=== PATIENT | female | born 1945 | race Caucasian/White ===

== ENCOUNTER 2016-11-23 04:04 | Emergency (ER) | payer MEDICARE, OTHER ==
[~2016-11-23] VITALS: Ht 154.9 cm; Wt 68.0 kg
[~2016-11-23 04:04] MED LIST: AMLODIPINE BESYL5 MG PO; ANTIVERT25 MG PO; ASPIRIN EC325 MG PO; BUPROPION XL300 MG PO; CALTRATE 600 +1 EAC1 PO; CEPHALEXIN500 MG PO; CITALOPRAM HBR20 MG PO; DEXILANT60 MG PO; FLUOCINONIDE60 ML TP; GABAPENTIN100 MG PO; GABAPENTIN300 MG PO; HYDROCHLOROTHIA25 GM MC; HYDROCHLOROTHIA25 MG PO; KLOR-CON 1010 MEQ PO; LEVOTHYROXINE25 MCG PO; LIALDA1.2 GM PO; LISINOPRIL40 MG PO; LOPERAMIDE2 MG PO; LORTAB 5-500 T1 EACH PO; LOVENOX100 MG SUB-Q; MACROBID 100 M100 MG PO; METOPROLOL SUC100 MG PO; METOPROLOL TART25 MG PO; MOTRIN800 MG PO; MULTI-DAY VITA1 EACH PO; NICARDIPINE HCL30 MG PO; NITROGLYCERIN0.4 MG SL; NITROSTAT0.4 MG SL; NORCO 5-325 TA1 EACH PO; NORVASC10 MG PO; OMEPRAZOLE20 MG PO; OXYBUTYNIN CHLOR5 MG PO; PHENAZOPYRIDIN100 MG PO; PREDNISONE5 MG PO; PROAIR HFA8.5 GM IH; PROTONIX40 MG PO; SULFAZINE500 MG PO; TERBINAFINE HC250 MG PO; TORSEMIDE10 MG PO; VITAMIN D31000 UNIT PO; VITAMIN D35000 UNIT PO
[2016-11-23] MEDS ORDERED: LASIX40 MG PO (04:16)
== END 2016-11-23 04:30 | disposition home or self-care (01) ==
LOC: ED 04:04
DX: J06.9 Acute upper respiratory infection, unspecified (principal); E11.9 Type 2 diabetes mellitus without complications; I10 Essential (primary) hypertension; M35.3 Polymyalgia rheumatica; Z87.891 Personal history of nicotine dependence; Z90.49 Acquired absence of other specified parts of digestive tract; Z91.048 Other nonmedicinal substance allergy status; Z88.1 Allergy status to other antibiotic agents; Z88.5 Allergy status to narcotic agent; Z79.891 Long term (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 of opiate analgesic; Z79.52 Long term (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 of systemic steroids; Z79.899 Other long term (current) drug therapy; Z79.82 Long term (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 of aspirin
CPT/HCPCS: 99283

== ENCOUNTER 2017-07-05 20:16 | Emergency (ER) | payer MEDICARE, OTHER ==
[~2017-07-05] VITALS: Ht 154.9 cm; Wt 68.0 kg
--- OUTSIDE RECORDS SUMMARY | ~2017-07-05 | XMS | Encounter Summary ---
Demographics + + + | Address | [address] | | | [place] [address] | + + + | Home Phone | | + + + | Preferred Language | Unknown | + + + | Marital Status | Single | + + + | Anglican Affiliation | Unknown | + + + | Race | Unknown | + + + | Ethnic Group | Unknown | + + + Author + + + | Author | [facility] | | | and [place] | + + + | Organization | [facility] | | | and [place] | + + + | Address | Unknown | + + + | Phone | Unavailable | + + + Support + + + + + | Name | Relationship | Address | Phone | + + + + + | Kit Hyde | ECON | [address] | | | | | [place], | | | | | [place] [address] | | + + + + + | Crystal Hyde | ECON | Unknown | | + + + + + Care Team Providers + +------+ + | Care Systems Developer Name | Role | Phone | + +------+ + | Yoly Gamez | PCP | | + +------+ + Encounter Details +--------+ + + + + | Date | Type | Department | Care Team | Description | +--------+ + + + + | 05/18/ | Hospital | [facility] | Flaco Thorne MD | Dysphagia, | | 2018 | Encounter | [facility] | [address] | unspecified type | | | | [address] | [address] [place] | | | | | [place], [place] | [place] [address] | | | | | [address] | [phone] | | | | | [phone] | | | +--------+ + + + [...] + + + as of this encounter Last Filed Vital Signs + + + + | Vital Sign | Reading | Time Taken | + + + + | Blood Pressure | 149/75 | 05/18/2017 1345 PST | + + + + | Pulse | 58 | 05/18/2017 1400 PST | + + + + | Temperature | 36.3 C (97.3 F) | 05/18/2017 1330 PST | + + + + | Respiratory Rate | 14 | 05/18/2017 1330 PST | + + + + | Oxygen Saturation | 94% | 05/18/2017 1400 PST | + + + + | Inhaled Oxygen | - | - | | Concentration | | | + + + + | Weight | 71.7 kg (158 lb) | 05/18/2017 1253 PST | + + + + | Height | 160 cm (5' 3") | 05/18/2017 1253 PST | + + + + | Body Mass Index | 27.99 | 05/18/2017 1253 PST | + + + + in this encounter Discharge Instructions Erin Mesa RN - 05/18/2017Formatting of this note may be different from the carlos alberto ginal. Upper GI Endoscopy During endoscopy, a long, flexible tube is used to view the inside of your upper GI tract. Upper GI endoscopy allows your healthcare provider to look directly into the beginning of y our gastrointestinal (GI) tract. The esophagus, stomach, and duodenum (the first part of the small intestine) make up the upper GI tract. Before the exam Follow these and any other instructions you are given before your endoscopy. If you don t follow the healthcare provider s instructions carefully, the test may need to be canceled or done over: Don't eat or drink anything after midnight the night before your exam. If your exam is i n the afternoon, drink only clear liquids in the morning. Don't eat or drink anything for8 hours before the exam. In some cases, you may be able to take medicines with sips of water until 2 hours before the procedure. Speak with your healthcare provider about this. Bring your X-rays and any other test results you have. Because you will be sedated, arrange for an adult to drive you home after the exam. Tell your healthcare provider before the exam if you are taking any medicines or have an y medical problems. The procedure Here is what to expect: You will lie on the endoscopy table. Usually patients lie on the left side. You will be monitored and given oxygen. Your throat may be numbed with a spray or gargle. You are given medicine through an intr avenous (IV) line that will help you relax and remain comfortable. You may be awake or aslee p during the procedure. The healthcare provider will put the endoscope in your mouth and down your esophagus.I tis thinner than most pieces of food that you swallow. It will not affect your breathing. The medicine helps keep you from gagging. Air is put into your GI tract to expand it. It can make you burp. During the procedure, the healthcare provider can take biopsies (tissue samples), remove abnormalities, such as polyps, or treat abnormalities through a variety of devices placed t hrough the endoscope. You will not feel this. The endoscope carries images of your upper GI tract to a video screen. If you are awake, you may be able to look at the images. After the procedure is done, you will rest for a time. An adult must drive you home. When to call your healthcare provider Contact your healthcare provider if you have: Black or tarry stools, or blood in your stool Fever Pain in your belly that does not go away Nausea and vomiting, or vomiting blood Date Last Reviewed: 09/12/[id number] [employer]. [address] [place] [address], [place] [address]. All righ ts reserved. This information is not intended as a substitute for professional medical care. Always follow your healthcare professional's instructions. in this encounter Medications at Time of Discharge + + +---------+---------+ + + | Medication | Sig. | Disp. | Refills | Start | End Date | | | | | | Date | | + + +---------+---------+ + + | albuterol 2.5 mg/3 | Take 2.5 mg by | | 0 | 11/17/20 | | | mL nebulizer | nebulization every 4 | | | 17 | | | solution | hours as needed. | | | | | | | Uses as needed | | | | | + + +---------+---------+ + + | aspirin 325 mg EC | Take 325 mg by mouth | | | | | | tablet | Daily. 4 tablets | | | | | | | daily | | | | | + + +---------+---------+ + + | Blood Glucose | by Does not apply | | | | | | Monitoring Suppl | route. | | | | | | (ONE TOUCH ULTRA | | | | | | | MINI) w/Device KIT | | | | | | + + +---------+---------+ + + | buPROPion | Take 1 tablet by | 180 | 3 | 07/16/19 | | | (WELLBUTRIN SR) 200 | mouth 2 times daily. | tablet | | 17 | | | MG 12 hr tablet | | | | | | + + +---------+---------+ + + | calcium, as | Take 1,200 mg by | | | | | | carbonate, | mouth Daily. | | | | | | (CALTRATE) 600 mg | | | | | | | tablet | | | | | | + + +---------+---------+ + + | clobetasol | Apply topically as | | | 06/22/19 | | | (TEMOVATE) 0.05% | needed. | | | 15 | | | ointment | | | | | | + + +---------+---------+ + + | dexlansoprazole | Take 1 capsule by | 90 | 3 | 03/09/20 | | | (DEXILANT) [address] | mouth Daily. | capsule | | 17 | | | capsuleIndications: | | | | | | | Gastric reflux | | | | | | + + +---------+---------+ + + | FORTEO 600 | Inject under the | | | 07/01/19 | | | MCG/2.4ML injection | skin Daily. | | | 17 | | + + +---------+---------+ + + | furosemide (LASIX) | Take 1 tablet by | 90 | 3 | 03/01/20 | | | 40 mg tablet | mouth Daily. | tablet | | 17 | | + + +---------+---------+ + + | melatonin 3 mg | Take 3 mg by mouth | | | | | | TABS | Daily. | | | | | + + +---------+---------+ + + | metoprolol | TAKE 1 TABLET EVERY | 90 | 3 | 02/12/20 | | | succinate | DAY | tablet | | 17 | | | (TOPROL-XL) 100 mg | | | | | | | ER tablet | | | | | | + + +---------+---------+ + + | NIFEdipine | Take 60 mg by mouth | | | | | | (NIFEDICAL XL) 60 mg | Daily. As needed to | | | | | | ER tablet | relax esophagus | | | | | + + +---------+---------+ + + | ONE TOUCH ULTRA | Use to check blood | 100 | 11 | 03/09/20 | | | TEST | sugars daily. | each | | 17 | | | stripIndications: | | | | | | | Controlled type 2 | | | | | | | diabetes mellitus | | | | | | | without | | | | | | | complication, | | | | | | | without long-term | | | | | | | current use of | | | | | | | insulin (HCC) | | | | | | + + +---------+---------+ + + | ONE TOUCH | TEST once daily | 100 | 11 | 03/09/20 | | | ULTRASOFT LANCETS | | each | | 17 | | | MISCIndications: | | | | | | | Controlled type 2 | | | | | | | diabetes mellitus | | | | | | | without | | | | | | | complication, | | | | | | | without long-term | | | | | | | current use of | | | | | | | insulin (HCC) | | | | | | + + +---------+---------+ + + | oxygen | Inhale 2 L into the | | | | | | | lungs nightly. | | | | | + + +---------+---------+ + + | potassium chloride | TAKE 2 TABLETS EVERY | 180 | 3 | 01/19/20 | | | (KLOR-CON) 10 mEq | DAY | tablet | | 17 | | | CR tablet | | | | | | + + +---------+---------+ + + | predniSONE | Take 5 mg by mouth | | | 09/29/19 | | | (DELTASONE) 5 mg | Daily. | | | 15 | | | tablet | | | | | | + + +---------+---------+ + + | pregabalin | Take 1 capsule by | 90 | 2 | 01/13/20 | | | (LYRICA) 50 MG | mouth 3 times daily. | capsule | | 17 | 8 | | capsule | | | | | | + + +---------+---------+ + + | PROAIR HFA 108 (90 | Inhale 1 puff into | | | 08/09/19 | | | BASE) MCG/ACT | the lungs every 6 | | | 15 | | | inhaler | hours as needed. | | | | | + + +---------+---------+ + + | UNABLE TO FIND | Med Name: | | | | | | | Respironics | | | | | | | Dreamstation APAP | | | | | | | 5-15cm while | | | | | | | sleeping. | | | | | + + +---------+---------+ + + | nitrofurantoin | Take 1 capsule by | 10 | 0 | 05/17/19 | | | (MACROBID) 100 mg | mouth 2 times daily | capsule | | 18 | 8 | | capsuleIndications: | for 5 days. | | | | | | Uncomplicated | Indications: Simple | | | | | | Urinary Tract | Infection of the | | | | | | Infection | Urinary Tract | | | | | + + +---------+---------+ + + as of this encounter Plan of Treatment +--------+ + + + + | Date | Type | Specialty | Care Team | Description | +--------+ + + + + | 06/30/ | Procedure | Family Medicine | | | | 2018 | Pass | | | | +--------+ + + + + | 07/15/ | Appointment | Radiology | VeraYoly FNP | | | 2017 | | | [address] | | | | | | [place] | | | | | | [address] | | | | | | | | +--------+ + + + + | 07/15/ | Appointment | Radiology | VeraYoly FNP | | | 2017 | | | [address] | | | | | | [place] | | | | | | [address] | | | | | | | | | | | | Mechelle Lord, | | | | | | Technologist | | +--------+ + + + + | 07/15/ | Appointment | Radiology | VeraYoly FNP | | | 2017 | | | [address] | | | | | | [place] | | | | | | [address] | | | | | | | | | | | | Lorene Arthur, | | | | | | Senior Copywriter | | +--------+ + + + + | 08/01/ | Office | Family Medicine | Yoly Gamez FNP | | | 2017 | Visit | | [address] | | | | | | [place] | | | | | | [address] | | | | | | | | +--------+ + + + + | 08/02/ | Office | Sleep Medicine | Chu Davis PA | | | 2017 | Visit | | [address] | | | | | | [place] | | | | | | [address] | | | | | | | | +--------+ + + + + | 10/13/ | Office | Cardiology | Alpa Corcoran, | | | 2017 | Visit | | MD [address] | | | | | | [place], | | | | | | [place] [address] | | | | | | [phone] | | | | | | | | +--------+ + + + + as of this encounter Procedures + +--------+ + + + | Procedure Name | Priori | Date/Time | Associated Diagnosis | Comments | | | ty | | | | + +--------+ + + + | EGD | | 05/18/2017 | Dysphagia, | | | | | 1335 PST | unspecified type | | | | | | (R13.10), Advanced | | | | | | age (R54), History | | | | | | of stroke (Z86.73), | | | | | | On supplemental | | | | | | oxygen therapy | | | | | | (Z99.81) | | + +--------+ + + + +---+--------+ | | | | | Specia | | | l | | | Needs | | | Uses | | | cane | | | for | | | ambula | | | tion | +---+--------+ in this encounter Results EGD (05/18/2017 1309) + + + | Specimen | Performing Laboratory | + + + | | [facility] | + + + + + | Narrative | + + | Gastroenterology Patient Name: Giovana Perez Procedure Date: 05/18/2017 1:09 PM MRN: | | [id number] Date of : 1945 Admit Type: Ambulatory | | Age: 71 Room: [place] [address] Gender: Female Note Status: Finalized Attending MD: Flaco | | Deandre Thorne MD Procedure: Upper GI endoscopy Indications: | | Dysphagia Providers: Flaco Thorne MD, Lanie Colunga RN, | | Deann Patel RN, Hawk Pena CMA, Shay David | | MD Kofi (Anesthesia Staff) Referring | | MD: Yoly Gamez (Referring MD) Medicines: Monitored | | Anesthesia Care Complications: No immediate complications. Procedure: | | Pre-Anesthesia Assessment: - Prior to the procedure, a History and | | Physical was performed, and patient medications and allergies were reviewed. | | The patient is competent. The risks and benefits of the procedure and the | | sedation options and risks were discussed with the patient. All questions | | were answered and informed consent was obtained. Patient identification and | | proposed procedure were verified by the physician, the nurse, the | | anesthesiologist and the water supply technician in the pre-procedure area in the | | procedure room. Mental Status Examination: alert and oriented. Airway | | Examination: normal oropharyngeal airway and neck mobility. Respiratory | | Examination: clear to auscultation. CV Examination: normal. Prophylactic | | Antibiotics: The patient does not require prophylactic antibiotics. Prior | | Anticoagulants: The patient has taken no previous anticoagulant or | | antiplatelet agents. ASA Grade Assessment: III - A patient with severe | | systemic disease. After reviewing the risks and benefits, the patient was | | deemed in satisfactory condition to undergo the procedure. The anesthesia | | plan was to use monitored anesthesia care (MAC). Immediately prior to | | administration of medications, the patient was re-assessed for adequacy to | | receive sedatives. The heart rate, respiratory rate, oxygen saturations, | | blood pressure, adequacy of pulmonary ventilation, and response to care were | | monitored throughout the procedure. The physical status of the patient was | | re-assessed after the procedure. After obtaining informed consent, the | | endoscope was passed under direct vision. Throughout the procedure, the | | patient's blood pressure, pulse, and oxygen saturations were monitored | | continuously. The Endoscope was introduced through the mouth, and advanced to | | the third part of duodenum. The upper GI endoscopy was accomplished without | | difficulty. The patient tolerated the procedure well. Findings: | | The Z-line was irregular and was found 35 cm from the incisors. Biopsies were | | taken with a cold forceps for histology. Verification of patient | | identification for the specimen was done by the physician and nurse using the | | patient's name and date. Estimated blood loss was minimal. | | One benign-appearing, intrinsic stenosis was found. This stenosis was mildly | | severe and measured 1.4 cm (inner diameter) x less than one cm (in length). | | The stenosis was traversed. A guidewire was placed and the scope was | | withdrawn. Dilation was performed with a Savary dilator with no resistance at | | 48 Fr. The exam of the esophagus was otherwise normal. Diffuse | | mildly erythematous mucosa without bleeding was found in the entire examined | | stomach. Biopsies were taken with a cold forceps for histology. Verification | | of patient identification for the specimen was done by the physician and | | nurse using the patient's name and date. Estimated blood loss was | | minimal. Evidence of a Tara fundoplication was found in the gastric fundus. | | The wrap appeared tight. No other significant abnormalities were | | identified in a careful examination of the stomach. The examined | | duodenum was normal. Impression: - Z-line irregular, 35 cm from the incisors. | | Biopsied. - Benign-appearing esophageal stenosis. Dilated. - | | Erythematous mucosa in the stomach. Biopsied. - A Tara fundoplication was | | found. The wrap appears tight. - Normal examined duodenum. Recommendation: | | - Patient has a contact number available for emergencies. The signs and | | symptoms of potential delayed complications were discussed with the | | patient. Return to normal activities tomorrow. Written discharge instructions | | were provided to the patient. - Resume previous diet. - Continue | | present medications. - Await pathology results. - Repeat upper | | endoscopy for surveillance based on pathology results. - Return to GI clinic | | PRN. - The findings and recommendations were discussed with the patient. | | Flaco Thorne MD 05/18/2017 1:30:10 PM This report has been signed electronically. | | Number of Addenda: 0 Note Initiated On: 05/18/2017 1:09 PM Total Procedure Duration: 0 | | hours 9 minutes 25 seconds Scope In: 1:14:30 PM Scope Out: 1:23:55 PM | | [facility] [place] [address] | | [phone] | + + Surgical Pathology Exam (05/18/2017) + + + | Specimen | Performing Laboratory | + + + | | [facility] | + + + + + | Narrative | + + | SPECIMEN(S): A GASTRIC BIOPSY SPECIMEN(S): B GE JUNCTION SPECIMEN(S): C MID | | ESOPHAGEAL BIOPSY SPECIMEN SOURCE: A. GASTRIC BIOPSY B. GE JUNCTION C. MID | | ESOPHAGEAL BIOPSY CLINICAL HISTORY: R13.10 (dysphagia, unspecified), R54 | | (age-related physical debility , Z86.73 (Personal history of transient ischemic attack | | (TIA), and cerebral infarction without residual deficits), Z99.81 (Dependence on | | supplemental oxygen) MICROSCOPIC DESCRIPTION: Histologic sections of all submitted | | blocks are examined by light microscopy. These findings, together with the gross | | examination, support the pathologic diagnosis. FINAL PATHOLOGIC DIAGNOSIS: | | A. Gastric biopsy: - Gastric-type mucosa with focal slight chronic inflammation. | | - Reactive epithelial features. - Negative for definite dysplasia. | | - Negative for evidence of Helicobacter organisms on routine HE-stained sections. | | B. Gastroesophageal junction: - Gastroesophageal junction with focal specialized | | intestinal (goblet cell) metaplasia. - Focal mixed inflammation and reactive | | epithelial features. - Negative for definite dysplasia. C. Mid esophageal | | biopsy: - Benign esophageal mucosa, negative for increased epithelial eosinophils. | | JVR:caw:C2NR GROSS DESCRIPTION: Received in three parts. A. Received in | | formalin labeled "Giovana White" and "gastric bx" on the requisition are four pink-cai | | tissue fragments measuring from 0.15-0.3 cm, submitted, all in (A1). B. Received in | | formalin labeled "Giovana White" and "GE junction bx" on the requisition is a 0.5 x 0.3 x | | 0.2 cm villafana-pink and cai colored tissue fragments, submitted, all in (B1). C. | | Received in formalin labeled "Giovana White" and "mid esophageal bx" on the requisition | | are two villafana-cai tissue fragments measuring from 0.4-0.6 cm, submitted, all in (C1). | | ka:GABY:katerina PERFORMING LABORATORY: Tissue processing and slide preparation were | | performed by [facility], [address] [facility], [address], [place] [address] | | (Educational Resource Coordinator: Anirudh Roque M.D. CLIA#: [id number]). Professional interpretation | | was performed by [facility], [facility], [address] | | [facility], [place] [address] (Educational Resource Coordinator: Anirudh Roque M.D.; CLIA#: | | [id number]). Diagnostician: Anirudh Roque MD Pathologist Electronically | | Signed 05/20/2017 | + + in this encounter Visit Diagnoses + + | Diagnosis | + + | Dysphagia, unspecified type | + + Admitting Diagnoses + + | Diagnosis | + + | Dysphagia, unspecified type (R13.10), Advanced age (R54), History of stroke (Z86.73), On | | supplemental oxygen therapy (Z99.81) | + + Administered Medications + +--------+---------+------+------+------+ | Medication Order | MAR | Action | Dose | Rate | Site | | | Action | Date | | | | + +--------+---------+------+------+------+ + +---+ | albuterol 2.5 mg/3 mL nebulizer | | | solution 2.5 mg 2.5 mg, | | | Nebulization, ONCE PRN, Wheezing, | | | Starting 05/18/17 at 1239, For | | | 1 dose, RT will administer. | | + +---+ | | | + +---+ | albuterol 2.5 mg/3 mL nebulizer | | | solution 2.5 mg 2.5 mg, | | | Nebulization, ONCE PRN, Wheezing, | | | Starting 05/18/17 at 1330, For | | | 1 dose, Notify anesthesia if | | | patient is wheezing and does not | | | have a history of asthma or COPD | | | or current smoking. | | + +---+ | | | + +---+ | dextrose 50% injection 12.5-25 | | | g 12.5-25 g, Intravenous, EVERY | | | 15 MIN PRN, Low Blood Sugar, Give | | | 12.5g (25 mL) IV if blood | | | glucose 50-69 mg/dL. Give 25g | | | (50 mL) IV if blood glucose < 50, | | | Starting 05/18/17 at 1239, | | | Repeat in 15 min if blood glucose | | | remains < 70 mg/dL. Repeat | | | blood glucose in 30 min once | | | blood glucose > 70. | | + +---+ | | | + +---+ | dextrose 50% injection 12.5-25 | | | g 12.5-25 g, Intravenous, EVERY | | | 15 MIN PRN, Low Blood Sugar, For | | | hypoglycemia. Give 12.5g (25ml) | | | IV if blood glucose 50-69 | | | mg/dL. Give 25g (50ml) IV if | | | blood glucose < 50, Starting Wed | | | 05/18/17 at 1330, Give over 2 min. | | | Repeat in 15 min if blood | | | glucose remains < 70 mg/dL. | | | Repeat blood glucose in 30 min | | | once blood glucose > 70. | | + +---+ | | | + +---+ | fentaNYL (PF) injection 25-50 | | | mcg 25-50 mcg, Intravenous, | | | EVERY 5 MIN PRN, Pain, Starting | | | 05/18/17 at 1330, Maximum total | | | dose 250 mcg. PACU IV Narcotic | | | Priority: Only use fentanyl for | | | immediate post-op pain (one dose) | | | or breakthrough pain when any | | | other IV narcotics ordered have | | | been ineffective (if ordered). | | | If both morphine and | | | hydromorphone are ordered, use | | | morphine first, and use | | | hydromorphone if morphine | | | ineffective. | | + +---+ | | | + +---+ + +---------+ +---+---+---+ | lactated ringers (LR) infusion | New Bag | 05/18/2017 | | | | | at 10-100 mL/hr, Intravenous, | | 12:46 | | | | | CONTINUOUS, Starting 05/18/17 | | PST | | | | | at 1300, TKO. | | | | | | + +---------+ +---+---+---+ + +---+ | | | + +---+ | meperidine (DEMEROL) injection | | | 12.5-25 mg 12.5-25 mg, | | | Intravenous, PRN, Shivering, | | | Starting 05/18/17 at 1330, For | | | 2 doses, May Repeat once in 5 | | | min. | | + +---+ | | | + +---+ | ondansetron (ZOFRAN) injection | | | 4 mg 4 mg, Intravenous, ONCE | | | PRN, Nausea, Starting 05/18/17 | | | at 1239, For 1 dose, Pre-op | | + +---+ | | | + +---+ | ondansetron (ZOFRAN) injection | | | 4 mg 4 mg, Intravenous, ONCE | | | PRN, Nausea, Starting 05/18/17 | | | at 1330, For 1 dose, | | | Recovery/Phase I | | + +---+ | | | + +---+ in this encounter
--- OUTSIDE RECORDS SUMMARY | ~2017-07-05 | XMS | Encounter Summary ---
Demographics + + + | Address | [address] | | | [place] [address] | + + + | Home Phone | | + + + | Preferred Language | Unknown | + + + | Marital Status | Single | + + + | Jehovah'S Witness Affiliation | Unknown | + + + | Race | Unknown | + + + | Ethnic Group | Unknown | + + + Author + + + | Author | [facility] | | | and [place] | + + + | Organization | [facility] | | | and [place] | + + + | Address | Unknown | + + + | Phone | Unavailable | + + + Support + + + + + | Name | Relationship | Address | Phone | + + + + + | Kit Hyde | ECON | [address] | | | | | [place], | | | | | [place] [address] | | + + + + + | Crystal Hyde | ECON | Unknown | | + + + + + Care Team Providers + +------+ + | Care Intervention Analyst Name | Role | Phone | + +------+ + | Yoly Gamez | PCP | | + +------+ + Encounter Details +--------+ + + + + | Date | Type | Department | Care Team | Description | +--------+ + + + + | 06/10/ | Abstract | [facility] | Yoly Gamez FNP | | | 2017 | | MEDICINE [place] | [address] | | | | | [address] | [place] | | | | | [place] | [address] | | | | | [address] | | | | | | [phone] | | | +--------+ + + + [...] | Family Medicine | | | | 2017 | Pass | | | | +--------+ + + + + | 07/15/ | Appointment | Radiology | Yoly Gamez FNP | | | 2017 | | | [address] | | | | | | [place] | | | | | | [address] | | | | | | | | +--------+ + + + + | 07/15/ | Appointment | Radiology | Yoly Gamez FNP | | | 2017 | | | [address] | | | | | | [place] | | | | | | [address] | | | | | | | | | | | | Mechelle Lord, | | | | | | Technologist | | +--------+ + + + + | 07/15/ | Appointment | Radiology | Yoly Gamez FNP | | | 2017 | | | [address] | | | | | | [place] | | | | | | [address] | | | | | | | | | | | | Lorene Arthur, | | | | | | Learning And Development Intern | | +--------+ + + + + | 08/01/ | Office | Family Medicine | Yoly Gamez FNP | | | 2017 | Visit | | [address] | | | | | | [place] | | | | | | [address] | | | | | | | | +--------+ + + + + | 08/02/ | Office | Sleep Medicine | Chu Davis PA | | | 2017 | Visit | | [address] | | | | | | [place] | | | | | | [address] | | | | | | | | +--------+ + + + + | 10/13/ | Office | Cardiology | Alpa Corcoran, | | | 2017 | Visit | | [address] | | | | | | [place], | | | | | | [place] [address] | | | | | | [phone] | | | | | | | | +--------+ + + + + as of this encounter Results External Lab: Urinalysis (06/06/2017) + +-------+ + | Component | Value | Ref Range | + +-------+ + | UA Specific [place], | 1.020 | 1.005 - 1.03 | | External | | | + +-------+ + | UA Leukocyte | 500 | | | Esterase, External | | | + +-------+ + Urinalysis, Reflex Microscopic and/or Culture (06/06/2017) + + + + | Component | Value | Ref Range | + + + + | Color | brown | | + + + + | BILIRUBIN UA | 1 mg/dL (A) | Negative | + + + + | UROBILINOGEN UA | 1 mg/dL | < 0.2 mg/dL, 1.0 | | | | mg/dL, 4.0 mg/dL, | | | | Normal, 1.0 E.U./dL, | | | | 0.2 E.U./dL, 0.2 | | | | mg/dL, Negative, 1 | | | | mg/dL, <2.0 mg/dL | + + + + | NITRITE UA | Positive (A) | Negative | + + + + | BACTERIA UA | Negative | Negative /HPF | + + + + | MUCUS UA | | Negative /LPF | + + + + + + + | Specimen | Performing Laboratory | + + + | Urine | | + + + External Lab: Urinalysis (06/06/2017) + + + + | Component | Value | Ref Range | + + + + | UA Ketones, External | negative | | + + + + | UA Ph, External | 5 | 5 - 9 | + + + + External Lab: Urinalysis (06/06/2017) + +--------+ + | Component | Value | Ref Range | + +--------+ + | UA Glucose, External | normal | | + +--------+ + | UA Proteins, | 25 | | | External | | | + +--------+ + in this encounter Visit Diagnoses Not on filein this encounter"
--- OUTSIDE RECORDS SUMMARY | ~2017-07-05 | XMS | Encounter Summary ---
Demographics + + + | Address | [address] | | | [place] [address] | + + + | Home Phone | | + + + | Preferred Language | Unknown | + + + | Marital Status | Single | + + + | Mosque Affiliation | Unknown | + + + | Race | Unknown | + + + | Ethnic Group | Unknown | + + + Author + + + | Author | [facility] | | | and [place] | + + + | Organization | [facility] | | | and [place] | + + + | Address | Unknown | + + + | Phone | Unavailable | + + + Support + + + + + | Name | Relationship | Address | Phone | + + + + + | Kit Hyde | ECON | [address] | | | | | [place], | | | | | [place] [address] | | + + + + + | Crystal Hyde | ECON | Unknown | | + + + + + Care Team Providers + +------+ + | Care Blood Donor Unit Assistant Name | Role | Phone | + +------+ + | Yoly Gamez | PCP | | + +------+ + Encounter Details +--------+ + + + + | Date | Type | Department | Care Team | Description | +--------+ + + + + | 06/30/ | Procedure | [facility] [place] [facility] | | | | 2018 | Pass | MEDICINE [place] | | | | | | [address] | | | | | | [place] | | | | | | [address] | | | | | | [phone] | | | +--------+ + + + [...] [place] | | | | | | [address] | | | | | | | | +--------+ + + + + | 07/15/ | Appointment | Radiology | Yoly Gamez FNP | | | 2017 | | | [address] | | | | | | [place] | | | | | | [address] | | | | | | | | | | | | Mechelle Lord, | | | | | | Technologist | | +--------+ + + + + | 07/15/ | Appointment | Radiology | Yoly Gamez FNP | | | 2017 | | | [address] | | | | | | [place] | | | | | | [address] | | | | | | | | | | | | Lorene Arthur, | | | | | | Cab Station Attendant | | +--------+ + + + + | 08/01/ | Office | Family Medicine | Yoly Gamez FNP | | | 2017 | Visit | | [address] | | | | | | [place] | | | | | | [address] | | | | | | | | +--------+ + + + + | 08/02/ | Office | Sleep Medicine | Chu Davis PA | | | 2017 | Visit | | [address] | | | | | | [place] | | | | | | [address] | | | | | | | | +--------+ + + + + | 10/13/ | Office | Cardiology | Alpa Corcoran, | | | 2017 | Visit | | [place] [address] | | | | | | [place], | | | | | | [place] [address] | | | | | | [phone] | | | | | | | | +--------+ + + + + as of this encounter Visit Diagnoses Not on filein this encounter"
--- OUTSIDE RECORDS SUMMARY | ~2017-07-05 | XMS | Encounter Summary ---
Demographics + + + | Address | [address] | | | [place] [address] | + + + | Home Phone | | + + + | Preferred Language | Unknown | + + + | Marital Status | Single | + + + | Latter Day Affiliation | Unknown | + + + | Race | Unknown | + + + | Ethnic Group | Unknown | + + + Author + + + | Author | [facility] | | | and [place] | + + + | Organization | [facility] | | | and [place] | + + + | Address | Unknown | + + + | Phone | Unavailable | + + + Support + + + + + | Name | Relationship | Address | Phone | + + + + + | Kit Hyde | ECON | [address] | | | | | [place], | | | | | [place] [address] | | + + + + + | Crystal Hyde | ECON | Unknown | | + + + + + Care Team Providers + +------+ + | Care Hand Outside Cutter Name | Role | Phone | + +------+ + | Yoly Gamez | PCP | | + +------+ + Reason for Visit + + + | Reason | Comments | + + + | Urinary Tract | | | Infection | | + + + Encounter Details +--------+ + + + + | Date | Type | Department | Care Team | Description | +--------+ + + + + | 06/06/ | Telephone | [facility] | VeraYoly FNP | Urinary Tract | | 2018 | | [facility] [place] | [address] | Infection | | | | [address] | [place] | | | | | [place] | [address] | | | | | [address] | | | | | | [phone] | | | +--------+ + + + [...] [place] | | | | | | [id number] | | | | | | | | +--------+ + + + + | 07/15/ | Appointment | Radiology | Yoly Gamez FNP | | | 2017 | | | [address] | | | | | | [place] | | | | | | [address] | | | | | | | | | | | | Mechelle Lord, | | | | | | Technologist | | +--------+ + + + + | 07/15/ | Appointment | Radiology | Yoly Gamez FNP | | | 2017 | | | [address] | | | | | | [place] | | | | | | [address] | | | | | | | | | | | | Lorene Arthur, | | | | | | Deck Scaler | | +--------+ + + + + | 08/01/ | Office | Family Medicine | Yoly Gamez FNP | | | 2017 | Visit | | [address] | | | | | | [place] | | | | | | [address] | | | | | | | | +--------+ + + + + | 08/02/ | Office | Sleep Medicine | Chu Davis PA | | | 2017 | Visit | | [address] | | | | | | [place], [place] | | | | | | [address] | | | | | | | | +--------+ + + + + | 10/13/ | Office | Cardiology | Alpa Corcoran, | | | 2017 | Visit | | [place] [address] | | | | | | [place], | | | | | | [place] [address] | | | | | | [phone] | | | | | | | | +--------+ + + + + + +--------+ + + | Name | Priori | Associated Diagnoses | Order Schedule | | | ty | | | + +--------+ + + | Urinalysis with Microscopic with | Routin | Urgency of | Expected: | | Culture if Indicated | e | urination Pain | 06/06/2017, Expires: | | | | passing urine | 06/06/2018 | + +--------+ + + as of this encounter Visit Diagnoses + + | Diagnosis | + + | Urgency of urination - Primary | + + | Pain passing urine | + + | Dysuria | + +"
--- OUTSIDE RECORDS SUMMARY | ~2017-07-05 | XMS | Encounter Summary ---
Demographics + + + | Address | [address] | | | [place] [address] | + + + | Home Phone | | + + + | Preferred Language | Unknown | + + + | Marital Status | Single | + + + | Yarsani Affiliation | Unknown | + + + | Race | Unknown | + + + | Ethnic Group | Unknown | + + + Author + + + | Author | [facility] | | | and [place] | + + + | Organization | [facility] | | | and [place] | + + + | Address | Unknown | + + + | Phone | Unavailable | + + + Support + + + + + | Name | Relationship | Address | Phone | + + + + + | Kit Hyde | ECON | [address] | | | | | [place], | | | | | [place] [address] | | + + + + + | Crystal Hyde | ECON | Unknown | | + + + + + Care Team Providers + +------+ + | Care Bench Assembler Operator Name | Role | Phone | + +------+ + | Yoly Gamez | PCP | | + +------+ + Reason for Referral Diagnostic/Screening (Routine) + +--------+ + + + + | Status | Reason | Specialty | Diagnoses / | Referred By | Referred To | | | | | Procedures | Contact | Contact | + +--------+ + + + + | Authorized | | Radiology | Diagnoses | Buriani, | [facility] | | | | | Altered | Yoly, COMMUNITY HEALTH EDUCATOR | [address] | | | | | mental | [address] | [place], | | | | | status, | [address] [place] | [place] | | | | | unspecified | [place], [place] | [address] | | | | | altered | [address] | Phone: | | | | | mental | Phone: | [phone] | | | | | status type | [phone] | Fax: | | | | | History of | Fax: | [phone] | | | | | TIA | [phone] | | | | | | (transient | | | | | | | ischemic | | | | | | | attack) and | | | | | | | stroke | | | | | | | Procedures | | | | | | | ECHO | | | | | | | Complete | | | + +--------+ + + + + Diagnostic/Screening (Routine) + +--------+ + + + + | Status | Reason | Specialty | Diagnoses / | Referred By | Referred To | | | | | Procedures | Contact | Contact | + +--------+ + + + + | Authorized | | Radiology | Diagnoses | Buriani, | [facility] | | | | | Altered | Yoly, COMMUNITY HEALTH EDUCATOR | [address] | | | | | mental | [address] | [place], | | | | | status, | [address] [place] | [place] | | | | | unspecified | [place], [place] | [address] | | | | | altered | [address] | Phone: | | | | | mental | Phone: | [phone] | | | | | status type | [phone] | Fax: | | | | | History of | Fax: | [phone] | | | | | TIA | [phone] | | | | | | (transient | | | | | | | ischemic | | | | | | | attack) and | | | | | | | stroke | | | | | | | Procedures | | | | | | | MRI Brain w | | | | | | | wo Contrast | | | + +--------+ + + + + Evaluate & Treat (Routine) + + + + + + + | Status | Reason | Specialty | Diagnoses / | Referred By | Referred To | | | | | Procedures | Contact | Contact | + + + + + + + | Authorized | Specialty | Urology | Diagnoses | Buriani, | [facility] | | | Services | | Recurrent | Yoly, COMMUNITY HEALTH EDUCATOR | Urology [address] | | | Required | | UTI Renal | [address] | [address] | | | | | cyst, right | [address] [place] | [address] | | | | | | [place], [place] | [place], | | | | | | [address] | [place] [address] | | | | | | Phone: | Phone: | | | | | | [phone] | [phone] | | | | | | Fax: | Fax: | | | | | | [phone] | [phone] | + + + + + + + Reason for Visit + + + | Reason | Comments | + + + | Memory Or Cognitive | Tue she was nauseated and started having memory issues,she | | Changes | couldn't remember where she put things she was not able to do | | | anything like running the phone, tv remote lasting hr.She started | | | with a slight headache and head felt hot to touch,denies stroke | | | like symptoms.She started taking her Macrobid on 06/24.Family | | | member did a mini mental on her and the only problems she had was | | | with math and drawing the clock. | + + + Encounter Details +--------+---------+ + + + | Date | Type | Department | Care Team | Description | +--------+---------+ + + + | 06/30/ | Office | [facility] [place] [facility] | VeraYoly FNP | Altered mental | | 2018 | Visit | [facility] | [address] | status, unspecified | | | | [address] | [place] | altered mental | | | | [place] | [address] | status type (Primary | | | | [address] | | Dx); History of TIA | | | | [phone] | | (transient ischemic | | | | | | attack) and stroke; | | | | | | Recurrent UTI; Hx | | | | | | renal cyst, right - | | | | | | 06/2015; High | | | | | | cholesterol | +--------+---------+ + + + Social History + + [...] + + + | Blood Pressure | 172/82 | 06/30/2017940 PDT | + + + + | Pulse | 58 | 06/30/2017940 PDT | + + + + | Temperature | 37 C (98.6 F) | 06/30/2017940 PDT | + + + + | Respiratory Rate | 20 | 06/30/2017940 PDT | + + + + | Oxygen Saturation | 95% | 06/30/2017940 PDT | + + + + | Inhaled Oxygen | - | - | | Concentration | | | + + + + | Weight | 70 kg (154 lb 5.2 | 06/30/2017 0941 PDT | | | oz) | | + + + + | Height | 160 cm (5' 2.99") | 06/30/2017 0941 PDT | + + + + | Body Mass Index | 27.34 | 06/30/2017 0941 PDT | + + + + in this encounter Progress Notes Yoly Gamez, OSCAR - 06/30/2017 0930 PDTFormatting of this note may be different from the o bekainal. Subjective: Patient ID: Giovana Perez is a 71 y.o. female. HPI PMH: asthma, adrenal insufficiency, hypertension, hypothyroidism, peripheral nerve pain, os teoporosis, Crohn's disease, tubular adenoma colon, BETTY, diet controlled diabetes, depressio n, carotid stenosis right, esophageal reflux, esophageal dyskinesia, esophageal dysmotility (barium swallow 2013), diverticulosis, stroke, partial colectomy, savory dilation 02/28/14 Here today with caregiver, Sonali. Sonali has been her caregiver since 09/2016. She goes to [facility] [employer] [facility] x 3 hours each day, usually 11-2pm. Sonali would like to see if we can get Giovana qualified for additional hours. Currently Sonali is not supposed to drive her to appointment s but unfortunately patient has nobody else to take her and even if she were able to get tra nsportation she cannot go to the appointment alone due to memory difficulties with her histo ry. She currently is allowed 15 hours a week through [facility]. Message will be sent to [facility] to work on this. Altered mental status: Symptoms started 3 days ago. Noticed she was forgetting where she pu t things with mild headache which started 06/27/17 evening. She called and spoke with [facility] over the phone. The next day, more trouble, unable to use computer, phone, TV. No weaknes s. Caregiver was gone that day. Didn't last all day, symptoms only lasted about 1 hour. No s lurred speech. Son's mother in law is a nurse, she came over and ran her through tests for s troke, mini mental status exam, unable to draw clock correctly and unable to count backwards from 100 by 7, was able to answer all other questions appropriately. History of stroke appr oximately 20 years ago. Couple TIAs prior to stroke. Has carotid ultrasounds every 2 years, last was within the past year, at [facility]. Right carotid completely blocked. Dr Baez did surgery on left, approximately 20 years ago, after stroke. Last Brain MRI with stroke, 20 ye ars ago, [place]. Discuss options about getting a brain MRI, echo, ultrasound of the montaoñ tids now to workup for current possible TIA. We can hold off and see if symptoms occur and perform workup at that time. She would like to have a full workup run at this time, tests w ill be ordered. Recurrent UTIs: Currently being treated with Macrobid for UTI, started 06/24/17. All symptom s cleared after first Cipro prescription which was taken from 06/11-06/13. Symptoms returned ro ughly 06/21-06/22 and then recalled she was supposed to repeat urine and repeated it on the . Since started antibiotics symptoms improved but have not cleared, has enough to last thr ough Tuesday. Reviewed C&S, will change to doxycycline. She will repeat urinalysis 3-4 day s after completion of doxycycline. Several UTIs last year, but not back to back. Saw Dr Lizette garcía roughly 2-3 years ago, he found "something on right kidney", will obtain report. With tomas chan having 3 [id number] UTIs would like her to see urologist, she would like to see Gabriela Saucedo. Has diarrhea due to Crohn's, uses wet wipes after every diarrheal stool. This coul d be part of the difficulty with recurrent UTIs. She never had her lab work done, printed the lab order and she will get done in [place] w hen she goes into repeat the urinalysis. Uses her albuterol inhaler roughly 2 times a day, has never used a preventative inhaler, we likely need to discuss this and get her on a preventative inhaler. Unfortunately at this t katty we have run out of time to discuss anything further during this visit. She is coming ba ck in one month and we will discuss it at that time. Patient's medications, allergies, past medical, surgical, social and family histories were obtained and reviewed as appropriate. Current Outpatient Prescriptions: albuterol 2.5 mg/3 mL nebulizer solution, Take 2.5 mg by nebulization every 4 hours as needed. Uses as needed, Disp: , Rfl: 0 aspirin 325 mg EC tablet, Take 325 mg by mouth Daily. 4 tablets daily , Disp: , Rfl: Blood Glucose Monitoring Suppl (ONE TOUCH ULTRA MINI) w/Device KIT, by Does not apply route., Disp: , Rfl: buPROPion (WELLBUTRIN SR) 200 MG 12 hr tablet, Take 1 tablet by mouth 2 times daily., Disp: 180 tablet, Rfl: 3 calcium, as carbonate, (CALTRATE) 600 mg tablet, Take 1,200 mg by mouth Daily., Disp: , Rfl: ciprofloxacin (CIPRO) 250 mg tablet, Take 250 mg by mouth 2 times daily., Disp: , Rfl: clobetasol (TEMOVATE) 0.05% ointment, Apply topically as needed., Disp: , Rfl: dexlansoprazole (DEXILANT) [address] capsule, Take 1 capsule by mouth Daily., Disp: 90 capsule, Rfl: 3 doxycycline (VIBRAMYCIN) 100 mg capsule, Take 1 capsule by mouth 2 times daily for 10 days., Disp: 20 capsule, Rfl: 0 FORTEO 600 MCG/2.4ML injection, Inject under the skin Daily., Disp: , Rfl: furosemide (LASIX) 40 mg tablet, Take 1 tablet by mouth Daily. (Patient taking differe ntly: Take 20 mg by mouth Four times a week.), Disp: 90 tablet, Rfl: 3 melatonin 3 mg TABS, Take 3 mg by mouth Daily., Disp: , Rfl: metoprolol succinate (TOPROL-XL) 100 mg ER tablet, TAKE 1 TABLET EVERY DAY, Disp: 90 t ablet, Rfl: 3 NIFEdipine (NIFEDICAL XL) 60 mg ER tablet, Take 60 mg by mouth Daily. As needed to rel ax esophagus, Disp: , Rfl: nitrofurantoin (MACROBID) 100 mg capsule, Take 100 mg by mouth. Take twice daily x 10 days Indications: Simple Infection of the Urinary Tract, Disp: , Rfl: ONE TOUCH ULTRA TEST strip, Use to check blood sugars daily., Disp: 100 each, Rfl: 11 ONE TOUCH ULTRASOFT LANCETS MISC, TEST once daily, Disp: 100 each, Rfl: 11 oxygen, Inhale 2 L into the lungs nightly., Disp: , Rfl: potassium chloride (KLOR-CON) 10 mEq CR tablet, TAKE 2 TABLETS EVERY DAY, Disp: 180 ta blet, Rfl: 3 predniSONE (DELTASONE) 5 mg tablet, Take 5 mg by mouth Daily., Disp: , Rfl: pregabalin (LYRICA) 50 MG capsule, Take 1 capsule by mouth 3 times daily., Disp: 90 ca psule, Rfl: 2 PROAIR HFA 108 (90 BASE) MCG/ACT inhaler, Inhale 1 puff into the lungs every 6 hours a s needed., Disp: , Rfl: UNABLE TO FIND, Med Name: Respironics Dreamstation APAP 5-15cm while sleeping., Disp: , Rfl: Allergies Allergen Reactions Latex Rash Salmeron a hole in my skin. Paper or cloth tape is OK Metformin Rash Intolerance Allergen Reactions Codeine Patient's Preference "Brain freeze, I lose it" Adhesive & Tape Rash PAPER TAPE OKAY Atorvastatin Other (See Comments) Leg cramps Baclofen Other (See Comments) Hallucinations Methocarbamol Patient's Preference AKA "Robaxin" - Hallucinations Review of Systems Constitutional: Negative for chills, diaphoresis and fever. HENT: Negative for hearing loss and tinnitus. Eyes: Negative for blurred vision and double vision. Complaining of some visual changes, just not seen as well as she is to, due for eye ex am, get that scheduled soon. Respiratory: Positive for cough, shortness of breath and wheezing. Cardiovascular: Positive for leg swelling (Intermittently). Negative for chest pain and pal pitations. Gastrointestinal: Positive for diarrhea and nausea. Negative for abdominal pain, blood in s tool, constipation, melena and vomiting. Genitourinary: Positive for dysuria, frequency and urgency. Negative for flank pain and hem aturia. Skin: Positive for itching. Negative for rash. Neurological: Positive for dizziness and headaches. Negative for tingling and focal weaknes s. Chronic left-sided weakness from stroke over 20 years ago Psychiatric/Behavioral: Positive for depression. Negative for suicidal ideas. The patient i s nervous/anxious. Objective: BP 172/82 | Pulse 58 | Temp 37 C (98.6 F) (Temporal) | Resp 20 | Ht 1.6 m (5' 2.99" ) | Wt 70 kg (154 lb 5.2 oz) | SpO2 95% | BMI 27.34 kg/m Physical Exam Constitutional: She is well-developed, well-nourished, and in no distress. Vital signs are normal. HENT: Head: Normocephalic and atraumatic. Right Ear: Hearing normal. Left Ear: Hearing normal. Nose: Nose normal. Eyes: Pupils are equal, round, and reactive to light. Neck: Normal range of motion. Cardiovascular: Normal rate, regular rhythm, S1 normal, S2 normal and normal heart sounds. No murmur heard. Pulses: Posterior tibial pulses are 2+ on the right side, and 2+ on the left side. 1+ pitting edema bilaterally (she has not taken furosemide yet today). Pulmonary/Chest: Effort normal. No respiratory distress. She has no decreased breath sounds . She has no wheezes. She has no rhonchi. She has no rales. Abdominal: Soft. Bowel sounds are normal. There is no hepatosplenomegaly. There is no CVA t enderness. Musculoskeletal: Normal range of motion. Neurological: She is alert. She has normal motor skills. Gait normal. Skin: Skin is warm, dry and intact. Psychiatric: Mood and affect normal. Assessment/Plan: 1. Altered mental status, unspecified altered mental status type With history of stroke and prior TIAs, suspect possible TIA, patient would like full workup with brain MRI, carotid duplex, echocardiogram, all have been ordered and we'll get schedul ed. - MRI Brain w wo Contrast; Future - VAS Carotid Duplex Bilateral; Future - ECHO Complete; Future 2. History of TIA (transient ischemic attack) and stroke See #1 - MRI Brain w wo Contrast; Future - VAS Carotid Duplex Bilateral; Future - ECHO Complete; Future 3. Recurrent UTI Switch to doxycycline 100 mg twice a day for 10 days. Urinalysis 3-4 days after completion of antibiotics. Referral to urology for workup. Received previous note from Dr Cerda 06/13, he noted right renal cyst at that time. - doxycycline (VIBRAMYCIN) 100 mg capsule; Take 1 capsule by mouth 2 times daily for 10 day s. Dispense: 20 capsule; Refill: 0 - * [facility] Referral Get fasting labs in [place] when she goes into repeat urinalysis. Return in about 1 month (around 07/30/2017). Patient understands, accepts, and agrees with this plan. Portions of this report were trans cribed using [employer] voice recognition software. Although effort was made in c orrecting the errors; grammatical and sound alike errors may still be present. Greater than 40 minutes spent with patient regarding the above mentioned diagnoses in counseling and coor dination of care. in this encounter Plan of Treatment +--------+ + + + + | Date | Type | Specialty | Care Team | Description | +--------+ + + + + | 06/30/ | Procedure | Family Medicine | | | | 2017 | Pass | | | | +--------+ + + + + | 07/15/ | Appointment | Radiology | Yoly GamezOSCAR | | | 2017 | | | [address] | | | | | | [place] | | | | | | [address] | | | | | | | | +--------+ + + + + | 07/15/ | Appointment | Radiology | Yoly GamezOSCAR | | | 2017 | | | [address] | | | | | | [place] | | | | | | [address] | | | | | | | | | | | | Mechelle Lord, | | | | | | Technologist | | +--------+ + + + + | 07/15/ | Appointment | Radiology | Yoly GamezOSCAR | | | 2017 | | | [address] | | | | | | [place] | | | | | | [address] | | | | | | | | | | | | Lorene Arthur, | | | | | | Tank Car Reconditioner | | +--------+ + + + + | 08/01/ | Office | Family Medicine | Yoly Gamez FNP | | | 2017 | Visit | | [address] | | | | | | [place] | | | | | | [address] | | | | | | | | +--------+ + + + + | 08/02/ | Office | Sleep Medicine | Chu Davis PA | | | 2017 | Visit | | [address] | | | | | | [place] | | | | | | [address] | | | | | | | | +--------+ + + + + | 10/13/ | Office | Cardiology | Alpa Corcoran, | | | 2017 | Visit | | MD [address] | | | | | | [place] | | | | | | [place] [address] | | | | | | [phone] | | | | | | | | +--------+ + + + + + +--------+ + + | Name | Priori | Associated Diagnoses | Order Schedule | | | ty | | | + +--------+ + + | Lipid Panel | Routin | High cholesterol | Expected: | | | e | | 06/30/2017, Expires: | | | | | 06/30/2018 | + +--------+ + + | MRI Brain w wo Contrast | Routin | Altered mental | Expected: | | | e | status, unspecified | 06/30/2017, Expires: | | | | altered mental | 06/30/2018 | | | | status type History | | | | | of TIA (transient | | | | | ischemic attack) and | | | | | stroke | | + +--------+ + + | VAS Carotid Duplex Bilateral | Routin | Altered mental | Expected: | | | e | status, unspecified | 06/30/2017, Expires: | | | | altered mental | 06/30/2018 | | | | status type History | | | | | of TIA (transient | | | | | ischemic attack) and | | | | | stroke | | + +--------+ + + | ECHO Complete | Routin | Altered mental | Expected: | | | e | status, unspecified | 06/30/2017, Expires: | | | | altered mental | 06/30/2018 | | | | status type History | | | | | of TIA (transient | | | | | ischemic attack) and | | | | | stroke | | + +--------+ + + + +--------+ + + | Name | Priori | Associated Diagnoses | Order Schedule | | | ty | | | + +--------+ + + | * [facility] | Routin | Recurrent UTI Hx | Ordered: 06/30/2017 | | Referral | e | renal cyst, right - | | | | | 06/2015 | | + +--------+ + + as of this encounter Visit Diagnoses + + | Diagnosis | + + | Altered mental status, unspecified altered mental status type - Primary | + + | History of TIA (transient ischemic attack) and stroke | + + | Recurrent UTI | + + | Urinary tract infection, site not specified | + + | Hx renal cyst, right - 06/2015 | + + | Unspecified congenital cystic kidney disease | + + | High cholesterol | + + | Pure hypercholesterolemia | + +
--- OUTSIDE RECORDS SUMMARY | ~2017-07-05 | XMS | Encounter Summary ---
Demographics + + + | Address | [address] | | | [place] [address] | + + + | Home Phone | | + + + | Preferred Language | Unknown | + + + | Marital Status | Single | + + + | Adventism Affiliation | Unknown | + + + | Race | Unknown | + + + | Ethnic Group | Unknown | + + + Author + + + | Author | [facility] | | | and [place] | + + + | Organization | [facility] | | | and [place] | + + + | Address | Unknown | + + + | Phone | Unavailable | + + + Support + + + + + | Name | Relationship | Address | Phone | + + + + + | Kit Hyde | ECON | [address] | | | | | [place], | | | | | [place] [address] | | + + + + + | Crystal Hyde | ECON | Unknown | | + + + + + Care Team Providers + +------+ + | Care Levelman Name | Role | Phone | + +------+ + | Yoly Gamez | PCP | | + +------+ + Encounter Details +--------+ + + + + | Date | Type | Department | Care Team | Description | +--------+ + + + + | 05/18/ | Anesthesia | [facility] | Shay Kirby | | | 2018 | Event | [facility] | MD [place]ba [address] | | | | | [address] | [place], [place] | | | | | [place], [place] | [address] | | | | | [address] | | | | | | [phone] | | | +--------+ + + + + Anesthesia Record + + + + + | Procedure Name | Responsible | Anesthesia Start | Anesthesia Stop Time | | | Anesthesiologist | Time | | + + + + + | EGD (N/A Mouth) | Shay Kirby, | 05/18/17 1307 | 05/18/17 1330 | | | MD | | | + + + + + +----+---+ + + | Da | T | Event | Comment | | te | i | | | | | m | | | | | e | | | +----+---+ + + | 03 | 1 | An Checkout | Pre-use anesthesia machine/equipment checkout. | | /0 | 3 | | | | 7/ | 0 | | | | 20 | 4 | | | | 18 | | | | +----+---+ + + | | 1 | An Start | Reassessment prior to anesthesia induction/procedure. | | | 3 | | | | | 0 | | | | | 7 | | | +----+---+ + + | | 1 | AN | Per surgeon request | | | 3 | Antibiotic | | | | 0 | declined | | | | 8 | | | +----+---+ + + | | 1 | Pre-Procedu | | | | 3 | ral Timeout | | | | 0 | Completed | | | | 9 | | | +----+---+ + + | | 1 | An | | | | 3 | Induction | | | | 1 | | | | | 0 | | | +----+---+ + + | | 1 | Breathing | | | | 3 | Spontaneous | | | | 1 | ly | | | | 0 | | | +----+---+ + + | | 1 | First | | | | 3 | Inc/Proc St | | | | 1 | | | | | 3 | | | +----+---+ + + | | 1 | Breathing | | | | 3 | Spontaneous | | | | 2 | ly | | | | 8 | | | +----+---+ + + | | 1 | An Stop | Patient handed off to recovery nurse. | | | 3 | | | | | 0 | | | +----+---+ + + +------+ | Meds | +------+ + +--------+ | Name | Total | + +--------+ | lidocaine 2% | 60 mg | + +--------+ | propofol | 250 mg | + +--------+ | lactated ringers (LR) infusion | 250 mL | + +--------+ + + | Name | + + | O2 Flow Rate (L/Min) | + + + + | No blood administrations on file. | + + +--------+ + + + | Type | Details | Placement | Removal | +--------+ + + + | [READ | 05/07/14; 1119; Hematology, | 05/07/14 1119 by | 05/18/17 1330 by | | ONLY] | Chemistry, Coagulation ([place]); | Amaris Clark RN | Erin Veloz | | | 05/18/17; 1330 | | [facility] | | Periph | | | | | eral | | | | | IV - | | | | | Single | | | | | Lumen | | | | | | | | | +--------+ + + + | Periph | 05/18/17; 1258; Right; Hand; | 05/18/17 1258 by | 05/18/17 1407 by | | eral | hvmd-umc-iftyng catheter system; | Zoey Puente RN | Erin Veloz | | IV | 20 gauge; 0; topical anesthetic | | [facility] | | | spray applied; 05/18/17; 1407 | | | +--------+ + + + in this encounter Social History + + + +--------+ + [...] | 2017 | | | [address] | | | | | | [place] | | | | | | [address] | | | | | | | | +--------+ + + + + | 07/15/ | Appointment | Radiology | Yoly Gamez FNP | | | 2017 | | | [address] | | | | | | [place] | | | | | | [address] | | | | | | | | | | | | Mechelle Lord, | | | | | | Technologist | | +--------+ + + + + | 07/15/ | Appointment | Radiology | Yoly Gamez FNP | | | 2017 | | | [address] | | | | | | [place] | | | | | | [address] | | | | | | | | | | | | Lorene Arthur, | | | | | | Radiologist Physician | | +--------+ + + + + | 08/01/ | Office | Family Medicine | Yoly Gamez FNP | | | 2017 | Visit | | [address] | | | | | | [place] | | | | | | [address] | | | | | | | | +--------+ + + + + | 08/02/ | Office | Sleep Medicine | Chu Davis PA | | | 2017 | Visit | | [address] | | | | | | [place] | | | | | | [address] | | | | | | | | +--------+ + + + + | 10/13/ | Office | Cardiology | Alpa Corcoran, | | | 2017 | Visit | | MD [address] | | | | | | [place], | | | | | | [place] [address] | | | | | | [phone] | | | | | | | | +--------+ + + + + as of this encounter Visit Diagnoses Not on filein this encounter Administered Medications + +---------+ +------+------+------+ | Medication Order | MAR | Action | Dose | Rate | Site | | | Action | Date | | | | + +---------+ +------+------+------+ | lactated ringers (LR) infusion | New Bag | 05/18/2017 | | | | | at 10-100 mL/hr, Intravenous, | | 12:46 | | | | | CONTINUOUS, Starting 05/18/17 | | PST | | | | | at 1300, TKO. | | | | | | + +---------+ +------+------+------+ +---+---+ | | | +---+---+ + +-------+ +-------+---+---+ | lidocaine (PF) 2% injection | Given | 05/18/2017 | 60 mg | | | | Intravenous, PRN, Starting Wed | | 13:10 | | | | | 05/18/17 at 1310, Anesthesia | | PST | | | | | Intra-op | | | | | | + +-------+ +-------+---+---+ +---+---+ | | | +---+---+ + +-------+ +--------+---+---+ | propofol (DIPRIVAN) injection | Given | 05/18/2017 | 100 mg | | | | Intravenous, PRN, Starting Wed | | 13:12 | | | | | 05/18/17 at 1312, Anesthesia | | PST | | | | | Intra-op | | | | | | + +-------+ +--------+---+---+ +-------+ +--------+---+---+ | Given | 05/18/2017 | 100 mg | | | | | 13:15 | | | | | | PST | | | | +-------+ +--------+---+---+ | Given | 05/18/2017 | 50 mg | | | | | 13:20 | | | | | | PST | | | | +-------+ +--------+---+---+ +---+---+ | | | +---+---+ in this encounter"
--- OUTSIDE RECORDS SUMMARY | ~2017-07-05 | XMS | Encounter Summary ---
Demographics + + + | Address | [address] | | | [place] [address] | + + + | Home Phone | | + + + | Preferred Language | Unknown | + + + | Marital Status | Single | + + + | Gnosticist Affiliation | Unknown | + + + | Race | Unknown | + + + | Ethnic Group | Unknown | + + + Author + + + | Author | [facility] | | | and [place] | + + + | Organization | [facility] | | | and [place] | + + + | Address | Unknown | + + + | Phone | Unavailable | + + + Support + + + + + | Name | Relationship | Address | Phone | + + + + + | Kit Hyde | ECON | [address] | | | | | [place], | | | | | [place] [address] | | + + + + + | Crystal Hyde | ECON | Unknown | | + + + + + Care Team Providers + +------+ + | Care Radiology Ct Technologist Name | Role | Phone | + +------+ + | Yoly Gamez | PCP | | + +------+ + Reason for Visit + + + | Reason | Comments | + + + | Altered Mental | | | Status | | + + + Encounter Details +--------+ + + + + | Date | Type | Department | Care Team | Description | +--------+ + + + + | 06/28/ | Telephone | [facility] | Vera YolyOSCAR | Altered Mental | | 2018 | | [facility] [place] | [address] | Status | | | | [address] | [place] | | | | | [place] | [address] | | | | | [address] | | | | | | [phone] | | | +--------+ + + + [...] [place] | | | | | | [id number] | | | | | | | | +--------+ + + + + | 07/15/ | Appointment | Radiology | Yoly Gamez FNP | | | 2017 | | | [address] | | | | | | [place] | | | | | | [address] | | | | | | | | | | | | Mechelle Lord, | | | | | | Technologist | | +--------+ + + + + | 07/15/ | Appointment | Radiology | Yoly Gamez FNP | | | 2017 | | | [address] | | | | | | [place] | | | | | | [address] | | | | | | | | | | | | Lorene Arthur, | | | | | | Supervisor Blasting | | +--------+ + + + + | 08/01/ | Office | Family Medicine | Yoly Gamez FNP | | | 2017 | Visit | | [address] | | | | | | [place] | | | | | | [address] | | | | | | | | +--------+ + + + + | 08/02/ | Office | Sleep Medicine | Chu Davis PA | | | 2017 | Visit | | [address] | | | | | | [place] | | | | | | [id number] | | | | | | | | +--------+ + + + + | 10/13/ | Office | Cardiology | Alpa Corcoran, | | | 2017 | Visit | | MD [address] | | | | | | [place], | | | | | | [place] [address] | | | | | | [phone] | | | | | | | | +--------+ + + + + as of this encounter Visit Diagnoses Not on filein this encounter"
--- OUTSIDE RECORDS SUMMARY | ~2017-07-05 | XMS | Clinical Summary ---
Demographics + + + | Address | [address] | | | [place] [address] | + + + | Home Phone | | + + + | Preferred Language | Unknown | + + + | Marital Status | Single | + + + | Yazidism Affiliation | Unknown | + + + | Race | Unknown | + + + | Ethnic Group | Unknown | + + + Author + + + | Author | [facility] | | | and [place] | + + + | Organization | [facility] | | | and [place] | + + + | Address | Unknown | + + + | Phone | Unavailable | + + + Support + + + + + | Name | Relationship | Address | Phone | + + + + + | Kit Hyde | ECON | [address] | | | | | [place], | | | | | [place] [address] | | + + + + + | Crystal Hyde | ECON | Unknown | | + + + + + Care Team Providers + +------+ + | Care Technical Operations Specialist Name | Role | Phone | + +------+ + | Yoly Gamez | PP | | + +------+ + Allergies + + + + + + | Active Allergy | Reactions | Severity | Noted | Comments | | | | | Date | | + + + + + + | Adhesive & Tape | Rash | Low | 06/05/19 | PAPER TAPE OKAY | | | | | 14 | | + + + + + + | Atorvastatin | Other (See Comments) | Low | 07/08/19 | Leg cramps | | | | | 16 | | + + + + + + | Baclofen | Other (See Comments) | Low | 09/27/19 | Hallucinations | | | | | 15 | | + + + + + + | Codeine | Patient's Preference | Medium | 01/09/20 | "Brain freeze, I | | | | | 14 | lose it" | + + + + + + | Latex | Rash | Low | 06/05/19 | Salmeron a hole in my | | | | | 14 | skin. Paper or | | | | | | cloth tape is OK | + + + + + + | Metformin | Rash | Low | 11/02/19 | | | | | | 17 | | + + + + + + | Methocarbamol | Patient's Preference | Low | 08/11/19 | AKA "[email or web address]" - | | | | | 17 | Hallucinations | + + + + + + Current Medications + + +---------+---------+------+------+-------+ | Prescription | Sig. | Disp. | Refills | Star | End | Statu | | | | | | t | Date | s | | | | | | Date | | | + + +---------+---------+------+------+-------+ | PROAIR HFA 108 (90 | Inhale 1 puff into | | | 05/2 | | Activ | | BASE) MCG/ACT | the lungs every 6 | | | 8/20 | | e | | inhaler | hours as needed. | | | 15 | | | + + +---------+---------+------+------+-------+ | clobetasol | Apply topically as | | | 04/ | | Activ | | (TEMOVATE) 0.05% | needed. | | | 0/20 | | e | | ointment | | | | 15 | | | + + +---------+---------+------+------+-------+ | predniSONE | Take 5 mg by mouth | | | 07/ | | Activ | | (DELTASONE) 5 mg | Daily. | | | 820 | | e | | tablet | | | | 15 | | | + + +---------+---------+------+------+-------+ | UNABLE TO FIND | Med Name: | | | | | Activ | | | Respironics | | | | | e | | | Dreamstation APAP | | | | | | | | 5-15cm while | | | | | | | | sleeping. | | | | | | + + +---------+---------+------+------+-------+ | oxygen | Inhale 2 L into the | | | | | Activ | | | lungs nightly. | | | | | e | + + +---------+---------+------+------+-------+ | aspirin 325 mg EC | Take 325 mg by mouth | | | | | Activ | | tablet | Daily. 4 tablets | | | | | e | | | daily | | | | | | + + +---------+---------+------+------+-------+ | buPROPion | Take 1 tablet by | 180 | 3 | 05/0 | | Activ | | (WELLBUTRIN SR) 200 | mouth 2 times daily. | tablet | | 4/20 | | e | | MG 12 hr tablet | | | | 17 | | | + + +---------+---------+------+------+-------+ | calcium, as | Take 1,200 mg by | | | | | Activ | | carbonate, | mouth Daily. | | | | | e | | (CALTRATE) 600 mg | | | | | | | | tablet | | | | | | | + + +---------+---------+------+------+-------+ | FORTEO 600 | Inject under the | | | 04/1 | | Activ | | MCG/2.4ML injection | skin Daily. | | | 9/20 | | e | | | | | | 17 | | | + + +---------+---------+------+------+-------+ | NIFEdipine | Take 60 mg by mouth | | | | | Activ | | (NIFEDICAL XL) 60 mg | Daily. As needed to | | | | | e | | ER tablet | relax esophagus | | | | | | + + +---------+---------+------+------+-------+ | melatonin 3 mg | Take 3 mg by mouth | | | | | Activ | | TABS | Daily. | | | | | e | + + +---------+---------+------+------+-------+ | pregabalin | Take 1 capsule by | 90 | 2 | 11/0 | 11/0 | Activ | | (LYRICA) 50 MG | mouth 3 times daily. | capsule | | /20 | 20 | e | | capsule | | | | 17 | 18 | | + + +---------+---------+------+------+-------+ | potassium chloride | TAKE 2 TABLETS EVERY | 180 | 3 | 11/0 | | Activ | | (KLOR-CON) 10 mEq | DAY | tablet | | 20 | | e | | CR tablet | | | | 17 | | | + + +---------+---------+------+------+-------+ | metoprolol | TAKE 1 TABLET EVERY | 90 | 3 | 12/0 | | Activ | | succinate | DAY | tablet | | 04/02 | | e | | (TOPROL-XL) 100 mg | | | | 17 | | | | ER tablet | | | | | | | + + +---------+---------+------+------+-------+ | furosemide (LASIX) | Take 1 tablet by | 90 | 3 | 12/1 | | Activ | | 40 mg tablet | mouth Daily. | tablet | | /20 | | e | | | | | | 17 | | | + + +---------+---------+------+------+-------+ | albuterol 2.5 mg/3 | Take 2.5 mg by | | 0 | 11/ | | Activ | | mL nebulizer | nebulization every 4 | | | 09/30 | | e | | solution | hours as needed. | | | 17 | | | | | Uses as needed | | | | | | + + +---------+---------+------+------+-------+ | dexlansoprazole | Take 1 capsule by | 90 | 3 | 12/2 | | Activ | | (DEXILANT) [address] | mouth Daily. | capsule | | 09/30 | | e | | capsuleIndications: | | | | 17 | | | | Gastric reflux | | | | | | | + + +---------+---------+------+------+-------+ | ONE TOUCH ULTRA | Use to check blood | 100 | 11 | 12/2 | | Activ | | TEST | sugars daily. | each | | 09/30 | | e | | stripIndications: | | | | 17 | | | | Controlled type 2 [...] (HCC) | | | | | | | + + +---------+---------+------+------+-------+ | ONE TOUCH | TEST once daily | 100 | 11 | 12/2 | | Activ | | ULTRASOFT LANCETS | | each | | 09/30 | | e | | MISCIndications: | | | | 17 | | | | Controlled type 2 [...] (HCC) | | | | | | | + + +---------+---------+------+------+-------+ | Blood Glucose | by Does not apply | | | | | Activ | | Monitoring Suppl | route. | | | | | e | | (ONE TOUCH ULTRA | | | | | | | | MINI) w/Device KIT | | | | | | | + + +---------+---------+------+------+-------+ | ciprofloxacin | Take 250 mg by mouth | | | | | Activ | | (CIPRO) 250 mg | 2 times daily. | | | | | e | | tablet | | | | | | | + + +---------+---------+------+------+-------+ | nitrofurantoin | Take 100 mg by | | | | | Activ | | (MACROBID) 100 mg | mouth. Take twice | | | | | e | | capsuleIndications: | daily x 10 days | | | | | | | Uncomplicated | Indications: Simple | | | | | | | Urinary Tract | Infection of the | | | | | | | Infection | Urinary Tract | | | | | | + + +---------+---------+------+------+-------+ | doxycycline | Take 1 capsule by | 20 | 0 | / | 042 | Activ | | (VIBRAMYCIN) 100 mg | mouth 2 times daily | capsule | | 12/01 | 12/01 | e | | capsuleIndications: | for 10 days. | | | 18 | 18 | | | Recurrent UTI | | | | | | | + + +---------+---------+------+------+-------+ | beclomethasone HFA | Inhale 1 puff into | 1 | 0 | 04/2 | | Activ | | (RAVEN CLEMONS) 40 | the lungs 2 times | Inhaler | | 20 | | e | | mcg/puff inhaler | daily. | | | 18 | | | + + +---------+---------+------+------+-------+ Active Problems + + + | Problem | Noted Date | + + + | Beta Justyna - Daily Use | 05/18/2017 | + + + | H/O Lumbar Fusion - L2-5 LAIF - 04/2014 | 05/18/2017 | + + + + + | Overview: 04/23/2014 - L2-3, L3-4, L4-5 Lateral Anterior | | Lumbar Interbody Fusion, Jb Aden DO | + + + + + | Advanced age | 04/25/2017 | + + + | On supplemental oxygen therapy | 04/25/2017 | + + + | Vitamin D deficiency | 03/15/2017 | + + + | Diabetes mellitus type II - DIET Control | 03/15/2017 | + + + | Decreased GFR | 03/15/2017 | + + + | Left sided sciatica | 03/15/2017 | + + + | Weakness of both lower extremities | 03/15/2017 | + + + | Upper extremity weakness | 03/15/2017 | + + + | Hx of Dilation of esophagus - 02/2014 | 03/15/2017 | + + + | Gastroesophageal reflux disease | 03/15/2017 | + + + | Adrenal insufficiency (HCC) | 03/09/2017 | + + + | BETTY (obstructive sleep apnea) on CPAP | 12/09/2014 | + + + | Peripheral arterial disease (HCC) | 11/14/2014 | + + + | Claudication of both lower extremities (HCC) | 11/14/2014 | + + + + + | Overview: Arterial profile with stress on 11/14/2014 shows mild | | diffuse arterial occlusive disease, left slightly greater than | | the right, this does correlate with diminished MAURICIO on the left, | | negative for vascular claudication. | + + + + + | Right leg weakness | 11/07/2014 | + + + + + | Overview: MRI Brain, with and without contrast, 11/07/2014 | | shows Smaller caliber of the flow void of the imaged distal right | | internal carotid artery relative to that on the left, likely | | related to collateral flow to this vessel in the setting of | | chronic proximal occlusion described previously, chronic infarct | | in the high right frontal and parietal lobes and adjacent to the | | left caudate head with probable chronic, microvascular ischemic | | gliosis elsewhere within the cerebral white matter, mild, | | generalized cerebral atrophy and probable ex vacuo ventricular | | dilation. | + + + + + | Palpitations | 10/10/2014 | + + + + + | Overview: Echocardiogram, 10/10/2014 shows normal left | | ventricular size, wall thickness and motion, preserved left | | ventricular systolic function, LVEF is 60-65%, grade 1 left | | ventricular diastolic dysfunction, [id number] mitral valve | | regurgitation, mild to moderate tricuspid valve regurgitation, | | mild pulmonary hypertension with a peak systolic pressure of | | 45-50 mmHg, normal IVC with a normal respiratory collapse.Event | | monitor from 09/22 until 10/05/2016 baseline EKG shows sinus | | bradycardia with heart rate of 56-62 bpm. There was no symptoms | | reported. There was no arrhythmia recorded. | + + + + + | Pulmonary embolism (HCC) | 05/07/2014 | + + + + + | Last Assessment & Plan: Admitted with acute small pulmonary | | embolus, and started on once daily enoxaparin. The main concern | | with a blood thinner is a risk for bleeding. She says that she | | has had a significant GI bleed while on warfarin in the past. | | Discussed the case with Dr. Solis of hematology, who | | recommended once daily enoxaparin. He said that in spite of the | | lack of reversibility, he felt that there is a lower risk of | | bleeding with subcutaneous enoxaparin than with warfarin. | | Chris had no interest in taking warfarin. Will continue once | | daily enoxaparin, admitted to the hospital for close monitoring, | | and advised her that she is a high risk for bleeding, and if she | | does have significant bleeding she needs to come immediately to | | the emergency room.INR is 1, and hemoglobin is stable at 10.5 | | with no evidence of bleeding. | + + + + + | Acquired spondylolisthesis | 04/26/2014 | + + + | Spondylolisthesis of lumbar region | 04/17/2014 | + + + | Lumbar scoliosis | 04/17/2014 | + + + + + | Last Assessment & Plan: She had a recent surgery, and feels | | that she is recovering well from this. We will give the pain | | medicines as needed and plan for her to go back to [facility] | | park when she is discharged. | + + + + + | Neurogenic claudication | 04/17/2014 | + + + | Gait difficulty | 06/06/2013 | + + + | H/O Stroke / CVA with residual left sided weakness | 03/14/1998 | + + + + + | Overview: mild left sided weakness | + + + +---+ | Stroke (HCC) | | + +---+ + + | Overview: mild left sided weakness | + + + +---+ | Asthma | | + +---+ | Dysphagia, unspecified type | | + +---+ + + | Overview: feels like food gets stuck sometimes | + + + +---+ | Hypothyroidism | | + +---+ | Hypertension | | + +---+ + + | Last Assessment & Plan: We'll plan to continue her | | lisinopril, hydrochlorothiazide, and calcium channel justyna. | | She is hemodynamically stable currently. | + + + +---+ | Angina at rest (HCC) | | + +---+ | Diarrhea | | + +---+ | Umbilical hernia | | + +---+ | Crohn's disease (HCC) | | + +---+ + + | Last Assessment & Plan: She has had no recent flare, and | | takes only sulfasalazine which has controlled her disease | | symptoms. No signs of bleeding thus far. | + + + +---+ | Carotid stenosis | | + +---+ + + | Overview: right side | + + + +---+ | Incontinence of urine | | + +---+ + + | Overview: STRESS INCONTINENCE | + + + +---+ | Anemia | | + +---+ | Gastric reflux | | + +---+ | H/O Kidney stones | | + +---+ | High cholesterol | | + +---+ | Restless legs | | + +---+ | Carotid stenosis, right | | + +---+ | PMR (polymyalgia rheumatica) ([facility]) | | + +---+ Encounters +--------+ + + + + | Date | Type | Specialty | Care Team | Description | +--------+ + + + + | 07/05/ | Telephone | | Carmela Morris, | Case Management (Pt. | | 2017 | | | RN | needs more | | | | | | caregiver hours) | +--------+ + + + + | 07/05/ | Telephone | | Yoly Gamez FNP | Medication Question | | 2017 | | | | | +--------+ + + + + | 07/04/ | Telephone | | Carmela Morris, | Case Management | | 2017 | | | RN | (Need more caregiver | | | | | | hours) | +--------+ + + + + | 06/30/ | Office | | Yoly Gamez FNP | Altered mental | | 2017 | Visit | | | status, unspecified | | | | | | altered mental | | | | | | status type (Primary | | | | | | Dx); History of TIA | | | | | | (transient ischemic | | | | | | attack) and stroke; | | | | | | Recurrent UTI; Hx | | | | | | renal cyst, right - | | | | | | 06/2015; High | | | | | | cholesterol | +--------+ + + + + | 06/30/ | Telephone | | Yoly Gamez FNP | Caregiver | | 2017 | | | | Concerns/Communicati | | | | | | on | +--------+ + + + + | 06/30/ | Abstract | | Yoly Gamez FNP | | | 2017 | | | | | +--------+ + + + + | 06/28/ | Telephone | | Yoly Gamez FNP | Altered Mental | | 2017 | | | | Status | +--------+ + + + + | 06/23/ | Telephone | | Yoly Gamez FNP | Lab Results; Urinary | | 2017 | | | | Tract Infection | +--------+ + + + + | 06/10/ | Abstract | | Yoly Gamez FNP | | | 2017 | | | | | +--------+ + + + + | 06/10/ | Orders Only | | Yoly Gamez FNP | Urinary urgency | | 2017 | | | | (Primary Dx) | +--------+ + + + + | 06/10/ | Telephone | | Yoly Gamez FNP | Lab Results | | 2017 | | | | | +--------+ + + + + | 06/06/ | Telephone | | Yoly Gamez FNP | Urinary Tract | | 2017 | | | | Infection | +--------+ + + + + | 05/18/ | Hospital | | Flaco Thorne MD | Dysphagia, | | 2017 | Encounter | | | unspecified type | +--------+ + + + + | 05/18/ | Telephone | | Jenelle Simms | Medical Problem | | 2017 | | | BERYL Alvarez | | +--------+ + + + + | 05/18/ | Procedure | | | | | 2017 | Pass | | | | +--------+ + + + + | 05/18/ | Surgery | | Flaco Thorne MD | EGD | | 2018 | | | | | +--------+ + + + + | 05/17/ | Anesthesia | | Shay Kirby | | | 2017 | Event | | MD Sheba | | +--------+ + + + + | 05/16/ | Office | | Abimael Ro, | Hematuria, | | 2017 | Visit | | BERYL Crump | unspecified type | | | | | | (Primary Dx); UTI | | | | | | (urinary tract | | | | | | infection), | | | | | | uncomplicated | +--------+ + + + + | 05/16/ | Telephone | | Yoly Gamez FNP | Dysuria; Hematuria | | 2017 | | | | | +--------+ + + + + | 05/11/ | Episode | | Milagros Crooks, | | | 2017 | Changes | | RN | | +--------+ + + + + | 05/02/ | Telephone | | Yoly Gamez FNP | Referral | | 2017 | | | | | +--------+ + + + + | 04/20/ | Office | | Yoly Gamez FNP | Dysphagia, | | 2018 | Visit | | Flaco Thorne MD | unspecified type | | | | | | (Primary Dx); | | | | | | Advanced age; | | | | | | History of stroke; | | | | | | On supplemental | | | | | | oxygen therapy; | | | | | | Crohn's disease with | | | | | | complication, | | | | | | unspecified | | | | | | gastrointestinal | | | | | | tract location (HCC) | +--------+ + + + + | 04/20/ | Episode | | Milagros Crooks, | | | 2018 | Changes | | RN | | +--------+ + + + + | 04/15/ | Office | | BesttrxiieelaTrixiebest, | Essential | | 2018 | Visit | | MD | hypertension | | | | | | (Primary Dx) | +--------+ + + + + from Last 3 Months Immunizations + + + + | Name | Dates Previously Given | Next Due | + + + + | INFLUENZA, | 12/15/2016 | | | UNSPECIFIED | | | | FORMULATION | | | + + + + | PNEUMOCOCCAL | 11/07/2014 | | | CONJUGATE 13-VALENT | | | | (PCV13) | | | + + + + | PNEUMOCOCCAL | 05/30/2007 | | | POLYSACCHARIDE | | | | 23-VALENT (PPSV23) | | | + + + + | TDAP, (ADOL/ADULT) | 12/23/2010 | | + + + + | ZOSTER, 1 DOSE | 03/31/2009 | | | (ADULT) | | | + + + + Family History + + +--------+ + | Medical History | Relation | Name | Comments | + + +--------+ + | No Known Problems | Brother | | | + + +--------+ + | No Known Problems | Brother | | | + + +--------+ + | No Known Problems | Brother | | | + + +--------+ + | No Known Problems | Brother | | | + + +--------+ + | No Known Problems | Brother | | | + + +--------+ + | No Known Problems | Daughter | | | + + +--------+ + | Heart attack | Father | | | + + +--------+ + | Heart disease | Father | | | + + +--------+ + | No Known Problems | Maternal | | | | | Grandfath | | | | | er | | | + + +--------+ + | No Known Problems | Maternal | | | | | Grandmoth | | | | | er | | | + + +--------+ + | Heart attack | Mother | | | + + +--------+ + | Heart disease | Mother | | | + + +--------+ + | High blood pressure | Paternal | | | | | Grandfath | | | | | er | | | + + +--------+ + | High blood pressure | Paternal | | | | | Grandmoth | | | | | er | | | + + +--------+ + | No Known Problems | Sister | Melani | | + + +--------+ + | No Known Problems | Sister | | | + + +--------+ + | High blood pressure | Son | | | + + +--------+ + | Obesity | Son | | | + + +--------+ + | No Known Problems | Son | | | + + +--------+ + + +--------+ + + | Relation | Name | Status | Comments | + +--------+ + + | Brother | | | Half Brother | | | | (Age | | | | | 50) | | + +--------+ + + | Brother | | Alive | | + +--------+ + + | Brother | | Alive | | + +--------+ + + | Brother | | Alive | | + +--------+ + + | Brother | | Alive | | + +--------+ + + | Daughter | | Alive | | + +--------+ + + | Father | | | SD | | | | (Age | | | | | 82) | | + +--------+ + + | Maternal Grandfather | | | | + +--------+ + + | Maternal Grandmother | | | | + +--------+ + + | Mother | | | Mi | | | | (Age | | | | | 90) | | + +--------+ + + | Paternal Grandfather | | | | + +--------+ + + | Paternal Grandmother | | | | + +--------+ + + | Sister | Melani | Alive | | + +--------+ + + | Sister | | Alive | Half Sister | + +--------+ + + | Son | | Alive | | + +--------+ + + | Son | | Alive | | + +--------+ + + Social History + + + [...] on file | | + + + Last Filed Vital Signs + + + [...] | 70 kg (154 lb 5.2 | 06/30/2017940 PDT | | | oz) | | + + + + | Height | 160 cm (5' 2.99") | 06/30/2017940 PDT | + + + + | Body Mass Index | 27.34 | 06/30/2017940 PDT | + + + + Plan of Treatment +--------+ + + + + | Date | Type | Specialty | Care Team | Description | +--------+ + + + + | 06/30/ | Procedure | | | | | 2018 | Pass | | | | +--------+ + + + + | 07/15/ | Appointment | | Yoly Gamez FNP | | | 2017 | | | [address] | | | | | | [place] | | | | | | [address] | | | | | | | | +--------+ + + + + | 07/15/ | Appointment | | Yoly Gamez FNP | | | 2017 | | | [address] | | | | | | [place] | | | | | | [address] | | | | | | | | | | | | Mechelle Lord, | | | | | | Technologist | | +--------+ + + + + | 07/15/ | Appointment | | Yoly Gamez FNP | | | 2017 | | | [address] | | | | | | [place] | | | | | | [address] | | | | | | | | | | | | Lorene Arthur, | | | | | | Reconciliation Accountant | | +--------+ + + + + | 08/01/ | Office | | Yoly Gamez FNP | | | 2017 | Visit | | [address] | | | | | | [place] | | | | | | [address] | | | | | | | | +--------+ + + + + | 08/02/ | Office | | Chu Davis PA | | | 2017 | Visit | | [address] | | | | | | [place] | | | | | | [address] | | | | | | | | +--------+ + + + + | 10/13/ | Office | | Alpa Corcoran, | | | 2017 | Visit | | MD [address] | | | | | | [place], | | | | | | [place] [address] | | | | | | [phone] | | | | | | | | +--------+ + + + + + + + + + | Health Maintenance | Due Date | Last Done | Comments | + + + + + | Diabetic Eye Exam | | | | | (Bi-Annually) | 2 | | | + + + + + | Diabetic Foot Exam | | | | | | 2 | | | + + + + + | Vaccine: | | 11/07/2014, 05/30/2007 | | | Pneumococcal 65+ | 6 | | | | Low/Medium Risk (2 | | | | | of 2 - PPSV23) | | | | + + + + + | Hemoglobin A1c Q6 | | 03/18/2017, 03/18/2016, | | | Months | 8 | 02/17/2016 | | + + + + + | Microalbumin | | 03/18/2017, 02/08/2017, | | | Screening | 9 | 03/18/2016, Additional history | | | | | exists | | + + + + + | BREAST CANCER | | 12/15/2016 | | | SCREENING (MAMM Q2 | 9 | | | | YEARS 50-74) | | | | + + + + + | COLON CANCER | | 02/28/2014 | | | SCREENING | 9 | | | | (COLONOSCOPY EVERY 5 | | | | | YEARS) | | | | + + + + + | Vaccine: | | 12/23/2010 | | | Dtap/Tdap/Td (2 - | 1 | | | | Td) | | | | + + + + + | Vaccine: Influenza | Completed | 12/15/2016 | | + + + + + Implants + +------+--------+ +--------+--------+--------+ | Implanted | Type | Area | Manufacture | Device | Expira | Model | | | | | r | | tion | / | | | | | | Identi | Date | Serial | | | | | | fier | | / Lot | + +------+--------+ +--------+--------+--------+ | Navdeep Bone Palacos-R/G 40gm - | | Right: | TAMMY - | | 12/06/ | 00-111 | | [id number]: Qty: 1 on | | Knee | ZIMM | | 2017 | 3-140- | | 06/05/2013 by Berlin Nugent | | | | | | 01 / | | MD Rebecca | | | | | | /[id number] | | | | | | | | 368 | + +------+--------+ +--------+--------+--------+ | Tibial ComponentImplanted: | | Right: | Tammy | | 06/05/ | 5842-0 | | Qty: 1 on 06/05/2013 by | | Knee | | | 2022 | 05-13 / | | Berlin Nugent MD | | | | | | | | | | | | | | /[id number] | | | | | | | | 279 | + +------+--------+ +--------+--------+--------+ | Femoral ComponentImplanted: | | Right: | Tammy | | 03/07/ | 5842-1 | | Qty: 1 on 06/05/2013 by | | Knee | | | 2022 | 06-13 / | | Berlin Nugent MD | | | | | | | | | | | | | | /[id number] | | | | | | | | 134 | + +------+--------+ +--------+--------+--------+ | Articular SurfaceImplanted: | | Right: | Tammy | | 02/05/ | 5842-2 | | Qty: 1 on 06/05/2013 by | | Knee | | | 2020 | 05-19 / | | Berlin Nugent MD | | | | | | | | | | | | | | /[id number] | | | | | | | | 876 | + +------+--------+ +--------+--------+--------+ | Imp Knee Tot Unicmprt Mob Brg | | | CAP RINCON - | | | [id number] / | | - [id number]: Qty: 1 | | | CAP | | | / | | on 06/05/2013 | | | | | | | + +------+--------+ +--------+--------+--------+ | Graft Infuse Bone Kit Xxs - | | N/A: | SOFAMOR | | / | [id number] | | [id number]: Qty: 1 on | | Spine | DANEK - DIV | | 2016 | 0 / | | 04/23/2014 by Jb Aden | | Lumbar | MEDMARCY | | | [id number] | | DO Stew | | | - SFDK | | | [id number] | + +------+--------+ +--------+--------+--------+ | Screw Set Solera - | | N/A: | SOFAMOR | | | [id number] | | [id number]: Qty: 8 on | | Spine | DANEK - DIV | | | 0 / / | | 04/23/2014 by Jb Aden | | Lumbar | MEDTRONIC | | | | | A, DO | | | - SFDK | | | | + +------+--------+ +--------+--------+--------+ | Screw Mas 5.5 X 55mm - | | N/A: | MEDTRONIC - | | | [id number] | | [id number]: Qty: 4 on | | Spine | MEDT | | | [id number] | | 04/23/2014 by Jb Aden | | Lumbar | | | | / / | | A, DO | | | | | | | + +------+--------+ +--------+--------+--------+ | Screw Slra Sextant 7.5.55 - | | N/A: | MEDTRONIC - | | | [id number] | | [id number]: Qty: 2 on | | Spine | MEDT | | | [id number] | | 04/23/2014 by Jb Aden | | Lumbar | | | | / / | | DO Stew | | | | | | | + +------+--------+ +--------+--------+--------+ | Screw Mas G5 Slra 7.5x45 Cn - | | N/A: | SOFAMOR | | | [id number] | | [id number]: Qty: 2 | | Spine | DANEK - DIV | | | [id number] | | on 04/23/2014 by Keiko, | | Lumbar | [employer] | | | / / | | Jb Mathias DO | | | - SFDK | | | | + +------+--------+ +--------+--------+--------+ | Imp Spn Spcr Cpstn 7x26mm - | | N/A: | SOFAMOR | | 02/07/ | [id number] | | [id number]: Qty: 1 on | | Spine | DANEK - DIV | | 2020 | 6 / | | 04/23/2014 by Jb Aden | | Lumbar | [facility] | | | [id number] | | DO Stew | | | - SFDK | | | 634 | + +------+--------+ +--------+--------+--------+ | Algrft Putty Beltrami 5cc Dbm | | N/A: | OSTEOTECH - | | 09/26/ | [id number] | | - [id number]: Qty: | | Spine | OSTT | | 2016 | /[id number] | | 1 on 04/23/2014 by Keiko, | | Lumbar | | | | 2-064 | | Jb Mathias DO | | | | | | / | + +------+--------+ +--------+--------+--------+ | 4.75 Rods 140mmImplanted: | | N/A: | MEDTRONIC | | | [id number] | | Qty: 2 on 04/23/2014 by | | Spine | [facility]- | | | [id number] / | | Jb Aden DO | | Lumbar | [id number] | | | / | + +------+--------+ +--------+--------+--------+ | Chips Cancellous 30cc - | | N/A: | OSTEOTECH - | | 03/03/ | [id number] | | [id number]: Qty: 1 | | Spine | OSTT | | 2016 | | | on 04/23/2014 by Keiko, | | Lumbar | | | | /[id number] | | Jb Mathias DO | | | | | | 4-022 | | | | | | | | / | + +------+--------+ +--------+--------+--------+ | Putty Beltrami 10cc Dbm - | | N/A: | OSTEOTECH - | | 12/31/ | [id number] | | [id number]: Qty: 1 | | Spine | OSTT | | 2016 | [id number] | | on 04/23/2014 by Keiko, | | Lumbar | | | | [id number] | | Jb Mathias DO | | | | | | / | + +------+--------+ +--------+--------+--------+ | Graft Infuse Bone Kit Xs - | | N/A: | SOFAMOR | | / | [id number] | | [id number]: Qty: 1 on | | Spine | DANEK - DIV | | 2015 | 0 / | | 04/23/2014 by Jb Aden | | Lumbar | [employer] | | | /[id number] | | DO Stew | | | - SFDK | | | [id number] | + +------+--------+ +--------+--------+--------+ | Cage Xl Wide [id number] - | | N/A: | NUVASIVE - | | | [id number] | | [id number]: Qty: 1 on | | Spine | NVSV | | | 0 / / | | 04/23/2014 by Jb Aden | | Lumbar | | | | | | A, DO | | | | | | | + +------+--------+ +--------+--------+--------+ | Imp Spn Spcr Peek Xlw | | N/A: | NUVASIVE - | | | [id number] | | [id number] | | Spine | NVSV | | | 5 / / | | [id number]: Qty: 2 on | | Lumbar | | | | | | 04/23/2014 by Jb Aden | | | | | | | | A, DO | | | | | | | + +------+--------+ +--------+--------+--------+ Procedures + +--------+ + + + | [...] ambula | | | tion | +---+--------+ from Last 3 Months Results External Lab: Urinalysis (06/21/2017)Only the most recent of 4 results within the time mallory od is included. + + + + | Component | Value | Ref Range | + + + + | UA Blood, External | Negative | | + + + + | UA Glucose, External | Normal | | + + + + | UA Ketones, External | Negative | | + + + + | UA Ph, External | 5 | 5 - 9 | + + + + | UA Proteins, | Negative | | | External | | | + + + + | UA RBC, External | 15 (A) | 0 - 4 | + + + + | UA Specific [place], | 1.025 | 1.005 - 1.03 | | External | | | + + + + | UA Leukocyte | Moderate | | | Esterase, External | | | + + + + Urinalysis, Reflex Microscopic and/or Culture (06/21/2017)Only the most recent of 2 results within the time period is included. + + + + | Component | Value | Ref Range | + + + + | Color | Yellow | | + + + + | CLARITY | Slightly Cloudy | | + + + + | BILIRUBIN UA | Negative | Negative | + + + + | NITRITE UA | Negative | Negative | + + + + | UROBILINOGEN UA | Normal | < 0.2 mg/dL, 1.0 | | | | mg/dL, 4.0 mg/dL, | | | | Normal, 1.0 E.U./dL, | | | | 0.2 E.U./dL, 0.2 | | | | mg/dL, Negative, 1 | | | | mg/dL, <2.0 mg/dL | + + + + | BACTERIA UA | Negative | Negative /HPF | + + + + + + + | Specimen | Performing Laboratory | + + + | Urine | | + + + LABS - EXTERNAL SCAN (06/06/2017) + + | Narrative | + + | Ordered by an unspecified provider. | + + EGD (05/18/2017 1309) + + + | Specimen | Performing Laboratory | + + + | | [facility] | + + + + + | Narrative | + + | Gastroenterology Patient Name: Giovana Perez Procedure Date: 05/18/2017 1:09 PM MRN: | | [id number] Date of : 1945 Admit Type: Ambulatory | | Age: 71 Room: [place] [address] Gender: Female Note Status: Finalized Attending MD: [...] nurse, the | | anesthesiologist and the glass technician/installer in the pre-procedure area in the | [...] PM Scope Out: 1:23:55 PM | | [facility], [address] [place] [address] | | [phone] | + + Surgical Pathology Exam (05/18/2017) [...] C. | | Received in formalin labeled "Giovnaa White" and "mid esophageal bx" on the requisition | | are two villafana-cai tissue fragments measuring from 0.4-0.6 cm, submitted, all in (C1). | | ka:GABY:katerina PERFORMING LABORATORY: Tissue processing and slide preparation were | | performed by [facility] [address], [place] [address] | | (Compressor Service Technician: Anirudh Roque M.D. CLIA#: [id number]). Professional interpretation | | was performed by [facility], [address] [place] [address] (Compressor Service Technician: Anirudh Roque M.D.; CLIA#: | | [id number]). Diagnostician: Anirudh Roque MD Pathologist Electronically | | Signed 05/20/2017 | + + POCT Urinalysis Dipstick Automated (05/16/2017 1326) + + + + | Component | Value | Ref Range | + + + + | Color, UA, POC | Shanna (A) | Yellow, Light Yellow | + + + + | Clarity, UA, POC | Turbid | | + + + + | Glucose, UA, POC | Negative | Negative | + + + + | Bilirubin, UA, POC | Negative | Negative | + + + + | Ketones, UA, POC | Trace (A) | Negative, 100 mg/dL | + + + + | Specific [place], | 1.030 | 1.001 - 1.030 | | UA, POC | | | + + + + | Blood, UA, POC | Large (A) | Negative | + + + + | pH, UA, POC | 6.0 | 5.0, 6.0, 7.0, 8.0, | | | | 5.5, 6.5, 7.5 | + + + + | Protein, UA, POC | 100 mg/dL (A) | Negative | + + + + | Urobilinogen, UA, | 0.2 | 0.2, Negative, | | POC | | Normal, < 0.2 mg/dL, | | | | 1 mg/dL, < 0.2 | | | | E.U./dl, 1.0 | | | | E.U./dL, 0.2 mg/dL | + + + + | Nitrite, UA, POC | Negative | Negative | + + + + | Leukocyte Esterase, | Moderate (A) | Negative | | UA, POC | | | + + + + | RED SUB UA | | | + + + + | ICTOTEST | | Negative | + + + + | REMARK | | | + + + + + + + | Specimen | Performing Laboratory | + + + | Urine | | + + + Culture, Urine (05/16/20171239) + + + + | Component | Value | Ref Range | + + + + | Culture | 100,000 CFU/ml Escherichia coli | | + + + + + + + | Specimen | Performing Laboratory | + + + | Urine - Urine, clean | [facility] [address] | | catch | [place] [id number] | + + + + + +--------+ + | Organism | Antibiotic | Method | Susceptibility | + + +--------+ + | Escherichia coli | Ampicillin | | <=2 ug/mL: | | | | | Sensitive | + + +--------+ + | Escherichia coli | Ampicillin + | | <=2 ug/mL: | | | Sulbactam | | Sensitive | + + +--------+ + | Escherichia coli | Cefazolin | | <=4 ug/mL: | | | | | Sensitive | + + +--------+ + | Escherichia coli | Cefoxitin | | <=4 ug/mL: | | | | | Sensitive | + + +--------+ + | Escherichia coli | Ceftazidime | | <=1 ug/mL: | | | | | Sensitive | + + +--------+ + | Escherichia coli | Ceftriaxone | | <=1 ug/mL: | | | | | Sensitive | + + +--------+ + | Escherichia coli | Ciprofloxacin | | <=0.25 ug/mL: | | | | | Sensitive | + + +--------+ + | Escherichia coli | Ertapenem | | <=0.5 ug/mL: | | | | | Sensitive | + + +--------+ + | Escherichia coli | Gentamicin | | <=1 ug/mL: | | | | | Sensitive | + + +--------+ + | Escherichia coli | Meropenem | | <=0.25 ug/mL: | | | | | Sensitive | + + +--------+ + | Escherichia coli | Nitrofurantoin | | <=16 ug/mL: | | | | | Sensitive | + + +--------+ + | Escherichia coli | Tobramycin | | <=1 ug/mL: | | | | | Sensitive | + + +--------+ + | Escherichia coli | Trimethoprim + | | <=20 ug/mL: | | | Sulfamethoxazole | | Sensitive | + + +--------+ + from Last 3 Months Insurance + +--------+ +--------+ +---------+ | Payer | Benefi | Subscriber | Type | Phone | Address | | | t Plan | ID | | | | | | / | | | | | | | Group | | | | | + +--------+ +--------+ +---------+ | MEDICARE | MEDICA | xxxxxxxxxx | Medica | +- | | | | RE | | re | [phone] | | | | PART A | | | | | | | AND B | | | | | + +--------+ +--------+ +---------+ | INDIVIDUAL ASSURANCE | INDIVI | [id number] | Indemn | | | | COMPANY | DUAL | | ity | | | | | ASSURA | | | | | | | NCE CO | | | | | | | MDCR | | | | | | | SUPPL | | | | | + +--------+ +--------+ +---------+ | [place]ICAID [place] | MEDICA | xxxxxxxx | Medica | [phone] | | | [place] | | id | [phone] | | | | PLUS | | | | | + +--------+ +--------+ +---------+ + +--------+ +--------+ + + | Guarantor Name | Accoun | Relation to | Date | Phone | Billing Address | | | t Type | Patient | of | | | | | | | | | | + +--------+ +--------+ + + | GIOVANA PEREZ | Person | Self [birth year] Home: | [address] | | | al/Fam | | 1946 | [phone] | [place] [address] | | | meg | | | [phone] | | + +--------+ +--------+ + +
--- OUTSIDE RECORDS SUMMARY | ~2017-07-05 | XMS | Encounter Summary ---
Demographics + + + | Address | [address] | | | [place] [address] | + + + | Home Phone | | + + + | Preferred Language | Unknown | + + + | Marital Status | Single | + + + | Baptist Affiliation | Unknown | + + + | Race | Unknown | + + + | Ethnic Group | Unknown | + + + Author + + + | Author | [facility] | | | and [place] | + + + | Organization | [facility] | | | and [place] | + + + | Address | Unknown | + + + | Phone | Unavailable | + + + Support + + + + + | Name | Relationship | Address | Phone | + + + + + | Kit Hyde | ECON | [address] | | | | | [place], | | | | | [place] [address] | | + + + + + | Crystal Hyde | ECON | Unknown | | + + + + + Care Team Providers + +------+ + | Care Casting Sorter Name | Role | Phone | + +------+ + | Yoly Gamez | PCP | | + +------+ + Reason for Visit + + + | Reason | Comments | + + + | Case Management | Pt. needs more caregiver hours | + + + Encounter Details +--------+ + + + + | Date | Type | Department | Care Team | Description | +--------+ + + + + | 07/05/ | Telephone | [facility] | Carmela Morris, | Case Management (Pt. | | 2018 | | MED CTR CASE | RN | needs more | | | | MANAGEMENT [address] | | caregiver hours) | | | | [place], | | | | | | [place] [address] | | | | | | [phone] | | | +--------+ + + + [...] 2017 | | | [address] | | | | | | [place] | | | | | | [id number] | | | | | | | | +--------+ + + + + | 07/15/ | Appointment | Radiology | Yoly Gamez FNP | | | 2017 | | | [address] | | | | | | [place] | | | | | | [address] | | | | | | | | | | | | Mechelle Lord, | | | | | | Technologist | | +--------+ + + + + | 07/15/ | Appointment | Radiology | Yoly Gamez FNP | | | 2017 | | | [address] | | | | | | [place] | | | | | | [address] | | | | | | | | | | | | Lorene Arthur, | | | | | | Change Of Address Clerk | | +--------+ + + + + | 08/01/ | Office | Family Medicine | Yoly Gamez FNP | | | 2017 | Visit | | [address] | | | | | | [place] | | | | | | [address] | | | | | | | | +--------+ + + + + | 08/02/ | Office | Sleep Medicine | Chu Davis PA | | | 2017 | Visit | | [address] | | | | | | [place] | | | | | | [address] | | | | | | | | +--------+ + + + + | 10/13/ | Office | Cardiology | Alpa Corcoran, | | | 2017 | Visit | | MD [address] | | | | | | [place], | | | | | | [place] [address] | | | | | | [phone] | | | | | | | | +--------+ + + + + as of this encounter Visit Diagnoses Not on filein this encounter"
--- OUTSIDE RECORDS SUMMARY | ~2017-07-05 | XMS | Encounter Summary ---
Demographics + + + | Address | [address] | | | [place] [address] | + + + | Home Phone | | + + + | Preferred Language | Unknown | + + + | Marital Status | Single | + + + | Oriental Orthodox Affiliation | Unknown | + + + | Race | Unknown | + + + | Ethnic Group | Unknown | + + + Author + + + | Author | [facility] | | | and [place] | + + + | Organization | [facility] | | | and [place] | + + + | Address | Unknown | + + + | Phone | Unavailable | + + + Support + + + + + | Name | Relationship | Address | Phone | + + + + + | Kit Hyde | ECON | [address] | | | | | [place], | | | | | [place] [address] | | + + + + + | Crystal Hyde | ECON | Unknown | | + + + + + Care Team Providers + +------+ + | Care Parachute Crown Sewer Name | Role | Phone | + +------+ + | Yoly Gamez | PCP | | + +------+ + Reason for Visit + + + | Reason | Comments | + + + | Caregiver | | | Concerns/Communicati | | | on | | + + + Encounter Details +--------+ + + + + | Date | Type | Department | Care Team | Description | +--------+ + + + + | 06/30/ | Telephone | [facility] | Yoly Gamez FNP | Caregiver | | 2018 | | MEDICINE [place] | [address] | Concerns/Communicati | | | | [address] | [place] | on | | | | [place] | [address] | | | | | [address] | | | | | | [phone] | | | +--------+ + + + [...] [place] | | | | | | [address] | | | | | | | | +--------+ + + + + | 07/15/ | Appointment | Radiology | Yoly Gamez FNP | | | 2018 | | | [address] | | | | | | [place] | | | | | | [address] | | | | | | | | | | | | Mechelle Lord, | | | | | | Technologist | | +--------+ + + + + | 07/15/ | Appointment | Radiology | Yoly Gamez FNP | | | 2017 | | | [address] | | | | | | [place] | | | | | | [address] | | | | | | | | | | | | Lorene Arthur, | | | | | | Oysterman | | +--------+ + + + + | 08/01/ | Office | Family Medicine | Yoly Gamez FNP | | | 2017 | Visit | | [address] | | | | | | [place] | | | | | | [address] | | | | | | | | +--------+ + + + + | 08/02/ | Office | Sleep Medicine | Chu Davis PA | | | 2017 | Visit | | [address] | | | | | | [place] | | | | | | [address] | | | | | | | | +--------+ + + + + | 10/13/ | Office | Cardiology | Alpa Corcoran, | | | 2017 | Visit | | MD [address] | | | | | | [place], | | | | | | [place] [address] | | | | | | [phone] | | | | | | | | +--------+ + + + + as of this encounter Visit Diagnoses Not on filein this encounter"
--- OUTSIDE RECORDS SUMMARY | ~2017-07-05 | XMS | Encounter Summary ---
Demographics + + + | Address | [address] | | | [place] [address] | + + + | Home Phone | | + + + | Preferred Language | Unknown | + + + | Marital Status | Single | + + + | Zoroastrianism Affiliation | Unknown | + + + | Race | Unknown | + + + | Ethnic Group | Unknown | + + + Author + + + | Author | [facility] | | | and [place] | + + + | Organization | [facility] | | | and [place] | + + + | Address | Unknown | + + + | Phone | Unavailable | + + + Support + + + + + | Name | Relationship | Address | Phone | + + + + + | Kit Hyde | ECON | [address] | | | | | [place], | | | | | [place] [address] | | + + + + + | Crystal Hyde | ECON | Unknown | | + + + + + Care Team Providers + +------+ + | Care Costume Seamstress Name | Role | Phone | + +------+ + | Yoly Gamez | PCP | | + +------+ + Encounter Details +--------+ + + + + | Date | Type | Department | Care Team | Description | +--------+ + + + + | 06/10/ | Orders Only | [facility] | Yoly GamezOSCAR | Urinary urgency | | 2018 | | MEDICINE [place] | [address] | (Primary Dx) | | | | [address] | [place], [place] | | | | | [place], [place] | [address] | | | | | [address] | | | | | | [phone] | | | +--------+ + + + [...] [place] | | | | | | [address] | | | | | | | | +--------+ + + + + | 07/15/ | Appointment | Radiology | Yoly Gamez FNP | | | 2017 | | | [address] | | | | | | [place] | | | | | | [address] | | | | | | | | | | | | Mechelle Lord, | | | | | | Technologist | | +--------+ + + + + | 07/15/ | Appointment | Radiology | VeraYoly FNP | | | 2017 | | | [address] | | | | | | [place] | | | | | | [address] | | | | | | | | | | | | Lorene Arthur, | | | | | | School Resource Officer | | +--------+ + + + + | 08/01/ | Office | Family Medicine | StefanYoly smith FNP | | | 2017 | Visit | | [address] | | | | | | [place] | | | | | | [address] | | | | | | | | +--------+ + + + + | 08/02/ | Office | Sleep Medicine | Chu Davis PA | | | 2017 | Visit | | [address] | | | | | | [place] | | | | | | [address] | | | | | | | | +--------+ + + + + | 10/13/ | Office | Cardiology | Alpa Corcoran, | | | 2017 | Visit | | [address] | | | | | | [place], | | | | | | [place] [address] | | | | | | [phone] | | | | | | | | +--------+ + + + + as of this encounter Visit Diagnoses + + | Diagnosis | + + | Urinary urgency - Primary | + + | Urgency of urination | + +"
--- OUTSIDE RECORDS SUMMARY | ~2017-07-05 | XMS | Encounter Summary ---
Demographics + + + | Address | [address] | | | [place] [address] | + + + | Home Phone | | + + + | Preferred Language | Unknown | + + + | Marital Status | Single | + + + | Gnosticist Affiliation | Unknown | + + + | Race | Unknown | + + + | Ethnic Group | Unknown | + + + Author + + + | Author | [facility] | | | and [place] | + + + | Organization | [facility] | | | and [place] | + + + | Address | Unknown | + + + | Phone | Unavailable | + + + Support + + + + + | Name | Relationship | Address | Phone | + + + + + | Kit Hyde | ECON | [address] | | | | | [place], | | | | | [place] [address] | | + + + + + | Crystal Hyde | ECON | Unknown | | + + + + + Care Team Providers + +------+ + | Care Residential Finish Carpenter Name | Role | Phone | + +------+ + | Yoly Gamez | PCP | | + +------+ + Reason for Visit + + + | Reason | Comments | + + + | Medication Question | | + + + Encounter Details +--------+ + + + + | Date | Type | Department | Care Team | Description | +--------+ + + + + | 07/05/ | Telephone | [facility] | oYly Gamze FNP | Medication Question | | 2018 | | MEDICINE [place] | [address] | | | | | [address] | [place] | | | | | [place], [place] | [address] | | | | | [address] | | | | | | [phone] | | | +--------+ + + + [...] [place] | | | | | | [address] | | | | | | | | +--------+ + + + + | 07/15/ | Appointment | Radiology | Yoly GamezOSCAR | | | 2018 | | | [address] | | | | | | [place] | | | | | | [address] | | | | | | | | | | | | Mechelle Lord, | | | | | | Technologist | | +--------+ + + + + | 07/15/ | Appointment | Radiology | Yoly GamezOSCAR | | | 2018 | | | [address] | | | | | | [place] | | | | | | [address] | | | | | | | | | | | | Lorene Arthur, | | | | | | Clinical Auditor | | +--------+ + + + + | 08/01/ | Office | Family Medicine | Vera YolyOSCAR | | | 2018 | Visit | | [address] | | | | | | [place] | | | | | | [address] | | | | | | | | +--------+ + + + + | 08/02/ | Office | Sleep Medicine | Chu Davis PA | | | 2017 | Visit | | [address] | | | | | | [place] | | | | | | [address] | | | | | | | | +--------+ + + + + | 10/13/ | Office | Cardiology | Alpa Corcoran, | | | 2017 | Visit | | MD [address] | | | | | | [place], | | | | | | [place] [address] | | | | | | [phone] | | | | | | | | +--------+ + + + + as of this encounter Visit Diagnoses Not on filein this encounter"
--- OUTSIDE RECORDS SUMMARY | ~2017-07-05 | XMS | Encounter Summary ---
Demographics + + + | Address | [address] | | | [place] [address] | + + + | Home Phone | | + + + | Preferred Language | Unknown | + + + | Marital Status | Single | + + + | Mormonism Affiliation | Unknown | + + + | Race | Unknown | + + + | Ethnic Group | Unknown | + + + Author + + + | Author | [facility] | | | and [place] | + + + | Organization | [facility] | | | and [place] | + + + | Address | Unknown | + + + | Phone | Unavailable | + + + Support + + + + + | Name | Relationship | Address | Phone | + + + + + | Kit Hyde | ECON | [address] | | | | | [place], | | | | | [place] [address] | | + + + + + | Crystal Hyde | ECON | Unknown | | + + + + + Care Team Providers + +------+ + | Care Chemistry Department Chair Name | Role | Phone | + +------+ + | Yoly Gamez | PCP | | + +------+ + Reason for Visit + + + | Reason | Comments | + + + | Dysuria | | + + + | Hematuria | | + + + Encounter Details +--------+ + + + + | Date | Type | Department | Care Team | Description | +--------+ + + + + | 05/16/ | Telephone | [facility] | Yoly Gamez FNP | Dysuria; Hematuria | | 2018 | | MEDICINE [place] | [address] | | | | | [address] | [place] | | | | | [place], [place] | [address] | | | | | [address] | | | | | | [phone] | | | +--------+ + + + [...] [place] | | | | | | [address] | | | | | | | | +--------+ + + + + | 07/15/ | Appointment | Radiology | Yoly GamezOSCAR | | | 2018 | | | [address] | | | | | | [place] | | | | | | [address] | | | | | | | | | | | | Mechelle Lord, | | | | | | Technologist | | +--------+ + + + + | 07/15/ | Appointment | Radiology | Yoly GamezOSCAR | | | 2017 | | | [address] | | | | | | [place] | | | | | | [address] | | | | | | | | | | | | Lorene Arthur, | | | | | | Rug Cutter | | +--------+ + + + + | 08/01/ | Office | Family Medicine | Vera YolyOSCAR | | | 2018 | Visit | | [address] | | | | | | [place] | | | | | | [address] | | | | | | | | +--------+ + + + + | 08/02/ | Office | Sleep Medicine | Chu Davis PA | | | 2017 | Visit | | [address] | | | | | | [place] | | | | | | [address] | | | | | | | | +--------+ + + + + | 10/13/ | Office | Cardiology | Alpa Corcoran, | | | 2017 | Visit | | MD [address] | | | | | | [place], | | | | | | [place] [address] | | | | | | [phone] | | | | | | | | +--------+ + + + + as of this encounter Visit Diagnoses Not on filein this encounter"
--- OUTSIDE RECORDS SUMMARY | ~2017-07-05 | XMS | Encounter Summary ---
Demographics + + + | Address | [address] | | | [place] [address] | + + + | Home Phone | | + + + | Preferred Language | Unknown | + + + | Marital Status | Single | + + + | Protestant Affiliation | Unknown | + + + | Race | Unknown | + + + | Ethnic Group | Unknown | + + + Author + + + | Author | [facility] | | | and [place] | + + + | Organization | [facility] | | | and [place] | + + + | Address | Unknown | + + + | Phone | Unavailable | + + + Support + + + + + | Name | Relationship | Address | Phone | + + + + + | Kit Hyde | ECON | [address] | | | | | [place], | | | | | [place] [address] | | + + + + + | Crystal Hyde | ECON | Unknown | | + + + + + Care Team Providers + +------+ + | Care Wet Process Miller Head Name | Role | Phone | + [...] + + | 05/16/ | Telephone | [facility] | Yoly Gamez FNP | Dysuria; Hematuria | | 2018 | | MEDICINE [place] | [address] | | | | | [address] | [place] | | | | | [place], [place] | [address] | | | | | [address] | | | | | | [phone] | | | +--------+ + + + [...] [place] | | | | | | [address] | | | | | | | | +--------+ + + + + | 07/15/ | Appointment | Radiology | Yoly GamezOSCAR | | | 2018 | | | [address] | | | | | | [place] | | | | | | [address] | | | | | | | | | | | | Mechelle Lord, | | | | | | Technologist | | +--------+ + + + + | 07/15/ | Appointment | Radiology | Yoly GamezOSCAR | | | 2017 | | | [address] | | | | | | [place] | | | | | | [address] | | | | | | | | | | | | Lorene Arthur, | | | | | | Sequins Slinger | | +--------+ + + + + | 08/01/ | Office | Family Medicine | Vera YolyOSCAR | | | 2018 | Visit | | [address] | | | | | | [place] | | | | | | [address] | | | | | | | | +--------+ + + + + | 08/02/ | Office | Sleep Medicine | Chu Davis PA | | | 2017 | Visit | | [address] | | | | | | [place] | | | | | | [address] | | | | | | | | +--------+ + + + + | 10/13/ | Office | Cardiology | Alpa Corcoran, | | | 2017 | Visit | | MD Maria Teresa Yanez | | | | | | [place], | | | | | | [place] [address] | | | | | | [phone] | | | | | | | | +--------+ + + + + as of this encounter Visit Diagnoses Not on filein this encounter"
--- OUTSIDE RECORDS SUMMARY | ~2017-07-05 | XMS | Encounter Summary ---
Demographics + + + | Address | [address] | | | [place] [address] | + + + | Home Phone | | + + + | Preferred Language | Unknown | + + + | Marital Status | Single | + + + | Anglican Affiliation | Unknown | + + + | Race | Unknown | + + + | Ethnic Group | Unknown | + + + Author + + + | Author | [facility] | | | and [place] | + + + | Organization | [facility] | | | and [place] | + + + | Address | Unknown | + + + | Phone | Unavailable | + + + Support + + + + + | Name | Relationship | Address | Phone | + + + + + | Kit Hyde | ECON | [address] | | | | | [place], | | | | | [place] [address] | | + + + + + | Crystal Hyde | ECON | Unknown | | + + + + + Care Team Providers + +------+ + | Care Technical Photographer Name | Role | Phone | + +------+ + | Yoly Gamez | PCP | | + +------+ + Reason for Visit + + + | Reason | Comments | + + + | Case Management | Need more caregiver hours | + + + Encounter Details +--------+ + + + + | Date | Type | Department | Care Team | Description | +--------+ + + + + | 07/04/ | Telephone | [facility] | Carmela Morris, | Case Management | | 2018 | | MED CTR CASE | RN | (Need more caregiver | | | | MANAGEMENT [address] | | hours) | | | | [place], | | | | | | [place] [address] | | | | | | [phone] | | | +--------+ + + + [...] | 2017 | | | [address] | | [...] [place] | | | | | | [address] | | | | | | | | | | | | Mechelle Lord, | | | | | | Technologist | | +--------+ + + + + | 07/15/ | Appointment | Radiology | Yoly Gamez FNP | | | 2017 | | | [address] | | | | | | [place] | | | | | | [address] | | | | | | | | | | | | Lorene Arthur, | | | | | | Uranium Processing Supervisor | | +--------+ + + + + | 08/01/ | Office | Family Medicine | Yoly Gamez FNP | | | 2017 | Visit | | [address] | | | | | | [place] | | | | | | [address] | | | | | | | | +--------+ + + + + | 08/02/ | Office | Sleep Medicine | Chu Davis PA | | | 2017 | Visit | | [address] | | | | | | [place] | | | | | | [address] | | | | | | | | +--------+ + + + + | 10/13/ | Office | Cardiology | Alpa Corcoran, | | | 2017 | Visit | | MD [address] | | | | | | [place], | | | | | | [place] [address] | | | | | | [phone] | | | | | | | | +--------+ + + + + as of this encounter Visit Diagnoses Not on filein this encounter"
--- OUTSIDE RECORDS SUMMARY | ~2017-07-05 | XMS | Encounter Summary ---
Demographics + + + | Address | [address] | | | [place] [address] | + + + | Home Phone | | + + + | Preferred Language | Unknown | + + + | Marital Status | Single | + + + | Hinduism Affiliation | Unknown | + + + | Race | Unknown | + + + | Ethnic Group | Unknown | + + + Author + + + | Author | [facility] | | | and [place] | + + + | Organization | [facility] | | | and [place] | + + + | Address | Unknown | + + + | Phone | Unavailable | + + + Support + + + + + | Name | Relationship | Address | Phone | + + + + + | Kit Hyde | ECON | [address] | | | | | [place], | | | | | [place] [address] | | + + + + + | Crystal Hyde | ECON | Unknown | | + + + + + Care Team Providers + +------+ + | Care Cage Cashier Name | Role | Phone | + +------+ + | Yoly Gamez | PCP | | + +------+ + Encounter Details +--------+ + + + + | Date | Type | Department | Care Team | Description | +--------+ + + + + | 05/18/ | Procedure | [facility] | | | | 2018 | Pass | [facility] | | | | | | [address] | | | | | | [place] | | | | | | [address] | | | | | | [phone] | | | +--------+ + + + [...] [place] | | | | | | [address] | | | | | | | | +--------+ + + + + | 07/15/ | Appointment | Radiology | Yoly Gamez FNP | | | 2017 | | | [address] | | | | | | [place] | | | | | | [address] | | | | | | | | | | | | Mechelle Lord, | | | | | | Technologist | | +--------+ + + + + | 07/15/ | Appointment | Radiology | Yoly Gamez FNP | | | 2017 | | | [address] | | | | | | [place] | | | | | | [address] | | | | | | | | | | | | Lorene Arthur, | | | | | | Electrocardiogram Technician | | +--------+ + + + + | 08/01/ | Office | Family Medicine | Yoly Gamez FNP | | | 2017 | Visit | | [address] | | | | | | [place] | | | | | | [address] | | | | | | | | +--------+ + + + + | 08/02/ | Office | Sleep Medicine | Chu Davis PA | | | 2017 | Visit | | [address] | | | | | | [place] | | | | | | [address] | | | | | | | | +--------+ + + + + | 10/13/ | Office | Cardiology | Alpa Corcoran, | | | 2017 | Visit | | [place] [address] | | | | | | [place], | | | | | | [place] [address] | | | | | | [phone] | | | | | | | | +--------+ + + + + as of this encounter Visit Diagnoses Not on filein this encounter"
--- OUTSIDE RECORDS SUMMARY | ~2017-07-05 | XMS | Encounter Summary ---
Demographics + + + | Address | [address] | | | [place] [address] | + + + | Home Phone [...] [facility] | | | and [place] | + + + | Organization | [facility] | | | and [place] | + + + | Address | Unknown | + + + | Phone | Unavailable | + + + Support + + + + + | Name | Relationship | Address | Phone | + + + + + | Kit Hyde | ECON | [address] | | | | | [place], | | | | | [place] [address] | | + + + + + | Crystal Hyde | ECON | Unknown | | + + + + + Care Team Providers + +------+ + | Care Escrow Closer Name | Role | Phone | + [...] + + | 06/06/ | Telephone | [facility] | VeraYoly FNP | Urinary Tract | | 2018 | | [facility] | [address] | Infection | | | | [address] | [place] | | | | | [place] | [address] | | | | | [address] | | | | | | [phone] | | | +--------+ + + + [...] [place] | | | | | | [address] | | | | | | | | +--------+ + + + + | 07/15/ | Appointment | Radiology | Yoly Gamez FNP | | | 2017 | | | [address] | | | | | | [place] | | | | | | [address] | | | | | | | | | | | | Mechelle Lord, | | | | | | Technologist | | +--------+ + + + + | 07/15/ | Appointment | Radiology | Yoly Gamez FNP | | | 2017 | | | [address] | | | | | | [place] | | | | | | [address] | | | | | | | | | | | | Lorene Arthur, | | | | | | Oncology Pharmacist | | +--------+ + + + + | 08/01/ | Office | Family Medicine | Yoly Gamez FNP | | | 2017 | Visit | | [address] | | | | | | [place] | | | | | | [address] | | | | | | | | +--------+ + + + + | 08/02/ | Office | Sleep Medicine | Chu Davis PA | | | 2017 | Visit | | [address] | | | | | | [place], [place] | | | | | | [address] | | | | | | | | +--------+ + + + + | 10/13/ | Office | Cardiology | Alpa Corcoran, | | | 2017 | Visit | | [place] [address] | | | | | | [place], | | | | | | [place] [address] | | | | | | [phone] | | | | | | | [...]
--- OUTSIDE RECORDS SUMMARY | ~2017-07-05 | XMS | Encounter Summary ---
Demographics + + + | Address | [address] | | | [place] [address] | + + + | Home Phone | | + + + | Preferred Language | Unknown | + + + | Marital Status | Single | + + + | Anabaptism Affiliation | Unknown | + + + | Race | Unknown | + + + | Ethnic Group | Unknown | + + + Author + + + | Author | [facility] | | | and [place] | + + + | Organization | [facility] | | | and [place] | + + + | Address | Unknown | + + + | Phone | Unavailable | + + + Support + + + + + | Name | Relationship | Address | Phone | + + + + + | Kit Hyde | ECON | [address] | | | | | [place], | | | | | [place] [address] | | + + + + + | Crystal Hyde | ECON | Unknown | | + + + + + Care Team Providers + +------+ + | Care Rehabilitation Director Name | Role | Phone | + +------+ + | Yoly Gamez | PCP | | + +------+ + Reason for Visit + + + | Reason | Comments | + + + | Hematuria | x today | + + + Encounter Details +--------+---------+ + + + | Date | Type | Department | Care Team | Description | +--------+---------+ + + + | 05/16/ | Office | [facility] | Abimael Ro, | Hematuria, | | 2017 | Visit | [place] [address] | [address] | unspecified type | | | | [address] | [address] | (Primary Dx); UTI | | | | [facility] | [facility] | (urinary tract | | | | [place] [address] | [place] [address] | infection), | | | | [phone] | [phone] | uncomplicated | | | | | | | +--------+---------+ + + + Social History [...] + + + | Blood Pressure | 148/84 | 05/16/20171250 PST | + + + + | Pulse | 64 | 05/16/20171250 PST | + + + + | Temperature | 36.9 C (98.4 F) | 05/16/20171250 PST | + + + + | Respiratory Rate | 16 | 05/16/20171250 PST | + + + + | Oxygen Saturation | 94% | 05/16/2017 125 PST | + + + + | Inhaled Oxygen | - | - | | Concentration | | | + + + + | Weight | 71.8 kg (158 lb 4.6 | 05/16/2017 125 PST | | | oz) | | + + + + | Height | - | - | + + + + | Body Mass Index | 28.95 | 05/16/2017 1251 PST | + + + + in this encounter Instructions Patient Instructions - Alisia Beaver ARNP - 05/16/2017 1316 PSTFormatting of this note may be different from the original. Requested Prescriptions Signed Prescriptions Disp Refills nitrofurantoin (MACROBID) 100 mg capsule 10 capsule 0 Sig: Take 1 capsule by mouth 2 times daily for 5 days. Indications: Simple Infection of t he Urinary Tract Take prescribed antibiotic until gone. Take Pyridium (i.e. AZO urinary pain relief) as needed for bladder discomfort and burning. Drink increased fluids routinely. Call back for urine culture results in 2-3 days. Return to clinic in 1 week if symptoms persist, change or worsen. Return sooner if fever an d/or nausea and vomiting develop. Bladder Infection,Female (Adult) Urine is normally doesn't have any bacteria in it. But bacteria can get into the urinary tr act from the skin around the rectum. Or they can travel in the blood from elsewhere in the b марина. Once they are in your urinary tract, they can cause infection in the urethra (urethriti s), the bladder (cystitis), or the kidneys (pyelonephritis). The most common place for an infection is in the bladder. This is called a bladder infectio n. This is one of the most common infections in women. Most bladder infections are easily tr eated. They are not serious unless the infection spreads to the kidney. The phrases "bladder infection," "UTI," and "cystitis" are often used to describe the same thing. But they are not always the same. Cystitis is an inflammation of the bladder. Themo st common cause of cystitis is an infection. Symptoms The infection causes inflammation in the urethra and bladder. This causes many of the sympt oms. The most common symptoms of a bladder infection are: Pain or burning when urinating Having to urinate more often than usual Urgent need to urinate Only a small amount of urine comes out Blood in urine Abdominal discomfort. This is usually in the lower abdomen above the pubic bone. Cloudy urine Strong- or bad-smelling urine Unable to urinate (urinary retention) Unable to hold urine in (urinary incontinence) Fever Loss of appetite Confusion (in older adults) Causes Bladder infections are not contagious. You can't get one from someone else, from a toilet s eat, or from sharing a bath. The most common cause of bladder infections is bacteria from the bowels. The bacteria get o nto the skin around the opening of the urethra. From there, they can get into the urine and travel up to the bladder, causing inflammation and infection. This usually happens because o f: Wiping improperly after urinating. Always wipe from front to back. Bowel incontinence Procedures such as having a catheter inserted Older age Not emptying your bladder. This can allow bacteria a chance to grow in your urine. Dehydration Constipation Sex Use of a diaphragm for control Treatment Bladder infections are diagnosed by a urine test. They are treated with antibiotics and usu allyclear up quickly without complications. Treatment helps prevent a more serious kidney infection. Medicines Medicines can help in the treatment of a bladder infection: Take antibiotics until they are used up, even if you feel better. It is important to fin lisa them to make sure the infection has cleared. You can use acetaminophen or ibuprofen for pain, fever, or discomfort, unless another me dicine was prescribed. If you have chronic liver or kidney disease, talk with your healthcar eprovider before usingthese medicines. Also talk with your provider if you've ever had a stomach ulcer or gastrointestinal bleeding, or are taking blood-thinner medicines. If you are givenphenazopydridine to reduce burning with urination, it will cause your urine to become a bright orange color. This can stain clothing. Care and prevention These self-care steps can help prevent future infections: Drink plenty of fluids to prevent dehydration and flush out your bladder. Do thisunles s you must restrict fluids for other health reasons, or your doctor told you not to. Proper cleaning after going to the bathroom is important. Wipe from front to back after using the toilet to prevent the spread of bacteria. Urinate more often. Don't try to hold urine in for a long time. Wear loose-fitting clothes and cotton underwear. Avoid tight-fitting pants. Improve your diet and prevent constipation. Eat more fresh fruit and vegetables, andfi sandra, and less junk and fatty foods. Avoid sex until your symptoms are gone. Avoid caffeine, alcohol, and spicy foods. These can irritate your bladder. Urinate right after intercourse to flush out your bladder. If you use control pills and have frequent bladder infections, discuss it with you r doctor. Follow-up care Call your healthcare provider if all symptoms are not gone after 3 days of treatment. This is especially important if you have repeat infections. If a culture was done, you will be told if your treatment needs to be changed. If directed, you can callto find out the results. If X-rays were done, you will be told if the results will affect yourtreatment. Call 911 Call 911 if any of the following occur: Trouble breathing Hard to wake up orconfusion Fainting or loss of consciousness Rapid heart rate When to seek medical advice Call your healthcare provider right away if any of these occur: Fever of 100.4F (38.0C) or higher, or as directed by your healthcare provider Symptoms are not betterby the third day of treatment Back or belly (abdominal) pain that gets worse Repeated vomiting, or unable to keep medicine down Weakness or dizziness Vaginal discharge Pain, redness, or swelling in the outer vaginal area (labia) Date Last Reviewed: 12/13/201519999657-1201 [employer]. [address] [place] [address], [place] [address]. All righ ts reserved. This information is not intended as a substitute for professional medical care. Always follow your healthcare professional's instructions. in this encounter Progress Notes Alisia Beaver ARNP - 05/16/2017 1240 PSTFormatting of this note may be different from the original. Giovana Perez is a 71 y.o. female Chief Complaint: Hematuria (x today) HPI Patient complains of dysuria, hematuria, suprapubic pressure and urgency starting today. No ticed abnormal/foul smelling urine a couple of days ago. Patient denies fever. Patient has h ad previous UTI's; states she gets them about once per year. She has not had a kidney infect ion that she's aware of. Patient's medications, allergies, past medical, surgical, social and family histories were reviewed and updated as appropriate. Allergies Allergen Reactions Codeine Patient's Preference "Brain freeze, I lose it" Adhesive & Tape Rash PAPER TAPE OKAY Atorvastatin Other (See Comments) Leg cramps Baclofen Other (See Comments) Hallucinations Latex Rash Salmeron a hole in my skin. Paper or cloth tape is OK Metformin Rash Methocarbamol Patient's Preference AKA "Robaxin" - Hallucinations Medications: Patient Reported Taking Dosage albuterol 2.5 mg/3 mL nebulizer solution (Taking) Take 2.5 mg by nebulization every 4 vamsi rs as needed. Uses as needed Number of times this order has been changed since signin [facility] [place] aspirin 325 mg EC tablet (Taking) Take by mouth Daily. 4 tablets daily Blood Glucose Monitoring Suppl (ONE TOUCH ULTRA MINI) w/Device KIT (Taking) by Does not a pply route. buPROPion (WELLBUTRIN SR) 200 MG 12 hr tablet (Taking) Take 1 tablet by mouth 2 times [place]. calcium, as carbonate, (CALTRATE) 600 mg tablet (Taking) Take 1,200 mg by mouth Daily. clobetasol (TEMOVATE) 0.05% ointment (Taking) Apply topically as needed. Number of times this order has been changed since signin [facility] [place] dexamethasone (DECADRON) 4 mg/mL injection (Taking/Discontinued) Inject 4 mg into the mus nitin every 6 hours. dexlansoprazole (DEXILANT) [address] capsule (Taking) Take 1 capsule by mouth Daily. Number of times this order has been changed since signin [facility] [place] FORTEO 600 MCG/2.4ML injection (Taking) Inject under the skin Daily. Number of times this order has been changed since signin [facility] [place] furosemide (LASIX) 40 mg tablet (Taking) Take 1 tablet by mouth Daily. Number of times this order has been changed since signin [facility] [place] melatonin 3 mg TABS (Taking) Take 3 mg by mouth Daily. metoprolol succinate (TOPROL-XL) 100 mg ER tablet (Taking) TAKE 1 TABLET EVERY DAY Number of times this order has been changed since signin [facility] [place] NIFEdipine (NIFEDICAL XL) 60 mg ER tablet (Taking) Take 60 mg by mouth Daily. As needed t o relax esophagus Number of times this order has been changed since signin [facility] [place] ONE TOUCH ULTRA TEST strip (Taking) Use to check blood sugars daily. Number of times this order has been changed since signin [facility] [place] ONE TOUCH ULTRASOFT LANCETS MISC (Taking) TEST once daily Number of times this order has been changed since signin [facility] [place] oxygen (Taking) Inhale 2 L into the lungs nightly. potassium chloride (KLOR-CON) 10 mEq CR tablet (Taking) TAKE 2 TABLETS EVERY DAY Number of times this order has been changed since signin [facility] [place] predniSONE (DELTASONE) 5 mg tablet (Taking) Take 5 mg by mouth Daily. Number of times this order has been changed since signin [facility] [place] pregabalin (LYRICA) 50 MG capsule (Taking) Take 1 capsule by mouth 3 times daily. Number of times this order has been changed since signin [facility] [place] PROAIR HFA 108 (90 BASE) MCG/ACT inhaler (Taking) Inhale 1 puff into the lungs every 6 ho urs as needed. Number of times this order has been changed since signin [facility] [place] UNABLE TO FIND (Taking) Med Name: Respironics Dreamstation APAP 5-15cm while sleeping. 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 Past Surgical History She has a past surgical history that includes Bone Resection, Rib (1978); partial bowel res ection; Neck surgery; carotid endarterectomy (Left); Total knee arthroplasty (06/05/2013); Ca taract removal with implant (Left, 04/03/2014); Lumbar spine surgery (N/A, 04/23/2014); Tubal ligation; Appendectomy; laparotomy; and Upper gastrointestinal endoscopy (N/A, 05/18/2017). Family History: Her family history includes Heart attack in her father and mother; Heart disease in her fat her and mother; High blood pressure in her paternal grandfather and paternal grandmother; Hy pertension in her son; No Known Problems in her brother, brother, brother, brother, brother, daughter, maternal grandfather, maternal grandmother, sister, sister, and son; Obesity in h er son. Social History: Social History Social History Marital status: Single Spouse name: N/A Number of children: 3 Years of education: 14 Occupational History Retired Social History Main Topics Smoking status: Former Smoker Packs/day: 1.00 Years: 40.00 Types: Cigarettes Start date: 03/14/1963 Quit date: 03/14/2003 Smokeless tobacco: Never Used Alcohol use No Drug use: No Sexual activity: No Other Topics Concern None Social History Narrative Exercise: tries to walk every other day, for 10 minutes Caffeine:5 cups of weak coffee a day Living situation:dog Review of Systems Constitutional: Negative for chills and fever. Gastrointestinal: Negative for diarrhea, nausea and vomiting. Genitourinary: Negative for decreased urine volume, difficulty urinating, flank pain and va ginal discharge. Objective: Vitals: 05/16/17 1251 BP: 148/84 Pulse: 64 Resp: 16 Temp: 36.9 C (98.4 F) TempSrc: Temporal SpO2: 94% Weight: 71.8 kg (158 lb 4.6 oz) Physical Exam Constitutional: She is oriented to person, place, and time. She appears well-developed and well-nourished. She is cooperative. No distress. Appropriately dressed and groomed HENT: Head: Normocephalic and atraumatic. Eyes: Conjunctivae are normal. Neck: Neck supple. Cardiovascular: Normal rate and regular rhythm. Pulmonary/Chest: Effort normal. No respiratory distress. Abdominal: Normal appearance and bowel sounds are normal. There is no tenderness. There is no guarding and no CVA tenderness. Musculoskeletal: She exhibits no edema. Neurological: She is alert and oriented to person, place, and time. Skin: Skin is warm and dry. No rash noted. She is not diaphoretic. Psychiatric: She has a normal mood and affect. Her speech is normal and behavior is normal. Nursing note and vitals reviewed. Results for orders placed or performed in visit on 05/16/17 Culture, Urine Result Value Ref Range Culture 100,000 CFU/ml Escherichia coli Susceptibility Escherichia coli - (no method available) Ampicillin <=2 Sensitive ug/mL Ampicillin + Sulbactam <=2 Sensitive ug/mL Cefazolin <=4 Sensitive ug/mL Cefoxitin <=4 Sensitive ug/mL Ceftazidime <=1 Sensitive ug/mL Ceftriaxone <=1 Sensitive ug/mL Ciprofloxacin <=0.25 Sensitive ug/mL Ertapenem <=0.5 Sensitive ug/mL Gentamicin <=1 Sensitive ug/mL Meropenem <=0.25 Sensitive ug/mL Nitrofurantoin <=16 Sensitive ug/mL Tobramycin <=1 Sensitive ug/mL Trimethoprim + Sulfamethoxazole <=20 Sensitive ug/mL POCT Urinalysis Dipstick Automated Result Value Ref Range Color, UA, POC Shanna (A) Yellow, Light Yellow Clarity, UA, POC Turbid Glucose, UA, POC Negative Negative Bilirubin, UA, POC Negative Negative Ketones, UA, POC Trace (A) Negative, 100 mg/dL Specific [place], UA, POC 1.030 1.001 - 1.030 Blood, UA, POC Large (A) Negative pH, UA, POC 6.0 5.0, 6.0, 7.0, 8.0, 5.5, 6.5, 7.5 Protein, UA, POC 100 mg/dL (A) Negative Urobilinogen, UA, POC 0.2 0.2, Negative, Normal, < 0.2 mg/dL, 1 mg/dL, < 0.2 E.U./dl, 1.0 E.U./dL, 0.2 mg/dL Nitrite, UA, POC Negative Negative Leukocyte Esterase, UA, POC Moderate (A) Negative RED SUB UA ICTOTEST Negative REMARK Assessment: 1. Hematuria, unspecified type POCT Urinalysis Dipstick Automated 2. UTI (urinary tract infection), uncomplicated nitrofurantoin (MACROBID) 100 mg capsule Culture, Urine Plans: 1. Hematuria, unspecified type - POCT Urinalysis Dipstick Automated - probable UTI 2. UTI (urinary tract infection), uncomplicated - Culture, Urine - to confirm diagnosis - nitrofurantoin (MACROBID) 100 mg capsule; Take 1 capsule by mouth 2 times daily for 5 day s. Indications: Simple Infection of the Urinary Tract Dispense: 10 capsule; Refill: 0 - Take Pyridium (i.e. AZO urinary pain relief) as needed for bladder discomfort and burning . - Drink increased fluids routinely. - Call back for urine culture results in 2-3 days. Care instructions, medication side effects, and warning signs were discussed. All questions were answered. See patient instructions for additional education. Follow-up: Return to clinic in 1 week if symptoms persist, change or worsen. Return sooner if fever an d/or nausea and vomiting develop. Electronically signed by Rashaad Henriquez this encounter Plan of Treatment +--------+ + + + + | Date | Type | Specialty | Care Team | Description | +--------+ + + + + | 06/30/ | Procedure | Family Medicine | | | | 2017 | Pass | | | | +--------+ + + + + 07/15/ | Appointment | Radiology | Yoly Gamez FNP | | | 2017 | | | [address] | | | | | | [place] | | | | | | [id number] | | | | | | | | +--------+ + + + + | 07/15/ | Appointment | Radiology | Yoly GamezOSCAR | | | 2017 | | | [address] | | | | | | [place] | | | | | | [address] | | | | | | | | | | | | Mechelle Lord, | | | | | | Technologist | | +--------+ + + + + | 07/15/ | Appointment | Radiology | Yoly GamezOSCAR | | | 2017 | | | [address] | | | | | | [place] | | | | | | [id number] | | | | | | | | | | | | Lorene rAthur, | | | | | | Coppersmith Apprentice | | +--------+ + + + + | 08/01/ | Office | Family Medicine | VeraYoly FNP | | | 2018 | Visit | | [address] | | | | | | [place] | | | | | | [address] | | | | | | | | +--------+ + + + + | 08/02/ | Office | Sleep Medicine | Chu Davis PA | | | 2017 | Visit | | [address] | | | | | | [place], [place] | | | | | | [address] | | | | | | | | +--------+ + + + + | 10/13/ | Office | Cardiology | Alpa Corcoran, | | | 2017 | Visit | | MD [address] | | | | | | [place], | | | | | | [place] [address] | | | | | | [phone] | | | | | | | | +--------+ + + + + as of this encounter Results POCT Urinalysis Dipstick Automated (05/16/2017 1326) + [...] | + + + + | Specific [place], | 1.030 | 1.001 - 1.030 | [...] + | Urine - Urine, clean | [facility] [address] | | catch | [place] [address] | + + + + + +--------+ [...] | Sensitive | + + +--------+ + in this encounter Visit Diagnoses + + | Diagnosis | + + | Hematuria, unspecified type - Primary | + + | UTI (urinary tract infection), uncomplicated | + + | Urinary tract infection, site not specified | + +
--- OUTSIDE RECORDS SUMMARY | ~2017-07-05 | XMS | Clinical Summary ---
Demographics + + + | Address | [address] | | | [place] [address] | + + + | Home Phone [...] + + + | Author | [facility] | | | and [place] | + + + | Organization | [facility] | | | and [place] | + + + | Address | Unknown | + + + | Phone | Unavailable | + + + Support + + + + + | Name | Relationship | Address | Phone | + + + + + | Kit Hyde | ECON | [address] | | | | | [place], | | | | | [place] [address] | | + + + + + | Crystal Hyde | ECON | Unknown | | + + + + + Care Team Providers + +------+ + | Care Mellowing Machine Operator Name | Role | Phone | [...] 1 left | | ventricular diastolic dysfunction, ajob-vc-fmjjtjqz mitral valve | | regurgitation, mild to [...] | + +---+ | PMR (polymyalgia rheumatica) ([facility]) | | + +---+ Encounters +--------+ + [...] + | 04/15/ | Office | | BesttrixieelaTrixiebest, | Essential | | 2018 | Visit [...] + + | Father | | | [place] | | | | (Age | | [...] [place] | | | | | | [address] | | | | | | | | +--------+ + + + + | 07/15/ | Appointment | | Yoly Gamez FNP | | | 2017 | | | [address] | | | | | | [place] | | | | | | [address] | | | | | | | | | | | | Mechelle Lord, | | | | | | Technologist | | +--------+ + + + + | 07/15/ | Appointment | | Yoly Gamez FNP | | | 2017 | | | [address] | | | | | | [place] | | | | | | [address] | | | | | | | | | | | | Lorene Arthur, | | | | | | Floor Finisher | | +--------+ + + + + | 08/01/ | Office | | Yoly Gamez FNP | | | 2017 | Visit | | [address] | | | | | | [place] | | | | | | [address] | | | | | | | | +--------+ + + + + | 08/02/ | Office | | Chu Davis PA | | | 2017 | Visit | | [address] | | | | | | [place] | | | | | | [address] | | | | | | | | +--------+ + + + + | 10/13/ | Office | | Alpa Corcoran, | | | 2017 | Visit | | MD [address] | | | | | | [place], | | | | | | [place] [address] | | | | | | [phone] | | | | | | | [...] | | 12/06/ | 00-111 | | [id number]: Qty: 1 on | | Knee | ZIMM | | 2017 | 3-140- | | 06/05/2013 by Berlin Nugent | | | | | | 01 / | | MD Rebecca | | | | | | /[id number] | | | | | | | | 368 | + +------+--------+ +--------+--------+--------+ | Tibial ComponentImplanted: | | Right: | Tammy | | 06/05/ | 5842-0 | | Qty: 1 on 06/05/2013 by | | Knee | | | 2022 | 05-13 / | | Berlin Nugent MD | | | | | | | | | | | | | | /[id number] | | | | | | | | 279 | + +------+--------+ +--------+--------+--------+ | Femoral ComponentImplanted: | | Right: | Tammy | | 03/07/ | 5842-1 | | Qty: 1 on 06/05/2013 by | | Knee | | | 2022 | 06-13 / | | Berlin Nugent MD | | | | | | | | | | | | | | /[id number] | | | | | | | | 134 | + +------+--------+ +--------+--------+--------+ | Articular SurfaceImplanted: | | Right: | Tammy | | 02/05/ | 5842-2 | | Qty: 1 on 06/05/2013 by | | Knee | | | 2020 | 05-19 / | | Berlin Nugent MD | | | | | | | | | | | | | | /[id number] | | | | | | | | 876 | + +------+--------+ +--------+--------+--------+ | Imp Knee Tot Unicmprt Mob Brg | | | CAP RINCON - | | | [id number] / | | - [id number]: Qty: 1 | | | CAP | | | / | | on 06/05/2013 | | | | | | | + +------+--------+ +--------+--------+--------+ | Graft Infuse Bone Kit Xxs - | | N/A: | SOFAMOR | | / | [id number] | | [id number]: Qty: 1 on | | Spine | DANEK - DIV | | 2016 | 0 / | | 04/23/2014 by Jb Aden | | Lumbar | MEDMARCY | | | /[id number] | | DO Stew | | | - SFDK | | | [id number] | + +------+--------+ +--------+--------+--------+ | Screw Set Solera - | | N/A: | SOFAMOR | | | [id number] | | [id number]: Qty: 8 on | | Spine | DANEK - DIV | | | 0 / / | | 04/23/2014 by Jb Aden | | Lumbar | MEDTRONIC | | | | | A, DO | | | - SFDK | | | | + +------+--------+ +--------+--------+--------+ | Screw Mas 5.5 X 55mm - | | N/A: | MEDTRONIC - | | | [id number] | | [id number]: Qty: 4 on | | Spine | MEDT | | | [id number] | | 04/23/2014 by Jb Aden | | Lumbar | | | | / / | | A, DO | | | | | | | + +------+--------+ +--------+--------+--------+ | Screw Slra Sextant 7.5.55 - | | N/A: | MEDTRONIC - | | | [id number] | | [id number]: Qty: 2 on | | Spine | MEDT | | | [id number] | | 04/23/2014 by Jb Aden | | Lumbar | | | | / / | | DO Stew | | | | | | | + +------+--------+ +--------+--------+--------+ | Screw Mas G5 Slra 7.5x45 Cn - | | N/A: | SOFAMOR | | | [id number] | | [id number]: Qty: 2 | | Spine | DANEK - DIV | | | [id number] | | on 04/23/2014 by Keiko, | | Lumbar | MEDTRONIC | | | / / | | Jb Mathias DO | | | - SFDK | | | | + +------+--------+ +--------+--------+--------+ | Imp Spn Spcr Cpstn 7x26mm - | | N/A: | SOFAMOR | | 02/07/ | [id number] | | [id number]: Qty: 1 on | | Spine | DANEK - DIV | | 2020 | 6 / | | 04/23/2014 by Jb Aden | | Lumbar | MEDTRONIC | | | /[id number] | | DO Stew | | | - SFDK | | | 634 | + +------+--------+ +--------+--------+--------+ | Algrft Putty Campbell 5cc Dbm | | N/A: | OSTEOTECH - | | 09/26/ | [id number] | | - [id number]: Qty: | | Spine | OSTT | | 2016 | /[id number] | | 1 on 04/23/2014 by Keiko, | | Lumbar | | | | 2-064 | | bJ Mathias DO | | | | | | / | + +------+--------+ +--------+--------+--------+ | 4.75 Rods 140mmImplanted: | | N/A: | MEDTRONIC | | | [id number] | | Qty: 2 on 04/23/2014 by | | Spine | [facility]- | | | 6140 / | | Jb Aden DO | | Lumbar | [address] | | | / | + +------+--------+ +--------+--------+--------+ | Chips Cancellous 30cc - | | N/A: | OSTEOTECH - | | 03/03/ | [id number] | | [id number]: Qty: 1 | | Spine | OSTT | | 2016 | | | on 04/23/2014 by Keiko, | | Lumbar | | | | /[id number] | | Jb Mathias DO | | | | | | 4-022 | | | | | | | | / | + +------+--------+ +--------+--------+--------+ | Putty Campbell 10cc Dbm - | | N/A: | OSTEOTECH - | | 12/31/ | 53658 | | [id number]: Qty: 1 | | Spine | OSTT | | 2016 | /[id number] | | on 04/23/2014 by Keiko, | | Lumbar | | | | 9021 | | Jb Mathias DO | | | | | | / | + +------+--------+ +--------+--------+--------+ | Graft Infuse Bone Kit Xs - | | N/A: | SOFAMOR | | / | [id number] | | [id number]: Qty: 1 on | | Spine | DANEK - DIV | | 2015 | 0 / | | 04/23/2014 by Jb Aden | | Lumbar | MEDTRONIC | | | /[id number] | | DO Stew | | | - SFDK | | | 07AAF | + +------+--------+ +--------+--------+--------+ | Cage Xl Wide [id number] - | | N/A: | NUVASIVE - | | | [id number] | | [id number]: Qty: 1 on | | Spine | NVSV | | | 0 / / | | 04/23/2014 by Jb Aden | | Lumbar | | | | | | A, DO | | | | | | | + +------+--------+ +--------+--------+--------+ | Imp Spn Spcr Peek Xlw | | N/A: | NUVASIVE - | | | [id number] | | [id number] - | | Spine | NVSV | | | 5 / / | | [id number]: Qty: 2 on | | Lumbar | [...] + + + + | UA Specific [place], | 1.025 | 1.005 - 1.03 | [...] Date: 05/18/2017 1:09 PM MRN: | | [id number] Date of : 1945 Admit Type: Ambulatory | | Age: 71 Room: [place] [address] Gender: Female Note Status: Finalized Attending MD: [...] nurse, the | | anesthesiologist and the facility environmental technician in the pre-procedure area in the [...] PM Scope Out: 1:23:55 PM | | [facility], [address] [place] [address] | | [phone] | + + Surgical Pathology Exam (05/18/2017) [...] slide preparation were | | performed by [facility], [address], [place] [address] | | (Athletic Turf Worker: Anirudh Roque M.D. CLIA#: [id number]). Professional interpretation | | was performed by [facility], [facility], [address] [place] [address] (Athletic Turf Worker: Anirudh Roque M.D.; CLIA#: | | [id number]). Diagnostician: Anirudh Roque MD Pathologist Electronically | [...] | + + + + | Specific [place], | 1.030 | 1.001 - 1.030 | [...] | Urine - Urine, clean | [facility] [address] | | catch | [place] [phone] | + + + + + +--------+ [...] | 1946 | [phone] | [place] [address] | | | meg | | | [phone] | | + +--------+ +--------+ + +
--- OUTSIDE RECORDS SUMMARY | ~2017-07-05 | XMS | Encounter Summary ---
Demographics + + + | Address | [address] | | | [place] [address] | + + + | Home Phone | | + + + | Preferred Language | Unknown | + + + | Marital Status | Single | + + + | Catholic Affiliation | Unknown | + + + | Race | Unknown | + + + | Ethnic Group | Unknown | + + + Author + + + | Author | [facility] | | | and [place] | + + + | Organization | [facility] | | | and [place] | + + + | Address | Unknown | + + + | Phone | Unavailable | + + + Support + + + + + | Name | Relationship | Address | Phone | + + + + + | Kit Hyde | ECON | [address] | | | | | [place], | | | | | [place] [address] | | + + + + + | Crystal Hyde | ECON | Unknown | | + + + + + Care Team Providers + +------+ + | Care Biofuels Plant Construction Worker Name | Role | Phone | + +------+ + | Yoly Gamez | PCP | | + +------+ + Encounter Details +--------+---------+ + + + | Date | Type | Department | Care Team | Description | +--------+---------+ + + + | 05/18/ | Surgery | [facility] | Flaco Thorne MD | EGD | | 2018 | | [facility] | [address] | | | | | [address] | [address] [place] | | | | | [place], [place] | [place] [address] | | | | | [address] | [phone] | | | | | [phone] | | | +--------+---------+ + + + [...] vomiting, or vomiting blood Date Last Reviewed: 09/12/201519998421-7452 [employer] [address] [place] [address], [place] [address]. All righ ts reserved. This information is [...] [place] | | | | | | [address] | | | | | | | | +--------+ + + + + | 07/15/ | Appointment | Radiology | Yoly Gamez FNP | | | 2017 | | | [address] | | | | | | [place] | | | | | | [address] | | | | | | | | | | | | Mechelle Lord, | | | | | | Technologist | | +--------+ + + + + | 07/15/ | Appointment | Radiology | Yoly Gamez FNP | | | 2017 | | | [address] | | | | | | [place] | | | | | | [address] | | | | | | | | | | | | Lorene Arthur, | | | | | | Manhole Builder | | +--------+ + + + + | 08/01/ | Office | Family Medicine | Yoly Gamez FNP | | | 2017 | Visit | | [address] | | | | | | [place] | | | | | | [address] | | | | | | | | +--------+ + + + + | 08/02/ | Office | Sleep Medicine | Chu Davis PA | | | 2017 | Visit | | [address] | | | | | | [place] | | | | | | [address] | | | | | | | | +--------+ + + + + | 10/13/ | Office | Cardiology | Alpa Corcoran, | | | 2017 | Visit | | MD [address] | | | | | | [place], | | | | | | [place] [address] | | | | | | [phone] | | | | | | | [...] Date: 05/18/2017 1:09 PM MRN: | | [id number] Date of : 1945 Admit Type: Ambulatory | | Age: 71 Room: [place] [address] Gender: Female Note Status: Finalized Attending MD: [...] nurse, the | | anesthesiologist and the electronic warfare technician in the pre-procedure area in the [...] PM Scope Out: 1:23:55 PM | | [facility], [address] [facility], [place] [address] | | [phone] | + + Surgical Pathology Exam (05/18/2017) [...] on the requisition | | are two villafana-aci tissue fragments measuring from 0.4-0.6 cm, submitted, all in (C1). | | ka:GABY:katerina PERFORMING LABORATORY: Tissue processing and slide preparation were | | performed by [facility], [facility], [address], [place] [address] | | (Stream Control Officer: Anirudh Roque M.D. CLIA#: [id number]). Professional interpretation | | was performed by [facility], [facility], [address] | | [facility], [place] [address] (Stream Control Officer: Anirudh Roque M.D.; CLIA#: | | [id number]). Diagnostician: Anirudh Roque MD Pathologist Electronically | | Signed 05/20/2017 | + + in this encounter Visit Diagnoses Not on filein this encounter Admitting Diagnoses + + | Diagnosis | [...] ONCE PRN, Wheezing, | | | Starting Tue05/18/17 at 1330, For | | | 1 [...] glucose < 50, | | | Starting Tue05/18/17 at 1239, | | | Repeat in [...]
--- OUTSIDE RECORDS SUMMARY | ~2017-07-05 | XMS | Encounter Summary ---
Demographics + + + | Address | [address] | | | [place] [address] | + + + | Home Phone | | + + + | Preferred Language | Unknown | + + + | Marital Status | Single | + + + | Mandaeism Affiliation | Unknown | + + + | Race | Unknown | + + + | Ethnic Group | Unknown | + + + Author + + + | Author | [facility] | | | and [place] | + + + | Organization | [facility] | | | and [place] | + + + | Address | Unknown | + + + | Phone | Unavailable | + + + Support + + + + + | Name | Relationship | Address | Phone | + + + + + | Kit Hyde | ECON | [address] | | | | | [place], | | | | | [place] [address] | | + + + + + | Crystal Hyde | ECON | Unknown | | + + + + + Care Team Providers + +------+ + | Care Hydroelectric Station Operator Name | Role | Phone | + +------+ + | Yoly Gamez | PCP | | + +------+ + Reason for Visit + + + | Reason | Comments | + + + | Medical Problem | | + + + Encounter Details +--------+ + + + + | Date | Type | Department | Care Team | Description | +--------+ + + + + | 05/18/ | Telephone | [facility] | Jenelle Simms | Medical Problem | | 2017 | | [address] | [address] | | | | [facility] | [facility] | | | | | [address] | [facility], | | | | | [place] [address] | [place] [address] | | | | | [phone] | [phone] | | | | | | | [...] [place] | | | | | | [address] | | | | | | | | +--------+ + + + + | 07/15/ | Appointment | Radiology | Yoly Gamez FNP | | | 2017 | | | [address] | | | | | | [place] | | | | | | [address] | | | | | | | | | | | | Mechelle Lord, | | | | | | Technologist | | +--------+ + + + + | 07/15/ | Appointment | Radiology | Yoly Gamez FNP | | | 2017 | | | [address] | | | | | | [place] | | | | | | [address] | | | | | | | | | | | | Lorene Arthur, | | | | | | Installer Apprentice | | +--------+ + + + + | 08/01/ | Office | Family Medicine | Yoly Gamez FNP | | | 2017 | Visit | | [address] | | | | | | [place] | | | | | | [address] | | | | | | | | +--------+ + + + + | 08/02/ | Office | Sleep Medicine | Chu Davis PA | | | 2017 | Visit | | [address] | | | | | | [place] | | | | | | [address] | | | | | | | | +--------+ + + + + | 10/13/ | Office | Cardiology | Alpa Corcoran, | | | 2017 | Visit | | MD [address] | | | | | | [place], | | | | | | [place] [address] | | | | | | [phone] | | | | | | | | +--------+ + + + + as of this encounter Visit Diagnoses Not on filein this encounter"
--- OUTSIDE RECORDS SUMMARY | ~2017-07-05 | XMS | Encounter Summary ---
Demographics + + + | Address | [address] | | | [place] [address] | + + + | Home Phone | | + + + | Preferred Language | Unknown | + + + | Marital Status | Single | + + + | Hindu Affiliation | Unknown | + + + | Race | Unknown | + + + | Ethnic Group | Unknown | + + + Author + + + | Author | [facility] | | | and [place] | + + + | Organization | [facility] | | | and [place] | + + + | Address | Unknown | + + + | Phone | Unavailable | + + + Support + + + + + | Name | Relationship | Address | Phone | + + + + + | Kit Hyde | ECON | [address] | | | | | [place], | | | | | [place] [address] | | + + + + + | Crystal Hyde | ECON | Unknown | | + + + + + Care Team Providers + +------+ + | Care Butcher Meat Name | Role | Phone | + [...] + + | 06/10/ | Telephone | [facility] | Yoly Gamez FNP | Lab Results | | 2018 | | [facility] | [address] | | | | | [address] | [place] | | | | | [place] | [address] | | | | | [address] | | | | | | [phone] | | | +--------+ + + + [...] [place] | | | | | | [address] | | | | | | | | | | | | Mechelle Lord, | | | | | | Technologist | | +--------+ + + + + | 07/15/ | Appointment | Radiology | Yoly Gamez FNP | | | 2017 | | | [address] | | | | | | [place] | | | | | | [address] | | | | | | | | | | | | Lorene Arthur, | | | | | | Bottom Crane Operator | | +--------+ + + + + | 08/01/ | Office | Family Medicine | Yoly Gamez FNP | | | 2017 | Visit | | [address] | | | | | | [place] | | | | | | [address] | | | | | | | | +--------+ + + + + | 08/02/ | Office | Sleep Medicine | Chu Davis PA | | | 2017 | Visit | | [address] | | | | | | [place] | | | | | | [address] | | | | | | | | +--------+ + + + + | 10/13/ | Office | Cardiology | Alpa Corcoran, | | | 2017 | Visit | | MD [address] | | | | | | [place], | | | | | | [place] [address] | | | | | | [phone] | | | | | | | | +--------+ + + + + as of this encounter Visit Diagnoses Not on filein this encounter"
--- OUTSIDE RECORDS SUMMARY | ~2017-07-05 | XMS | Encounter Summary ---
Demographics + + + | Address | [address] | | | [place] [address] | + + + | Home Phone | | + + + | Preferred Language | Unknown | + + + | Marital Status | Single | + + + | Samaritan Affiliation | Unknown | + + + | Race | Unknown | + + + | Ethnic Group | Unknown | + + + Author + + + | Author | [facility] | | | and [place] | + + + | Organization | [facility] | | | and [place] | + + + | Address | Unknown | + + + | Phone | Unavailable | + + + Support + + + + + | Name | Relationship | Address | Phone | + + + + + | Kit Hyde | ECON | [address] | | | | | [place], | | | | | [place] [address] | | + + + + + | Crystal Hyde | ECON | Unknown | | + + + + + Care Team Providers + +------+ + | Care Image Archivist Name | Role | Phone | + [...] UTI | | | | [facility] | [facility] | (urinary tract | | | | [place] [address] | [place] [address] | infection), | | | | [phone] | [phone] | uncomplicated | | | | | [...] outer vaginal area (labia) Date Last Reviewed: 12/13/201519990142-5359 [employer] [address] [place] [address], [place] [address]. All righ ts reserved. This information is [...] has been changed since signin Order Audit Elizabeth aspirin 325 mg EC tablet (Taking) Take [...] has been changed since signin Order Audit Elizabeth dexamethasone (DECADRON) 4 mg/mL injection (Taking/Discontinued) Inject 4 mg into the mus nitin every 6 hours. dexlansoprazole (DEXILANT) [address] capsule (Taking) Take 1 capsule by mouth Daily. Number of times this order has been changed since signin Order Audit Elizabeth FORTEO 600 MCG/2.4ML injection (Taking) Inject under the skin Daily. Number of times this order has been changed since signin Order Audit Elizabeth furosemide (LASIX) 40 mg tablet (Taking) Take 1 tablet by mouth Daily. Number of times this order has been changed since signin Order Audit Elizabeth melatonin 3 mg TABS (Taking) Take 3 mg by mouth Daily. metoprolol succinate (TOPROL-XL) 100 mg ER tablet (Taking) TAKE 1 TABLET EVERY DAY Number of times this order has been changed since signin Order Audit Elizabeth NIFEdipine (NIFEDICAL XL) 60 mg ER tablet (Taking) Take 60 mg by mouth Daily. As needed t o relax esophagus Number of times this order has been changed since signin Order Audit Elizabeth ONE TOUCH ULTRA TEST strip (Taking) Use to check blood sugars daily. Number of times this order has been changed since signin Order Audit Elizabeth ONE TOUCH ULTRASOFT LANCETS MISC (Taking) TEST once daily Number of times this order has been changed since signin Order Audit Elizabeth oxygen (Taking) Inhale 2 L into the lungs nightly. potassium chloride (KLOR-CON) 10 mEq CR tablet (Taking) TAKE 2 TABLETS EVERY DAY Number of times this order has been changed since signin Order Audit Elizabeth predniSONE (DELTASONE) 5 mg tablet (Taking) Take 5 mg by mouth Daily. Number of times this order has been changed since signin Order Audit Elizabeth pregabalin (LYRICA) 50 MG capsule (Taking) Take 1 capsule by mouth 3 times daily. Number of times this order has been changed since signin Order Audit Elizabeth PROAIR HFA 108 (90 BASE) MCG/ACT inhaler (Taking) Inhale 1 puff into the lungs every 6 ho urs as needed. Number of times this order has been changed since signin Order Audit Elizabeth UNABLE TO FIND (Taking) Med Name: Respironics Dreamstation APAP 5-15cm while sleeping. Past Medical History She has a past medical history of Acute URI (04/05/14); Adrenal insufficiency ([place]'s dis ease) ([facility]); Anemia; Arthritis; Asthma; Atypical chest pain; Beta Justyna - Daily Use ( 018); Carotid stenosis, right; Crohn's disease ([facility]); Diarrhea; Diverticulosis; Dysphagia; G astric reflux; H/O Kidney stones; H/O Lumbar Fusion - L2-5 LAIF - 04/2014 (05/18/2017); H/O Str brijesh / CVA with residual left sided weakness (03/14/1998); Hiatal hernia; High cholesterol; Hyp ertension; Hypothyroid; Impacted cerumen; Incontinence of urine; Kidney stones; PMR (polymya lgia rheumatica) ([facility]) (2008); PONV (postoperative nausea and vomiting); Psoriasis; Restless legs; Seasonal allergies; Stroke ([facility]) (1998); Transient cerebral ischemia; and Umbilical h [...] POC Trace (A) Negative, 100 mg/dL Specific [place], UA, POC 1.030 1.001 - 1.030 Blood, [...] | 2017 | | | [address] | | | | | | [place] | | | | | | [address] | | | | | | | | +--------+ + + + + | 07/15/ | Appointment | Radiology | Yoly GamezOSCAR | | | 2017 | | | [address] | | | | | | [place] | | | | | | [address] | | | | | | | | | | | | Mechelle Lord, | | | | | | Technologist | | +--------+ + + + + | 07/15/ | Appointment | Radiology | Yoly GamezOSCAR | | | 2017 | | | [address] | | | | | | [place] | | | | | | [address] | | | | | | | | | | | | Lorene Arthur, | | | | | | Service Liaison Representative | | +--------+ + + + + | 08/01/ | Office | Family Medicine | VeraYoly FNP | | | 2018 | Visit | | [address] | | | | | | [place] | | | | | | [address] | | | | | | | | +--------+ + + + + | 08/02/ | Office | Sleep Medicine | Chu Davis PA | | | 2017 | Visit | | [address] | | | | | | [place], [place] | | | | | | [address] | | | | | | | | +--------+ + + + + | 10/13/ | Office | Cardiology | Alpa Corcoran, | | | 2017 | Visit | | MD [address] | | | | | | [place], | | | | | | [place] [address] | | | | | | [phone] | | | | | | | [...] | + + + + | Specific [place], | 1.030 | 1.001 - 1.030 | [...] | Urine - Urine, clean | [facility] [address] | | catch | [place] [address] | + + + + + +--------+ [...]
--- OUTSIDE RECORDS SUMMARY | ~2017-07-05 | XMS | Encounter Summary ---
Demographics + + + | Address | [address] | | | [place] [address] | + + + | Home Phone | | + + + | Preferred Language | Unknown | + + + | Marital Status | Single | + + + | Tenriism Affiliation | Unknown | + + + | Race | Unknown | + + + | Ethnic Group | Unknown | + + + Author + + + | Author | [facility] | | | and [place] | + + + | Organization | [facility] | | | and [place] | + + + | Address | Unknown | + + + | Phone | Unavailable | + + + Support + + + + + | Name | Relationship | Address | Phone | + + + + + | Kit Hyde | ECON | [address] | | | | | [place], | | | | | [place] [address] | | + + + + + | Crystal Hyde | ECON | Unknown | | + + + + + Care Team Providers + +------+ + | Care Meat Lugger Name | Role | Phone | + [...] | Telephone | [facility] | Jenlele Simms | Medical Problem | | 2017 | | [address] BIG[address]SA [address] | [address] | | | | | [facility] | [facility] | | | | | [address] | [facility], | | | | | [place] [address] | [place] [address] | | | | | [phone] | [phone] | | | | | | | [...] [place] | | | | | | [address] | | | | | | | | +--------+ + + + + | 07/15/ | Appointment | Radiology | Yoly Gamez FNP | | | 2017 | | | [address] | | | | | | [place] | | | | | | [address] | | | | | | | | | | | | Mechelle Lord, | | | | | | Technologist | | +--------+ + + + + | 07/15/ | Appointment | Radiology | Yoly Gamez FNP | | | 2017 | | | [address] | | | | | | [place] | | | | | | [address] | | | | | | | | | | | | Lorene Arthur, | | | | | | Hand Slitter | | +--------+ + + + + | 08/01/ | Office | Family Medicine | Yoly Gamez FNP | | | 2017 | Visit | | [address] | | | | | | [place] | | | | | | [address] | | | | | | | | +--------+ + + + + | 08/02/ | Office | Sleep Medicine | Chu Davis PA | | | 2017 | Visit | | [address] | | | | | | [place] | | | | | | [address] | | | | | | | | +--------+ + + + + | 10/13/ | Office | Cardiology | Alpa Corcoran, | | | 2017 | Visit | | MD [address] | | | | | | [place], | | | | | | [place] [address] | | | | | | [phone] | | | | | | | | +--------+ + + + + as of this encounter Visit Diagnoses Not on filein this encounter"
--- OUTSIDE RECORDS SUMMARY | ~2017-07-05 | XMS | Encounter Summary ---
Demographics + + + | Address | [address] | | | [place] [address] | + + + | Home Phone | | + + + | Preferred Language | Unknown | + + + | Marital Status | Single | + + + | Christianity Affiliation | Unknown | + + + | Race | Unknown | + + + | Ethnic Group | Unknown | + + + Author + + + | Author | [facility] | | | and [place] | + + + | Organization | [facility] | | | and [place] | + + + | Address | Unknown | + + + | Phone | Unavailable | + + + Support + + + + + | Name | Relationship | Address | Phone | + + + + + | Kit Hyde | ECON | [address] | | | | | [place], | | | | | [place] [address] | | + + + + + | Crystal Hyde | ECON | Unknown | | + + + + + Care Team Providers + +------+ + | Care Administrative Support Specialist Name | Role | Phone | [...] + + | 07/05/ | Telephone | [facility] | Yoly Gamez FNP | Medication Question | | 2018 | | MEDICINE [place] | [address] | | | | | [address] | [place] | | | | | [place], [place] | [address] | | | | | [address] | | | | | | [phone] | | | +--------+ + + + [...] [place] | | | | | | [address] | | | | | | | | +--------+ + + + + | 07/15/ | Appointment | Radiology | Yoly GamezOSCAR | | | 2018 | | | [address] | | | | | | [place] | | | | | | [address] | | | | | | | | | | | | Mechelle Lord, | | | | | | Technologist | | +--------+ + + + + | 07/15/ | Appointment | Radiology | Yoly GamezOSCAR | | | 2018 | | | [address] | | | | | | [place] | | | | | | [address] | | | | | | | | | | | | Lorene Arthur, | | | | | | Veterinarian | | +--------+ + + + + | 08/01/ | Office | Family Medicine | Vera YolyOSCAR | | | 2018 | Visit | | [address] | | | | | | [place] | | | | | | [address] | | | | | | | | +--------+ + + + + | 08/02/ | Office | Sleep Medicine | Chu Davis PA | | | 2017 | Visit | | [address] | | | | | | [place] | | | | | | [address] | | | | | | | | +--------+ + + + + | 10/13/ | Office | Cardiology | Alpa Corcoran, | | | 2017 | Visit | | MD [address] | | | | | | [place], | | | | | | [place] [address] | | | | | | [phone] | | | | | | | | +--------+ + + + + as of this encounter Visit Diagnoses Not on filein this encounter"
--- OUTSIDE RECORDS SUMMARY | ~2017-07-05 | XMS | Encounter Summary ---
Demographics + + + | Address | [address] | | | [place] [address] | + + + | Home Phone | | + + + | Preferred Language | Unknown | + + + | Marital Status | Single | + + + | Amish Affiliation | Unknown | + + + | Race | Unknown | + + + | Ethnic Group | Unknown | + + + Author + + + | Author | [facility] | | | and [place] | + + + | Organization | [facility] | | | and [place] | + + + | Address | Unknown | + + + | Phone | Unavailable | + + + Support + + + + + | Name | Relationship | Address | Phone | + + + + + | Kit Hyde | ECON | [address] | | | | | [place], | | | | | [place] [address] | | + + + + + | Crystal Hyde | ECON | Unknown | | + + + + + Care Team Providers + +------+ + | Care Steel Pickler Name | Role | Phone | + +------+ + | Yoly Gamez | PCP | | + +------+ + Reason for Referral Evaluate & Treat (Urgent) + + + + + + + | Status | Reason | Specialty | Diagnoses / | Referred By | Referred To | | | | | Procedures | Contact | Contact | + + + + + + + | Authorized | Specialty | Orthopedic | Diagnoses | Vera, | Glen, | | | Services | Surgery | Right hip | FRANCES FrederickP | Carmen Ambrose, | | | Required | | pain | [address] | [address]C [address] | | | | | [address] [place] | [address] | | | | | | [place], [place] | [place], | | | | | | [address] | [place] [address] | | | | | | Phone: | Phone: | | | | | | [phone] | [phone] | | | | | | Fax: | Fax: | | | | | | [phone] | [phone] | + + + + + + + Reason for Visit + + + | Reason | Comments | + + + | Referral | | + + + Encounter Details +--------+ + + + + | Date | Type | Department | Care Team | Description | +--------+ + + + + | 05/02/ | Telephone | [facility] | Yoly GamezOSCAR | Referral | | 2018 | | MEDICINE [place] | [address] | | | | | [address] | [place] | | | | | [place] | [address] | | | | | [address] | | | | | | [phone] | | | +--------+ + + + [...] [place] | | | | | | [address] | | | | | | | | +--------+ + + + + | 07/15/ | Appointment | Radiology | Yoly Gamez FNP | | | 2017 | | | [address] | | | | | | [place] | | | | | | [address] | | | | | | | | | | | | Mechelle Lord, | | | | | | Technologist | | +--------+ + + + + | 07/15/ | Appointment | Radiology | Yoly Gamez FNP | | | 2017 | | | [address] | | | | | | [place] | | | | | | [address] | | | | | | | | | | | | Lorene Arthur, | | | | | | Press Setter | | +--------+ + + + + | 08/01/ | Office | Family Medicine | Yoly Gamez FNP | | | 2017 | Visit | | [address] | | | | | | [place] | | | | | | [address] | | | | | | | | +--------+ + + + + | 08/02/ | Office | Sleep Medicine | Chu Davis PA | | | 2017 | Visit | | [address] | | | | | | [place] | | | | | | [address] | | | | | | | | +--------+ + + + + | 10/13/ | Office | Cardiology | BestmollydotCaroleemynor, | | | 2017 | Visit | | [address] | | | | | | [place], | | | | | | [place] [address] | | | | | | [phone] | | | | | | | | +--------+ + + + + + +--------+ + + | Name | Priori | Associated Diagnoses | Order Schedule | | | ty | | | + +--------+ + + | [facility] | Routin | Right hip pain | Ordered: 05/02/2017 | | - AMB Referral | e | | | + +--------+ + + as of this encounter Visit Diagnoses + + | Diagnosis | + + | Right hip pain - Primary | + + | Pain in joint, pelvic region and thigh | + +"
--- OUTSIDE RECORDS SUMMARY | ~2017-07-05 | XMS | Encounter Summary ---
Demographics + + + | Address | [address] | | | [place] [address] | + + + | Home Phone | | + + + | Preferred Language | Unknown | + + + | Marital Status | Single | + + + | Judaism Affiliation | Unknown | + + + | Race | Unknown | + + + | Ethnic Group | Unknown | + + + Author + + + | Author | [facility] | | | and [place] | + + + | Organization | [facility] | | | and [place] | + + + | Address | Unknown | + + + | Phone | Unavailable | + + + Support + + + + + | Name | Relationship | Address | Phone | + + + + + | Kit Hyde | ECON | [address] | | | | | [place], | | | | | [place] [address] | | + + + + + | Crystal Hyde | ECON | Unknown | | + + + + + Care Team Providers + +------+ + | Care Streaming Media Specialist Name | Role | Phone | [...] + + | 06/30/ | Telephone | [facility] | Yoly Gamez FNP | Caregiver | | 2018 | | [place] | [address] | Concerns/Communicati | | | | [address] | [place] | on | | | | [place] | [address] | | | | | [address] | | | | | | [phone] | | | +--------+ + + + [...] [place] | | | | | | [address] | | | | | | | | | | | | Mechelle Lord, | | | | | | Technologist | | +--------+ + + + + | 07/15/ | Appointment | Radiology | Yoly Gamez FNP | | | 2017 | | | [address] | | | | | | [place] | | | | | | [address] | | | | | | | | | | | | Lorene Arthur, | | | | | | Filling Station Attendant | | +--------+ + + + + | 08/01/ | Office | Family Medicine | Yoly Gamez FNP | | | 2017 | Visit | | [address] | | | | | | [place] | | | | | | [address] | | | | | | | | +--------+ + + + + | 08/02/ | Office | Sleep Medicine | Chu Davis PA | | | 2017 | Visit | | [address] | | | | | | [place] | | | | | | [address] | | | | | | | | +--------+ + + + + | 10/13/ | Office | Cardiology | Alpa Corcoran, | | | 2017 | Visit | | MD [address] | | | | | | [place], | | | | | | [place] [address] | | | | | | [phone] | | | | | | | | +--------+ + + + + as of this encounter Visit Diagnoses Not on filein this encounter"
--- OUTSIDE RECORDS SUMMARY | ~2017-07-05 | XMS | Encounter Summary ---
Demographics + + + | Address | [address] | | | [place] [address] | + + + | Home Phone [...] Author | [facility] | | | and [place] | + + + | Organization | [facility] | | | and [place] | + + + | Address | Unknown | + + + | Phone | Unavailable | + + + Support + + + + + | Name | Relationship | Address | Phone | + + + + + | Kit Hyde | ECON | [address] | | | | | [place], | | | | | [place] [address] | | + + + + + | Crystal Hyde | ECON | Unknown | | + + + + + Care Team Providers + +------+ + | Care Gunstock Spray Unit Adjuster Name | Role | Phone | + +------+ + | Yoly Gamez | PCP | | + +------+ + Encounter Details +--------+ + + + + | Date | Type | Department | Care Team | Description | +--------+ + + + + | 06/30/ | Abstract | [facility] | Yoly Gamez FNP | | | 2017 | | MEDICINE [place] | [address] | | | | | [address] | [place] | | | | | [place] | [address] | | | | | [address] | | | | | | [phone] | | | +--------+ + + + [...] [place] | | | | | | [address] | | | | | | | | +--------+ + + + + | 07/15/ | Appointment | Radiology | Yoly Gamez FNP | | | 2017 | | | [address] | | | | | | [place] | | | | | | [address] | | | | | | | | | | | | Mechelle Lord, | | | | | | Technologist | | +--------+ + + + + | 07/15/ | Appointment | Radiology | Yoly Gamez FNP | | | 2017 | | | [address] | | | | | | [place] | | | | | | [address] | | | | | | | | | | | | Lorene Arthur, | | | | | | Candy Separator Enrobing | | +--------+ + + + + | 08/01/ | Office | Family Medicine | Yoly Gamez FNP | | | 2017 | Visit | | [address] | | | | | | [place] | | | | | | [address] | | | | | | | | +--------+ + + + + | 08/02/ | Office | Sleep Medicine | Chu Davis PA | | | 2017 | Visit | | [address] | | | | | | [place] | | | | | | [address] | | | | | | | | +--------+ + + + + | 10/13/ Office | Cardiology | Alpa Corcoran, | | | 2017 | Visit | | [address] | | | | | | [place], | | | | | | [place] [address] | | | | | | [phone] | | | | | | | | +--------+ + + + + as of this encounter Results Urinalysis, Reflex Microscopic and/or Culture (06/21/2017) + + + + | Component | [...] | + + + External Lab: Urinalysis (06/21/2017) + + + + | Component | [...] + + + + | UA Specific [place], | 1.025 | 1.005 - 1.03 | | External | | | + + + + | UA Leukocyte | Moderate | | | Esterase, External | | | + + + + in this encounter Visit Diagnoses Not on filein this encounter"
--- OUTSIDE RECORDS SUMMARY | ~2017-07-05 | XMS | Encounter Summary ---
Demographics + + + | Address | [address] | | | [place] [address] | + + + | Home Phone | | + + + | Preferred Language | Unknown | + + + | Marital Status | Single | + + + | Voodoo Affiliation | Unknown | + + + | Race | Unknown | + + + | Ethnic Group | Unknown | + + + Author + + + | Author | [facility] | | | and [place] | + + + | Organization | [facility] | | | and [place] | + + + | Address | Unknown | + + + | Phone | Unavailable | + + + Support + + + + + | Name | Relationship | Address | Phone | + + + + + | Kit Hyde | ECON | [address] | | | | | [place], | | | | | [place] [address] | | + + + + + | Crystal Hyde | ECON | Unknown | | + + + + + Care Team Providers + +------+ + | Care Care Program Resident Name | Role | Phone | + +------+ + | Yoly Gamez | PCP | | + +------+ + Reason for Visit + + + | Reason | Comments | + + + | Gastroesophageal | | | Reflux | | + + + Evaluate & Treat (Routine) + + + + + + + | Status | Reason | Specialty | Diagnoses / | Referred By | Referred To | | | | | Procedures | Contact | Contact | + + + + + + + | Authorized | Specialty | Gastroenterol | Diagnoses | Vera, | Mariana, | | | Services | ogy | Dysphagia, | OSCAR Frederick | Nestor Prabhakar MD | | | Required | | unspecified | [address] | [address], | | | | | type | [address]VE [place] | [address] | | | | | Gastroesopha | [place], [place] | [place], | | | | | geal reflux | [address] | [place] [address] | | | | | disease, | Phone: | Phone: | | | | | esophagitis | [phone] | [phone] | | | | | presence not | Fax: | Fax: | | | | | specified | [phone] | [phone] | | | | | History of | | | | | | | esophageal | | | | | | | dilatation | | | + + + + + + + Encounter Details +--------+---------+ + + + | Date | Type | Department | Care Team | Description | +--------+---------+ + + + | 04/20/ | Office | [facility] | Yoly Gamez FNP | Dysphagia, | | 2018 | Visit | GASTROENTEROLOGY | [address] | unspecified type | | | | [address] | [place], [place] | (Primary Dx); | | | | [address] [place], [place] | [address] | Advanced age; | | | | [address] | | History of stroke; | | | | [phone] | Flaco Thorne MD | On supplemental | | | | | [address] [place] | oxygen therapy; | | | | | [address] [place], | Crohn's disease with | | | | | [place] [address] | complication, | | | | | [phone] | unspecified | | | | | | gastrointestinal | | | | | | tract location (HCC) | +--------+---------+ + + + Social History [...] + + + | Blood Pressure | 138/80 | 04/20/20171050 PST | + + + + | Pulse | 56 | 04/20/20171050 PST | + + + + | Temperature | - | - | + + + + | Respiratory Rate | 14 | 04/20/20171050 PST | + + + + | Oxygen Saturation | - | - | + + + + | Inhaled Oxygen | - | - | | Concentration | | | + + + + | Weight | 70.2 kg (154 lb 12.2 | 04/20/20171050 PST | | | oz) | | + + + + | Height | 157.5 cm (5' 2") | 04/20/20171050 PST | + + + + | Body Mass Index | 28.31 | 04/20/2017 1051 PST | + + + + in this encounter Progress Notes Daksha Milagros STAN Leary - 04/20/2017 1100 PSTScheduled for EGD with prop on 05/[address] Bari Thorne; advised to hold ASA 3 days before procedure, and Dexilant on morning of, she agreed ; recall placed for repeat colon in 2019 as patient has Crohn's, last colon with Dr. 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 Plan of Treatment +--------+ + [...] [place] | | | | | | [address] | | | | | | | | +--------+ + + + + | 07/15/ | Appointment | Radiology | Yoly Gamez FNP | | | 2017 | | | [address] | | | | | | [place] | | | | | | [address] | | | | | | | | | | | | Mechelle Lord, | | | | | | Technologist | | +--------+ + + + + | 07/15/ | Appointment | Radiology | Yoly Gamez FNP | | | 2017 | | | [address] | | | | | | [place] | | | | | | [address] | | | | | | | | | | | | Lorene Arthur, | | | | | | Special Assets Officer | | +--------+ + + + + | 08/01/ | Office | Family Medicine | Yoly Gamez FNP | | | 2017 | Visit | | [address] | | | | | | [place] | | | | | | [address] | | | | | | | | +--------+ + + + + | 08/02/ | Office | Sleep Medicine | Chu Davis PA | | | 2017 | Visit | | [address] | | | | | | [place] | | | | | | [address] | | | | | | | | +--------+ + + + + | 10/13/ | Office | Cardiology | Alpa Corcoran, | | | 2017 | Visit | | MD [address] | | | | | | 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
--- OUTSIDE RECORDS SUMMARY | ~2017-07-05 | XMS | Encounter Summary ---
Demographics + + + | Address | [address] | | | [place] [address] | + + + | Home Phone | | + + + | Preferred Language | Unknown | + + + | Marital Status | Single | + + + | Worship Affiliation | Unknown | + + + | Race | Unknown | + + + | Ethnic Group | Unknown | + + + Author + + + | Author | [facility] | | | and [place] | + + + | Organization | [facility] | | | and [place] | + + + | Address | Unknown | + + + | Phone | Unavailable | + + + Support + + + + + | Name | Relationship | Address | Phone | + + + + + | Kit Hyde | ECON | [address] | | | | | [place], | | | | | [place] [address] | | + + + + + | Crystal Hyde | ECON | Unknown | | + + + + + Care Team Providers + +------+ + | Care Wrister Name | Role | Phone | + +------+ + | Yoly Gamez | PCP | | + +------+ + Reason for Visit + + + | Reason | Comments | + + + | Lab Results | | + + + | Urinary Tract | | | Infection | | + + + Encounter Details +--------+ + + + + | Date | Type | Department | Care Team | Description | +--------+ + + + + | 06/23/ | Telephone | [facility] | Yoly Gamez FNP | Lab Results; Urinary | | 2018 | | MEDICINE [place] | [address] | Tract Infection | | | | [address] | [place] | | | | | [place] | [address] | | | | | [address] | | | | | | [phone] | | | +--------+ + + + [...] [place] | | | | | | [address] | | | | | | | | +--------+ + + + + | 07/15/ | Appointment | Radiology | Yoly Gamez FNP | | | 2017 | | | [address] | | | | | | [place] | | | | | | [address] | | | | | | | | | | | | Mechelle Lord, | | | | | | Technologist | | +--------+ + + + + | 07/15/ | Appointment | Radiology | Yoly Gamez FNP | | | 2017 | | | [address] | | | | | | [place] | | | | | | [address] | | | | | | | | | | | | Lorene Arthur, | | | | | | Day Trader | | +--------+ + + + + | 08/01/ | Office | Family Medicine | Yoly Gamez FNP | | | 2017 | Visit | | [address] | | | | | | [place] | | | | | | [address] | | | | | | | | +--------+ + + + + | 08/02/ | Office | Sleep Medicine | Chu Davis PA | | | 2017 | Visit | | [address] | | | | | | [place] | | | | | | [address] | | | | | | | | +--------+ + + + + | 10/13/ | Office | Cardiology | Alpa Corcoran, | | | 2017 | Visit | | MD [address] | | | | | | [place], | | | | | | [place] [address] | | | | | | [phone] | | | | | | | | +--------+ + + + + + +--------+ + + | Name | Priori | Associated Diagnoses | Order Schedule | | | ty | | | + +--------+ + + | Urinalysis with Microscopic if | Routin | Urinary tract | 1 Occurrences | | Indicated | e | infection without | starting 06/24/2017 | | | | hematuria, site | until 06/24/2018 | | | | unspecified | | + +--------+ + + as of this encounter Visit Diagnoses + + | Diagnosis | + + | Urinary tract infection without hematuria, site unspecified - Primary | + +"
--- OUTSIDE RECORDS SUMMARY | ~2017-07-05 | XMS | Encounter Summary ---
Demographics + + + | Address | [address] | | | [place] [address] | + + + | Home Phone [...] | [facility] | | | and [place] | + + + | Organization | [facility] | | | and [place] | + + + | Address | Unknown | + + + | Phone | Unavailable | + + + Support + + + + + | Name | Relationship | Address | Phone | + + + + + | Kit Hyde | ECON | [address] | | | | | [place], | | | | | [place] [address] | | + + + + + | Crystal Hyde | ECON | Unknown | | + + + + + Care Team Providers + +------+ + | Care Wooden Furniture Polisher Name | Role | Phone | + +------+ + | Yoly Gamez | PCP | | + +------+ + Reason for Visit + + + | Reason | Comments | + + + | Follow-up | | + + + | Hypertension | | + + + | Palpitations | | + + + Encounter Details +--------+---------+ + + + | Date | Type | Department | Care Team | Description | +--------+---------+ + + + | 04/15/ | Office | [facility] | Alpa Corcoran, | Essential | | 2018 | Visit | CARDIOLOGY [address] | MD [address] | hypertension | | | | [place], | [place], | (Primary Dx) | | | | [place] [address] | [place] [address] | | | | | [phone] | [phone] | | | | | | | [...] + + + | Blood Pressure | 148/80 | 04/15/20176 PST | + + + + | Pulse | 64 | 04/15/20176 PST | + + + + | Temperature | - | - | + + + + | Respiratory Rate | 16 | 04/15/20176 PST | + + + + | Oxygen Saturation | - | - | + + + + | Inhaled Oxygen | - | - | | Concentration | | | + + + + | Weight | 70.4 kg (155 lb 3.3 | 04/15/20171355 PST | | | oz) | | + + + + | Height | 157.5 cm (5' 2") | 04/15/2017 1356 PST | + + + + | Body Mass Index | 28.39 | 04/15/2017 1356 PST | + + + + in this encounter Progress Notes Alpa Corcoran MD - 04/15/2017 1330 PSTFormatting of this note may be different from th e original. PATIENT NAME: Giovana Perez : 1945: AGE: 71 y.o. PRIMARY CARE: [facility] OUTPATIENT FOLLOW UP VISIT Date of Service: 04/15/2017 HISTORY OF PRESENT ILLNESS: Giovana Perez is a 71 y.o. female with a history of palpitations from PACs, hypertension, hypothyroidism, mild peripheral artery disease and stroke. She is being seen today for fo llow up leg swelling. She was last seen 01/14/2017 at which time she was to stop amlodipine, start furosemide 40 m g, start potassium, and follow up 3 months. Today, patient reports some leg swelling and abigail rtness of breath. Her leg swelling has decreased since her last visit. Otherwise, she denies any other cardiac symptoms. There is no chest pain or chest discomfort both at rest and on exertion. There is no palpitations, dizziness or lightheadedness. Patient uses CPAP machine nightly. MEDICAL, SURGICAL, AND PERSONAL HISTORY Past Medical, Surgical, Family, and Social History are reviewed in EPIC. CURRENT PROBLEMS Patient Active Problem List Diagnosis Gait difficulty Stroke Asthma Dysphagia Hypothyroid Hypertension Angina at rest Diarrhea Umbilical hernia Crohn's disease Carotid stenosis Incontinence of urine Anemia Gastric reflux Kidney stones High cholesterol Spondylolisthesis of lumbar region Lumbar scoliosis Neurogenic claudication Acquired spondylolisthesis Pulmonary embolism Palpitations Right leg weakness Peripheral arterial disease Claudication of both lower extremities Restless legs Carotid stenosis, right PMR (polymyalgia rheumatica) BETTY (obstructive sleep apnea) Adrenal insufficiency Vitamin D deficiency Controlled type 2 diabetes mellitus without complication, without long-term current use of insulin Decreased GFR Left sided sciatica Weakness of both lower extremities Upper extremity weakness Hx of Dilation of esophagus - 02/2014 Gastroesophageal reflux disease CURRENT MEDICATIONS Current Outpatient Prescriptions Medication Sig Dispense Refill albuterol 2.5 mg/3 mL nebulizer solution Uses as needed 0 aspirin 325 mg EC tablet Take by mouth Daily. 4 tablets daily Blood Glucose Monitoring Suppl (ONE TOUCH ULTRA MINI) w/Device KIT by Does not apply ro lee. buPROPion (WELLBUTRIN SR) 200 MG 12 hr tablet Take 1 tablet by mouth 2 times daily. 180 tablet 3 calcium, as carbonate, (CALTRATE) 600 mg tablet Take 1,200 mg by mouth Daily. clobetasol (TEMOVATE) 0.05% ointment as needed. dexamethasone (DECADRON) 4 mg/mL injection Inject 4 mg into the muscle every 6 hours. dexlansoprazole (DEXILANT) [address] capsule Take 1 capsule by mouth Daily. 90 capsule 3 FORTEO 600 MCG/2.4ML injection furosemide (LASIX) 40 mg tablet Take 1 tablet by mouth Daily. 90 tablet 3 melatonin 3 mg TABS Take 3 mg by mouth Daily. metoprolol succinate (TOPROL-XL) 100 mg ER tablet TAKE 1 TABLET EVERY DAY 90 tablet 3 NIFEdipine (NIFEDICAL XL) 60 mg ER tablet Take 60 mg by mouth Daily. ONE TOUCH ULTRA TEST strip Use to check blood sugars daily. 100 each 11 ONE TOUCH ULTRASOFT LANCETS MISC TEST once daily 100 each 11 oxygen Inhale 2 L into the lungs nightly. potassium chloride (KLOR-CON) 10 mEq CR tablet TAKE 2 TABLETS EVERY DAY 180 tablet 3 predniSONE (DELTASONE) 5 mg tablet Take 5 mg by mouth Daily. pregabalin (LYRICA) 50 MG capsule Take 1 capsule by mouth 3 times daily. 90 capsule 2 PROAIR HFA 108 (90 BASE) MCG/ACT inhaler Inhale 1 puff into the lungs every 6 hours as needed. UNABLE TO FIND Med Name: RespirGrabbit Dreamstation APAP 5-15cm while sleeping. No current facility-administered medications for this visit. ALLERGIES Allergies Allergen Reactions Amlodipine Other (See Comments) Redness and flush cheeks bilaterally. Codeine Other (See Comments) "Brain freeze, I lose it" Atorvastatin Other (See Comments) Leg cramps Baclofen Other (See Comments) Hallucinations Iodinated Diagnostic Agents Other (See Comments) Reaction not specified in patient questionair Methocarbamol Other (See Comments) Reaction unknown Adhesive & Tape Rash PAPER TAPE OKAY Iodine Rash Latex Rash Metformin Rash ROS Review of Systems Constitutional: Positive for malaise/fatigue. Respiratory: Positive for shortness of breath. Cardiovascular: Positive for leg swelling. Negative for chest pain and palpitations. Neurological: Positive for dizziness. OBJECTIVE: PHYSICAL EXAM BP 148/80 | Pulse 64 | Resp 16 | Ht 1.575 m (5' 2") | Wt 70.4 kg (155 lb 3.3 oz) | BMI 28.39 kg/m Physical Exam Constitutional: She is oriented to person, place, and time. She appears well-developed and well-nourished. No distress. Elderly female individual arrives alone, without acute distress. Neck: Normal carotid pulses, no hepatojugular reflux and no JVD present. Carotid bruit is n ot present. Cardiovascular: Normal rate, regular rhythm, S1 normal, S2 normal, normal heart sounds, int act distal pulses and normal pulses. PMI is not displaced. Exam reveals no gallop, no S3, no S4 and no friction rub. No murmur heard. Pulses: Carotid pulses are 2+ on the right side, and 2+ on the left side. Dorsalis pedis pulses are 2+ on the right side, and 2+ on the left side. Posterior tibial pulses are 2+ on the right side, and 2+ on the left side. Pulmonary/Chest: Effort normal. No accessory muscle usage. No respiratory distress. She has decreased breath sounds. She has no wheezes. She has no rhonchi. She has no rales. Abdominal: Soft. Normal appearance, normal aorta and bowel sounds are normal. She exhibits no abdominal bruit. There is no hepatosplenomegaly. There is no tenderness. Musculoskeletal: She exhibits no edema. Neurological: She is alert and oriented to person, place, and time. Gait normal. Skin: Skin is warm and dry. No cyanosis. Nails show no clubbing. Psychiatric: She has a normal mood and affect. Her mood appears not anxious. She does not e xhibit a depressed mood. LAB RESULTS reviewed during visit today primarily from [facility]: LIPID Lab Results Component Value Date LDLEX 144 03/27/2014 HDLEX 67 03/27/2014 TRIGEX 119 03/27/2014 CHOLEX 235 03/27/2014 CHEMISTRY Lab Results Component Value Date GLU 108 05/09/2014 GLUEX 88 03/18/2017 NA 138 05/09/2014 NAEX 143 03/18/2017 K 4.3 05/09/2014 KEX 3.6 03/18/2017 CL 102 05/09/2014 CLEX 102 03/18/2017 CO2 29 05/09/2014 CO2EX 29 03/18/2017 CALCIUM 9.3 05/09/2014 ASTEX 16 03/18/2017 ALTEX 14 03/18/2017 CREA 0.75 05/09/2014 BUN 8 05/09/2014 EGFREX 58 03/18/2017 CREEX 0.95 03/18/2017 HEMATOLOGY Lab Results Component Value Date WBC 8.1 05/09/2014 WBCEX 8.6 03/18/2017 HGB 11.8 05/09/2014 HGBEX 13.4 03/18/2017 HCT 38.2 05/09/2014 HCTEX 40.5 03/18/2017 PLT 562 (H) 05/09/2014 PLT Adequate 05/09/2014 PLTEX 240 03/18/2017 Above data and testing is reviewed this visit; testing below is historical data unless othe rwise specified. ASSESSMENT: 1.Peripheral arterial disease A.Post left carotid endarterectomy in 2006. B. MRI Brain, with and without contrast, 11/07/2014 shows Smaller ca liber of the flow void of the imaged distal right internal carotid artery relative to that o n the left, likely related to collateral flow to this vessel in the setting of chronic proxi mal occlusion described previously, chronic infarct in the high right frontal and parietal l obes and adjacent to the left caudate head with probable chronic, microvascular ischemic gli osis elsewhere within the cerebral white matter, mild, generalized cerebral atrophy and prob able ex vacuo ventricular dilation. C.Arterial profile with stress on 11/14/2014 shows mild diffuse art erial occlusive disease, left slightly greater than the right, this does correlate with dimi nished MAURICIO on the left, negative for vascular claudication. D.She also had a MRI of the lower back done which showed no signi ficant nerve compression. E.Today, patient continues to have shortness of breath, along wit h minimal leg swelling. Patient is physically active by walking with a cane. There is no sig ns and symptoms of overt congestive heart failure. She is in a class II of [place] [employer] functional class.There is no leg swelling today. 2. Palpitations A. Normal exercise SPECT MPI on 04/07/09.LVEF by gated SPECT was 7 0%. B. [facility] EZ2CAD, 08/19/2014 through 09/17/2014 shows sinus rhythm and sinus Tachycardia, sinus bradycardia and accelerated junctional rhythm were also observed, PAC's were noted along with a junctional escape beat, PVC's were also shown. C. Echocardiogram, 10/10/2014 shows normal left ventricular size, wa ll thickness and motion, preserved left ventricular systolic function, LVEF is 60-65%, gra de 1 left ventricular diastolic dysfunction, [id number] mitral valve regurgitation, mi ld to moderate tricuspid valve regurgitation, mild pulmonary hypertension with a peak systol ic pressure of 45-50 mmHg, normal IVC with a normal respiratory collapse. D. Patient denies any palpitations. 3. Hypertension A. Today's blood pressure is well controlled. 4.Hypothyroidism A. She is not on thyroid supplement. 5.Side effect from statin A. Patient stated that she had a severe muscle aches when she was t aking Lipitor 80 mg a day. She is no longer on statin. 6.Obstructive sleep apnea A. She continues to wear CPAP mask with oxygen supplement every nig ht. 7. Stage III Chronic Kidney Disease A. eGFR from 03/18/17 is 58. 8. Back pain A. Patient has recurrent back in the past 6 months. She was seen by Dr. Aden in the [facility] t. 9. Immunizations A. Patient is up to date on influenza and pneumonia vaccines. PLAN: 1. Today, patient is doing well from cardiac standpoint. I will continue with current medi chanda regimen. 2. I recommend a therapeutic lifestyle change including walking 30 minutes a day, choosing healthy choices of diet , including DASH diet and weight reduction. 3. Follow-up ine 6 months. I Almita Fierro am acting as a scribe on behalf of, and in the presence of Alpa Corcoran MD. I have reviewed and edited this note. Almita Fierro CMA 04/15/2017 I, Alpa Corcoran MD, personally performed the services described in this documentation, as scribed in my presence and it is both accurate and complete. Almita Fierro CMA 04/15/2017 13:56 Electronically signed by: Alpa Corcoran MD [facility] 04/15/2017 Portions of this chart may have been created with [employer] voice recognition software. Occasi onal wrong-word or sound-alike substitutions may have occurred due to the inherent gordillo itations of voice recognition software. Please read the chart carefully and recognize, using context, where these substitutions have occurred in this encounter Plan of Treatment +--------+ [...] [place] | | | | | | [address] | | | | | | | | +--------+ + + + + | 07/15/ | Appointment | Radiology | Yoly Gamez FNP | | | 2017 | | | [address] | | | | | | [place] | | | | | | [address] | | | | | | | | | | | | Mechelle Lord, | | | | | | Technologist | | +--------+ + + + + | 07/15/ | Appointment | Radiology | StefanYoly smith FNP | | | 2017 | | | [address] | | | | | | [place] | | | | | | [address] | | | | | | | | | | | | Lorene Arthur, | | | | | | Sheep Farm Worker | | +--------+ + + + + | 08/01/ | Office | Family Medicine | Yoly Gamez FNP | | | 2017 | Visit | | [address] | | | | | | [place] | | | | | | [address] | | | | | | | | +--------+ + + + + | 08/02/ | Office | Sleep Medicine | Chu Davis PA | | | 2017 | Visit | | [address] | | | | | | [place] | | | | | | [address] | | | | | | | | +--------+ + + + + | 10/13/ | Office | Cardiology | SelenadotCaroleemynor, | | | 2017 | Visit | | [address] | | | | | | [place], | | | | | | [place] [address] | | | | | | [phone] | | | | | | | | +--------+ + + + + as of this encounter Visit Diagnoses + + | Diagnosis | + + | Essential hypertension - Primary | + + | Unspecified essential hypertension | + +
--- OUTSIDE RECORDS SUMMARY | ~2017-07-05 | XMS | Encounter Summary ---
Demographics + + + | Address | [address] | | | [place] [address] | + + + | Home Phone | | + + + | Preferred Language | Unknown | + + + | Marital Status | Single | + + + | Advent Affiliation | Unknown | + + + | Race | Unknown | + + + | Ethnic Group | Unknown | + + + Author + + + | Author | [facility] | | | and [place] | + + + | Organization | [facility] | | | and [place] | + + + | Address | Unknown | + + + | Phone | Unavailable | + + + Support + + + + + | Name | Relationship | Address | Phone | + + + + + | Kit Hyde | ECON | [address] | | | | | [place], | | | | | [place] [address] | | + + + + + | Crystal Hyde | ECON | Unknown | | + + + + + Care Team Providers + +------+ + | Care International Trade Compliance Manager Name | Role | Phone | + +------+ + | Yoly Gamez | PCP | | + +------+ + Encounter Details +--------+ + + + + | Date | Type | Department | Care Team | Description | +--------+ + + + + | 06/30/ | Abstract | [facility] | Yoly Gamez FNP | | | 2017 | | [facility] [place] | [address] | | | | | [address] | [place] | | | | | [place] | [address] | | | | | [address] | | | | | | [phone] | | | +--------+ + + + [...] [place] | | | | | | [address] | | | | | | | | +--------+ + + + + | 07/15/ | Appointment | Radiology | Yoly Gamez FNP | | | 2017 | | | [address] | | | | | | [place] | | | | | | [address] | | | | | | | | | | | | Mechelle Lord, | | | | | | Technologist | | +--------+ + + + + | 07/15/ | Appointment | Radiology | Yoly Gamez FNP | | | 2017 | | | [address] | | | | | | [place] | | | | | | [address] | | | | | | | | | | | | Lorene Arthur, | | | | | | Blasting Coal Miner | | +--------+ + + + + | 08/01/ | Office | Family Medicine | Yoly Gamez FNP | | | 2017 | Visit | | [address] | | | | | | [place] | | | | | | [address] | | | | | | | | +--------+ + + + + | 08/02/ | Office | Sleep Medicine | Chu Davis PA | | | 2017 | Visit | | [address] | | | | | | [place] | | | | | | [address] | | | | | | | | +--------+ + + + + | 10/13/ Office | Cardiology | Alpa Corcoran, | | | 2017 | Visit | | [address] | | | | | | [place], | | | | | | [place] [address] | | | | | | [phone] | | | | | | | [...] + + + + | UA Specific [place], | 1.025 | 1.005 - 1.03 | | External | | | + + + + | UA Leukocyte | Moderate | | | Esterase, External | | | + + + + in this encounter Visit Diagnoses Not on filein this encounter"
--- OUTSIDE RECORDS SUMMARY | ~2017-07-05 | XMS | Encounter Summary ---
Demographics + + + | Address | [address] | | | [place] [address] | + + + | Home Phone | | + + + | Preferred Language | Unknown | + + + | Marital Status | Single | + + + | Orthodox Affiliation | Unknown | + + + | Race | Unknown | + + + | Ethnic Group | Unknown | + + + Author + + + | Author | [facility] | | | and [place] | + + + | Organization | [facility] | | | and [place] | + + + | Address | Unknown | + + + | Phone | Unavailable | + + + Support + + + + + | Name | Relationship | Address | Phone | + + + + + | Kit Hyde | ECON | [address] | | | | | [place], | | | | | [place] [address] | | + + + + + | Crystal Hyde | ECON | Unknown | | + + + + + Care Team Providers + +------+ + | Care Ground School Instructor Name | Role | Phone | + [...] + + | 06/23/ | Telephone | [facility] | Yoly Gamez FNP | Lab Results; Urinary | | 2018 | | [facility] [place] | [address] | Tract Infection | | | | [address] | [place] | | | | | [place] | [address] | | | | | [address] | | | | | | [phone] | | | +--------+ + + + [...] [place] | | | | | | [address] | | | | | | | | +--------+ + + + + | 07/15/ | Appointment | Radiology | Yoly Gamez FNP | | | 2017 | | | [address] | | | | | | [place] | | | | | | [address] | | | | | | | | | | | | Mechelle Lord, | | | | | | Technologist | | +--------+ + + + + | 07/15/ | Appointment | Radiology | Yoly Gamez FNP | | | 2017 | | | [address] | | | | | | [place] | | | | | | [address] | | | | | | | | | | | | Lorene Arthur, | | | | | | Sales Trainer | | +--------+ + + + + | 08/01/ | Office | Family Medicine | Yoly Gamez FNP | | | 2017 | Visit | | [address] | | | | | | [place] | | | | | | [address] | | | | | | | | +--------+ + + + + | 08/02/ | Office | Sleep Medicine | Chu Davis PA | | | 2017 | Visit | | [address] | | | | | | [place] | | | | | | [address] | | | | | | | | +--------+ + + + + | 10/13/ | Office | Cardiology | Alpa Corcoran, | | | 2017 | Visit | | MD [address] | | | | | | [place], | | | | | | [place] [address] | | | | | | [phone] | | | | | | | [...]
--- OUTSIDE RECORDS SUMMARY | ~2017-07-05 | XMS | Encounter Summary ---
Demographics + + + | Address | [address] | | | [place] [address] | + + + | Home Phone | | + + + | Preferred Language | Unknown | + + + | Marital Status | Single | + + + | Anabaptist Affiliation | Unknown | + + + | Race | Unknown | + + + | Ethnic Group | Unknown | + + + Author + + + | Author | [facility] | | | and [place] | + + + | Organization | [facility] | | | and [place] | + + + | Address | Unknown | + + + | Phone | Unavailable | + + + Support + + + + + | Name | Relationship | Address | Phone | + + + + + | Kit Hyde | ECON | [address] | | | | | [place], | | | | | [place] [address] | | + + + + + | Crystal Hyde | ECON | Unknown | | + + + + + Care Team Providers + +------+ + | Care Rn Compliance Name | Role | Phone | + [...] Results | | 2018 | | [facility] [place] | [address] | | | | | [address] | [place] | | | | | [place] | [address] | | | | | [address] | | | | | | [phone] | | | +--------+ + + + [...] [place] | | | | | | [address] | | | | | | | | | | | | Mechelle Lord, | | | | | | Technologist | | +--------+ + + + + | 07/15/ | Appointment | Radiology | Yoly Gamez FNP | | | 2017 | | | [address] | | | | | | [place] | | | | | | [address] | | | | | | | | | | | | Lorene Arthur, | | | | | | Loom Blower | | +--------+ + + + + | 08/01/ | Office | Family Medicine | Yoly Gamez FNP | | | 2017 | Visit | | [address] | | | | | | [place] | | | | | | [address] | | | | | | | | +--------+ + + + + | 08/02/ | Office | Sleep Medicine | Chu Davis PA | | | 2017 | Visit | | [address] | | | | | | [place] | | | | | | [address] | | | | | | | | +--------+ + + + + | 10/13/ | Office | Cardiology | Alpa Corcoran, | | | 2017 | Visit | | MD [address] | | | | | | [place], | | | | | | [place] [address] | | | | | | [phone] | | | | | | | | +--------+ + + + + as of this encounter Visit Diagnoses Not on filein this encounter"
--- OUTSIDE RECORDS SUMMARY | ~2017-07-05 | XMS | Encounter Summary ---
Demographics + + + | Address | [address] | | | [place] [address] | + + + | Home Phone | | + + + | Preferred Language | Unknown | + + + | Marital Status | Single | + + + | Gnosticism Affiliation | Unknown | + + + | Race | Unknown | + + + | Ethnic Group | Unknown | + + + Author + + + | Author | [facility] | | | and [place] | + + + | Organization | [facility] | | | and [place] | + + + | Address | Unknown | + + + | Phone | Unavailable | + + + Support + + + + + | Name | Relationship | Address | Phone | + + + + + | Kit Hyde | ECON | [address] | | | | | [place], | | | | | [place] [address] | | + + + + + | Crystal Hyde | ECON | Unknown | | + + + + + Care Team Providers + +------+ + | Care Nurse Transition Name | Role | Phone | + [...] | | | | | [address] | [address] [place] | | | | | [place], [place] | [place] [address] | | | | | [address] | [phone] | | | | | [phone] | | | +--------+---------+ + + + [...] vomiting, or vomiting blood Date Last Reviewed: 09/12/[id number] [employer]. [address] [place] [address], [place] [address]. All righ ts reserved. This information is [...] [place] | | | | | | [address] | | | | | | | | +--------+ + + + + | 07/15/ | Appointment | Radiology | Yoly Gamez FNP | | | 2017 | | | [address] | | | | | | [place] | | | | | | [address] | | | | | | | | | | | | Mechelle Lord, | | | | | | Technologist | | +--------+ + + + + | 07/15/ | Appointment | Radiology | Yoly Gamez FNP | | | 2017 | | | [address] | | | | | | [place] | | | | | | [address] | | | | | | | | | | | | Lorene Arthur, | | | | | | Psychology Clinician | | +--------+ + + + + | 08/01/ | Office | Family Medicine | Yoly Gamez FNP | | | 2017 | Visit | | [address] | | | | | | [place] | | | | | | [address] | | | | | | | | +--------+ + + + + | 08/02/ | Office | Sleep Medicine | Chu Davis PA | | | 2017 | Visit | | [address] | | | | | | [place] | | | | | | [address] | | | | | | | | +--------+ + + + + | 10/13/ | Office | Cardiology | Alpa Corcoran, | | | 2017 | Visit | | MD [address] | | | | | | [place], | | | | | | [place] [address] | | | | | | [phone] | | | | | | | [...] Date: 05/18/2017 1:09 PM MRN: | | [id number] Date of : 1945 Admit Type: Ambulatory | | Age: 71 Room: [place] [address] Gender: Female Note Status: Finalized Attending MD: [...] nurse, the | | anesthesiologist and the project technician in the pre-procedure area in the [...] PM Scope Out: 1:23:55 PM | | [facility], [address] [facility], [place] [address] | | [phone] | + + Surgical Pathology Exam (05/18/2017) [...] slide preparation were | | performed by [employer], [facility] [address], [place] [address] | | (Senior Systems Programmer: Anirudh Roque M.D. CLIA#: [id number]). Professional interpretation | | was performed by [employer], [facility], [address] | | [facility], [place] [address] (Senior Systems Programmer: Anirudh Roque M.D.; CLIA#: | | [id number]). Diagnostician: Anirudh Roque MD Pathologist Electronically | [...]
--- OUTSIDE RECORDS SUMMARY | ~2017-07-05 | XMS | Encounter Summary ---
Demographics + + + | Address | [address] | | | [place] [address] | + + + | Home Phone | | + + + | Preferred Language | Unknown | + + + | Marital Status | Single | + + + | Tenriism Affiliation | Unknown | + + + | Race | Unknown | + + + | Ethnic Group | Unknown | + + + Author + + + | Author | [facility] | | | and [place] | + + + | Organization | [facility] | | | and [place] | + + + | Address | Unknown | + + + | Phone | Unavailable | + + + Support + + + + + | Name | Relationship | Address | Phone | + + + + + | Kit Hyde | ECON | [address] | | | | | [place], | | | | | [place] [address] | | + + + + + | Crystal Hyde | ECON | Unknown | | + + + + + Care Team Providers + +------+ + | Care Oyster Floater Name | Role | Phone | + +------+ + | Yoly Gamez | PCP | | + +------+ + Encounter Details +--------+ + + + + | Date | Type | Department | Care Team | Description | +--------+ + + + + | 05/18/ | Anesthesia | [facility] | Shay Kirby | | | 2018 | Event | MED CTR MP INTRA OP | MD Sheba [address] | | | | | [address] | [address] [place], [place] | | | | | [place], [place] | [address] | | | | | [address] | | | | | | [phone] | | | +--------+ + + + [...] by | | ONLY] | Chemistry, Coagulation ([place]); | Amaris Clark RN | Erin Veloz [...] 05/18/17 1407 by | | eral | zhbx-ogq-ytaewy catheter system; | Zoey Puente RN | [...] [place] | | | | | | [id number] | | | | | | | | +--------+ + + + + | 07/15/ | Appointment | Radiology | Yoly Gamez FNP | | | 2017 | | | [address] | | | | | | [place] | | | | | | [address] | | | | | | | | | | | | Mechelle Lord, | | | | | | Technologist | | +--------+ + + + + | 07/15/ | Appointment | Radiology | Yoly Gamez FNP | | | 2017 | | | [address] | | | | | | [place] | | | | | | [address] | | | | | | | | | | | | Lorene Arthur, | | | | | | Catia Designer | | +--------+ + + + + | 08/01/ | Office | Family Medicine | Yoly Gamez FNP | | | 2017 | Visit | | [address] | | | | | | [place] | | | | | | [address] | | | | | | | | +--------+ + + + + | 08/02/ | Office | Sleep Medicine | Chu Davis PA | | | 2017 | Visit | | [address] | | | | | | [place] | | | | | | [address] | | | | | | | | +--------+ + + + + | 10/13/ | Office | Cardiology | Alpa Corcoran, | | | 2017 | Visit | | MD [address] | | | | | | [place], | | | | | | [place] [address] | | | | | | [phone] | | | | | | | [...]
--- OUTSIDE RECORDS SUMMARY | ~2017-07-05 | XMS | Encounter Summary ---
Demographics + + + | Address | [address] | | | [place] [address] | + + + | Home Phone [...] + | Author | [facility] | | | and [place] | + + + | Organization | [facility] | | | and [place] | + + + | Address | Unknown | + + + | Phone | Unavailable | + + + Support + + + + + | Name | Relationship | Address | Phone | + + + + + | Kit Hyde | ECON | [address] | | | | | [place], | | | | | [place] [address] | | + + + + + | Crystal Hyde | ECON | Unknown | | + + + + + Care Team Providers + +------+ + | Care Ammonium Nitrate Crystallizer Name | Role | Phone | + +------+ + | Yoly Gamez | PCP | | + +------+ + Encounter Details +--------+ + + + + | Date | Type | Department | Care Team | Description | +--------+ + + + + | 04/20/ | Episode | [facility] | Milagros Crooks, | | | 2017 | Changes | GASTROENTEROLOGY | RN | | | | | [address] [place] | | | | | | [address] [place] | | | | | | [address] | | | | | | [phone] | | | +--------+ + + + [...] [place] | | | | | | [address] | | | | | | | | +--------+ + + + + | 07/15/ | Appointment | Radiology | Yoly Gamez FNP | | | 2017 | | | [address] | | | | | | [place] | | | | | | [address] | | | | | | | | | | | | Mechelle Lord, | | | | | | Technologist | | +--------+ + + + + | 07/15/ | Appointment | Radiology | Yoly Gmaez FNP | | | 2018 | | | [address] | | | | | | [place] | | | | | | [address] | | | | | | | | | | | | Lorene Arthur, | | | | | | Doughnut Fryer | | +--------+ + + + + | 08/01/ | Office | Family Medicine | Yoly Gamez FNP | | | 2017 | Visit | | [address] | | | | | | [place] | | | | | | [address] | | | | | | | | +--------+ + + + + | 08/02/ | Office | Sleep Medicine | Chu Davis PA | | | 2017 | Visit | | [address] | | | | | | [place] | | | | | | [address] | | | | | | | | +--------+ + + + + | 10/13/ | Office | Cardiology | Alpa Corcoran, | | | 2018 | Visit | | [address] | | | | | | [place], | | | | | | [place] [address] | | | | | | [phone] | | | | | | | | +--------+ + + + + as of this encounter Visit Diagnoses Not on filein this encounter"
--- OUTSIDE RECORDS SUMMARY | ~2017-07-05 | XMS | Encounter Summary ---
Demographics + + + | Address | [address] | | | [place] [address] | + + + | Home Phone [...] + + | Author | [facility] | | | and [place] | + + + | Organization | [facility] | | | and [place] | + + + | Address | Unknown | + + + | Phone | Unavailable | + + + Support + + + + + | Name | Relationship | Address | Phone | + + + + + | Kit Hyde | ECON | [address] | | | | | [place], | | | | | [place] [address] | | + + + + + | Crystal Hyde | ECON | Unknown | | + + + + + Care Team Providers + +------+ + | Care Electroplating Technician Name | Role | Phone | + +------+ + | Yoly Gamez | PCP | | + +------+ + Encounter Details +--------+ + + + + | Date | Type | Department | Care Team | Description | +--------+ + + + + | 05/18/ | Hospital | [facility] | Flaco Thorne MD | Dysphagia, | | 2018 | Encounter | MED CTR MP INTRA OP | [address] | unspecified type | | | | [address] | [place] [address] [place] | | | | | [place], [place] | [place] [address] | | | | | [address] | [phone] | | | | | [phone] | | | +--------+ + + + [...] vomiting, or vomiting blood Date Last Reviewed: 09/12/[id number] [employer] [address] [place] [address], [place] [address]. All righ ts reserved. This information is [...] [place] | | | | | | [address] | | | | | | | | +--------+ + + + + | 07/15/ | Appointment | Radiology | VeraYoly FNP | | | 2017 | | | [address] | | | | | | [place] | | | | | | [address] | | | | | | | | | | | | Mechelle Lord, | | | | | | Technologist | | +--------+ + + + + | 07/15/ | Appointment | Radiology | VeraYoly FNP | | | 2017 | | | [address] | | | | | | [place] | | | | | | [address] | | | | | | | | | | | | Lorene Arthur, | | | | | | Charge Lpn | | +--------+ + + + + | 08/01/ | Office | Family Medicine | Yoly Gamez FNP | | | 2017 | Visit | | [address] | | | | | | [place] | | | | | | [address] | | | | | | | | +--------+ + + + + | 08/02/ | Office | Sleep Medicine | Chu Davis PA | | | 2017 | Visit | | [address] | | | | | | [place] | | | | | | [address] | | | | | | | | +--------+ + + + + | 10/13/ | Office | Cardiology | Alpa Corcoran, | | | 2017 | Visit | | MD [address] | | | | | | [place], | | | | | | [place] [address] | | | | | | [phone] | | | | | | | [...] Date: 05/18/2017 1:09 PM MRN: | | [id number] Date of : 1945 Admit Type: Ambulatory | | Age: 71 Room: [place] [address] Gender: Female Note Status: Finalized Attending MD: [...] nurse, the | | anesthesiologist and the coroner transport technician in the pre-procedure area in the [...] PM Scope Out: 1:23:55 PM | | [facility], [facility] [place] [address] | | [phone] | + + Surgical Pathology Exam (05/18/2017) [...] slide preparation were | | performed by [facility], [address] [facility], [address], [place] [address] | | ([facility] Physician Dermatologist: Anirudh Roque M.D. CLIA#: [id number]). Professional interpretation | | was performed by [facility], [facility], [address] | | [facility], [place] [address] ([place] Physician Dermatologist: Anirudh Roque M.D.; CLIA#: | | [id number]). Diagnostician: Anirudh Roque MD Pathologist Electronically | [...]
--- OUTSIDE RECORDS SUMMARY | ~2017-07-05 | XMS | Encounter Summary ---
Demographics + + + | Address | [address] | | | [place] [address] | + + + | Home Phone [...] + + + | Author | [facility] | | | and [place] | + + + | Organization | [facility] | | | and [place] | + + + | Address | Unknown | + + + | Phone | Unavailable | + + + Support + + + + + | Name | Relationship | Address | Phone | + + + + + | Kit Hyde | ECON | [address] | | | | | [place], | | | | | [place] [address] | | + + + + + | Crystal Hyde | ECON | Unknown | | + + + + + Care Team Providers + +------+ + | Care Jewelry Technician Name | Role | Phone | [...] | | | 2017 | | [facility] | [address] | | | | | [address] | [place] | | | | | [place] | [address] | | | | | [address] | | | | | | [phone] | | | +--------+ + + + [...] [place] | | | | | | [address] | | | | | | | | +--------+ + + + + | 07/15/ | Appointment | Radiology | Yoly Gamez FNP | | | 2017 | | | [address] | | | | | | [place] | | | | | | [address] | | | | | | | | | | | | Mechelle Lord, | | | | | | Technologist | | +--------+ + + + + | 07/15/ | Appointment | Radiology | Yoly Gamez FNP | | | 2017 | | | [address] | | | | | | [place] | | | | | | [address] | | | | | | | | | | | | Lorene Arthur, | | | | | | Ordnance Keeper | | +--------+ + + + + | 08/01/ | Office | Family Medicine | Yoly Gamez FNP | | | 2017 | Visit | | [address] | | | | | | [place] | | | | | | [address] | | | | | | | | +--------+ + + + + | 08/02/ | Office | Sleep Medicine | Chu Davis PA | | | 2017 | Visit | | [address] | | | | | | [place] | | | | | | [address] | | | | | | | | +--------+ + + + + | 10/13/ | Office | Cardiology | Alpa Corcoran, | | | 2017 | Visit | | [address] | | | | | | [place], | | | | | | [place] [address] | | | | | | [phone] | | | | | | | | +--------+ + + + + as of this encounter Results External Lab: Urinalysis (06/06/2017) + +-------+ + | Component | Value | Ref Range | + +-------+ + | UA Specific [place], | 1.020 | 1.005 - 1.03 | [...]
--- OUTSIDE RECORDS SUMMARY | ~2017-07-05 | XMS | Encounter Summary ---
Demographics + + + | Address | [address] | | | [place] [address] | + + + | Home Phone | | + + + | Preferred Language | Unknown | + + + | Marital Status | Single | + + + | Judaism Affiliation | Unknown | + + + | Race | Unknown | + + + | Ethnic Group | Unknown | + + + Author + + + | Author | [facility] | | | and [place] | + + + | Organization | [facility] | | | and [place] | + + + | Address | Unknown | + + + | Phone | Unavailable | + + + Support + + + + + | Name | Relationship | Address | Phone | + + + + + | Kit Hyde | ECON | [address] | | | | | [place], | | | | | [place] [address] | | + + + + + | Crystal Hyde | ECON | Unknown | | + + + + + Care Team Providers + +------+ + | Care Template Layout Worker Name | Role | Phone | [...] + + | 07/05/ | Telephone | [facility] | Carmela Morris, | Case Management (Pt. | | 2018 | | MED CTR CASE | RN | needs more | | | | MANAGEMENT [address] | | caregiver hours) | | | | [place], | | | | | | [place] [address] | | | | | | [phone] | | | +--------+ + + + [...] [place] | | | | | | [address] | | | | | | | | +--------+ + + + + | 07/15/ | Appointment | Radiology | Yoly Gamez FNP | | | 2017 | | | [address] | | | | | | [place] | | | | | | [address] | | | | | | | | | | | | Mechelle Lord, | | | | | | Technologist | | +--------+ + + + + | 07/15/ | Appointment | Radiology | Yoly Gamez FNP | | | 2017 | | | [address] | | | | | | [place] | | | | | | [address] | | | | | | | | | | | | Lorene Arthur, | | | | | | Clearance Coordinator | | +--------+ + + + + | 08/01/ | Office | Family Medicine | Yoly Gamez FNP | | | 2017 | Visit | | [address] | | | | | | [place] | | | | | | [address] | | | | | | | | +--------+ + + + + | 08/02/ | Office | Sleep Medicine | Chu Davis PA | | | 2017 | Visit | | [address] | | | | | | [place] | | | | | | [address] | | | | | | | | +--------+ + + + + | 10/13/ | Office | Cardiology | Alpa Corcoran, | | | 2017 | Visit | | MD [address] | | | | | | [place], | | | | | | [place] [address] | | | | | | [phone] | | | | | | | | +--------+ + + + + as of this encounter Visit Diagnoses Not on filein this encounter"
--- OUTSIDE RECORDS SUMMARY | ~2017-07-05 | XMS | Encounter Summary ---
Demographics + + + | Address | [address] | | | [place] [address] | + + + | Home Phone | | + + + | Preferred Language | Unknown | + + + | Marital Status | Single | + + + | Tenriism Affiliation | Unknown | + + + | Race | Unknown | + + + | Ethnic Group | Unknown | + + + Author + + + | Author | [facility] | | | and [place] | + + + | Organization | [facility] | | | and [place] | + + + | Address | Unknown | + + + | Phone | Unavailable | + + + Support + + + + + | Name | Relationship | Address | Phone | + + + + + | Kit Hyde | ECON | [address] | | | | | [place], | | | | | [place] [address] | | + + + + + | Crystal Hyde | ECON | Unknown | | + + + + + Care Team Providers + +------+ + | Care Science Professor Name | Role | Phone | + [...] | [address] | [address], | | | | | type | [address] [place] | [address] | | | | | Gastroesopha | [place], [place] | [place], | | | | | geal reflux | [address] | [place] [address] | | | | | disease, | Phone: | Phone: | | | | | esophagitis | [phone] | [phone] | | | | | presence not | Fax: | Fax: | | | | | specified | [phone] | [phone] | | | | | History of | | | | | | | esophageal | | | | | | | dilatation | | | + + + + + + + Encounter Details +--------+---------+ + + + | Date | Type | Department | Care Team | Description | +--------+---------+ + + + | 04/20/ | Office | [facility] | Yoly Gamez FNP | Dysphagia, | | 2018 | Visit | GASTROENTEROLOGY | [address] | unspecified type | | | | [address] [place] | [place], [place] | (Primary Dx); | | | | [address] [place], [place] | [address] | Advanced age; | | | | [address] | | History of stroke; | | | | [phone] | Flaco Thorne MD | On supplemental | | | | | [address] [place] | oxygen therapy; | | | | | [address] [place], | Crohn's disease with | | | | | [place] [address] | complication, | | | | | [phone] | unspecified | | | | | [...] colon with Dr. 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 Plan of Treatment +--------+ + [...] [place] | | | | | | [address] | | | | | | | | +--------+ + + + + | 07/15/ | Appointment | Radiology | Yoly Gamez FNP | | | 2017 | | | [address] | | | | | | [place] | | | | | | [address] | | | | | | | | | | | | Mechelle Lord, | | | | | | Technologist | | +--------+ + + + + | 07/15/ | Appointment | Radiology | Yoly Gamez FNP | | | 2017 | | | [address] | | | | | | [place] | | | | | | [address] | | | | | | | | | | | | Lorene Arthur, | | | | | | Rn Case Mgr | | +--------+ + + + + | 08/01/ | Office | Family Medicine | Yoly Gamez FNP | | | 2017 | Visit | | [address] | | | | | | [place] | | | | | | [address] | | | | | | | | +--------+ + + + + | 08/02/ | Office | Sleep Medicine | Chu Davis PA | | | 2017 | Visit | | [address] | | | | | | [place] | | | | | | [address] | | | | | | | | +--------+ + + + + | 10/13/ | Office | Cardiology | Alpa Corcoran, | | | 2017 | Visit | | MD [address] | | | | | | [place], | | | | | | [place] [address] | | | | | | [phone] | | | | | | | [...]
--- OUTSIDE RECORDS SUMMARY | ~2017-07-05 | XMS | Encounter Summary ---
Demographics + + + | Address | [address] | | | [place] [address] | + + + | Home Phone [...] + + + | Author | [facility] | | | and [place] | + + + | Organization | [facility] | | | and [place] | + + + | Address | Unknown | + + + | Phone | Unavailable | + + + Support + + + + + | Name | Relationship | Address | Phone | + + + + + | Kit Hyde | ECON | [address] | | | | | [place], | | | | | [place] [address] | | + + + + + | Crystal Hyde | ECON | Unknown | | + + + + + Care Team Providers + +------+ + | Care Clinical Documentation Manager Name | Role | Phone | + +------+ + | Yoly Gamez | PCP | | + +------+ + Encounter Details +--------+ + + + + | Date | Type | Department | Care Team | Description | +--------+ + + + + | 05/11/ | Episode | [facility] [place] | Milagros Crooks, | | | 2017 | Changes | GASTROENTEROLOGY | RN | | | | | [address] [place] | | | | | | [address] [place] | | | | | | [address] | | | | | | [phone] | | | +--------+ + + + [...] [place] | | | | | | [address] | | | | | | | | +--------+ + + + + | 07/15/ | Appointment | Radiology | Yoly Gamez FNP | | | 2017 | | | [address] | | | | | | [place] | | | | | | [address] | | | | | | | | | | | | Mechelle Lord, | | | | | | Technologist | | +--------+ + + + + | 07/15/ | Appointment | Radiology | Yoly Gamez FNP | | | 2018 | | | [address] | | | | | | [place] | | | | | | [address] | | | | | | | | | | | | Lorene Arthur, | | | | | | Assistant Women'S Soccer Coach | | +--------+ + + + + | 08/01/ | Office | Family Medicine | Yoly Gamez FNP | | | 2017 | Visit | | [address] | | | | | | [place] | | | | | | [address] | | | | | | | | +--------+ + + + + | 08/02/ | Office | Sleep Medicine | Chu Davis PA | | | 2017 | Visit | | [address] | | | | | | [place] | | | | | | [address] | | | | | | | | +--------+ + + + + | 10/13/ | Office | Cardiology | Alpa Corcoran, | | | 2018 | Visit | | [address] | | | | | | [place], | | | | | | [place] [address] | | | | | | [phone] | | | | | | | | +--------+ + + + + as of this encounter Visit Diagnoses Not on filein this encounter"
--- OUTSIDE RECORDS SUMMARY | ~2017-07-05 | XMS | Encounter Summary ---
Demographics + + + | Address | [address] | | | [place] [address] | + + + | Home Phone | | + + + | Preferred Language | Unknown | + + + | Marital Status | Single | + + + | Pentecostal Affiliation | Unknown | + + + | Race | Unknown | + + + | Ethnic Group | Unknown | + + + Author + + + | Author | [facility] | | | and [place] | + + + | Organization | [facility] | | | and [place] | + + + | Address | Unknown | + + + | Phone | Unavailable | + + + Support + + + + + | Name | Relationship | Address | Phone | + + + + + | Kit Hyde | ECON | [address] | | | | | [place], | | | | | [place] [address] | | + + + + + | Crystal Hyde | ECON | Unknown | | + + + + + Care Team Providers + +------+ + | Care Mechanical Detailer Name | Role | Phone | + [...] + + | 04/15/ | Office | [facility] | Alpa Corcoran, | Essential | | 2018 | Visit | CARDIOLOGY [address] | MD [address] [place] | hypertension | | | | [place], | [place], | (Primary Dx) | | | | [place] [address] | [place] [address] | | | | | [phone] | [phone] | | | | | | | [...] as needed. UNABLE TO FIND Med Name: RespirMasteryConnect Dreamstation APAP 5-15cm while sleeping. No current [...] RESULTS reviewed during visit today primarily from [facility]: LIPID Lab Results Component Value Date LDLEX [...] She is in a class II of [employer] functional class.There is no leg swelling today. 2. Palpitations A. Normal exercise SPECT MPI on 04/07/09.LVEF by gated SPECT was 7 0%. B. [facility] Platypi, 08/19/2014 through 09/17/2014 shows sinus rhythm and sinus Tachycardia, sinus bradycardia and accelerated junctional rhythm were also observed, PAC's were noted along with a junctional escape beat, PVC's were also shown. C. Echocardiogram, 10/10/2014 shows normal left ventricular size, wa ll thickness and motion, preserved left ventricular systolic function, LVEF is 60-65%, gra de 1 left ventricular diastolic dysfunction, apvl-jb-wcchzewa mitral valve regurgitation, mi ld to moderate [...] was [facility] 9. Immunizations A. Patient is up [...] 13:56 Electronically signed by: Alpa Corcoran MD [facility] 04/15/2017 Portions of this chart may have been created with [employer] voice recognition software. Occasi onal wrong-word or [...] [place] | | | | | | [address] | | | | | | | | +--------+ + + + + | 07/15/ | Appointment | Radiology | Yoly Gamez FNP | | | 2017 | | | [address] | | | | | | [place] | | | | | | [address] | | | | | | | | | | | | Mechelle Lord, | | | | | | Technologist | | +--------+ + + + + | 07/15/ | Appointment | Radiology | StefanYoly smith FNP | | | 2017 | | | [address] | | | | | | [place] | | | | | | [address] | | | | | | | | | | | | Lorene Arthur, | | | | | | Alligator Trapper | | +--------+ + + + + | 08/01/ | Office | Family Medicine | Yoly Gamez FNP | | | 2017 | Visit | | [address] | | | | | | [place] | | | | | | [address] | | | | | | | | +--------+ + + + + | 08/02/ | Office | Sleep Medicine | Chu Davis PA | | | 2017 | Visit | | [address] | | | | | | [place] | | | | | | [address] | | | | | | | | +--------+ + + + + | 10/13/ | Office | Cardiology | SelenadotCaroleemynor, | | | 2017 | Visit | | [address] | | | | | | [place], | | | | | | [place] [address] | | | | | | [phone] | | | | | | | | +--------+ + + + + as of this encounter Visit Diagnoses + + | Diagnosis | + + | Essential hypertension - Primary | + + | Unspecified essential hypertension | + +
--- OUTSIDE RECORDS SUMMARY | ~2017-07-05 | XMS | Encounter Summary ---
Demographics + + + | Address | [address] | | | [place] [address] | + + + | Home Phone [...] Author | [facility] | | | and [place] | + + + | Organization | [facility] | | | and [place] | + + + | Address | Unknown | + + + | Phone | Unavailable | + + + Support + + + + + | Name | Relationship | Address | Phone | + + + + + | Kit Hyde | ECON | [address] | | | | | [place], | | | | | [place] [address] | | + + + + + | Crystal Hyde | ECON | Unknown | | + + + + + Care Team Providers + +------+ + | Care Field Mechanical Meter Tester Name | Role | Phone | + [...] | | | | [place], [place] | [place], | | | | | | [address] | [place] [address] | | | | | | Phone: | Phone: | | | | | | [phone] | [phone] | | | | | | Fax: | Fax: | | | | | | [phone] | [phone] | + + + + + + + Reason for Visit + + + | Reason | Comments | + + + | Referral | | + + + Encounter Details +--------+ + + + + | Date | Type | Department | Care Team | Description | +--------+ + + + + | 05/02/ | Telephone | [facility] | Yoly GamezOSCAR | Referral | | 2018 | | MEDICINE [facility] | [address] | | | | | [address] | [place] | | | | | [place] | [address] | | | | | [address] | | | | | | [phone] | | | +--------+ + + + [...] [place] | | | | | | [address] | | | | | | | | +--------+ + + + + | 07/15/ | Appointment | Radiology | Yoly Gamez FNP | | | 2017 | | | [address] | | | | | | [place] | | | | | | [address] | | | | | | | | | | | | Mechelle Lord, | | | | | | Technologist | | +--------+ + + + + | 07/15/ | Appointment | Radiology | Yoly Gamez FNP | | | 2017 | | | [address] | | | | | | [place] | | | | | | [address] | | | | | | | | | | | | Lorene Arthur, | | | | | | Physics Technician | | +--------+ + + + + | 08/01/ | Office | Family Medicine | Yoly Gamez FNP | | | 2017 | Visit | | [address] | | | | | | [place] | | | | | | [address] | | | | | | | | +--------+ + + + + | 08/02/ | Office | Sleep Medicine | Chu Davis PA | | | 2017 | Visit | | [address] | | | | | | [place] | | | | | | [address] | | | | | | | | +--------+ + + + + | 10/13/ | Office | Cardiology | BestmollydotCaroleemynor, | | | 2017 | Visit | | [address] | | | | | | [place], | | | | | | [place] [address] | | | | | | [phone] | | | | | | | | +--------+ + + + + + +--------+ + + | Name | Priori | Associated Diagnoses | Order Schedule | | | ty | | | + +--------+ + + | [facility] | Routin | Right hip pain [...]
--- OUTSIDE RECORDS SUMMARY | ~2017-07-05 | XMS | Encounter Summary ---
Demographics + + + | Address | [address] | | | [place] [address] | + + + | Home Phone [...] + | Author | [facility] | | | and [place] | + + + | Organization | [facility] | | | and [place] | + + + | Address | Unknown | + + + | Phone | Unavailable | + + + Support + + + + + | Name | Relationship | Address | Phone | + + + + + | Kit Hyde | ECON | [address] | | | | | [place], | | | | | [place] [address] | | + + + + + | Crystal Hyde | ECON | Unknown | | + + + + + Care Team Providers + +------+ + | Care Local Delivery Driver Name | Role | Phone | + [...] | | | | | | [address] | | | | | | [address] | | | | | | [phone] | | | +--------+ + + + [...] [place] | | | | | | [address] | | | | | | | | +--------+ + + + + | 07/15/ | Appointment | Radiology | Yoly Gamez FNP | | | 2017 | | | [address] | | | | | | [place] | | | | | | [address] | | | | | | | | | | | | Mechelle Lord, | | | | | | Technologist | | +--------+ + + + + | 07/15/ | Appointment | Radiology | Yoly Gamez FNP | | | 2018 | | | [address] | | | | | | [place] | | | | | | [address] | | | | | | | | | | | | Lorene Arthur, | | | | | | It Software Developer | | +--------+ + + + + | 08/01/ | Office | Family Medicine | Yoly Gamez FNP | | | 2017 | Visit | | [address] | | | | | | [place] | | | | | | [address] | | | | | | | | +--------+ + + + + | 08/02/ | Office | Sleep Medicine | Chu Davis PA | | | 2017 | Visit | | [address] | | | | | | [place] | | | | | | [address] | | | | | | | | +--------+ + + + + | 10/13/ | Office | Cardiology | Alpa Corcoran, | | | 2018 | Visit | | [address] | | | | | | [place], | | | | | | [place] [address] | | | | | | [phone] | | | | | | | | +--------+ + + + + as of this encounter Visit Diagnoses Not on filein this encounter"
--- OUTSIDE RECORDS SUMMARY | ~2017-07-05 | XMS | Encounter Summary ---
Demographics + + + | Address | [address] | | | [place] [address] | + + + | Home Phone | | + + + | Preferred Language | Unknown | + + + | Marital Status | Single | + + + | Sikhism Affiliation | Unknown | + + + | Race | Unknown | + + + | Ethnic Group | Unknown | + + + Author + + + | Author | [facility] | | | and [place] | + + + | Organization | [facility] | | | and [place] | + + + | Address | Unknown | + + + | Phone | Unavailable | + + + Support + + + + + | Name | Relationship | Address | Phone | + + + + + | Kit Hyde | ECON | [address] | | | | | [place], | | | | | [place] [address] | | + + + + + | Crystal Hyde | ECON | Unknown | | + + + + + Care Team Providers + +------+ + | Care Synoptic Meteorologist Name | Role | Phone | + [...] | | | | | [address] | | | | | | [place] | | | | | | [address] | | | | | | [phone] | | | +--------+ + + + [...] [place] | | | | | | [address] | | | | | | | | +--------+ + + + + | 07/15/ | Appointment | Radiology | Yoly Gamez FNP | | | 2017 | | | [address] | | | | | | [place] | | | | | | [address] | | | | | | | | | | | | Mechelle Lord, | | | | | | Technologist | | +--------+ + + + + | 07/15/ | Appointment | Radiology | Yoly Gamez FNP | | | 2017 | | | [address] | | | | | | [place] | | | | | | [address] | | | | | | | | | | | | Lorene Arthur, | | | | | | Machine Carton Marker | | +--------+ + + + + | 08/01/ | Office | Family Medicine | Yoly Gamez FNP | | | 2017 | Visit | | [address] | | | | | | [place] | | | | | | [address] | | | | | | | | +--------+ + + + + | 08/02/ | Office | Sleep Medicine | Chu Davis PA | | | 2017 | Visit | | [address] | | | | | | [place] | | | | | | [address] | | | | | | | | +--------+ + + + + | 10/13/ | Office | Cardiology | Alpa Corcoran, | | | 2017 | Visit | | MD [address] | | | | | | [place], | | | | | | [place] [address] | | | | | | [phone] | | | | | | | | +--------+ + + + + as of this encounter Visit Diagnoses Not on filein this encounter"
--- OUTSIDE RECORDS SUMMARY | ~2017-07-05 | XMS | Encounter Summary ---
Demographics + + + | Address | [address] | | | [place] [address] | + + + | Home Phone [...] | [facility] | | | and [place] | + + + | Organization | [facility] | | | and [place] | + + + | Address | Unknown | + + + | Phone | Unavailable | + + + Support + + + + + | Name | Relationship | Address | Phone | + + + + + | Kit Hyde | ECON | [address] | | | | | [place], | | | | | [place] [address] | | + + + + + | Crystal Hyde | ECON | Unknown | | + + + + + Care Team Providers + +------+ + | Care Group Sales Manager Name | Role | Phone | [...] [place] | | | | | | [address] | | | | | | [phone] | | | +--------+ + + + [...] [place] | | | | | | [address] | | | | | | | | +--------+ + + + + | 07/15/ | Appointment | Radiology | Yoly Gamez FNP | | | 2017 | | | [address] | | | | | | [place] | | | | | | [address] | | | | | | | | | | | | Mechelle Lord, | | | | | | Technologist | | +--------+ + + + + | 07/15/ | Appointment | Radiology | Yoly Gamez FNP | | | 2017 | | | [address] | | | | | | [place] | | | | | | [address] | | | | | | | | | | | | Lorene Arthur, | | | | | | Box Sealing Machine Catcher | | +--------+ + + + + | 08/01/ | Office | Family Medicine | Yoly Gamez FNP | | | 2017 | Visit | | [address] | | | | | | [place] | | | | | | [address] | | | | | | | | +--------+ + + + + | 08/02/ | Office | Sleep Medicine | Chu Davis PA | | | 2017 | Visit | | [address] | | | | | | [place] | | | | | | [address] | | | | | | | | +--------+ + + + + | 10/13/ | Office | Cardiology | Alpa Corcoran, | | | 2017 | Visit | | MD [address] | | | | | | [place], | | | | | | [place] [address] | | | | | | [phone] | | | | | | | | +--------+ + + + + as of this encounter Visit Diagnoses Not on filein this encounter"
--- OUTSIDE RECORDS SUMMARY | ~2017-07-05 | XMS | Encounter Summary ---
Demographics + + + | Address | [address] | | | [place] [address] | + + + | Home Phone [...] + + + | Author | [facility] | | | and [place] | + + + | Organization | [facility] | | | and [place] | + + + | Address | Unknown | + + + | Phone | Unavailable | + + + Support + + + + + | Name | Relationship | Address | Phone | + + + + + | Kit Hyde | ECON | [address] | | | | | [place], | | | | | [place] [address] | | + + + + + | Crystal Hyde | ECON | Unknown | | + + + + + Care Team Providers + +------+ + | Care Environmental Control Administrator Name | Role | Phone | [...] urgency | | 2018 | | [facility] | [address] | (Primary Dx) | | | | [address] | [place], [place] | | | | | [place], [place] | [address] | | | | | [address] | | | | | | [phone] | | | +--------+ + + + [...] [place] | | | | | | [address] | | | | | | | | +--------+ + + + + | 07/15/ | Appointment | Radiology | Yoly Gamez FNP | | | 2017 | | | [address] | | | | | | [place] | | | | | | [address] | | | | | | | | | | | | Mechelle Lord, | | | | | | Technologist | | +--------+ + + + + | 07/15/ | Appointment | Radiology | VeraYoly FNP | | | 2017 | | | [address] | | | | | | [place] | | | | | | [address] | | | | | | | | | | | | Lorene Arthur, | | | | | | Ceramics Technician | | +--------+ + + + + | 08/01/ | Office | Family Medicine | StefanYoly smith FNP | | | 2017 | Visit | | [address] | | | | | | [place] | | | | | | [address] | | | | | | | | +--------+ + + + + | 08/02/ | Office | Sleep Medicine | Chu Davis PA | | | 2017 | Visit | | [address] | | | | | | [place] | | | | | | [address] | | | | | | | | +--------+ + + + + | 10/13/ | Office | Cardiology | Alpa Corcoran, | | | 2017 | Visit | | [address] | | | | | | [place], | | | | | | [place] [address] | | | | | | [phone] | | | | | | | | +--------+ + + + + as of this encounter Visit Diagnoses + + | Diagnosis | + + | Urinary urgency - Primary | + + | Urgency of urination | + +"
--- OUTSIDE RECORDS SUMMARY | ~2017-07-05 | XMS | Encounter Summary ---
Demographics + + + | Address | [address] | | | [place] [address] | + + + | Home Phone [...] Author | [facility] | | | and [place] | + + + | Organization | [facility] | | | and [place] | + + + | Address | Unknown | + + + | Phone | Unavailable | + + + Support + + + + + | Name | Relationship | Address | Phone | + + + + + | Kit Hyde | ECON | [address] | | | | | [place], | | | | | [place] [address] | | + + + + + | Crystal Hyde | ECON | Unknown | | + + + + + Care Team Providers + +------+ + | Care Mental Health Consultant Name | Role | Phone | + [...] | | | | Altered | Yoly, LOG SNAKER | [address] | | | | | mental | [address] | [place], | | | | | status, | [address]VE [place] | [place] | | | | | unspecified | [place] | [address] | | | | | altered | [address] | Phone: | | | | | mental | Phone: | [phone] | | | | | status type | [phone] | Fax: | | | | | History of | Fax: | [phone] | | | | | TIA | [phone] | | | | | | (transient [...] | | | | Altered | Yoly, LOG SNAKER | [address] | | | | | mental | [address] | [place], | | | | | status, | [address]VE [place] | [place] | | | | | unspecified | [place] | [address] | | | | | altered | [address] | Phone: | | | | | mental | Phone: | [phone] | | | | | status type | [phone] | Fax: | | | | | History of | Fax: | [phone] | | | | | TIA | [phone] | | | | | | (transient [...] | Services | | Recurrent | Yoly, LOG SNAKER | Urology [address] | | | Required | | UTI Renal | [address] | | | | | cyst, right | [address] [place] | [address] | | | | | | [place], [place] | [place], | | | | | | [address] | [place] [address] | | | | | | Phone: | Phone: | | | | | | [phone] | [phone] | | | | | | Fax: | Fax: | | | | | | [phone] | [phone] | + + + + + + [...] + | 06/30/ | Office | [facility] [place] [facility] | VeraYoly FNP | Altered mental | | 2018 | Visit | [facility] [place] | [address] | status, unspecified | | | | [address] | [place] | altered mental | | | | [place] | [address] | status type (Primary | | | | [address] | | Dx); History of TIA | | | | [phone] | | (transient ischemic | | | [...] her caregiver since 09/2016. She goes to [facility] [facility] 3 hours each day, usually 11-2pm. [...] is allowed 15 hours a week through [facility]. Message will be sent to [facility] to work on this. Altered mental status: Symptoms started 3 days ago. Noticed she was forgetting where she pu t things with mild headache which started 06/27/17 evening. She called and spoke with [facility] over the phone. The next [...] last was within the past year, at [facility]. Right carotid completely blocked. Dr Baez did surgery on left, approximately 20 years ago, after stroke. Last Brain MRI with stroke, 20 ye ars ago, [place]. Discuss options about getting a brain MRI, echo, ultrasound of the monta[place] tids now to workup for current possible [...] obtain report. With tomas chan having 3 [id number] UTIs would like her to see urologist, she would like to see Gabriela Saucedo. Has diarrhea due to Crohn's, uses wet wipes after every diarrheal stool. This coul d be part of the difficulty with recurrent UTIs. She never had her lab work done, printed the lab order and she will get done in [place] w hen she goes into repeat the [...] of this report were trans cribed using [employer] voice recognition software. Although effort was made [...] [place] | | | | | | [address] | | | | | | | | +--------+ + + + + | 07/15/ | Appointment | Radiology | Yoly GamezOSCAR | | | 2017 | | | [address] | | | | | | [place] | | | | | | [address] | | | | | | | | | | | | Mechelle Lord, | | | | | | Technologist | | +--------+ + + + + | 07/15/ | Appointment | Radiology | Yoly GamezOSCAR | | | 2017 | | | [address] | | | | | | [place] | | | | | | [address] | | | | | | | | | | | | Lorene Arthur, | | | | | | Transmission Systems Operator | | +--------+ + + + + | 08/01/ | Office | Family Medicine | Yoly Gamez FNP | | | 2017 | Visit | | [address] | | | | | | [place] | | | | | | [address] | | | | | | | | +--------+ + + + + | 08/02/ | Office | Sleep Medicine | Chu Davis PA | | | 2017 | Visit | | [address] | | | | | | [place] | | | | | | [address] | | | | | | | | +--------+ + + + + | 10/13/ | Office | Cardiology | Alpa Corcoran, | | | 2017 | Visit | | MD [address] | | | | | | [place] | | | | | | [place] [address] | | | | | | [phone] | | | | | | | [...]
--- OUTSIDE RECORDS SUMMARY | ~2017-07-05 | XMS | Encounter Summary ---
Demographics + + + | Address | [address] | | | [place] [address] | + + + | Home Phone | | + + + | Preferred Language | Unknown | + + + | Marital Status | Single | + + + | Shinto Affiliation | Unknown | + + + | Race | Unknown | + + + | Ethnic Group | Unknown | + + + Author + + + | Author | [facility] | | | and [place] | + + + | Organization | [facility] | | | and [place] | + + + | Address | Unknown | + + + | Phone | Unavailable | + + + Support + + + + + | Name | Relationship | Address | Phone | + + + + + | Kit Hyde | ECON | [address] | | | | | [place], | | | | | [place] [address] | | + + + + + | Crystal Hyde | ECON | Unknown | | + + + + + Care Team Providers + +------+ + | Care Applications Systems Engineer Name | Role | Phone | [...] + | 06/28/ | Telephone | [facility] | Vera YolyOSCAR | Altered Mental | | 2018 | | [facility] | [address] | Status | | | | [address] | [place] | | | | | [place] | [address] | | | | | [address] | | | | | | [phone] | | | +--------+ + + + [...] [place] | | | | | | [id number] | | | | | | | | +--------+ + + + + | 07/15/ | Appointment | Radiology | Yoly Gamez FNP | | | 2017 | | | [address] | | | | | | [place] | | | | | | [address] | | | | | | | | | | | | Mechelle Lord, | | | | | | Technologist | | +--------+ + + + + | 07/15/ | Appointment | Radiology | Yoly Gamez FNP | | | 2017 | | | [address] | | | | | | [place] | | | | | | [address] | | | | | | | | | | | | Lorene Arthur, | | | | | | Nurse Sitter | | +--------+ + + + + | 08/01/ | Office | Family Medicine | Yoly Gamez FNP | | | 2017 | Visit | | [address] | | | | | | [place] | | | | | | [address] | | | | | | | | +--------+ + + + + | 08/02/ | Office | Sleep Medicine | Chu Davis PA | | | 2017 | Visit | | [address] | | | | | | [place] | | | | | | [address] | | | | | | | | +--------+ + + + + | 10/13/ | Office | Cardiology | Alpa Corcoran, | | | 2017 | Visit | | MD [address] | | | | | | [place], | | | | | | [place] [address] | | | | | | [phone] | | | | | | | | +--------+ + + + + as of this encounter Visit Diagnoses Not on filein this encounter"
--- OUTSIDE RECORDS SUMMARY | ~2017-07-05 | XMS | Encounter Summary ---
Demographics + + + | Address | [address] | | | [place] [address] | + + + | Home Phone | | + + + | Preferred Language | Unknown | + + + | Marital Status | Single | + + + | Protestant Affiliation | Unknown | + + + | Race | Unknown | + + + | Ethnic Group | Unknown | + + + Author + + + | Author | [facility] | | | and [place] | + + + | Organization | [facility] | | | and [place] | + + + | Address | Unknown | + + + | Phone | Unavailable | + + + Support + + + + + | Name | Relationship | Address | Phone | + + + + + | Kit Hyde | ECON | [address] | | | | | [place], | | | | | [place] [address] | | + + + + + | Crystal Hyde | ECON | Unknown | | + + + + + Care Team Providers + +------+ + | Care Shell Sieve Operator Name | Role | Phone | [...] + + | 07/04/ | Telephone | [facility] | Carmela Morris, | Case Management | | 2018 | | MED CTR CASE | RN | (Need more caregiver | | | | MANAGEMENT [address] | | hours) | | | | [place], | | | | | | [place] [address] | | | | | | [phone] | | | +--------+ + + + [...] [place] | | | | | | [address] | | | | | | | | | | | | Mechelle Lord, | | | | | | Technologist | | +--------+ + + + + | 07/15/ | Appointment | Radiology | Yoly Gamez FNP | | | 2017 | | | [address] | | | | | | [place] | | | | | | [address] | | | | | | | | | | | | Lorene Arthur, | | | | | | Mangle Catcher | | +--------+ + + + + | 08/01/ | Office | Family Medicine | Yoly Gamez FNP | | | 2017 | Visit | | [address] | | | | | | [place] | | | | | | [address] | | | | | | | | +--------+ + + + + | 08/02/ | Office | Sleep Medicine | Chu Davis PA | | | 2017 | Visit | | [address] | | | | | | [place] | | | | | | [address] | | | | | | | | +--------+ + + + + | 10/13/ | Office | Cardiology | Alpa Corcoran, | | | 2017 | Visit | | MD [address] | | | | | | [place], | | | | | | [place] [address] | | | | | | [phone] | | | | | | | | +--------+ + + + + as of this encounter Visit Diagnoses Not on filein this encounter"
--- OUTSIDE RECORDS SUMMARY | ~2017-07-05 | XMS | Encounter Summary ---
Demographics + + + | Address | [address] | | | [place] [address] | + + + | Home Phone | | + + + | Preferred Language | Unknown | + + + | Marital Status | Single | + + + | Lutheran Affiliation | Unknown | + + + | Race | Unknown | + + + | Ethnic Group | Unknown | + + + Author + + + | Author | [facility] | | | and [place] | + + + | Organization | [facility] | | | and [place] | + + + | Address | Unknown | + + + | Phone | Unavailable | + + + Support + + + + + | Name | Relationship | Address | Phone | + + + + + | Kit Hyde | ECON | [address] | | | | | [place], | | | | | [place] [address] | | + + + + + | Crystal Hyde | ECON | Unknown | | + + + + + Care Team Providers + +------+ + | Care Manager Business Process Name | Role | Phone | + [...] | | | | | | [address] | | | | | | [address] | | | | | | [phone] | | | +--------+ + + + [...] [place] | | | | | | [address] | | | | | | | | +--------+ + + + + | 07/15/ | Appointment | Radiology | Yoly Gamez FNP | | | 2017 | | | [address] | | | | | | [place] | | | | | | [address] | | | | | | | | | | | | Mechelle Lord, | | | | | | Technologist | | +--------+ + + + + | 07/15/ | Appointment | Radiology | Yoly Gamez FNP | | | 2018 | | | [address] | | | | | | [place] | | | | | | [address] | | | | | | | | | | | | Lorene Arthur, | | | | | | Director Of Compensation | | +--------+ + + + + | 08/01/ | Office | Family Medicine | Yoly Gamez FNP | | | 2017 | Visit | | [address] | | | | | | [place] | | | | | | [address] | | | | | | | | +--------+ + + + + | 08/02/ | Office | Sleep Medicine | Chu Davis PA | | | 2017 | Visit | | [address] | | | | | | [place] | | | | | | [address] | | | | | | | | +--------+ + + + + | 10/13/ | Office | Cardiology | Alpa Corcoran, | | | 2018 | Visit | | [address] | | | | | | [place], | | | | | | [place] [address] | | | | | | [phone] | | | | | | | | +--------+ + + + + as of this encounter Visit Diagnoses Not on filein this encounter"
[~2017-07-05 20:16] MED LIST changes: +LASIX40 MG PO
[2017-07-05] MEDS ORDERED: LYRICA50 MG PO (20:58)
[2017-07-05] MEDS ORDERED: DOXYCYCLINE HY100 MG PO (20:58)
== END 2017-07-05 23:35 | disposition home or self-care (01) ==
LOC: ED 20:16
DX: S51.811A Laceration without foreign body of right forearm, initial encounter (principal); Z23 Encounter for immunization; I10 Essential (primary) hypertension; E11.9 Type 2 diabetes mellitus without complications; Z87.891 Personal history of nicotine dependence; Z91.09 Other allergy status, other than to drugs and biological substances; Z88.8 Allergy status to other drugs, medicaments and biological substances; Z88.5 Allergy status to narcotic agent; Z79.899 Other long term (current) drug therapy; Z79.82 Long term (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 of aspirin; W18.09XA Striking against other object with subsequent fall, initial encounter
CPT/HCPCS: 90471; 90715; 99282

== ENCOUNTER 2018-06-08 15:29 | Emergency (ER) | payer MEDICARE, OTHER ==
[~2018-06-08] VITALS: Ht 154.9 cm; Wt 68.0 kg
--- OUTSIDE RECORDS SUMMARY | ~2018-06-08 | XMS | Encounter Summary ---
Demographics + + + | Address | [address] | | | [place] [address] | + + + | Home Phone | | + + + | Preferred Language | Unknown | + + + | Marital Status | Single | + + + | Hoahaoism Affiliation | Unknown | + + + | Race | Unknown | + + + | Ethnic Group | Unknown | + + + Author + + + | Author | [facility] | | | and [place] | + + + | Organization | [facility] | | | and [place] | + + + | Address | Unknown | + + + | Phone | Unavailable | + + + Support + + + + + | Name | Relationship | Address | Phone | + + + + + | Kit Hyde | ECON | [address] | | | | | [place], | | | | | [place] [address] | | + + + + + | Crystal Hyde | ECON | Unknown | | + + + + + Care Team Providers + +------+ + | Care Grounds Keeper Name | Role | Phone | + +------+ + | Yoly Gamez | PCP | | + +------+ + Encounter Details +--------+ + + + + | Date | Type | Department | Care Team | Description | +--------+ + + + + | 03/31/ | Orders Only | [facility] | Haydee Guzman, | Urinary frequency | | 2019 | | SERVICE [facility]ENTER | Screen Writer | | | | | [address] [address] | | | | [address] [place] | | | | | | [place] [address] | | | | | | [phone] | | | +--------+ + + + + Social History + + + +--------+ + | Tobacco Use | Types | Packs/Day | Years | Date | | | | | Used | | + + + +--------+ + | Former Smoker | Cigarettes | 1 | 40 | 03/14/1963 - | | | | | | 03/14/2003 | + + + +--------+ + + +---+---+---+ | Smokeless Tobacco: | | | | | Never Used | | | | + +---+---+---+ + + +---------+ + | Alcohol Use | Drinks/We | oz/Week | Comments | | | ek | | | + + +---------+ + | No | 0 | 0.0 | | | | Standard | | | | | drinks or | | | | | | | | | | equivalen | | | | | t | | | + + +---------+ + + + + | Sex Assigned at | Date Recorded | | | | + + + | Not on file | | + + + as of this encounter Plan of Treatment +--------+---------+ + + + | Date | Type | Specialty | Care Team | Description | +--------+---------+ + + + | 11/14/ | Office | Cardiology | [facility], | | | 2018 | Visit | | [address] | | | | | | [place], | | | | | | [place] [address] | | | | | | [phone] | | | | | | | | +--------+---------+ + + + as of this encounter Procedures + +--------+ + + + | Procedure Name | Priori | Date/Time | Associated Diagnosis | Comments | | | ty | | | | + +--------+ + + + | URINALYSIS WITH | Routin | 03/31/2018 | Urinary frequency | Results for this | | MICROSCOPIC WITH | e | 1358 PST | | procedure are in the | | CULTURE IF INDICATED | | | | results section. | + +--------+ + + + in this encounter Results Urinalysis with Microscopic with Culture if Indicated (03/31/2018 8448) + + + + + | Component | Value | Ref Range | Performed At | + + + + + | Color | Yellow | Light Yellow, | [facility] | | | | Yellow, Straw | [facility] | | | | | [facility] | + + + + + | Clarity | Clear | Clear | [facility] | | | | | [facility] | | [facility] | + + + + + | pH, Urine | 7.0 | 5.0 - 8.0 | [facility] | | | | | [facility] | | | | | [facility] | + + + + + | Specific [place] | 1.018 | 1.001 - 1.030 | [facility] | | | | | [facility] | | | | | [facility] | + + + + + | Protein, Urine | Negative | Negative | [facility] | | | | | [facility] | | | | | [facility] | + + + + + | Blood, Urine | Negative | Negative | [facility] | | | | | [facility] | | | | | [facility] | + + + + + | Glucose, Urine | Negative | Negative | [facility] | | | | | [facility] | | | | | [facility] | + + + + + | Ketones, Urine | Negative | Negative | [facility] | | | | [facility] | | | | | [facility] - | | | | | LAB[facility]ATORY | + + + + + | Bilirubin, Urine | Negative | Negative | [facility] | | | | | [facility] | | | | | [facility] | + + + + + | Nitrite, Urine | Negative | Negative | [facility] | | | | | [facility] | | | | | [facility] | + + + + + | Leukocyte Esterase, | Negative | Negative | [facility] | | Urine | | | [facility] | | | | | [facility] | + + + + + | Urobilinogen, Urine | Negative | 0.2 mg/dL, 1.0 | [facility] | | | | mg/dL, Negative | [facility] | | | | | [facility] | + + + + + | WBC UA | 5-10 (A) | 0 - 2 /HPF | [facility] | | | | | [facility] | [facility] | | | | | [facility] | + + + + + | RBC UA | 0-2 | 0 - 2 /HPF | [facility] | | | | | [facility] | | | | | [facility] | + + + + + | SQUAMOUS EPITHELIAL | 0-2 | 0 - 2 /LPF | [facility] | | UA | | | [facility] - | | | | | [facility] | + + + + + | BACTERIA UA | Negative | Negative /HPF | [facility] | | | | | [facility] | | [facility] | | [facility] - | | | | | LABORATORY | + + + + + | MUCUS UA | Present (A) | Negative /LPF | [facility] | | | | | [facility] | [facility] - | | | | | [facility] | + + + + + | URINE COMMENT | Urine Culture Not | | [facility] | | | Indicated | | [facility] | [facility] | | | | | [facility] | + + + + + + + | Specimen | + + | Urine - Urine, Clean | | Catch | + + + + + + + | Performing | Address | City/State/Zipcode | Phone Number | | Organization | | | | + + + + + | [facility] | [address] | [place] | [phone] | | [facility] | | [address] | | | - LABORATORY | | | | + + + + + in this encounter Visit Diagnoses + + | Diagnosis | + + | Urinary frequency | + +"
--- OUTSIDE RECORDS SUMMARY | ~2018-06-08 | XMS | Encounter Summary ---
Demographics + + + | Address | [address] | | | [place] [address] | + + + | Home Phone | | + + + | Preferred Language | Unknown | + + + | Marital Status | Single | + + + | Mormon Affiliation | Unknown | + + + | Race | Unknown | + + + | Ethnic Group | Unknown | + + + Author + + + | Author | [facility] | | | and [place] | + + + | Organization | [facility] | | | and [place] | + + + | Address | Unknown | + + + | Phone | Unavailable | + + + Support + + + + + | Name | Relationship | Address | Phone | + + + + + | Kit Hyde | ECON | [address] | | | | | [place], | | | | | [place] [address] | | + + + + + | Crystal Hyde | ECON | Unknown | | + + + + + Care Team Providers + +------+ + | Care Bromination Equipment Operator Name | Role | Phone | + +------+ + | Yoly Gamez | PCP | | + +------+ + Reason for Visit + + + | Reason | Comments | + + + | Vaginitis | | + + + Encounter Details +--------+ + + + + | Date | Type | Department | Care Team | Description | +--------+ + + + + | 03/29/ | Telephone | [facility] | Yoly Gamez FNP | Vaginitis | | 2019 | | MEDICINE [place] | [address] | | | | | [address] | [place] | | | | | [place] | [address] | | | | | [address] | | | | | | [phone] | | | +--------+ + + + [...] | 11/14/ | Office | Cardiology | Alpa Corcoran, | | | 2018 | Visit | | [address] | | | | | | [place], | | | | | | [place] [address] | | | | | | [phone] | | | | | | | | +--------+---------+ + + + as of this encounter Visit Diagnoses Not on filein this encounter"
--- OUTSIDE RECORDS SUMMARY | ~2018-06-08 | XMS | Encounter Summary ---
Demographics + + + | Address | [address] | | | [place] [address] | + + + | Home Phone | | + + + | Preferred Language | Unknown | + + + | Marital Status | Single | + + + | Gnosticist Affiliation | Unknown | + + + | Race | Unknown | + + + | Ethnic Group | Unknown | + + + Author + + + | Author | [facility] | | | and [place] | + + + | Organization | [facility] | | | and [place] | + + + | Address | Unknown | + + + | Phone | Unavailable | + + + Support + + + + + | Name | Relationship | Address | Phone | + + + + + | Kit Hyde | ECON | [address] | | | | | [place], | | | | | [place] [address] | | + + + + + | Crystal Hyde | ECON | Unknown | | + + + + + Care Team Providers + +------+ + | Care Resource Engineer Name | Role | Phone | + +------+ + | Yoly Gamez | PCP | | + +------+ + Reason for Visit +--------+ + | Reason | Comments | +--------+ + | Fall | | +--------+ + Encounter Details +--------+ + + + + | Date | Type | Department | Care Team | Description | +--------+ + + + + | 04/04/ | Telephone | [facility] | Yoly Gamez CASING GRADER | Fall | | 2019 | | MEDICINE [place] | [address] | | | | | [address] | [place] | | | | | [place] | [address] | | | | | [address] | | | | | | [phone] | | | +--------+ + + + [...] [place], | | | | | | [place] [address] | | | | | | [phone] | | | | | | | | +--------+---------+ + + + as of this encounter Visit Diagnoses Not on filein this encounter"
--- OUTSIDE RECORDS SUMMARY | ~2018-06-08 | XMS | Encounter Summary ---
Demographics + + + | Address | [address] | | | [place] [address] | + + + | Home Phone | | + + + | Preferred Language | Unknown | + + + | Marital Status | Single | + + + | Islam Affiliation | Unknown | + + + | Race | Unknown | + + + | Ethnic Group | Unknown | + + + Author + + + | Author | [facility] | | | and [place] | + + + | Organization | [facility] | | | and [place] | + + + | Address | Unknown | + + + | Phone | Unavailable | + + + Support + + + + + | Name | Relationship | Address | Phone | + + + + + | Kit Hyde | ECON | [address] | | | | | [place], | | | | | [place] [address] | | + + + + + | Crystal Hyde | ECON | Unknown | | + + + + + Care Team Providers + +------+ + | Care Forestry Biology Specialist Name | Role | Phone | + [...] + | 03/29/ | Telephone | [facility] | Yoly Gamez FNP | Vaginitis | | 2019 | | MEDICINE [place] | [address] | | | | | [address] | [place] | | | | | [place] | [address] | | | | | [address] | | | | | | [phone] | | | +--------+ + + + [...] | | | | | | [place] [address] | | | | | | [phone] | | | | | | | | +--------+---------+ + + + as of this encounter Visit Diagnoses Not on filein this encounter"
--- OUTSIDE RECORDS SUMMARY | ~2018-06-08 | XMS | Encounter Summary ---
Demographics + + + | Address | [address] | | | [place] [address] | + + + | Home Phone | | + + + | Preferred Language | Unknown | + + + | Marital Status | Single | + + + | Jewish Affiliation | Unknown | + + + | Race | Unknown | + + + | Ethnic Group | Unknown | + + + Author + + + | Author | [facility] | | | and [place] | + + + | Organization | [facility] | | | and [place] | + + + | Address | Unknown | + + + | Phone | Unavailable | + + + Support + + + + + | Name | Relationship | Address | Phone | + + + + + | Kit Hyde | ECON | [address] | | | | | [place], | | | | | [place] [address] | | + + + + + | Crystal Hyde | ECON | Unknown | | + + + + + Care Team Providers + +------+ + | Care Medical Office Technician Name | Role | Phone | + [...] + + | 05/03/ | Telephone | [facility] | Yoly Gamez FNP | Appointment Question | | 2019 | | MEDICINE [place] | [address] | | | | | [address] | [place] | | | | | [place] | [address] | | | | | [address] | | | | | | [phone] | | | +--------+ + + + [...] [place], | | | | | | [place] [address] | | | | | | [phone] | | | | | | | | +--------+---------+ + + + as of this encounter Visit Diagnoses Not on filein this encounter"
--- OUTSIDE RECORDS SUMMARY | ~2018-06-08 | XMS | Encounter Summary ---
Demographics + + + | Address | [address] | | | [place] [address] | + + + | Home Phone | | + + + | Preferred Language | Unknown | + + + | Marital Status | Single | + + + | Muslim Affiliation | Unknown | + + + | Race | Unknown | + + + | Ethnic Group | Unknown | + + + Author + + + | Author | [facility] | | | and [place] | + + + | Organization | [facility] | | | and [place] | + + + | Address | Unknown | + + + | Phone | Unavailable | + + + Support + + + + + | Name | Relationship | Address | Phone | + + + + + | Kit Hyde | ECON | [address] | | | | | [place], | | | | | [place] [address] | | + + + + + | Crystal Hyde | ECON | Unknown | | + + + + + Care Team Providers + +------+ + | Care Travel Accommodations Rater Name | Role | Phone | + +------+ + | Yoly Gamez | PCP | | + +------+ + Reason for Visit + + + | Reason | Comments | + + + | Lab Results | | + + + Encounter Details +--------+ + + + + | Date | Type | Department | Care Team | Description | +--------+ + + + + | 03/31/ | Telephone | [facility] | Yoly Gamez FNP | Lab Results | | 2019 | | MEDICINE [place] | [address] | | | | | [address] | [place] | | | | | [place] | [address] | | | | | [address] | | | | | | [phone] | | | +--------+ + + + [...] [place], | | | | | | [place] [address] | | | | | | [phone] | | | | | | | | +--------+---------+ + + + as of this encounter Visit Diagnoses Not on filein this encounter"
--- OUTSIDE RECORDS SUMMARY | ~2018-06-08 | XMS | Clinical Summary ---
Demographics + + + | Address | [address] | | | [place] [address] | + + + | Home Phone | | + + + | Preferred Language | Unknown | + + + | Marital Status | Single | + + + | Confucianism Affiliation | Unknown | + + + | Race | Unknown | + + + | Ethnic Group | Unknown | + + + Author + + + | Author | [facility] | | | and [place] | + + + | Organization | [facility] | | | and [place] | + + + | Address | Unknown | + + + | Phone | Unavailable | + + + Support + + + + + | Name | Relationship | Address | Phone | + + + + + | Kit Hyde | ECON | [address] | | | | | [place], | | | | | [place] [address] | | + + + + + | Crystal Hyde | ECON | Unknown | | + + + + + Care Team Providers + +------+ + | Care Hotel Engineer Name | Role | Phone | [...] Preference | Low | 08/11/19 | AKA "Ni" - | | | | | 17 | Hallucinations | + + + + + + | Pregabalin | | | 08/12/19 | confused | | | | | 16 | | + + + + + + Current Medications + + + +---------+------+------+-------+ | Prescription | Sig. | Disp. | Refills | Star | End | Statu | | | | | | t | Date | s | | | | | | Date | | | + + + +---------+------+------+-------+ | clobetasol | Apply topically as | | | 04/1 | | Activ | | (TEMOVATE) 0.05% | needed. | | | 0/20 | | e | | ointment | | | | 15 | | | + + + +---------+------+------+-------+ | UNABLE TO FIND | Med Name: | | | | | Activ | | | Respironics | | | | | e | | | Dreamstation APAP | | | | | | | | 5-15cm while | | | | | | | | sleeping. | | | | | | + + + +---------+------+------+-------+ | oxygen | Inhale 2 L into the | | | | | Activ | | | lungs nightly. She | | | | | e | | | also has portable | | | | | | | | oxygen that she uses | | | | | | | | as needed at 2 | | | | | | | | liters | | | | | | + + + +---------+------+------+-------+ | aspirin 325 mg EC | Take 325 mg by mouth | | | | | Activ | | tablet | Daily. 2 tablets | | | | | e | | | daily | | | | | | + + + +---------+------+------+-------+ | calcium, as | Take 1,200 mg by | | | | | Activ | | carbonate, | mouth Daily. | | | | | e | | (CALTRATE) 600 mg | | | | | | | | tablet | | | | | | | + + + +---------+------+------+-------+ | FORTEO 600 | Inject under the | | | 06/12 | | Activ | | MCG/2.4ML injection | skin Daily. | | | 12/01 | | e | | | | | | 17 | | | + + + +---------+------+------+-------+ | NIFEdipine | Take 60 mg by mouth | | | | | Activ | | (NIFEDICAL XL) 60 mg | Daily. As needed to | | | | | e | | ER tablet | relax esophagus | | | | | | + + + +---------+------+------+-------+ | melatonin 3 mg | Take 3 mg by mouth | | | | | Activ | | TABS | Daily. | | | | | e | + + + +---------+------+------+-------+ | potassium chloride | TAKE 2 TABLETS EVERY | 180 | 3 | 11/0 | | Activ | | (KLOR-CON) 10 mEq | DAY | tablet | | 7/20 | | e | | CR tablet | | | | 17 | | | + + + +---------+------+------+-------+ | furosemide (LASIX) | Take 1 tablet by | 90 | 3 | 12/ | | Activ | | 40 mg tablet | mouth Daily. | tablet | | 20 | | e | | | | | | 17 | | | + + + +---------+------+------+-------+ | albuterol 2.5 mg/3 | Take 2.5 mg by | | 0 | 01/12 | | Activ | | mL nebulizer | nebulization every 4 | | | 09/30 | | e | | solution | hours as needed. | | | 17 | | | | | Uses as needed | | | | | | + + + +---------+------+------+-------+ | dexlansoprazole | Take 1 capsule by | 90 | 3 | 12/2 | | Activ | | (DEXILANT) [address] | mouth Daily. | capsule | | 09/30 | | e | | capsuleIndications: | | | | 17 | | | | Gastric reflux | | | | | | | + + + +---------+------+------+-------+ | ONE TOUCH ULTRA | Use to check blood | 100 | 11 | 02/12 | | Activ | | TEST | [...] | | | | | + + + +---------+------+------+-------+ | ONE TOUCH | TEST once daily | 100 | 11 | 12/ | | Activ | | ULTRASOFT LANCETS [...] | | | | | + + + +---------+------+------+-------+ | Blood Glucose | by Does not apply | | | | | Activ | | Monitoring Suppl | route. | | | | | e | | (ONE TOUCH ULTRA | | | | | | | | MINI) w/Device KIT | | | | | | | + + + +---------+------+------+-------+ | albuterol (PROAIR | Inhale 1 puff into | 3 each | 0 | 05/3 | | Activ | | HFA) 90 mcg/puff | the lungs every 6 | | | 1/20 | | e | | inhaler | hours as needed. | | | 18 | | | + + + +---------+------+------+-------+ | estradiol (ESTRACE | Apply 1gm to vagina | 42.5 g | 3 | 06/0 | | Activ | | VAGINAL) 0.1 mg/g | daily x 2 weeks then | | | 7/20 | | e | | vaginal cream | 1mg once weekly | | | 18 | | | + + + +---------+------+------+-------+ | FLOVENT HFA 110 | INHALE TWO PUFFS BY | 1 | 3 | 06/2 | | Activ | | MCG/ACT inhaler | MOUTH TWICE A DAY | Inhaler | | 8/20 | | e | | | | | | 18 | | | + + + +---------+------+------+-------+ | meclizine | Take 25 mg by mouth | | | | | Activ | | (ANTIVERT) 25 mg | Twice daily as | | | | | e | | tablet | needed. | | | | | | + + + +---------+------+------+-------+ | Homeopathic | 1 spray by Nasal | | | | | Activ | | Products (ZICAM COLD | route Daily as | | | | | e | | REMEDY NA) | needed. | | | | | | + + + +---------+------+------+-------+ | guaiFENesin (MUCUS | Take 1,600 mg by | | | | | Activ | | RELIEF CHEST | mouth Daily. | | | | | e | | CONGESTION) 400 MG | | | | | | | | TABS | | | | | | | + + + +---------+------+------+-------+ | loperamide | Take 2 mg by mouth 4 | | | | | Activ | | (IMODIUM) 2 mg | times daily as | | | | | e | | capsule | needed for Diarrhea. | | | | | | + + + +---------+------+------+-------+ | nystatin | Apply topically 2 | 30 g | 0 | 09/2 | | Activ | | (MYCOSTATIN) | times daily. To | | | 8/20 | | e | | creamIndications: | affected area until | | | 18 | | | | Skin yeast infection | healed, mix with | | | | | | | | hydrocortisone | | | | | | | | cream. | | | | | | + + + +---------+------+------+-------+ | hydrocortisone | Apply thin film to | 30 g | 0 | 09/2 | | Activ | | 2.5% | affected area(s) two | | | 8/20 | | e | | creamIndications: | times daily, mix | | | 18 | | | | Skin yeast infection | with nystatin cream. | | | | | | + + + +---------+------+------+-------+ | raNITIdine | Take 1 tablet by | 60 | 2 | 10/0 | | Activ | | (ZANTAC) 150 mg | mouth 2 times daily. | tablet | | 8/20 | | e | | tabletIndications: | | | | 18 | | | | Gastroesophageal | | | | | | | | reflux disease with | | | | | | | | esophagitis | | | | | | | + + + +---------+------+------+-------+ | sertraline | 3 by mouth daily. | 270 | 0 | 10/0 | | Activ | | (ZOLOFT) 25 mg | | tablet | | 8/20 | | e | | tabletIndications: | | | | 18 | | | | Moderate episode of | | | | | | | | recurrent major | | | | | | | | depressive disorder | | | | | | | | (HCC), Anxiety | | | | | | | + + + +---------+------+------+-------+ | fluticasone | 2 sprays into both | 16 g | 0 | 12/0 | | Activ | | (FLONASE) 50 | nostrils daily. | | | 7/20 | | e | | mcg/nasal | | | | 18 | | | | sprayIndications: | | | | | | | | Dysfunction of left | | | | | | | | eustachian tube | | | | | | | + + + +---------+------+------+-------+ | buPROPion | TAKE ONE TABLET BY | 60 | 5 | 12/1 | | Activ | | (WELLBUTRIN SR) 200 | MOUTH TWICE A DAY | tablet | | 3/20 | | e | | MG 12 hr tablet | | | | 18 | | | + + + +---------+------+------+-------+ | metoprolol | TAKE 1 TABLET EVERY | 90 | 1 | 12/1 | | Activ | | succinate | DAY | tablet | | 08/31 | | e | | (TOPROL-XL) 100 mg | | | | 18 | | | | ER tablet | | | | | | | + + + +---------+------+------+-------+ | gabapentin | Take one tablet by | 90 | 0 | /2 | | Activ | | (NEURONTIN) 100 mg | mouth nightly as | capsule | | 12/01 | | e | | capsule | needed. | | | 19 | | | + + + +---------+------+------+-------+ | UNCODED | Patient to use | 1 each | 0 | 01/2 | | Activ | | DMEIndications: Gait | walker as need when | | | 12/01 | | e | | difficulty, History | ambulating. Length | | | 19 | | | | of stroke, Right | of use 99. ICD10: | | | | | | | leg weakness, | R26.9 R29.898 | | | | | | | Weakness of both | | | | | | | | lower extremities, | | | | | | | | Upper extremity | | | | | | | | weakness | | | | | | | + + + +---------+------+------+-------+ Active Problems + + + | Problem | Noted Date | + + + | Depression | 10/26/2017 | + + + | Anxiety | 10/26/2017 | + + + | Bilateral lower extremity edema | 09/21/2017 | + + + | Hypoxemia | 09/21/2017 | + + + | Osteoporosis, unspecified osteoporosis type, unspecified | 08/11/2017 | | pathological fracture presence | | + + + | Pulmonary hypertension | 07/18/2017 | + + + | Edwards's esophagus | 07/12/2017 | + + + | Beta Justyna [...] | 03/15/2017 | + + + | BETTY (obstructive [...] 1 left | | ventricular diastolic dysfunction, kdeg-ls-bhsjhffo mitral valve | | regurgitation, mild to [...] bleeding with subcutaneous enoxaparin than with warfarin. Ms. | | Chris had no interest in [...] back to [facility] | | [place] when she is discharged. | + + [...] + + | Overview: mild left sided weaknessEchocardiogram 07/15/2017 | | shows normal left ventricular size, wall thickness and motion, | | preserved left ventricular systolic function. LVEF is 55-60%, | | grade 1 left ventricular diastolic dysfunction, mild aortic valve | | insufficiency, mildly thickened mitral valve with a mild mitral | | valve regurgitation, qgcg-rk-srxxhkkd tricuspid valve | | regurgitation, moderate pulmonary hypertension with a peak | | systolic pressure of 75-80 mmHg, normal IVC without respiratory | | collapse suggesting mild fluid retention, when compared to | | echocardiography on 10/10/14 pulmonary hypertension is more | | severe. | + + + +---+ | Asthma [...] currently. | + + + +---+ | Diarrhea | | + [...] | + +---+ | PMR (polymyalgia rheumatica) ([facility]) | | + +---+ Resolved Problems + + + + | Problem | Noted | Resolved | | | Date | Date | + + + + | Adrenal insufficiency ([facility]) | 03/09/20 | | | | 17 | 8 | + + + + | Angina at rest ([facility]) | | | | | | 8 | + + + + Encounters +--------+ + + + + | Date | Type | Specialty | Care Team | Description | +--------+ + + + + | 05/03/ | Telephone | | Yoly Gamez FNP | Appointment Question | 2018 | | | | | +--------+ + + + + | 04/11/ | Telephone | | Yoly Gamez FNP | Medication | | 2018 | | | | Management; DME | +--------+ + + + + | 04/04/ | Telephone | | Yoly Gamez FNP | Fall | 2018 | | | | | +--------+ + + + + | 04/03/ | Telephone | | Yoly Gamez FNP | Lab Results | | 2018 | | | | | +--------+ + + + + | 03/31/ | Office | | Yoly Gamez FNP | Urinary frequency | | 2019 | Visit | | | (Primary Dx); | | | | | | Vaginal odor | +--------+ + + + + | 03/31/ | Telephone | | Yoly Gamez FNP | Lab Results | | 2018 | | | | | +--------+ + + + + | 03/31/ | Telephone | | Yoly Gamez FNP | Lab Results | | 2018 | | | | | +--------+ + + + + | 03/31/ | Orders Only | | Yoly Gamez FNP | Urinary frequency | | 2018 | | | | | +--------+ + + + + | 03/31/ | Orders Only | | Haydee Guzman, | Urinary frequency | | 2018 | | | Grants Assistant | | +--------+ + + + + | 03/29/ | Telephone | | Yoly Gamez FNP | Vaginitis | | 2018 | | | | | +--------+ + + + + from Last 3 Months Immunizations + + + + | Name | Dates Previously Given | Next Due | + + + + | INFLUENZA 63 Y OR >, | 11/16/2017 | | | TRIVALENT HIGH-DOSE | | | + + + + | INFLUENZA, | 12/15/2016 | | | UNSPECIFIED | | | | FORMULATION | | | + + + + | PNEUMOCOCCAL | 11/07/2014 | | | CONJUGATE 13-VALENT | | | | (PCV13) | | | + + + + | PNEUMOCOCCAL | 10/26/2017, 12/21/2012, 05/30/2007 | | | POLYSACCHARIDE | | | | 23-VALENT (PPSV23) | | | + + + + | TDAP, (ADOL/ADULT) | 07/05/2017, 12/23/2010 | | + + + + | ZOSTER, 1 DOSE | 03/31/2009 | | | (ZOSTAVAX) | | | + + + + Family History + + +--------+ + | Medical History | Relation | Name | Comments | + + +--------+ + | No known problems | Brother | | | + + +--------+ + | No known problems | Brother | | | + + +--------+ + | No known problems | Brother | | | + + +--------+ + | No known problems | Brother | | | + + +--------+ + | No known problems | Brother | | | + + +--------+ + | No known problems | Daughter | | | + + +--------+ + | Heart attack | Father | | | + + +--------+ + | Heart disease | Father | | | + + +--------+ + | No known problems | Maternal | | | | | Grandfath | | | | | er | | | + + +--------+ + | No known problems | Maternal | | | | | [...] | + + +--------+ + | No known problems | Sister | Melani | | + + +--------+ + | No known problems | Sister | | | + + +--------+ + | High blood pressure | Son | | | + + +--------+ + | Obesity | Son | | | + + +--------+ + | No known problems | Son | | | + + [...] + + | Father | | | [place] | | | | (Age | | [...] + + + | Blood Pressure | 132/78 | 03/31/2018 1449 PST | + + + + | Pulse | 70 | 03/31/20181448 PST | + + + + | Temperature | 36.7 C (98 F) | 03/31/20181448 PST | + + + + | Respiratory Rate | 20 | 03/31/20181448 PST | + + + + | Oxygen Saturation | 93% | 03/31/20181448 PST | + + + + | Inhaled Oxygen | - | - | | Concentration | | | + + + + | Weight | 67.7 kg (149 lb 4 | 02/15/20181450 PST | | | oz) | | + + + + | Height | 157.5 cm (5' 2.01") | 02/15/20181450 PST | + + + + | Body Mass Index | 27.29 | 02/15/20181450 PST | + + + + Plan of Treatment +--------+---------+ + + + | Date | Type | Specialty | Care Team | Description | +--------+---------+ + + + | 11/14/ | Office | | Alpa Corcoran, | | | 2019 | Visit | | [address] | | | | | | [place], | | | | | | [place] [address] | | | | | | [phone] | | | | | | | | +--------+---------+ + + + + + + + + | Health Maintenance | Due Date | Last Done | Comments | + + + + + | Vaccine: Zoster (2 | | 03/31/2009 | | | of 3) | 0 | | | + + + + + | Adult Annual | | | | | Wellness Visit | 5 | | | + + + + + | Microalbumin | | 07/18/2017, 03/18/2017, | | | Screening | 9 | 02/08/2017, Additional history | | | | | exists | | + + + + + | Hemoglobin A1c Q6 | | 01/31/2018, 07/18/2017, | | | Months | 9 | 03/18/2017, Additional history | | | | | exists | | + + + + + | Diabetic Foot Exam | | 11/16/2017 | | | | 9 | | | + + + + + | BREAST CANCER | | 12/15/2016 | | | SCREENING (MAMM Q2 | 9 | | | | YEARS 50-74) | | | | + + + + + | Colorectal Cancer | | 02/28/2014, 04/15/2007 | | | Screening | 9 | | | | (Colonoscopy) | | | | + + + + + | Diabetic Eye Exam | | 07/07/2017 | | | | 0 | | | + + + + + | Vaccine: | | 07/05/2017, 12/30/2010, | | | Dtap/Tdap/Td (4 - | 8 | 12/23/2010 | | | Td) | | | | + + + + + | Vaccine: | Completed | 10/26/2017, 11/07/2014, | | | Pneumococcal 65+ | | 12/21/2012, Additional history | | | Low/Medium Risk | | exists | | + + + + + | Vaccine: Influenza | Completed | 11/16/2017, 12/15/2016, | | | | | 01/27/2016, Additional history | | | | | [...] Palacos-R/G 40gm - | | Right: | KITA - | | 12/06/ | 00-111 | | [id number]: Qty: 1 on | | Knee | ZIMM | | 2016 | 3140- | | 06/05/2013 by Berlin Nugent | | | | | | 01 / | | MD Rebecca | | | | | | /[id number] | | | | | | | | 368 | + +------+--------+ +--------+--------+--------+ | Tibial ComponentImplanted: | | Right: | Kita | | 06/05/ | 5842-0 | | Qty: 1 on 06/05/2013 by | | Knee | | | 2022 | -02 / | | Berlin Nugent MD | | | | | | | | | | | | | | /[id number] | | | | | | | | 279 | + +------+--------+ +--------+--------+--------+ | Femoral ComponentImplanted: | | Right: | Kita | | 03/07/ | 5842-1 | | Qty: 1 on 06/05/2013 by | | Knee | | | 2022 | - / | | Berlin Nugent MD | | | | | | | | | | | | | | /[id number] | | | | | | | | 134 | + +------+--------+ +--------+--------+--------+ | Articular SurfaceImplanted: | | Right: | Kita | | 02/05/ | 5842-2 | | Qty: 1 on 06/05/2013 by | | Knee | | | 2020 | - / | | Berlin Nugent MD | | | | | | | | | | | | | | /[id number] | | | | | | | | 876 | + +------+--------+ +--------+--------+--------+ | Imp Knee Tot Unicmprt Mob Max | | | CAP RINCON - | | | [id number] / | | - [id number]: Qty: 1 | | | CAP | | | / | | on 06/05/2013 | | | | | | | + +------+--------+ +--------+--------+--------+ | Graft Infuse Bone Kit Xxs - | | N/A: | SOFAMOR | | / | [id number] | | [id number]: Qty: 1 on | | Spine | DANEK - DIV | | 2016 | 0 / | | 04/23/2014 by Jb Aden | | Lumbar | [employer] | | | /[id number] | | A, DO | | | - SFDK | | | [id number] | + +------+--------+ +--------+--------+--------+ | Screw Set Solera - | | N/A: | SOFAMOR | | | [id number] | | [id number]: Qty: 8 on | | Spine | DANEK - DIV | | | 0 / / | | 04/23/2014 by Jb Aden | | Lumbar | [employer] | | | | | A, DO | | | - SFDK | | | | + +------+--------+ +--------+--------+--------+ | Screw Mas 5.5 X 55mm - | | N/A: | [employer] - | | | [id number] | | [id number]: Qty: 4 on | | Spine | MEDT | | | [id number] | | 04/23/2014 by Jb Aden | | Lumbar | | | | / / | | A, DO | | | | | | | + +------+--------+ +--------+--------+--------+ | Screw Slra Sextant 7.5.55 - | | N/A: | [employer] - | | | [id number] | | [id number]: Qty: 2 on | | Spine | MEDT | | | [id number] | | 04/23/2014 by Jb Aden | | Lumbar | | | | / / | | Stew DO | | | | | | | + +------+--------+ +--------+--------+--------+ | Screw Mas G5 Slra 7.5x45 Cn - | | N/A: | SOFAMOR | | | [id number] | | [id number]: Qty: 2 | | Spine | DANEK - DIV | | | [id number] | | on 04/23/2014 by Keiko, | | Lumbar | [employer] | | | / / | | Jb Mathias DO | | | - SFDK | | | | + +------+--------+ +--------+--------+--------+ | Imp Tomyn Spcr Cpstn 7x26mm - | | N/A: | SOFAMOR | | 02/07/ | [id number] | | [id number]: Qty: 1 on | | Spine | DANEK - DIV | | 2020 | 6 / | | 04/23/2014 by Jb Aden | | Lumbar | [employer] | | | /[id number] | | DO Stew | | | - SFDK | | | 634 | + +------+--------+ +--------+--------+--------+ | Algrft Aftabty Sumner 5cc Dbm | | N/A: | OSTEOTECH - | | 09/26/ | 25209 | | - [id number]: Qty: | | Spine | OSTT | | 2017 | /[id number] | | 1 on 04/23/2014 by Keiko, | | Lumbar | | | | 2-064 | | Jb Mathias DO | | | | | | / | + +------+--------+ +--------+--------+--------+ | 4.75 Rods 140mmImplanted: | | N/A: | [employer]IC | | | [id number] | | Qty: 2 on 04/23/2014 by | | Spine | [employer]- | | | 6140 / | | Jb Aden DO | | Lumbar | [id number] | | | / | + +------+--------+ +--------+--------+--------+ | Chips Cancellous 30cc - | | N/A: | OSTEOTECH - | | 03/03/ | [id number] | | [id number]: Qty: 1 | | Spine | OSTT | | 2016 | | | on 04/23/2014 by Keiko, | | Lumbar | | | | /[id number] | | Jb Mathias DO | | | | | | 4-022 | | | | | | | | / | + +------+--------+ +--------+--------+--------+ | Putty Sumner 10cc Dbm - | | N/A: | OSTEOTECH - | | 12/31/ | 25750 | | [id number]: Qty: 1 | | Spine | OSTT | | 2016 | /[id number] | | on 04/23/2014 by Keiko, | | Lumbar | | | | 9-021 | | Jb Mathias DO | | | | | | / | + +------+--------+ +--------+--------+--------+ | Graft Infuse Bone Kit Xs - | | N/A: | SOFAMOR | | / | [id number] | | [id number]: Qty: 1 on | | Spine | DANEK - DIV | | 2016 | 0 / | | 04/23/2014 by Jb Aden | | Lumbar | [employer] | | | /[id number] | | DO Stew | | | - SFDK | | | 07AAF | + +------+--------+ +--------+--------+--------+ | Cage Xl Wide [id number] - | | N/A: | NUVASIVE - | | | [id number] | | [id number]: Qty: 1 on | | Spine | NVSV | | | 0 / / | | 04/23/2014 by Jb Aden | | Lumbar | | | | | | A, DO | | | | | | | + +------+--------+ +--------+--------+--------+ | Imp Spn Spcr Peek Xlw | | N/A: | NUVASIVE - | | | [id number] | | [id number] - | | Spine | NVSV | | | 5 / / | | [id number]: Qty: 2 on | | Lumbar | [...] section. | + +--------+ + + + | CULTURE, URINE | Routin | 03/31/2018 | Urinary frequency | Results for this | | | e | 1358 PST | | procedure are in the | | | | | | results section. | + +--------+ + + + | VAGINAL PATHOGENS | Routin | 03/31/2018 | Vaginal odor | Results for this | | DNA | e | 1351 PST | | procedure are in the | | | | | | results section. | + +--------+ + + + from Last 3 Months Results Urinalysis with Microscopic with Culture if Indicated (03/31/2018 1358) + + + + + | Component [...] + + + + + | Specific [place] | 1.018 | 1.001 - 1.030 | [...] [facility] - | | | | | LAB[facility]ATORY | + + + + + | Ketones, Urine | Negative | Negative | [facility] | | | | | [facility] [...] [facility] | | | | | [facility] - | | | | | LABORATORY | + + + + + | MUCUS UA | Present (A) | Negative /LPF | [facility] | | | | | [facility] [...] | + + + + + | [facility] | [address] | [place] | [phone] | | [facility] | | [address] | | | - LABORATORY | | | | + + + + + Culture, Urine (03/31/2018 1358) + + + + + | Component | Value | Ref Range | Performed At | + + + + + | Culture | No Growth | | [facility] | | | | | C[facility] - [...] + + + + + | [facility] | [address] | [place] | [phone] | | [facility] | | [address] | | | - LABORATORY | | | | + + + + + Vaginal Pathogens DNA (03/31/2018 1351) + + + + + | Component | Value | Ref Range | Performed At | + + + + + | Jaida SP DNA | Negative | Negative | [facility] | | Genital | | | [facility] | | | [facility] | + + + + + | Gardnerella | Negative | Negative | [facility] | | vaginalis DNA | | | [facility] | | | [facility] | + + + + + | Trichomonas | Negative | Negative | [facility] | | Vaginalis DNA | | | [facility] | | | | [facility] | + + + + + + + | Specimen | + + | Body Fluid - Vagina | + + + + + + + | Performing | Address | City/State/Zipcode | Phone Number | | Organization | | | | + + + + + | [facility] | [address] | [place] | [phone] | | [facility] | | [address] | | | [facility] | | | | + + + + + from Last 3 Months Insurance + +--------+ +--------+ +---------+ | Payer | Benefi | Subscriber | Type | Phone | Address | | | t Plan | ID | | | | | | / | | | | | | | Group | | | | | + +--------+ +--------+ +---------+ | MEDICARE | MEDICA | [id number] | Medica | [phone] | | | RE | | re | [phone] | | | | PART A | | | | | | | AND B | | | | | + +--------+ +--------+ +---------+ | INDIVIDUAL ASSURANCE | INDIVI | [id number] | Indemn | | | | COMPANY | DUAL | | ity | | | | | ASSURA | | | | | | | [place] | | | | | | | MDCR | | | | | | | SUPPL | | | | | + +--------+ +--------+ +---------+ | [employer] | MODA | [id number] | Medica | [phone] | | MEDICAID HMO | HEALTH | | id | [phone] | | | | MDCD | | | | | | | HMO [place] | | | | | + +--------+ +--------+ +---------+ + +--------+ +--------+ + + | Guarantor Name | Accoun | Relation to | Date | Phone | Billing Address | | | t Type | Patient | of | | | | | | | | | | + +--------+ +--------+ + + | GIOVANA HUNTER | Person | Self [birth year] Home: | [address] | | | al/Fam | | 1946 | [phone] | [place] [id number] | | | meg | | [phone] | | + +--------+ +--------+ + +
--- OUTSIDE RECORDS SUMMARY | ~2018-06-08 | XMS | Encounter Summary ---
Demographics + + + | Address | [address] | | | [place] [address] | + + + | Home Phone [...] | Author | [facility] | | | and [place] | + + + | Organization | [facility] | | | and [place] | + + + | Address | Unknown | + + + | Phone | Unavailable | + + + Support + + + + + | Name | Relationship | Address | Phone | + + + + + | Kit Hyde | ECON | [address] | | | | | [place], | | | | | [place] [address] | | + + + + + | Crystal Hyde | ECON | Unknown | | + + + + + Care Team Providers + +------+ + | Care Parking Control Officer Name | Role | Phone | + +------+ + | oYly Gamez | PCP | | + +------+ + Encounter Details +--------+---------+ + + + | Date | Type | Department | Care Team | Description | +--------+---------+ + + + | 03/31/ | Office | [facility] | Yoly Gamez, ENGINE DESIGNER | Urinary frequency | | 2019 | Visit | [facility] [place] | [address] | (Primary Dx); | | | | [address] | [place], [place] | Vaginal odor | | | | [place], [place] | [address] | | | | | [address] | | | | | | [phone] | | | +--------+---------+ + + + [...] + | Blood Pressure | 132/78 | 03/31/20181448 PST | + + + [...] + + + + | Weight | - | - | + + + + | Height | - | - | + + + + | Body Mass Index | - | - | + + + + in this encounter Instructions Patient Instructions - Yoly Gamez FNP - 03/31/2018 2527 PSTFormatting of this note may be different from the original. Vaginal Infection: Bacterial Vaginosis Both good and bad bacteria are present in a healthy vagina. Bacterial vaginosis (BV) occurs when these bacteria get out of balance. The numbers of good bacteria decrease. This allows the numbers of bad bacteria to increase and cause BV. In most cases, BV is not a serious pro blem. Causes of bacterial vaginosis The cause of BV is not clear. Douching may lead to it. Having sex with a new partner or mor e than1 partner makes it more likely. Symptoms of bacterial vaginosis Symptoms of BV vary for each woman. Some women have few symptoms or none at all. If symptom s are present, they can include: Thin, milky white or villafana or sometimes green discharge Unpleasant fishy odor Irritation, itching, and burning at opening of vagina which may indicate mixed vaginitis Burning or irritation with sex or urination which may indicate mixed vaginitis Diagnosing bacterial vaginosis Your healthcare provider will ask about your symptoms and health history. He or she will al so do a pelvic exam. This is an exam of your vagina and cervix. A sample of vaginal fluid or discharge may be taken. This sample is checked for signs of BV. Treating bacterial vaginosis BV is often treated with antibiotics. They may be given in oral pill form or as a vaginal c ream. To use these medicines: Be sure to take all of your medicine, even if your symptoms go away. If you re taking antibiotic pills, do not drink alcohol until you re finished with a ll of your medicine. If you re using vaginal cream, apply it as directed. Be aware that the cream may make condoms and diaphragms less effective. Call your healthcare provider if symptoms do not go away within 4 days of starting treat ment. Also call if you have a reaction to the medicine. Why treatment matters Even if you have no symptoms or your symptoms are mild, BV should be treated. Untreated BV can lead to health problems such as: Increased risk of delivery if you re Increased risk of complications after surgery on the reproductive organs Possible increased risk of pelvic inflammatory disease (PID) Date Last Reviewed: 05/12/201619996406-5229 [employer]. [address] [place] [address]. All righ ts reserved. This information is not intended as a substitute for professional medical care. Always follow your healthcare professional's instructions. Vaginal Infection: Yeast (Candidiasis) Yeast infection occurs when yeast in the vagina increase and attacks the vaginal tissues. Y east is a type of fungus. These infections are often caused by a type of yeast called Candid a albicans. Other species of yeast can also cause infections. Factors that may make infectio n more likely include recent antibiotic use, douching, or increasedsex. Yeast infections a re more common in women who have diabetes, or are obese or , or have a weak immune s ystem. Symptoms of yeast infection Clumpy or thin, white discharge, which may look like cottage cheese No odor or minimal odor Severe vaginal itching or burning Burning with urination Swelling, redness of vulva Pain during sex Treating yeast infection Yeast infection is treated with a vaginal antifungal cream. In some cases, antifungal pills are prescribed instead. During treatment: Finish all of your medicine, even if your symptoms go away. Apply the cream before going to bed. Lie flat after applying so that it doesn't drip out . Do not douche or use tampons. Don't rely on a diaphragm or condoms, since the cream may weaken them. Avoid intercourse if advised by your healthcare provider. Should I treat a yeast infection myself? Discuss with your healthcare provider whether you should use bcss-dfx-obltczr medicines to treat a yeast infection. Self-treatment may depend on whether: You've had a yeast infection in the past. You're at risk for STDs. Call your healthcare provider if symptoms do not go away or come back after treatment. Date Last Reviewed: 05/12/201619992572-2414 [employer]. [address] [place] [address], [place] [address]. All righ ts reserved. This information is not intended as a substitute for professional medical care. Always follow your healthcare professional's instructions. in this encounter Progress Notes Yoly Gamez, OSCAR - 03/31/2018 1330 PSTFormatting of this note may be different from the o riginal. Subjective: Patient ID: Giovana Perez is a 72 y.o. female. HPI Symptoms started 2 weeks ago. (+) vaginal burn, itch, odor, discharge, urgency urination, frequeny (-) dysuria, flank pain, sweats, chills, fever, low abdominal pain/pressure Patient's medications, allergies, past medical, surgical, social and family histories were obtained and reviewed as appropriate. Current Outpatient Prescriptions: albuterol (PROAIR HFA) 90 mcg/puff inhaler, Inhale 1 puff into the lungs every 6 hours as needed., Disp: 3 each, Rfl: 0 albuterol 2.5 mg/3 mL nebulizer solution, Take 2.5 mg by nebulization every 4 hours as needed. Uses as needed, Disp: , Rfl: 0 aspirin 325 mg EC tablet, Take 325 mg by mouth Daily. 2 tablets daily, Disp: , Rfl: Blood Glucose Monitoring Suppl (ONE TOUCH ULTRA MINI) w/Device KIT, by Does not apply route., Disp: , Rfl: buPROPion (WELLBUTRIN SR) 200 MG 12 hr tablet, TAKE ONE TABLET BY MOUTH TWICE A DAY, D isp: 60 tablet, Rfl: 5 calcium, as carbonate, (CALTRATE) 600 mg tablet, Take 1,200 mg by mouth Daily., Disp: , Rfl: clobetasol (TEMOVATE) 0.05% ointment, Apply topically as needed., Disp: , Rfl: dexlansoprazole (DEXILANT) [address] capsule, Take 1 capsule by mouth Daily., Disp: 90 capsule, Rfl: 3 estradiol (ESTRACE VAGINAL) 0.1 mg/g vaginal cream, Apply 1gm to vagina daily x 2 week s then 1mg once weekly, Disp: 42.5 g, Rfl: 3 FLOVENT HFA 110 MCG/ACT inhaler, INHALE TWO PUFFS BY MOUTH TWICE A DAY, Disp: 1 Inhale r, Rfl: 3 fluticasone (FLONASE) 50 mcg/nasal spray, 2 sprays into both nostrils daily., Disp: 16 g, Rfl: 0 FORTEO 600 MCG/2.4ML injection, Inject under the skin Daily., Disp: , Rfl: furosemide (LASIX) 40 mg tablet, Take 1 tablet by mouth Daily. (Patient taking differe ntly: Take 20 mg by mouth Once a week.), Disp: 90 tablet, Rfl: 3 guaiFENesin (MUCUS RELIEF CHEST CONGESTION) 400 MG TABS, Take 1,600 mg by mouth Daily. , Disp: , Rfl: Homeopathic Products (ZICAM COLD REMEDY NA), 1 spray by Nasal route Daily as needed., Disp: , Rfl: hydrocortisone 2.5% cream, Apply thin film to affected area(s) two times daily, mix wi th nystatin cream., Disp: 30 g, Rfl: 0 loperamide (IMODIUM) 2 mg capsule, Take 2 mg by mouth 4 times daily as needed for Diar anna., Disp: , Rfl: meclizine (ANTIVERT) 25 mg tablet, Take 25 mg by mouth Twice daily as needed., Disp: , Rfl: melatonin 3 mg TABS, Take 3 mg by mouth Daily., Disp: , Rfl: metoprolol succinate (TOPROL-XL) 100 mg ER tablet, TAKE 1 TABLET EVERY DAY, Disp: 90 t ablet, Rfl: 1 NIFEdipine (NIFEDICAL XL) 60 mg ER tablet, Take 60 mg by mouth Daily. As needed to rel ax esophagus, Disp: , Rfl: nystatin (MYCOSTATIN) cream, Apply topically 2 times daily. To affected area until he aled, mix with hydrocortisone cream., Disp: 30 g, Rfl: 0 ONE TOUCH ULTRA TEST strip, Use to check blood sugars daily., Disp: 100 each, Rfl: 11 ONE TOUCH ULTRASOFT LANCETS MISC, TEST once daily, Disp: 100 each, Rfl: 11 oxygen, Inhale 2 L into the lungs nightly. She also has portable oxygen that she uses as needed at 2 liters, Disp: , Rfl: potassium chloride (KLOR-CON) 10 mEq CR tablet, TAKE 2 TABLETS EVERY DAY (Patient jennifer lieberman differently: TAKE 2 tabs once a week), Disp: 180 tablet, Rfl: 3 raNITIdine (ZANTAC) 150 mg tablet, Take 1 tablet by mouth 2 times daily., Disp: 60 tab let, Rfl: 2 sertraline (ZOLOFT) 25 mg tablet, 3 by mouth daily., Disp: 270 tablet, Rfl: 0 UNABLE TO FIND, Med Name: Respironics Dreamstation APAP 5-15cm while sleeping., Disp: , Rfl: Allergies Allergen Reactions Pregabalin Not Noted confused Latex Rash Salmeron a hole in my skin. Paper or cloth tape is OK Metformin Rash Intolerance Allergen Reactions Codeine Patient's Preference "Brain freeze, I lose it" Adhesive & Tape Rash PAPER TAPE OKAY Atorvastatin Other (See Comments) Leg cramps Baclofen Other (See Comments) Hallucinations Methocarbamol Patient's Preference AKA "Robaxin" - Hallucinations ROS Negative except HPI Objective: There were no vitals taken for this visit. Physical Exam Constitutional: She is well-developed, well-nourished, and in no distress. Vital signs are normal. HENT: Head: Normocephalic and atraumatic. Right Ear: Hearing normal. Left Ear: Hearing normal. Nose: Nose normal. Eyes: EOM are normal. Cardiovascular: Normal rate. Pulmonary/Chest: Effort normal. No respiratory distress. Abdominal: Soft. There is tenderness. There is no CVA tenderness. 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 Affirm swab obtained. In sterile mano r, cath urine obtained. Patient tolerated well. Mild odor and discharge noted. Neurological: She is alert. She has normal motor skills. Skin: Skin is intact. Psychiatric: Mood and affect normal. Assessment/Plan: 1. Urinary frequency Cath urine obtained, will notify once results available - Urinalysis with Microscopic with Culture if Indicated; Future 2. Vaginal odor Affirm swab obtained, will notify once results are back. - Vaginal Pathogens DNA Return if symptoms worsen or fail to improve. Patient understands, accepts, and agrees with this plan. Portions of this report were transcribed using [employer] recognition soft [place]. Although effort was made in correcting the errors; grammatical and sound alike errors may still be present.in this encounter Plan of Treatment +--------+---------+ + + + | Date | Type | Specialty | Care Team | Description | +--------+---------+ + + + | 11/14/ | Office | Cardiology | [facility] Trixiebest, | | | 2018 | Visit | | MD Maria Teresa Yanez | | | | | | [place], | | | | | | [place] [address] | | | | | | [phone] | | | | | | | [...] + + + in this encounter Results Culture, Urine (03/31/2018 1358) + + + + + | Component | Value | Ref Range | Performed At | + + + + + | Culture | No Growth | | [facility] | | | | | [facility] | | | | | [place] - | | | | | LABORATORY | + + + + + + + | Specimen | + + | Urine - Urine, Clean | | Catch | + + + + + + + | Performing | Address | City/State/Zipcode | Phone Number | | Organization | | | | + + + + + | [facility] | [address] | [place], [place] | [phone] | | [facility] | | [address] | | | - LABORATORY | | | | + + + + + Urinalysis with Microscopic with Culture if Indicated (03/31/2018 0888) + + + + + | Component [...] + + + + + | Specific [place] | 1.018 | 1.001 - 1.030 | [...] COMMENT | Urine Culture Not | | [facility] | | | Indicated | | [...] [address] | [place] | [phone] | | [facility] | | [address] | | | - LABORATORY | | [...] | + + + + + | [facility] | [address] [facility] [address] | [place] | [phone] | | [facility] | | [address] | | | [facility] | | | | + + + + + in this encounter Visit Diagnoses + + | Diagnosis | + + | Urinary frequency - Primary | + + | Vaginal odor | + + | Unspecified symptom associated with female genital organs | + +
--- OUTSIDE RECORDS SUMMARY | ~2018-06-08 | XMS | Encounter Summary ---
Demographics + + + | Address | [address] | | | [place] [address] | + + + | Home Phone | | + + + | Preferred Language | Unknown | + + + | Marital Status | Single | + + + | Presybeterian Affiliation | Unknown | + + + | Race | Unknown | + + + | Ethnic Group | Unknown | + + + Author + + + | Author | [facility] | | | and [place] | + + + | Organization | [facility] | | | and [place] | + + + | Address | Unknown | + + + | Phone | Unavailable | + + + Support + + + + + | Name | Relationship | Address | Phone | + + + + + | Kit Hyde | ECON | [address] | | | | | [place], | | | | | [place] [address] | | + + + + + | Crystal Hyde | ECON | Unknown | | + + + + + Care Team Providers + +------+ + | Care Color Making Supervisor Name | Role | Phone | + [...] Results | | 2019 | | [facility] [place] | [address] | | | | | [address] | [place] | | | | | [place] | [address] | | | | | [address] | | | | | | [phone] | | | +--------+ + + + [...] | | | | | | [place] [address] | | | | | | [phone] | | | | | | | | +--------+---------+ + + + as of this encounter Visit Diagnoses Not on filein this encounter"
--- OUTSIDE RECORDS SUMMARY | ~2018-06-08 | XMS | Clinical Summary ---
Demographics + + + | Address | [address] | | | [place] [address] | + + + | Home Phone [...] | Author | [facility] | | | and [place] | + + + | Organization | [facility] | | | and [place] | + + + | Address | Unknown | + + + | Phone | Unavailable | + + + Support + + + + + | Name | Relationship | Address | Phone | + + + + + | Kit Hyde | ECON | [address] | | | | | [place], | | | | | [place] [address] | | + + + + + | Crystal Hyde | ECON | Unknown | | + + + + + Care Team Providers + +------+ + | Care Senior Accounting Specialist Name | Role | Phone | [...] 1 left | | ventricular diastolic dysfunction, pdgi-ya-tmqsplli mitral valve | | regurgitation, mild to [...] back to [facility] | | upperglade when she is discharged. 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 | | +--------+ + + + + [...] | | | | | | [place] [address] | | | | | | [phone] | | | | | | | [...] | | 12/06/ | 00-111 | | [id number]: Qty: 1 on | | Knee | ZIMM | | 2016 | 3140- | | 06/05/2013 by Berlin Nugent | | | | | | 01 / | | MD Rebecca | | | | | | /[id number] | | | | | | | | 368 | + +------+--------+ +--------+--------+--------+ | Tibial ComponentImplanted: | | Right: | Kita | | 06/05/ | 5842-0 | | Qty: 1 on 06/05/2013 by | | Knee | | | 2022 | -02 / | | Berlin Nugent MD | | | | | | | | | | | | | | /[id number] | | | | | | | | 279 | + +------+--------+ +--------+--------+--------+ | Femoral ComponentImplanted: | | Right: | Kita | | 03/07/ | 5842-1 | | Qty: 1 on 06/05/2013 by | | Knee | | | 2022 | - / | | Berlin Nugent MD | | | | | | | | | | | | | | /[id number] | | | | | | | | 134 | + +------+--------+ +--------+--------+--------+ | Articular SurfaceImplanted: | | Right: | Kita | | 02/05/ | 5842-2 | | Qty: 1 on 06/05/2013 by | | Knee | | | 2020 | - / | | Berlin Nugent MD | | | | | | | | | | | | | | /[id number] | | | | | | | | 876 | + +------+--------+ +--------+--------+--------+ | Imp Knee Tot Unicmprt Mob Max | | | CAP RINCON - | | | [id number] / | | - [id number]: Qty: 1 | | | CAP | | | / | | on 06/05/2013 | | | | | | | + +------+--------+ +--------+--------+--------+ | Graft Infuse Bone Kit Xxs - | | N/A: | SOFAMOR | | / | [id number] | | [id number]: Qty: 1 on | | Spine | DANEK - DIV | | 2016 | 0 / | | 04/23/2014 by Jb Aden | | Lumbar | [employer] | | | /[id number] | | A, DO | | | - SFDK | | | [id number] | + +------+--------+ +--------+--------+--------+ | Screw Set Solera - | | N/A: | SOFAMOR | | | [id number] | | [id number]: Qty: 8 on | | Spine | DANEK - DIV | | | 0 / / | | 04/23/2014 by Jb Aden | | Lumbar | [employer] | | | | | A, DO | | | - SFDK | | | | + +------+--------+ +--------+--------+--------+ | Screw Mas 5.5 X 55mm - | | N/A: | [employer] - | | | [id number] | | [id number]: Qty: 4 on | | Spine | MEDT | | | 10948 | | 04/23/2014 by Jb Aden | | Lumbar | | | | / / | | A, DO | | | | | | | + +------+--------+ +--------+--------+--------+ | Screw Slra Sextant 7.5.55 - | | N/A: | [employer] - | | | [id number] | | [id number]: Qty: 2 on | | Spine | MEDT | | | [id number] | | 04/23/2014 by Jb Aden | | Lumbar | | | | / / | | Stew DO | | | | | | | + +------+--------+ +--------+--------+--------+ | Screw Mas G5 Slra 7.5x45 Cn - | | N/A: | SOFAMOR | | | [id number] | | [id number]: Qty: 2 | | Spine | DANEK - DIV | | | [id number] | | on 04/23/2014 by Keiko, | | Lumbar | [employer] | | | / / | | Jb Mathias DO | | | - SFDK | | | | + +------+--------+ +--------+--------+--------+ | Imp Tomyn Spcr Cpstn 7x26mm - | | N/A: | SOFAMOR | | 02/07/ | [id number] | | [id number]: Qty: 1 on | | Spine | DANEK - DIV | | 2020 | 6 / | | 04/23/2014 by Jb Aden | | Lumbar | [employer] | | | /[id number] | | DO Stew | | | - SFDK | | | 634 | + +------+--------+ +--------+--------+--------+ | Algrft Aftabty [place] 5cc Dbm | | N/A: | OSTE[employer]CH - | | 09/26/ | 50579 | | - [id number]: Qty: | | Spine | OSTT | | 2017 | /[id number] | | 1 on 04/23/2014 by Keiko, | | Lumbar | | | | 2-064 | | Jb Mathias DO | | | | | | / | + +------+--------+ +--------+--------+--------+ | 4.75 Rods 140mmImplanted: | | N/A: | [employer] | | | [id number] | | Qty: 2 on 04/23/2014 by | | Spine | [employer]- | | | 6140 / | | Jb Aden DO | | Lumbar | [address] | | | / | + +------+--------+ +--------+--------+--------+ | Chips Cancellous 30cc - | | N/A: | OSTE[employer]CH - | | 03/03/ | 715094 | | [id number]: Qty: 1 | | Spine | OSTT | | 2016 | | | on 04/23/2014 by Keiko, | | Lumbar | | | | /[id number] | | Jb Mathias DO | | | | | | 4-022 | | | | | | | | / | + +------+--------+ +--------+--------+--------+ | Putty [place] 10cc Dbm - | | N/A: | OSTEOTECH - | | 12/31/ | 72363 | | [id number]: Qty: 1 | | Spine | OSTT | | 2016 | /[id number] | | on 04/23/2014 by Keiko, | | Lumbar | | | | 9-021 | | Jb Mathias DO | | | | | | / | + +------+--------+ +--------+--------+--------+ | Graft Infuse Bone Kit Xs - | | N/A: | SOFAMOR | | / | [id number] | | [id number]: Qty: 1 on | | Spine | DANEK - DIV | | 2016 | 0 / | | 04/23/2014 by Jb Aden | | Lumbar | [employer] | | | /[id number] | | DO Stew | | | - SFDK | | | 07AAF | + +------+--------+ +--------+--------+--------+ | Cage Xl Wide [id number] - | | N/A: | NUVASIVE - | | | [id number] | | [id number]: Qty: 1 on | | Spine | NVSV | | | 0 / / | | 04/23/2014 by Jb Aden | | Lumbar | | | | | | A, DO | | | | | | | + +------+--------+ +--------+--------+--------+ | Imp Spn Spcr Peek Xlw | | N/A: | NUVASIVE - | | | [id number] | | [id number] - | | Spine | NVSV | | | 5 / / | | [id number]: Qty: 2 on | | Lumbar | [...] + + + + + | Specific [place] | 1.018 | 1.001 - 1.030 | [...] [facility] | | | | | [facility] | | | | | [...] [facility] | | | | | [facility] - | | | | | LABORATORY | + + + + + | MUCUS UA | Present (A) | Negative /LPF | [facility] | | | | | [facility] | | | | | [...] [address] | [place] | [phone] | | [facility] | | [address] | | | - LABORATORY | | | | + + + + + Culture, Urine (03/31/2018 1358) + + + + + | Component | Value | Ref Range | Performed At | + + + + + | Culture | No Growth | | [facility] | | | | | [facility] | | | | | [facility]ENTER [...] [address] | [place] | [phone] | | [facility] | | [address] | | | - LABORATORY | | [...] + + + | [facility] | [address] | [place] | [phone] | | [facility] | | [address] | | | [facility] | | [...] +--------+ +---------+ | MEDICARE | MEDICA | [id number] | Medica | [phone] | | | RE | | re | [phone] | | | | PART A | | | | | | | AND B | | | | | + +--------+ +--------+ +---------+ | INDIVIDUAL ASSURANCE | INDIVI | [id number] | Indemn | | | | COMPANY | DUAL | | ity | | | | | ASSURA | | | | | | | NCE CO | | | | | | | MDCR | | | | | | | SUPPL | | | | | + +--------+ +--------+ +---------+ | [employer]AN | MODA | [id number] | Medica | [phone] | | | MEDICAID HMO | HEALTH [...] | 1946 | [phone] | [place] [address] | | | meg | | | [phone] | | + +--------+ +--------+ + +
--- OUTSIDE RECORDS SUMMARY | ~2018-06-08 | XMS | Encounter Summary ---
Demographics + + + | Address | [address] | | | [place] [address] | + + + | Home Phone | | + + + | Preferred Language | Unknown | + + + | Marital Status | Single | + + + | Yazidi Affiliation | Unknown | + + + | Race | Unknown | + + + | Ethnic Group | Unknown | + + + Author + + + | Author | [facility] | | | and [place] | + + + | Organization | [facility] | | | and [place] | + + + | Address | Unknown | + + + | Phone | Unavailable | + + + Support + + + + + | Name | Relationship | Address | Phone | + + + + + | Kit Hyde | ECON | [address] | | | | | [place], | | | | | [place] [address] | | + + + + + | Crystal Hyde | ECON | Unknown | | + + + + + Care Team Providers + +------+ + | Care Carpenters Supervisor Name | Role | Phone | [...] + + | 04/03/ | Telephone | [facility] | Yoly Gamez FNP | Lab Results | | 2019 | | [facility] | [address] | | | | | [address] | [place] | | | | | [place] | [address] | | | | | [address] | | | | | | [phone] | | | +--------+ + + + [...] | | | | | | [place] [address] | | | | | | [phone] | | | | | | | | +--------+---------+ + + + as of this encounter Visit Diagnoses Not on filein this encounter"
--- OUTSIDE RECORDS SUMMARY | ~2018-06-08 | XMS | Encounter Summary ---
Demographics + + + | Address | [address] | | | [place] [address] | + + + | Home Phone | | + + + | Preferred Language | Unknown | + + + | Marital Status | Single | + + + | Islam Affiliation | Unknown | + + + | Race | Unknown | + + + | Ethnic Group | Unknown | + + + Author + + + | Author | [facility] | | | and [place] | + + + | Organization | [facility] | | | and [place] | + + + | Address | Unknown | + + + | Phone | Unavailable | + + + Support + + + + + | Name | Relationship | Address | Phone | + + + + + | Kit Hyde | ECON | [address] | | | | | [place], | | | | | [place] [address] | | + + + + + | Crystal Hyde | ECON | Unknown | | + + + + + Care Team Providers + +------+ + | Care Tool And Die Supervisor Name | Role | Phone | + +------+ + | Yoly Gamez | PCP | | + +------+ + Reason for Visit + + + | Reason | Comments | + + + | Medication | | | Management | | + + + | DME | | + + + Encounter Details +--------+ + + + + | Date | Type | Department | Care Team | Description | +--------+ + + + + | 04/11/ | Telephone | [facility] | Yoly Gamez FNP | Medication | | 2019 | | MEDICINE [place] | [address] | Management; DME | | | | [address] | [place] | | | | | [place] | [address] | | | | | [address] | | | | | | [phone] | | | +--------+ + + + [...] | 2018 | Visit | | MD [facility] | | | | | | [facility] [place], | | | | | | [place] [address] | | | | | | [phone] | | | | | | | | +--------+---------+ + + + as of this encounter Visit Diagnoses + + | Diagnosis | + + | Gait difficulty - Primary | + + | Abnormality of gait | + + | H/O Stroke / CVA with residual left sided weakness | + + | Transient ischemic attack (TIA), and cerebral infarction without residual deficits | + + | Right leg weakness | + + | Other musculoskeletal symptoms referable to limbs | + + | Weakness of both lower extremities | + + | Upper extremity weakness | + + | Other musculoskeletal symptoms referable to limbs | + +"
--- OUTSIDE RECORDS SUMMARY | ~2018-06-08 | XMS | Encounter Summary ---
Demographics + + + | Address | [address] | | | [place] [address] | + + + | Home Phone | | + + + | Preferred Language | Unknown | + + + | Marital Status | Single | + + + | Methodist Affiliation | Unknown | + + + | Race | Unknown | + + + | Ethnic Group | Unknown | + + + Author + + + | Author | [facility] | | | and [place] | + + + | Organization | [facility] | | | and [place] | + + + | Address | Unknown | + + + | Phone | Unavailable | + + + Support + + + + + | Name | Relationship | Address | Phone | + + + + + | Kit Hyde | ECON | [address] | | | | | [place], | | | | | [place] [address] | | + + + + + | Crystal Hyde | ECON | Unknown | | + + + + + Care Team Providers + +------+ + | Care Cartographic Engineer Name | Role | Phone | + +------+ + | Yoly Gamez | PCP | | + +------+ + Encounter Details +--------+---------+ + + + | Date | Type | Department | Care Team | Description | +--------+---------+ + + + | 03/31/ | Office | [facility] | Yoly Gamez, EMS EDUCATOR | Urinary frequency | | 2019 | Visit | MEDICINE [place] | [address] | (Primary Dx); | | | | [address] | [place], [place] | Vaginal odor | | | | [place], [place] | [address] | | | | | [address] | | | | | | [phone] | | | +--------+---------+ + + + [...] Instructions - Yoly Gamez FNP - 03/31/2018 2198 PSTFormatting of this note may be different [...] pelvic inflammatory disease (PID) Date Last Reviewed: 05/12/201619999974-2370 [employer]. [address] [place] [address]. All righ ts reserved. This information is [...] your healthcare provider whether you should use [id number] medicines to treat a yeast infection. Self-treatment may depend on whether: You've had a yeast infection in the past. You're at risk for STDs. Call your healthcare provider if symptoms do not go away or come back after treatment. Date Last Reviewed: 05/12/201619998368-9521 [employer]. [address] [place] [address], [place] [address]. All righ ts reserved. This information is [...] is no CVA tenderness. Genitourinary: Genitourinary Comments: Systems Design Engineer Vickie Escalona MA. Affirm swab obtained. In [...] Portions of this report were transcribed using MugenUp recognition soft stapleton. Although effort was made [...] [place], | | | | | | [place] [id number] | | | | | | [phone] | | | | | | | [...] [facility] | | | | | [facility] | | | | | [place] - | | | | | LABORATORY [...] ST. | [address] | [place], [place] | [phone] | | [facility] | | [address] | | | - LABORATORY | | | | + + + + + Urinalysis with Microscopic with Culture if Indicated (03/31/2018 2198) + + + + + | Component [...] + + + + + | Specific [place] | 1.018 | 1.001 - 1.030 | [...] [address] | [place] | [phone] | | [facility] | | [address] | | | - LABORATORY | | [...] + + | ANGELE | [address] [facility] [address] | [place] | [phone] | | [facility] | | [address] | | | [facility] | | | | + + + + + in this encounter Visit Diagnoses + + | Diagnosis | + + | Urinary frequency - Primary | + + | Vaginal odor | + + | Unspecified symptom associated with female genital organs | + +
--- OUTSIDE RECORDS SUMMARY | ~2018-06-08 | XMS | Encounter Summary ---
Demographics + + + | Address | [address] | | | [place] [address] | + + + | Home Phone [...] + + + | Author | [facility] | | | and [place] | + + + | Organization | [facility] | | | and [place] | + + + | Address | Unknown | + + + | Phone | Unavailable | + + + Support + + + + + | Name | Relationship | Address | Phone | + + + + + | Kit Hyde | ECON | [address] | | | | | [place], | | | | | [place] [address] | | + + + + + | Crystal Hyde | ECON | Unknown | | + + + + + Care Team Providers + +------+ + | Care Diamond Mounter Name | Role | Phone | + [...] + + | 05/03/ | Telephone | [facility] | Yoly Gamez FNP | Appointment Question | | 2019 | | MEDICINE [place] | [address] | | | | | [address] | [place] | | | | | [place] | [address] | | | | | [address] | | | | | | [phone] | | | +--------+ + + + [...] [place], | | | | | | [place] [address] | | | | | | [phone] | | | | | | | | +--------+---------+ + + + as of this encounter Visit Diagnoses Not on filein this encounter"
--- OUTSIDE RECORDS SUMMARY | ~2018-06-08 | XMS | Encounter Summary ---
Demographics + + + | Address | [address] | | | [place] [address] | + + + | Home Phone | | + + + | Preferred Language | Unknown | + + + | Marital Status | Single | + + + | Church Affiliation | Unknown | + + + | Race | Unknown | + + + | Ethnic Group | Unknown | + + + Author + + + | Author | [facility] | | | and [place] | + + + | Organization | [facility] | | | and [place] | + + + | Address | Unknown | + + + | Phone | Unavailable | + + + Support + + + + + | Name | Relationship | Address | Phone | + + + + + | Kit Hyde | ECON | [address] | | | | | [place], | | | | | [place] [address] | | + + + + + | Crystal Hyde | ECON | Unknown | | + + + + + Care Team Providers + +------+ + | Care Director Of Regulatory Affairs Name | Role | Phone | + [...] Results | | 2019 | | MEDICINE [place] | [address] | | | | | [address] | [place] | | | | | [place] | [address] | | | | | [address] | | | | | | [phone] | | | +--------+ + + + [...] [place], | | | | | | [place] [address] | | | | | | [phone] | | | | | | | | +--------+---------+ + + + as of this encounter Visit Diagnoses Not on filein this encounter"
--- OUTSIDE RECORDS SUMMARY | ~2018-06-08 | XMS | Encounter Summary ---
Demographics + + + | Address | [address] | | | [place] [address] | + + + | Home Phone | | + + + | Preferred Language | Unknown | + + + | Marital Status | Single | + + + | Scientologist Affiliation | Unknown | + + + | Race | Unknown | + + + | Ethnic Group | Unknown | + + + Author + + + | Author | [facility] | | | and [place] | + + + | Organization | [facility] | | | and [place] | + + + | Address | Unknown | + + + | Phone | Unavailable | + + + Support + + + + + | Name | Relationship | Address | Phone | + + + + + | Kit Hyde | ECON | [address] | | | | | [place], | | | | | [place] [address] | | + + + + + | Crystal Hyde | ECON | Unknown | | + + + + + Care Team Providers + +------+ + | Care Data Capture Specialist Name | Role | Phone | [...] Results | | 2019 | | MEDICINE [place] | [address] | | | | | [address] | [place] | | | | | [place] | [address] | | | | | [address] | | | | | | [phone] | | | +--------+ + + + [...] [place], | | | | | | [place] [address] | | | | | | [phone] | | | | | | | | +--------+---------+ + + + as of this encounter Visit Diagnoses Not on filein this encounter"
--- OUTSIDE RECORDS SUMMARY | ~2018-06-08 | XMS | Encounter Summary ---
Demographics + + + | Address | [address] | | | [place] [address] | + + + | Home Phone | | + + + | Preferred Language | Unknown | + + + | Marital Status | Single | + + + | Uatsdin Affiliation | Unknown | + + + | Race | Unknown | + + + | Ethnic Group | Unknown | + + + Author + + + | Author | [facility] | | | and [place] | + + + | Organization | [facility] | | | and [place] | + + + | Address | Unknown | + + + | Phone | Unavailable | + + + Support + + + + + | Name | Relationship | Address | Phone | + + + + + | Kit Hyde | ECON | [address] | | | | | [place], | | | | | [place] [address] | | + + + + + | Crystal Hyde | ECON | Unknown | | + + + + + Care Team Providers + +------+ + | Care Oil Well Perforator Operator Name | Role | Phone | [...] Results | | 2019 | | MEDICINE [place] | [address] | | | | | [address] | [place] | | | | | [place] | [address] | | | | | [address] | | | | | | [phone] | | | +--------+ + + + [...] [place], | | | | | | [place] [address] | | | | | | [phone] | | | | | | | | +--------+---------+ + + + as of this encounter Visit Diagnoses Not on filein this encounter"
--- OUTSIDE RECORDS SUMMARY | ~2018-06-08 | XMS | Encounter Summary ---
Demographics + + + | Address | [address] | | | [place] [address] | + + + | Home Phone | | + + + | Preferred Language | Unknown | + + + | Marital Status | Single | + + + | Protestant Affiliation | Unknown | + + + | Race | Unknown | + + + | Ethnic Group | Unknown | + + + Author + + + | Author | [facility] | | | and [place] | + + + | Organization | [facility] | | | and [place] | + + + | Address | Unknown | + + + | Phone | Unavailable | + + + Support + + + + + | Name | Relationship | Address | Phone | + + + + + | Kit Hyde | ECON | [address] | | | | | [place], | | | | | [place] [address] | | + + + + + | Crystal Hyde | ECON | Unknown | | + + + + + Care Team Providers + +------+ + | Care Mine Surveyor Name | Role | Phone | + +------+ + | Yoly Gamez | PCP | | + +------+ + Encounter Details +--------+ + + + + | Date | Type | Department | Care Team | Description | +--------+ + + + + | 03/31/ | Orders Only | [facility] [place] [facility] | Yoly GamezOSCAR | Urinary frequency | | 2019 | | MEDICINE [place] | [address] | | | | | [address] | [place], [place] | | | | | [place], [place] | [address] | | | | | [address] | | | | | | [phone] | | | +--------+ + + + [...] | +--------+---------+ + + + | 11/14/ Office | Cardiology | Alpa Corcoran, | | | 2018 | Visit | | [address] | | | | | | [place], | | | | | | [place] [address] | | | | | | [phone] | | | | | | | [...] Culture | No Growth | | [facility] | | | | | [facility] | | | | | CENTER [...] | + + + + + | [address] | [address] | [place] | [phone] | | [facility] | | [address] | | | - LABORATORY | | | | + + + + + in this encounter Visit Diagnoses + + | Diagnosis | + + | Urinary frequency | + +"
--- OUTSIDE RECORDS SUMMARY | ~2018-06-08 | XMS | Encounter Summary ---
Demographics + + + | Address | [address] | | | [place] [address] | + + + | Home Phone [...] + + | Author | [facility] | | | and [place] | + + + | Organization | [facility] | | | and [place] | + + + | Address | Unknown | + + + | Phone | Unavailable | + + + Support + + + + + | Name | Relationship | Address | Phone | + + + + + | Kit Hyde | ECON | [address] | | | | | [place], | | | | | [place] [address] | | + + + + + | Crystal Hyde | ECON | Unknown | | + + + + + Care Team Providers + +------+ + | Care Supervisor Show Operations Name | Role | Phone | + [...] + + | 04/11/ | Telephone | [facility] | Yoly Gamez FNP | Medication | | 2019 | | MEDICINE [place] | [address] | Management; DME | | | | [address] | [place] | | | | | [place] | [address] | | | | | [address] | | | | | | [phone] | | | +--------+ + + + [...] 11/14/ | Office | Cardiology | Alpa Corcroan, | | | 2018 | Visit | | MD [facility] | | | | | | [place], | | | | | | [place] [address] | | | | | | [phone] | | | | | | | [...]
--- OUTSIDE RECORDS SUMMARY | ~2018-06-08 | XMS | Encounter Summary ---
Demographics + + + | Address | [address] | | | [place] [address] | + + + | Home Phone | | + + + | Preferred Language | Unknown | + + + | Marital Status | Single | + + + | Sabianism Affiliation | Unknown | + + + | Race | Unknown | + + + | Ethnic Group | Unknown | + + + Author + + + | Author | [facility] | | | and [place] | + + + | Organization | [facility] | | | and [place] | + + + | Address | Unknown | + + + | Phone | Unavailable | + + + Support + + + + + | Name | Relationship | Address | Phone | + + + + + | Kit Hyde | ECON | [address] | | | | | [place], | | | | | [place] [address] | | + + + + + | Crystal Hyde | ECON | Unknown | | + + + + + Care Team Providers + +------+ + | Care Senior Ui Ux Developer Name | Role | Phone | [...] frequency | | 2019 | | MEDICINE [place] | [address] | | | | | [address] | [place], [place] | | | | | [place], [place] | [address] | | | | | [address] | | | | | | [phone] | | | +--------+ + + + [...] [place], | | | | | | [place] [address] | | | | | | [phone] | | | | | | | [...] [facility] | | | | | [facility] | | | | | CENTER - [...] [address] | [place] | [phone] | | [facility] | | [address] | | | - LABORATORY | | | | + + + + + in this encounter Visit Diagnoses + + | Diagnosis | + + | Urinary frequency | + +"
--- OUTSIDE RECORDS SUMMARY | ~2018-06-08 | XMS | Encounter Summary ---
Demographics + + + | Address | [address] | | | [place] [address] | + + + | Home Phone | | + + + | Preferred Language | Unknown | + + + | Marital Status | Single | + + + | Restoration Affiliation | Unknown | + + + | Race | Unknown | + + + | Ethnic Group | Unknown | + + + Author + + + | Author | [facility] | | | and [place] | + + + | Organization | [facility] | | | and [place] | + + + | Address | Unknown | + + + | Phone | Unavailable | + + + Support + + + + + | Name | Relationship | Address | Phone | + + + + + | Kit Hyde | ECON | [address] | | | | | [place], | | | | | [place] [address] | | + + + + + | Crystal Hyde | ECON | Unknown | | + + + + + Care Team Providers + +------+ + | Care Sticker Hand Name | Role | Phone | + +------+ + | Yoly Gamez | PCP | | + +------+ + Encounter Details +--------+ + + + + | Date | Type | Department | Care Team | Description | +--------+ + + + + | 03/31/ | Orders Only | [facility] | Haydee Guzman, | Urinary frequency | | 2019 | | SERVICE CENTER | Heat Sealing Machine Operator | | | | | [place] [address] | | | [address] [place] | | | | | | [place] [address] | | | | | | [phone] | | | +--------+ + + + [...] [place], | | | | | | [place] [address] | | | | | | [phone] | | | | | | | [...] with Microscopic with Culture if Indicated (03/31/2018 1118) + + + + + | Component [...] + + + + + | Specific [place] | 1.018 | 1.001 - 1.030 | [...] [address] | [place] | [phone] | | [facility] | | [address] | | | - LABORATORY | | | | + + + + + in this encounter Visit Diagnoses + + | Diagnosis | + + | Urinary frequency | + +"
--- OUTSIDE RECORDS SUMMARY | ~2018-06-08 | XMS | Encounter Summary ---
Demographics + + + | Address | [address] | | | [place] [address] | + + + | Home Phone | | + + + | Preferred Language | Unknown | + + + | Marital Status | Single | + + + | Judaism Affiliation | Unknown | + + + | Race | Unknown | + + + | Ethnic Group | Unknown | + + + Author + + + | Author | [facility] | | | and [place] | + + + | Organization | [facility] | | | and [place] | + + + | Address | Unknown | + + + | Phone | Unavailable | + + + Support + + + + + | Name | Relationship | Address | Phone | + + + + + | Kit Hyde | ECON | [address] | | | | | [place], | | | | | [place] [address] | | + + + + + | Crystal Hyde | ECON | Unknown | | + + + + + Care Team Providers + +------+ + | Care Recreation Supervisor Name | Role | Phone | [...] | 04/04/ | Telephone | [facility] [place] [facility] | Yoly Gamez REVIEW ANALYST | Fall | | 2019 | | MEDICINE [place] | [address] | | | | | [address] | [place] | | | | | [place] | [address] | | | | | [address] | | | | | | [phone] | | | +--------+ + + + [...] | | | | | | [place] [address] | | | | | | [phone] | | | | | | | | +--------+---------+ + + + as of this encounter Visit Diagnoses Not on filein this encounter"
[~2018-06-08 15:29] MED LIST changes: +DOXYCYCLINE HY100 MG PO; +LYRICA50 MG PO
[2018-06-08] MEDS ORDERED: IPRAT-ALBUT 0.5-3 ML INH (17:17)
[2018-06-08] MEDS ORDERED: PREDNISONE20 MG PO (17:17)
--- NOTE | 2018-06-09 07:57 | EKG ---
[facility] [address] [facility] [place] [address] Signed Sinus rhythm with marked sinus arrhythmia Nonspecific ST and T wave abnormality Abnormal ECG No previous ECGs available Confirmed by SELAM REYES MD ([id number]) on 06/09/2018 7:56:55 AM Electronically Signed By: SELAM REYES MD 06/09/18 0757 PATIENT NAME: LILIANE HUNTER Electrocardiogram DATE OF : 41 PHYSICIAN: SELAM REYES MD REPORT #: [id number] REPORT IS CONFIDENTIAL AND NOT TO BE RELEASED WITHOUT AUTHORIZATION
== END 2018-06-08 17:34 | disposition home or self-care (01) ==
LOC: ED 15:29
DX: J44.1 Chronic obstructive pulmonary disease with (acute) exacerbation (principal); I10 Essential (primary) hypertension; M35.3 Polymyalgia rheumatica; E11.9 Type 2 diabetes mellitus without complications; Z87.891 Personal history of nicotine dependence; Z91.048 Other nonmedicinal substance allergy status; Z88.5 Allergy status to narcotic agent; Z88.6 Allergy status to analgesic agent; Z79.82 Long term (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 of aspirin; Z79.899 Other long term (current) drug therapy
CPT/HCPCS: 71046; 80053; 83735; 83880; 84484; 85025; 87502; 93005; 93010; 94640; 99283-25; J7512

== ENCOUNTER 2018-07-17 11:55 | Observation (INO) | payer MEDICARE, OTHER ==
[~2018-07-17] VITALS: Ht 154.9 cm; Wt 74.0 kg
--- OUTSIDE RECORDS SUMMARY | ~2018-07-17 | XMS | Encounter Summary ---
Demographics + + + | Address | [address] | | | [place] [address] | + + + | Home Phone | | + + + | Preferred Language | Unknown | + + + | Marital Status | Single | + + + | Mandaeism Affiliation | Unknown | + + + | Race | Unknown | + + + | Ethnic Group | Unknown | + + + Author + + + | Author | [facility] | | | and [place] | + + + | Organization | [facility] | | | and [place] | + + + | Address | Unknown | + + + | Phone | Unavailable | + + + Support + + + + + | Name | Relationship | Address | Phone | + + + + + | Kit Hyde | ECON | [address] | | | | | [place], | | | | | [place] [address] | | + + + + + | Crystal Hyde | ECON | Unknown | | + + + + + Care Team Providers + +------+ + | Care Educational Adviser Name | Role | Phone | + +------+ + | Yoly Gamez | PCP | | + +------+ + Reason for Visit + + + | Reason | Comments | + + + | Appointment Question | | + + + Encounter Details +--------+ + + + + | Date | Type | Department | Care Team | Description | +--------+ + + + + | 05/03/ | Telephone | [facility] | Yoly Gamez FNP | Appointment Question | | 2019 | | [facility]IC[place] | [address] | | | | | [address] | [place] | | | | | [place] | [address] | | | | | [address] | | | | | | [phone] | | | +--------+ + + + [...] on file | | + + + + + + + | Job Start Date | Occupation | Industry | + + + + | Not on file | Not on file | Not on file | + + + + + + + + | Travel History | Travel Start | Travel End | + + + + + + | No recent travel history available. | + + documented as of this encounter Plan of Treatment +--------+---------+ + + + | Date | Type | Specialty | Care Team | Description | +--------+---------+ + + + | 07/20/ | Office | Family Medicine | Yoly Gamez FNP | | | 2018 | Visit | | [address] | | | | | | [place] | | | | | | [address] | | | | | | | | +--------+---------+ + + + | 11/14/ | Office | Cardiology | Alpa Corcoran, | | | 2018 | Visit | | MD Maria Teresa Yanez | | | | | | [place], | | | | | | [place] [address] | | | | | | [phone] | | | | | | | | +--------+---------+ + + + documented as of this encounter Visit Diagnoses Not on filedocumented in this encounter"
--- OUTSIDE RECORDS SUMMARY | ~2018-07-17 | XMS | Encounter Summary ---
Demographics + + + | Address | [address] | | | [place] [address] | + + + | Home Phone | | + + + | Preferred Language | Unknown | + + + | Marital Status | Single | + + + | Sabianist Affiliation | Unknown | + + + | Race | Unknown | + + + | Ethnic Group | Unknown | + + + Author + + + | Author | [facility] | | | and [place] | + + + | Organization | [facility] | | | and [place] | + + + | Address | Unknown | + + + | Phone | Unavailable | + + + Support + + + + + | Name | Relationship | Address | Phone | + + + + + | Kit Hyde | ECON | [address] | | | | | [place], | | | | | [place] [address] | | + + + + + | Crystal Hyde | ECON | Unknown | | + + + + + Care Team Providers + +------+ + | Care Bar Steward Name | Role | Phone | + +------+ + | Yoly Gamez | PCP | | + +------+ + Reason for Visit + + + | Reason | Comments | + + + | Medication Refill | | + + + Encounter Details +--------+--------+ + + + | Date | Type | Department | Care Team | Description | +--------+--------+ + + + | 06/19/ | Refill | [facility] | VeraYoly FNP | Medication Refill | | 2019 | | MEDICINE [place] | [address] | | | | | [address] | [place] | | | | | [place] | [address] | | | | | [address] | | | | | | [phone] | | | +--------+--------+ + + + Social History + + [...] | Office | Family Medicine | Yoly GamezOSCAR | | | 2018 | Visit | | [address] | | | | | | [place] | | | | | | [address] | | | | | | | | +--------+---------+ + + + | 11/14/ | Office | Cardiology | Alpa Corcoran, | | | 2018 | Visit | | MD Maria Teresa Yanez | | | | | | [place], | | | | | | [place] [address] | | | | | | [phone] | | | | | | | | +--------+---------+ + + + documented as of this encounter Visit Diagnoses Not on filedocumented in this encounter"
--- OUTSIDE RECORDS SUMMARY | ~2018-07-17 | XMS | Clinical Summary ---
Demographics + + + | Address | [address] | | | [place] [address] | + + + | Home Phone | | + + + | Preferred Language | Unknown | + + + | Marital Status | Single | + + + | Druze Affiliation | Unknown | + + + | Race | Unknown | + + + | Ethnic Group | Unknown | + + + Author + + + | Author | [facility] | | | and [place] | + + + | Organization | [facility] | | | and [place] | + + + | Address | Unknown | + + + | Phone | Unavailable | + + + Support + + + + + | Name | Relationship | Address | Phone | + + + + + | Kit Hyde | ECON | [address] | | | | | [place], | | | | | [place] [address] | | + + + + + | Crystal Hyde | ECON | Unknown | | + + + + + Care Team Providers + +------+ + | Care Flat Finisher Name | Role | Phone | + [...] | + + + + + + Medications + + + +---------+------+------+-------+ | Medication | Sig | Dispensed | Refills | Star | End | Statu | | | | | | t | Date | s | | | | | | Date | | | + + + +---------+------+------+-------+ | clobetasol | Apply topically as | | 0 | 04/1 | | Activ | | (TEMOVATE) 0.05% | needed. | | | 0/20 | | e | | ointment | | | | 15 | | | + + + +---------+------+------+-------+ | UNABLE TO FIND | Med Name: | | 0 | | | Activ | | | Respironics | | | | | e | | | Dreamstation APAP | | | | | | | | 5-15cm while | | | | | | | | sleeping. | | | | | | + + + +---------+------+------+-------+ | oxygen | Inhale 2 L into the | | 0 | | | Activ | | | [...] Take 325 mg by mouth | | 0 | | | Activ | | tablet | Daily. 2 tablets | | | | | e | | | daily | | | | | | + + + +---------+------+------+-------+ | calcium, as | Take 1,200 mg by | | 0 | | | Activ | | carbonate, | mouth Daily. | | | | | e | | (CALTRATE) 600 mg | | | | | | | | tablet | | | | | | | + + + +---------+------+------+-------+ | FORTEO 600 | Inject under the | | 0 | 04/1 | | Activ | | MCG/2.4ML injection | skin Daily. | | | 9/20 | | e | | | | | | 17 | | | + + + +---------+------+------+-------+ | NIFEdipine | Take 60 mg by mouth | | 0 | | | Activ | | (NIFEDICAL XL) 60 mg | Daily. As needed to | | | | | e | | ER tablet | relax esophagus | | | | | | + + + +---------+------+------+-------+ | melatonin 3 mg | Take 3 mg by mouth | | 0 | | | Activ | | TABS | Daily. | | | | | e | + + + +---------+------+------+-------+ | potassium chloride | TAKE 2 TABLETS EVERY | 180 | 3 | 11/0 | | Activ | | (KLOR-CON) 10 mEq | DAY | tablet | | 09/30 | | e | | CR tablet | | | | 17 | | | + + + +---------+------+------+-------+ | furosemide (LASIX) | Take 1 tablet by | 90 | 3 | 12/ | | Activ | | 40 mg tablet | mouth Daily. | tablet | | 12/01 | | e | [...] | mouth Daily. | capsule | | / | | e | | capsuleIndications: | [...] | by Does not apply | | 0 | | | Activ | | Monitoring [...] Take 25 mg by mouth | | 0 | | | Activ | | (ANTIVERT) 25 mg | Twice daily as | | | | | e | | tablet | needed. | | | | | | + + + +---------+------+------+-------+ | Homeopathic | 1 spray by Nasal | | 0 | | | Activ | | Products (ZICAM COLD | route Daily as | | | | | e | | REMEDY NA) | needed. | | | | | | + + + +---------+------+------+-------+ | guaiFENesin (MUCUS | Take 1,600 mg by | | 0 | | | Activ | | RELIEF CHEST | mouth Daily. 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 | | | 19 | | | + + + +---------+------+------+-------+ | UNCODED | Patient to use | 1 each | 0 | /2 | | Activ | | DMEIndications: Gait [...] + + + +---------+------+------+-------+ | fluticasone | USE 2 SPRAYS IN EACH | 16 g | 11 | 04/1 | | Activ | | (FLONASE) 50 | NOSTRIL EVERY DAY | | | 0/20 | | e | | mcg/nasal spray | | | | 19 | | | + + + +---------+------+------+-------+ | fluticasone | 2 sprays into both | 16 g | 0 | 12/0 | 04/0 | Disco | | (FLONASE) 50 | nostrils daily. | | | 7/ | 8 | ntinu | | mcg/nasal | | | | 18 | 19 | ed | | sprayIndications: | | | | [...] L4-5 Lateral Anterior | | Lumbar Interbody FusionJb DO | + + + + + [...] + + + | Peripheral arterial disease | 11/14/2014 | + + + | Claudication of both lower extremities | 11/14/2014 | + + + + [...] 1 left | | ventricular diastolic dysfunction, jvvf-se-facqpcjm mitral valve | | regurgitation, mild to [...] + + + + | Pulmonary embolism | 05/07/2014 | + + + + [...] plan for her to go back to [facility] | | [facility] when she is discharged. | + + + + + | Neurogenic claudication | 04/17/2014 | + + + | Gait difficulty | 06/06/2013 | + + + | H/O Stroke / CVA with residual left sided weakness | 03/14/1998 | + + + + + | Overview: mild left sided weakness | + + +--------+---+ | Stroke | | +--------+---+ + + | Overview: mild left sided weaknessEchocardiogram 07/15/2017 | | shows normal left ventricular size, wall thickness and motion, | | preserved left ventricular systolic function. LVEF is 55-60%, | | grade 1 left ventricular diastolic dysfunction, mild aortic valve | | insufficiency, mildly thickened mitral valve with a mild mitral | | valve regurgitation, wtje-zs-dgysalms tricuspid valve | | regurgitation, moderate pulmonary [...] | | + +---+ | Crohn's disease | | + +---+ + + | [...] | + +---+ | PMR (polymyalgia rheumatica) | | + +---+ Resolved Problems + + + + | Problem | Noted | Resolved | | | Date | Date | + + + + | Adrenal insufficiency | 03/09/20 | | | | 17 | 8 | + + + + | Angina at rest | | | | | | 8 | + + + + Encounters +--------+ + + + + | Date | Type | Specialty | Care Team | Description | +--------+ + + + + | 06/19/ | Refill | | Yoly Gamez FNP | Medication Refill | | 2018 | | | | | +--------+ + + + + | 05/03/ | Telephone | | Yoly Gamez FNP | Appointment Question | | 2018 | | | | [...] + + | Father | | | [place] | | | | (Age | | [...] recent travel history available. | + + Last Filed Vital Signs + + + + | Vital Sign | Reading | Time Taken | + + + + | Blood Pressure | 132/78 | 03/31/20181448 PST | + + + + | Pulse | 70 | 03/31/20189 PST | + + + + | [...] | Body Mass Index | 27.29 | 02/15/2018 1451 PST | + + + + Plan of Treatment +--------+---------+ + + + | Date | Type | Specialty | Care Team | Description | +--------+---------+ + + + | 07/20/ | Office | | Yoly Gamez FNP | | | 2018 | Visit | | [address] | | | | | | [place] | | | | | | [id number] | | | | | | | | +--------+---------+ + + + | 11/14/ | Office | | Alpa Corcoran, | | | 2018 | Visit | | MD Maria Teresa Yanez | | | | | | [place] | | | | | | [place] [address] | | | | | | [phone] | | | | | | | [...] | + + + + + | Breast Cancer | | 12/15/2016 | | | Screening (Ages | 9 | | | | 50-74) | | | | + + + + + | Hemoglobin A1c | | 07/13/2018, 01/31/2018, | | | Screening | 9 | 07/18/2017, Additional history | | | | | [...] | Area | Manufacture | Device | Shelf | Model | | | | | r | | Expira | / | | | | | | Identi | tion | Serial | | | | | | fier | Date | / Lot | + +------+--------+ +--------+--------+--------+ | Navdeep Bone Palacos-R/G 40gm - | | Right: | TAMMY - | | 12/06/ | 00-111 | | [id number]: Qty: 1 on | | Knee | ZIMM | | 2017 | 3-140- | | 06/05/2013 by Berlin Nugent | | | | | | 01 / | | MD Rebecca | | | | | | /[id number] | | | | | | | | 368 | + +------+--------+ +--------+--------+--------+ | Tibial ComponentImplanted: | | Right: | Tammy | | 06/05/ | 5842-0 | | Qty: 1 on 06/05/2013 by | | Knee | | | 3 | 3- / | | Berlin Nugent MD | | | | | | | | | | | | | | /[id number] | | | | | | | | 279 | + +------+--------+ +--------+--------+--------+ | Femoral ComponentImplanted: | | Right: | Tammy | | 03/07/ | 5842-1 | | Qty: 1 on 06/05/2013 by | | Knee | | | 2022 | 06-13 / | | Berlin Nugent MD | | | | | | | | | | | | | | /[id number] | | | | | | | | 134 | + +------+--------+ +--------+--------+--------+ | Articular SurfaceImplanted: | | Right: | Tammy | | 02/05/ | 5842-2 | | Qty: 1 on 06/05/2013 by | | Knee | | | 2020 | 05-19 / | | Berlin Nugent MD | | | | | | | | | | | | | | /[id number] | | | | | | | | 876 | + +------+--------+ +--------+--------+--------+ | Imp Knee Tot Unicmprt Mob Brg | | | CAP RINCON - | | | [id number] / | | - [id number]: Qty: 1 | | | CAP | | | / | | on 06/05/2013 | | | | | | | + +------+--------+ +--------+--------+--------+ | Graft Infuse Bone Kit Xxs - | | N/A: | SOFAMOR | | / | [id number] | | [id number]: Qty: 1 on | | Spine | DANEK - DIV | | 2015 | 0 / | | 04/23/2014 by Jb Aden | | Lumbar | [employer] | | | /[id number] | | A, DO | | | - SFDK | | | [id number] | + +------+--------+ +--------+--------+--------+ | Screw Set Solera - | | N/A: | SOFAMOR | | | [id number] | | [id number]: Qty: 8 on | | Spine | DANEK - DIV | | | 0 / / | | 04/23/2014 by Jb Aden | | Lumbar | [employer] | | | | | A, DO | | | - SFDK | | | | + +------+--------+ +--------+--------+--------+ | Screw Mas 5.5 X 55mm - | | N/A: | [employer] - | | | [id number] | | [id number]: Qty: 4 on | | Spine | MEDT | | | [id number] | | 04/23/2014 by Jb Aden | | Lumbar | | | | / / | | A DO | | | | | | | + +------+--------+ +--------+--------+--------+ | Screw Slra Sextant 7.5.55 - | | N/A: | [employer] - | | | [id number] | | [id number]: Qty: 2 on | | Spine | MEDT | | | [id number] | | 04/23/2014 by Jb Aden | | Lumbar | | | | / / | | DO Stew | | | | | | | + +------+--------+ +--------+--------+--------+ | Screw Mas G5 Slra 7.5x45 Cn - | | N/A: | SOFAMOR | | | [id number] | | [id number]: Qty: 2 | | Spine | DANEK - DIV | | | [id number] | | on 04/23/2014 by Keiko, | | Lumbar | [employer] | | | / / | | Jb Mathias DO | | | - SFDK | | | | + +------+--------+ +--------+--------+--------+ | Imp Spn Spcr Cpstn 7x26mm - | | N/A: | SOFAMOR | | 02/07/ | [id number] | | [id number]: Qty: 1 on | | Spine | DANEK - DIV | | 2020 | 6 / | | 04/23/2014 by Jb Aden | | Lumbar | [employer] | | | /[id number] | | DO Stew | | | - SFDK | | | 634 | + +------+--------+ +--------+--------+--------+ | Algrft Putty [place] 5cc Dbm | | N/A: | OSTEOTECH - | | 09/26/ | 65532 | | - [id number]: Qty: | | Spine | OSTT | | 2016 | /[id number] | | 1 on 04/23/2014 by Keiko, | | Lumbar | | | | 2-064 | | Jb Mathias DO | | | | | | / | + +------+--------+ +--------+--------+--------+ | 4.75 Rods 140mmImplanted: | | N/A: | [employer] | | | [id number] | | Qty: 2 on 04/23/2014 by | | Spine | [employer]- | | | 6140 / | | Jb Aden DO | | Lumbar | [id number] | | | / | + +------+--------+ +--------+--------+--------+ | Chips Cancellous 30cc - | | N/A: | OSTEOTECH - | | 03/03/ | [id number] | | [id number]: Qty: 1 | | Spine | OSTT | | 2016 | | | on 04/23/2014 by Keiko, | | Lumbar | | | | /[id number] | | Jb Mathias DO | | | | | | 4-022 | | | | | | | | / | + +------+--------+ +--------+--------+--------+ | Putty [place] 10cc Dbm - | | N/A: | OSTEOTECH - | | 12/31/ | 41588 | | [id number]: Qty: 1 | | Spine | OSTT | | 2016 | /[id number] | | on 04/23/2014 by Keiko, | | Lumbar | | | | 9-021 | | Jb Mathias DO | | | | | | / | + +------+--------+ +--------+--------+--------+ | Graft Infuse Bone Kit Xs - | | N/A: | SOFAMOR | | / | [id number] | | [id number]: Qty: 1 on | | Spine | DANEK - DIV | | 2015 | 0 / | | 04/23/2014 by Jb Aden | | Lumbar | [employer] | | | /[id number] | | A, DO | | | - SFDK | | | 07AAF | + +------+--------+ +--------+--------+--------+ | Cage Xl Wide [id number] - | | N/A: | NUVASIVE - | | | [id number] | | [id number]: Qty: 1 on | | Spine | NVSV | | | 0 / / | | 04/23/2014 by Jb Aden | | Lumbar | | | | | | A, DO | | | | | | | + +------+--------+ +--------+--------+--------+ | Imp Spn Spcr Peek Xlw | | N/A: | NUVASIVE - | | | [id number] | | [id number] - | | Spine | NVSV | | | 5 / / | | [id number]: Qty: 2 on | | Lumbar | [...] | + +--------+ + + + | HEMOGLOBIN A1C | Routin | 07/13/2018 | | Results for this | | | e | | | procedure are in the | | | | | | results section. | + +--------+ + + + from Last 3 Months Results Hemoglobin A1C (07/13/2018) + +-------+ + + + | Component | Value | Ref Range | Performed | Pathologist | | | | | At | Signature | + +-------+ + + + | Hemoglobin | 6.0 | % | | | | A1c | | | | | + +-------+ + + + + + | Specimen | + + | Blood | + + from Last 3 Months Insurance + +--------+ +--------+ +---------+--------+ | Payer | Benefi | Subscriber | Effect | Phone | Address | Type | | | t Plan | ID | isabella | | | | | | / | | Dates | | | | | | Group | | | | | | + +--------+ +--------+ +---------+--------+ | MEDICARE | MEDICA | [id number] | 03/14/19 | [phone] | | Medica | | | RE | | 10-Pre | 5 | | re | | | PART A | | sent | | | | | | AND B | | | | | | + +--------+ +--------+ +---------+--------+ | INDIVIDUAL ASSURANCE | INDIVI | [id number] | 11/13/19 | | | Indemn | | COMPANY | DUAL | | 17-Pre | | | ity | | | ASSURA | | sent | | | | | | [place] | | | | | | | | MDCR | | | | | | | | SUPPL | | | | | | + +--------+ +--------+ +---------+--------+ | [employer] | MODA | [id number] | | [phone] | | Medica | | MEDICAID HMO | HEALTH | | 019-Pr | 1 | | id | | | MDCD | | esent | | | | | | [place]MO [place] | | | | | | + +--------+ +--------+ +---------+--------+ + +--------+ +--------+ + + | Guarantor Name | Accoun | Relation to | Date | Phone | Billing Address | | | t Type | Patient | of | | | | | | | | | | + +--------+ +--------+ + + | ChrisGiovana | Person | Self [birth year] | [address] | | | al/Fam | | 1946 | [phone] | [place] [address] | | | meg | | | 7 (Home) | | + +--------+ +--------+ + + Advance Directives Patient has advance care planning documents, and code status on file. For more information, please contact:[facility] and [facility] [place] [place] [address] + + + + + | Code Status | Date | Date | Comments | | | Activated | Inactivated | | + + + + + | Full Code | 05/07/2014 | 05/09/2014 | | | | 15:32 | 18:57 | | + + + + + + + + +---+ | | | | | + + + +---+ | Full Code | 04/23/2014 | 04/26/2014 | | | | 16:06 | 14:30 | | + + + +---+ + + + +---+ | | | | | + + + +---+ | Full Code | 06/05/2013 | 06/07/2013 | | | | 14:45 | 19:36 | | + + + +---+
--- OUTSIDE RECORDS SUMMARY | ~2018-07-17 | XMS | Clinical Summary ---
Demographics + + + | Address | [address] | | | [place] [address] | + + + | Home Phone | | + + + | Preferred Language | Unknown | + + + | Marital Status | Single | + + + | Christianity Affiliation | Unknown | + + + | Race | Unknown | + + + | Ethnic Group | Unknown | + + + Author + + + | Author | [facility] | | | and [place] | + + + | Organization | [facility] | | | and [place] | + + + | Address | Unknown | + + + | Phone | Unavailable | + + + Support + + + + + | Name | Relationship | Address | Phone | + + + + + | Kit Hyde | ECON | [address] | | | | | [place], | | | | | [place] [address] | | + + + + + | Crystal Hyde | ECON | Unknown | | + + + + + Care Team Providers + +------+ + | Care Supervisor Webbing Name | Role | Phone | + [...] | | | | | | | ([facility]), Anxiety | | | | | | [...] 1 left | | ventricular diastolic dysfunction, jhvx-gu-kqdfvruy mitral valve | | regurgitation, mild to [...] plan for her to go back to [facility] at the | | [place] when she is discharged. | + + [...] a mild mitral | | valve regurgitation, rfud-gb-jeyattae tricuspid valve | | regurgitation, moderate pulmonary [...] + + | Father | | | [place] | | | | (Age | | [...] [place] | | | | | | [id number] | | | | | | | | +--------+---------+ + + + | 11/14/ | Office | | Alpa Corcoran, | | | 2018 | Visit | | MD Maria Teresa Yanez | | | | | | [facility] | | | | | | [place] [address] | | | | | | [phone] | | | | | | | [...] | | 12/06/ | 00-111 | | [id number]: Qty: 1 on | | Knee | ZIMM | | 2017 | 3-140- | | 06/05/2013 by Berlin Nugent | | | | | | 01 / | | MD Rebecca | | | | | | /[id number] | | | | | | | | 368 | + +------+--------+ +--------+--------+--------+ | Tibial ComponentImplanted: | | Right: | Tammy | | 06/05/ | 5842-0 | | Qty: 1 on 06/05/2013 by | | Knee | | | 3 | 3- / | | Berlin Nugent MD | | | | | | | | | | | | | | /[id number] | | | | | | | | 279 | + +------+--------+ +--------+--------+--------+ | Femoral ComponentImplanted: | | Right: | Tammy | | 03/07/ | 5842-1 | | Qty: 1 on 06/05/2013 by | | Knee | | | 2022 | 06-13 / | | Berlin Nugent MD | | | | | | | | | | | | | | /[id number] | | | | | | | | 134 | + +------+--------+ +--------+--------+--------+ | Articular SurfaceImplanted: | | Right: | Tammy | | 02/05/ | 5842-2 | | Qty: 1 on 06/05/2013 by | | Knee | | | 2020 | 05-19 / | | Berlin Nugent MD | | | | | | | | | | | | | | /[id number] | | | | | | | | 876 | + +------+--------+ +--------+--------+--------+ | Imp Knee Tot Unicmprt Mob Brg | | | CAP RINCON - | | | OKP1 / | | - [id number]: Qty: 1 | | | CAP | | | / | | on 06/05/2013 | | | | | | | + +------+--------+ +--------+--------+--------+ | Graft Infuse Bone Kit Xxs - | | N/A: | SOFAMOR | | / | [id number] | | [id number]: Qty: 1 on | | Spine | DANEK - DIV | | 2015 | 0 / | | 04/23/2014 by Jb Aden | | Lumbar | MEDTRONIC | | | /[id number] | | A, DO | | | - SFDK | | | 07AAH | + +------+--------+ +--------+--------+--------+ | Screw Set Solera - | | N/A: | SOFAMOR | | | [id number] | | [id number]: Qty: 8 on | | Spine | DANEK - DIV | | | 0 / / | | 04/23/2014 by Jb Aden | | Lumbar | [employer] | | | | | A, DO | | | - SFDK | | | | + +------+--------+ +--------+--------+--------+ | Screw Mas 5.5 X 55mm - | | N/A: | MEDTRONIC - | | | [id number] | | [id number]: Qty: 4 on | | Spine | MEDT | | | 19168 | | 04/23/2014 by Jb Aden | | Lumbar | | | | / / | | A DO | | | | | | | + +------+--------+ +--------+--------+--------+ | Screw Slra Sextant 7.5.55 - | | N/A: | MEDTRONIC - | | | [id number] | | [id number]: Qty: 2 on | | Spine | MEDT | | | [id number] | | 04/23/2014 by Jb Aden | | Lumbar | | | | / / | | DO Stew | | | | | | | + +------+--------+ +--------+--------+--------+ | Screw Mas G5 Slra 7.5x45 Cn - | | N/A: | SOFAMOR | | | 247761 | | [id number]: Qty: 2 | | Spine | DANEK - DIV | | | [id number] | | on 04/23/2014 by Keiko, | | Lumbar | [employer] | | | / / | | Jb Mathias DO | | | - SFDK | | | | + +------+--------+ +--------+--------+--------+ | Imp Spn Spcr Cpstn 7x26mm - | | N/A: | SOFAMOR | | 02/07/ | 628852 | | [id number]: Qty: 1 on | | Spine | DANEK - DIV | | 2020 | 6 / | | 04/23/2014 by Jb Aden | | Lumbar | [employer] | | | /[id number] | | DO Stew | | | - SFDK | | | 634 | + +------+--------+ +--------+--------+--------+ | Algrft Putty Wallace 5cc Dbm | | N/A: | OSTEOTECH - | | 09/26/ | 17318 | | - [id number]: Qty: | | Spine | OSTT | | 2016 | /[id number] | | 1 on 04/23/2014 by Keiko, | | Lumbar | | | | 2-064 | | Jb Mathias DO | | | | | | / | + +------+--------+ +--------+--------+--------+ | 4.75 Rods 140mmImplanted: | | N/A: | MEDTRONIC | | | [id number] | | Qty: 2 on 04/23/2014 by | | Spine | [employer]- | | | 6140 / | | Jb Aden DO | | Lumbar | 14059 | | | / | + +------+--------+ +--------+--------+--------+ | Chips Cancellous 30cc - | | N/A: | OSTEOTECH - | | 03/03/ | 430833 | | [id number]: Qty: 1 | | Spine | OSTT | | 2016 | | | on 04/23/2014 by Keiko, | | Lumbar | | | | /[id number] | | Jb Mathias DO | | | | | | 4-022 | | | | | | | | / | + +------+--------+ +--------+--------+--------+ | Putty Wallace 10cc Dbm - | | N/A: | OSTEOTECH - | | 12/31/ | 87532 | | [id number]: Qty: 1 | | Spine | OSTT | | 2016 | /[id number] | | on 04/23/2014 by Keiko, | | Lumbar | | | | 9-021 | | Jb Mathias DO | | | | | | / | + +------+--------+ +--------+--------+--------+ | Graft Infuse Bone Kit Xs - | | N/A: | SOFAMOR | | / | [id number] | | [id number]: Qty: 1 on | | Spine | DANEK - DIV | | 2015 | 0 / | | 04/23/2014 by Jb Aden | | Lumbar | [employer] | | | /[id number] | | A, DO | | | - SFDK | | | 07AAF | + +------+--------+ +--------+--------+--------+ | Cage Xl Wide [id number] - | | N/A: | NUVASIVE - | | | 898796 | | [id number]: Qty: 1 on | | Spine | NVSV | | | 0 / / | | 04/23/2014 by Jb Aden | | Lumbar | | | | | | A, DO | | | | | | | + +------+--------+ +--------+--------+--------+ | Imp Spn Spcr Peek Xlw | | N/A: | NUVASIVE - | | | [id number] | | [id number] - | | Spine | NVSV | | | 5 / / | | [id number]: Qty: 2 on | | Lumbar | [...] +--------+ +---------+--------+ | MEDICARE | MEDICA | [id number] | 03/14/19 | [phone] | | Medica | | | RE | | 10-Pre | 5 | | re | | | PART A | | sent | | | | | | AND B | | | | | | + +--------+ +--------+ +---------+--------+ | INDIVIDUAL ASSURANCE | INDIVI | [id number] | 11/13/19 | | | Indemn | [...] | [employer] | MODA | [id number] | | [phone] | | Medica | [...] | 1946 | [phone] | [place] [address] | | | meg | | | 7 (Home) | | + +--------+ +--------+ + + Advance Directives Patient has advance care planning documents, and code status on file. For more information, please contact:[facility] [place] [address] + + + + + | Code [...]
--- OUTSIDE RECORDS SUMMARY | ~2018-07-17 | XMS | Clinical Summary ---
Demographics + + + | Address | [address] | | | [place] [address] | + + + | Home Phone | | + + + | Preferred Language | Unknown | + + + | Marital Status | Single | + + + | Sikhism Affiliation | Unknown | + + + | Race | Unknown | + + + | Ethnic Group | Unknown | + + + Author + + + | Author | [facility] | | | and [place] | + + + | Organization | [facility] | | | and [place] | + + + | Address | Unknown | + + + | Phone | Unavailable | + + + Support + + + + + | Name | Relationship | Address | Phone | + + + + + | Kit Hyde | ECON | [address] | | | | | [place], | | | | | [place] [address] | | + + + + + | Crystal Hyde | ECON | Unknown | | + + + + + Care Team Providers + +------+ + | Care Shirt Ironer Supervisor Name | Role | Phone | [...] | | | | | | | ([facility]), Anxiety | | | | | | [...] 1 left | | ventricular diastolic dysfunction, iwvy-no-lzvqxlms mitral valve | | regurgitation, mild to [...] plan for her to go back to [facility] the | | [place] when she is discharged. | + + [...] a mild mitral | | valve regurgitation, takw-uo-itsqjktj tricuspid valve | | regurgitation, moderate pulmonary [...] [place] | | | | | | 512762 | | | | | | | | +--------+---------+ + + + | 11/14/ | Office | | Alpa Corcoran, | | | 2018 | Visit | | MD Maria Teresa Yanez | | | | | | [facility] | | | | | | [place] [address] | | | | | | [phone] | | | | | | | [...] | | 12/06/ | 00-111 | | [id number]: Qty: 1 on | | Knee | ZIMM | | 2017 | 3-140- | | 06/05/2013 by Berlin Nugent | | | | | | 01 / | | MD Rebecca | | | | | | /[id number] | | | | | | | | 368 | + +------+--------+ +--------+--------+--------+ | Tibial ComponentImplanted: | | Right: | Tammy | | 06/05/ | 5842-0 | | Qty: 1 on 06/05/2013 by | | Knee | | | 3 | 3- / | | Berlin Nugent MD | | | | | | | | | | | | | | /[id number] | | | | | | | | 279 | + +------+--------+ +--------+--------+--------+ | Femoral ComponentImplanted: | | Right: | Tammy | | 03/07/ | 5842-1 | | Qty: 1 on 06/05/2013 by | | Knee | | | 2022 | 06-13 / | | Berlin Nugent MD | | | | | | | | | | | | | | /[id number] | | | | | | | | 134 | + +------+--------+ +--------+--------+--------+ | Articular SurfaceImplanted: | | Right: | Tammy | | 02/05/ | 5842-2 | | Qty: 1 on 06/05/2013 by | | Knee | | | 2020 | 05-19 / | | Berlin Nugent MD | | | | | | | | | | | | | | /[address] | | | | | | | | 876 | + +------+--------+ +--------+--------+--------+ | Imp Knee Tot Unicmprt Mob Brg | | | CAP RINCON - | | | OKP1 / | | - [id number]: Qty: 1 | | | CAP | | | / | | on 06/05/2013 | | | | | | | + +------+--------+ +--------+--------+--------+ | Graft Infuse Bone Kit Xxs - | | N/A: | SOFAMOR | | / | [id number] | | [id number]: Qty: 1 on | | Spine | DANEK - DIV | | 2015 | 0 / | | 04/23/2014 by Jb Aden | | Lumbar | [employer] | | | /[id number] | | A, DO | | | - SFDK | | | 07AAH | + +------+--------+ +--------+--------+--------+ | Screw Set Solera - | | N/A: | SOFAMOR | | | 113656 | | [id number]: Qty: 8 on | | Spine | DANEK - DIV | | | 0 / / | | 04/23/2014 by Jb Aden | | Lumbar | [employer] | | | | | A, DO | | | - SFDK | | | | + +------+--------+ +--------+--------+--------+ | Screw Mas 5.5 X 55mm - | | N/A: | MED[employer]IC - | | | [id number] | | [id number]: Qty: 4 on | | Spine | MEDT | | | 29050 | | 04/23/2014 by bJ Aden | | Lumbar | | | | / / | | A DO | | | | | | | + +------+--------+ +--------+--------+--------+ | Screw Slra Sextant 7.5.55 - | | N/A: | MEDTRONIC - | | | 001756 | | [id number]: Qty: 2 on | | Spine | MEDT | | | 15929 | | 04/23/2014 by Jb Aden | | Lumbar | | | | / / | | DO Stew | | | | | | | + +------+--------+ +--------+--------+--------+ | Screw Mas G5 Slra 7.5x45 Cn - | | N/A: | SOFAMOR | | | 259155 | | [id number]: Qty: 2 | | Spine | DANEK - DIV | | | 60154 | | on 04/23/2014 by Keiko, | | Lumbar | [employer] | | | / / | | Jb Mathias DO | | | - SFDK | | | | + +------+--------+ +--------+--------+--------+ | Imp Spn Spcr Cpstn 7x26mm - | | N/A: | SOFAMOR | | 02/07/ | 239242 | | [id number]: Qty: 1 on | | Spine | DANEK - DIV | | 2020 | 6 / | | 04/23/2014 by Jb Aden | | Lumbar | [employer] | | | /[id number] | | DO Stew | | | - SFDK | | | 634 | + +------+--------+ +--------+--------+--------+ | Algrft Putty [place] 5cc Dbm | | N/A: | OSTEOTECH - | | 09/26/ | 24002 | | - [id number]: Qty: | | Spine | OSTT | | 2016 | /[id number] | | 1 on 04/23/2014 by Keiok, | | Lumbar | | | | 2-064 | | Jb Mathias DO | | | | | | / | + +------+--------+ +--------+--------+--------+ | 4.75 Rods 140mmImplanted: | | N/A: | MEDTRONIC | | | [id number] | | Qty: 2 on 04/23/2014 by | | Spine | [employer]- | | | 6140 / | | Jb Aden DO | | Lumbar | 88132 | | | / | + +------+--------+ +--------+--------+--------+ | Chips Cancellous 30cc - | | N/A: | OSTEOTECH - | | 03/03/ | [id number] | | [id number]: Qty: 1 | | Spine | OSTT | | 2016 | | | on 04/23/2014 by Keiko, | | Lumbar | | | | /[id number] | | Jb Mathias DO | | | | | | 4-022 | | | | | | | | / | + +------+--------+ +--------+--------+--------+ | Putty [place] 10cc Dbm - | | N/A: | OSTEOTECH - | | 12/31/ | 06126 | | [id number]: Qty: 1 | | Spine | OSTT | | 2016 | /[id number] | | on 04/23/2014 by Keiko, | | Lumbar | | | | 9-021 | | Jb Mathias DO | | | | | | / | + +------+--------+ +--------+--------+--------+ | Graft Infuse Bone Kit Xs - | | N/A: | SOFAMOR | | / | [id number] | | [id number]: Qty: 1 on | | Spine | DANEK - DIV | | 2015 | 0 / | | 04/23/2014 by Jb Aden | | Lumbar | [employer]IC | | | /[id number] | | A, DO | | | - SFDK | | | 07AAF | + +------+--------+ +--------+--------+--------+ | Cage Xl Wide [id number] - | | N/A: | NUVASIVE - | | | 507453 | | [id number]: Qty: 1 on | | Spine | NVSV | | | 0 / / | | 04/23/2014 by Jb Aden | | Lumbar | | | | | | A, DO | | | | | | | + +------+--------+ +--------+--------+--------+ | Imp Spn Spcr Peek Xlw | | N/A: | NUVASIVE - | | | [id number] | | [id number] - | | Spine | NVSV | | | 5 / / | | [id number]: Qty: 2 on | | Lumbar | [...] +--------+ +---------+--------+ | MEDICARE | MEDICA | [id number] | 03/14/19 | [phone] | | Medica | | | RE | | 10-Pre | 5 | | re | | | PART A | | sent | | | | | | AND B | | | | | | + +--------+ +--------+ +---------+--------+ | INDIVIDUAL ASSURANCE | INDIVI | [id number] | 11/13/19 | | | Indemn | [...] | [employer] | MODA | [id number] | | [phone] | | Medica | [...] | 1946 | [phone] | [place] [address] | | | meg | | | 7 (Home) | | + +--------+ +--------+ + + Advance Directives Patient has advance care planning documents, and code status on file. For more information, please contact:[facility] [place] [address] + + + + + | Code [...]
--- OUTSIDE RECORDS SUMMARY | ~2018-07-17 | XMS | Encounter Summary ---
Demographics + + + | Address | [address] | | | [place] [address] | + + + | Home Phone | | + + + | Preferred Language | Unknown | + + + | Marital Status | Single | + + + | Shinto Affiliation | Unknown | + + + | Race | Unknown | + + + | Ethnic Group | Unknown | + + + Author + + + | Author | [facility] | | | and [place] | + + + | Organization | [facility] | | | and [place] | + + + | Address | Unknown | + + + | Phone | Unavailable | + + + Support + + + + + | Name | Relationship | Address | Phone | + + + + + | Kit Hyde | ECON | [address] | | | | | [place], | | | | | [place] [address] | | + + + + + | Crystal Hyde | ECON | Unknown | | + + + + + Care Team Providers + +------+ + | Care Linux Security Administrator Name | Role | Phone | + [...] Refill | [facility] | VearYoly FNP | Medication Refill | | 2019 | | [facility] [place] | [address] | | | | | [address] | [place] | | | | | [place] | [address] | | | | | [address] | | | | | | [phone] | | | +--------+--------+ + + + [...] [place] | | | | | | [address] | | | | | | | | +--------+---------+ + + + | 11/14/ | Office | Cardiology | Alpa Corcoran, | | | 2018 | Visit | | MD Maria Teresa Yanez | | | | | | [facility], | | | | | | [place] [address] | | | | | | [phone] | | | | | | | | +--------+---------+ + + + documented as of this encounter Visit Diagnoses Not on filedocumented in this encounter"
--- OUTSIDE RECORDS SUMMARY | ~2018-07-17 | XMS | Encounter Summary ---
Demographics + + + | Address | [address] | | | [place] [address] | + + + | Home Phone [...] Author | [facility] | | | and [place] | + + + | Organization | [facility] | | | and [place] | + + + | Address | Unknown | + + + | Phone | Unavailable | + + + Support + + + + + | Name | Relationship | Address | Phone | + + + + + | Kit Hyde | ECON | [address] | | | | | [place], | | | | | [place] [address] | | + + + + + | Crystal Hyde | ECON | Unknown | | + + + + + Care Team Providers + +------+ + | Care Process Controls Technician Name | Role | Phone | [...] + + | 05/03/ | Telephone | [facility] | Yoly Gamez FNP | Appointment Question | | 2019 | | [facility] [place] | [address] | | | | | [address] | [place] | | | | | [place] | [address] | | | | | [address] | | | | | | [phone] | | | +--------+ + + + [...] [place] | | | | | | 196342 | | | | | | | | +--------+---------+ + + + | 11/14/ | Office | Cardiology | Alpa Corcoran, | | | 2018 | Visit | | MD Maria Teresa Ynaez | | | | | | [facility], | | | | | | [place] [address] | | | | | | [phone] | | | | | | | | +--------+---------+ + + + documented as of this encounter Visit Diagnoses Not on filedocumented in this encounter"
--- OUTSIDE RECORDS SUMMARY | ~2018-07-17 | XMS | Encounter Summary ---
Demographics + + + | Address | [address] | | | [place] [address] | + + + | Home Phone | | + + + | Preferred Language | Unknown | + + + | Marital Status | Single | + + + | Confucianist Affiliation | Unknown | + + + | Race | Unknown | + + + | Ethnic Group | Unknown | + + + Author + + + | Author | [facility] | | | and [place] | + + + | Organization | [facility] | | | and [place] | + + + | Address | Unknown | + + + | Phone | Unavailable | + + + Support + + + + + | Name | Relationship | Address | Phone | + + + + + | Kit Hyde | ECON | [address] | | | | | [place], | | | | | [place] [address] | | + + + + + | Crystal Hyde | ECON | Unknown | | + + + + + Care Team Providers + +------+ + | Care Pet Adoption Counselor Name | Role | Phone | + [...] + + | 05/03/ | Telephone | [facility] | Yoly Gamez FNP | Appointment Question | | 2019 | | [facility]IC[facility] [place] | [address] | | | | | [address] | [place] | | | | | [place] | [address] | | | | | [address] | | | | | | [phone] | | | +--------+ + + + [...] [place] | | | | | | [address] | | | | | | | | +--------+---------+ + + + | 11/14/ | Office | Cardiology | Alpa Corcoran, | | | 2018 | Visit | | MD Maria Teresa Yanez | | | | | | [facility], | | | | | | [place] [address] | | | | | | [phone] | | | | | | | | +--------+---------+ + + + documented as of this encounter Visit Diagnoses Not on filedocumented in this encounter"
--- OUTSIDE RECORDS SUMMARY | ~2018-07-17 | XMS | Encounter Summary ---
Demographics + + + | Address | [address] | | | [place] [address] | + + + | Home Phone | | + + + | Preferred Language | Unknown | + + + | Marital Status | Single | + + + | Jainism Affiliation | Unknown | + + + | Race | Unknown | + + + | Ethnic Group | Unknown | + + + Author + + + | Author | [facility] | | | and [place] | + + + | Organization | [facility] | | | and [place] | + + + | Address | Unknown | + + + | Phone | Unavailable | + + + Support + + + + + | Name | Relationship | Address | Phone | + + + + + | Kit Hyde | ECON | [address] | | | | | [place], | | | | | [place] [address] | | + + + + + | Crystal Hyde | ECON | Unknown | | + + + + + Care Team Providers + +------+ + | Care Antisqueak Worker Name | Role | Phone | [...] Refill | | 2019 | | MEDICINE [place] | [address] | | | | | [address] | [place] | | | | | [place] | [address] | | | | | [address] | | | | | | [phone] | | | +--------+--------+ + + + [...] [place] | | | | | | [address] | | | | | | | | +--------+---------+ + + + | 11/14/ | Office | Cardiology | Alpa Corcoran, | | | 2018 | Visit | | MD Maria Teresa Yanez | | | | | | [facility], | | | | | | [place] [address] | | | | | | [phone] | | | | | | | | +--------+---------+ + + + documented as of this encounter Visit Diagnoses Not on filedocumented in this encounter"
[~2018-07-17 11:55] MED LIST changes: +IPRAT-ALBUT 0.5-3 ML INH; +PREDNISONE20 MG PO
--- NOTE | 2018-07-17 16:45 | NUR ---
PT ADMITTED AT 16:33 TO ROOM 127, STUDENT NURSE JAIRO GUIDRY COMPLETED THE ADMIT PROCESS. PT WAS ABLE TO TRANSFER SELF FROM STREACHER TO BED, CHANGE INTO PT GOWN. PT WAS EATTING A SANDWICH AND SOME COFFEE THAT SHE BROUGHT UP FROM THE ED. PT'S LIFE ALERT NECKLESS WAS PLACED IN A BLUE BAG THAT IS LABLED WITH A PT STICKED AND PLACED IN HER PERSONAL BELONGINGS BAG. PT SUPERVISOR PAPER COATING PRESENT DURING ADMIT 16:[address] EXPLANED TO PT HOW THEY WORK AND WHY WE USE THEM. 17:00 PT ORDERED STRAWBERRY CAKE AND SOME COFFEE. PT IS WATCHING TV AND CALLED INTO [employer] TO SEE IF THEY COULD FAX A COPY OF HER POLST FORM THAT IS HANGING ON HER FRIG. THEY WHERE REACHED AND WILL FAX IT TO THE CCU. HANGING ON HER FRIG IN HER APARTMENT. TOLERATING HOSPITAL ROUTINE WELL.
--- NOTE | 2018-07-17 18:02 | NUR ---
PATIENT AMBULATED TO BATHROOM WITH ASSISTANCE FROM [facility]. PATIENT IS A STANDBY ASSIST. PATIENT TOLERATED WELL AND IS BACK IN BED.
--- NOTE | 2018-07-17 18:03 | NUR ---
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 [facility]AO FROM [facility].
--- NOTE | 2018-07-17 20:00 | NUR ---
SHIFT REPORT WAS RECEIVED FROM SN CHAO. PT CALLED AT THIS TIME, UP TO BATHROOM WITH SBA AND 1-PA. VOIDED 300ML AND THEN RETURNED TO BED. LEADS REPLACED AFTER APPLYING SKIN PROTECTANT PER PT REQUEST, STATES SHE HAS VERY SENSITIVE SKIN AND IS CONCERNED THAT IF STICKERS ARE LEFT ON TOO LONG THAT THEY WILL TAKE AWAY SKIN WHEN REMOVED. SCD'S IN PLACE. 2L O2 VIA NC IN PLACE. IV SL. CALL [facility] WITHIN REACH.
--- NOTE | 2018-07-17 20:56 | NUR ---
ASSESSMENT COMPLETED. PT IS ALERT/ORIENTED. DENIES PAIN AT THIS TIME. LUNGS CLEAR, CRACKLES NOTED IN LEFT LOWER LOBE, 2L O2 VIA NC IN PLACE. HR 60'S AT THIS TIME, OCCASIONALLY IN THE 40'S. DENIES CHEST PAIN AND SOB. BOWEL TONES ACTIVE, DENIES NAUSEA. ATTENDS IN PLACE, PT SOMETIMES INCONTINENT OF URINE. SKIN GOSSLY INTACT, SCD'S IN PLACE. TRACE EDEMA NOTED IN BLE. IV SL, PATENT. R.T. IN TO GIVE BREATHING TREATMENT, PT AGREEABLE TO TRYING OUR CPAP TONIGHT HERS IS AT HOME. NO FUTHER REQUESTS AT THIS TIME, CALL [facility] WITHIN REACH.
--- NOTE | 2018-07-17 22:17 | NUR ---
PT CALLED, UP TO BATHROOM WITH SBA AND FWW. VOIDED 250ML. BRUSHED TEETH AND RETURNED TO BED. PT STATES SHE IS READY FOR BED, R.T. CALLED TO SET UP CPAP. CALL [facility] WITHIN REACH.
--- NOTE | 2018-07-17 22:37 | NUR ---
R.T. IN TO PLACE PT ON CPAP, 2L O2 BLED IN.
--- NOTE | 2018-07-18 00:15 | NUR ---
PT TRANSFERRED TO [facility] ROOM 113 AT THIS TIME. REPORT GIVEN TO STAN NICOLAS. VITAL SIGNS STABLE, ON TELE #3. ALL BELONGINGS WITH PT.
--- NOTE | 2018-07-18 00:30 | NUR ---
PATIENT ARRIVED FROM CCU VIA THE BED. VS STABLE. TELE [address]. PATIENT IS AAOX4. WATER AND PUDDING PROVIDED. PATIENT REQUEST ASSISTANCE TO THE BATHROOM, CITLALI GILMORE ASSIST. 1PA W/FWW. PATIENT DENIES PAIN OR SOB. RT IN TO SEE PATIENT. NO FURTHER NEEDS AT THIS TIME. CALL LIGHT IN REACH.
--- NOTE | 2018-07-18 00:44 | NUR ---
1 PA TO THE BATHROOM USING WALKER. PATIENT IS BACK IN BED. CALL LIGHT AND SIDE TABLE WITHIN REACH. RT CHRIS WAS WITH PATIENT.
--- NOTE | 2018-07-18 02:24 | NUR ---
PATIENT APPEARS TO BE SLEEPING IN BED. CPAP IN PLACE. CALL LIGHT IN REACH. TELE #3, HR 45-48 AT THIS TIME.
--- NOTE | 2018-07-18 03:45 | NUR ---
CPAP ALARM FOR LOW RR. WHILE WHILE ROOM PATIENT WOKE SUDDENLY AND APPEARED UPSET SYAING "WHAT ARE YOU DOING IN HERE?". PATIENT WAS QUICKLY ABLE TO REORIENT HERSELF TO HER SURROUNDINGS AND REPORTED THAT SHE FORGOT WHERE SHE WAS FOR A MOMENT. PATIENT DENIES TOILETING NEEDS. IS TOLERATING THE CPAP AND RR 18. CALL LIGHT IN REACH. TELE IN PLACE, HR 50'S.
--- NOTE | 2018-07-18 05:27 | NUR ---
PATIENT TRANSFERED FROM CCU THIS SHIFT. AAOX4. 2L NC WHILE AWAKE AND CPAP WITH 2L BLEED IN WHILE SLEEPING. TELE #3, HR RANGES FROM 45-60 AT REST. CRACKLES HEARD IN JODIE BASES. PATIENT DENIES PAIN. SCDS IN USE. TRACE EDEMA NOTED IN JODIE LOWER EXTREMITIES. 1PA W/FWW. OUTPUT QS. IV SL. HEART HEALTHY DIET.
--- NOTE | 2018-07-18 06:48 | NUR ---
PATIENT UP TO BATHROOM. SBA W/FWW. PATIENT AAOX4. NEW ATTENDS PROVIDED AND TEETH BRUSHED. PATIENT RETURNED TO BED. CRACKLES IN LUNGS BASES NOTED. TOLERATING ROOM AIR BUT REQUEST HER CHRONIC 2L NC. PATIENT LOOKING AT MENU FOR BREAKFAST. NO OTHER NEEDS AT THIS TIME.
--- NOTE | 2018-07-18 07:28 | NUR ---
PATIENT PROVIDED WITH PRN TYLENOL FOR A HEADACHE. PATIENT REGULARLY TAKES ASPIRIN, PASSED THIS ON TO JOSE PIERCE TO REQUEST FROM .
--- NOTE | 2018-07-18 08:04 | NUR ---
PATIENT C/O STEEL PAIN, SHE REQUESTED ASPRIN PO NOW, DOCTOR MERNA CALLED AND 325MG ORDERED. PATIENT MOVED UP TO THE CHAIR FOR BREAKFAST AND ECHO FINISHED.
--- NOTE | 2018-07-18 08:12 | NUR ---
water filled up for the patient, she still has c/o spicer pain 05/21, asprin 325 mg given po now. patient is alert and oriented and has no c/o dizziness when standing and transfers with fww and is steady on her feet. she remains up in the chair and is finishing breakfast, call light within reach
--- NOTE | 2018-07-18 10:26 | NUR ---
PATIENT REFUSED A SHOWER AT THIS TIME, WILL FOLLOW UP WITH HER LATER
[2018-07-18] MEDS ORDERED: IPRAT-ALBUT 0.5-3 ML INH (11:51)
[2018-07-18] MEDS ORDERED: PREDNISONE20 MG PO (11:52)
[2018-07-18] MEDS ORDERED: FLOVENT HFA12 GM INH (11:56)
--- NOTE | 2018-07-18 12:37 | NUR ---
PT SITTING UP IN BED, WATCHING TV. SHE IS ALERT AND ORIENTED AND SEEMED COMFORTABLE WITH MY VISIT. PT SHARED WITH ME SHE HAS RECENTLY HAD TO MOVE AND SHE FEELS IT IS ADDING STRESS TO LIFE THAT MAY HAVE BEEN A REASON FOR HER ADMISSION. PT REQUESTED PRAYER AND ALLOWED ME TO GIVE HR A P.SHAWL AND GUIDE POST MAG. WILL FOLLOW NEEDED
--- NOTE | 2018-07-18 13:17 | NUR ---
patient and her caregiver given d/c instructions, questions answered and pharmacist in to teach patient new medication. iv dc'd in the right a/c tip intact no reddness or swelling noted.
--- NOTE | 2018-07-18 13:39 | EKG ---
[facility] [address] [facility] [place] [address] Signed Marked sinus bradycardia with junctional escape Nonspecific ST abnormality Abnormal ECG When compared with ECG of 08-JUN-2018 15:47, Vent. rate has decreased BY 21 BPM QT has shortened Confirmed by ANDREA BAUMAN MD ([id number]) on 07/18/2018 1:39:11 PM Electronically Signed By: ANDREA BAUMAN MD 07/18/18 1339 PATIENT NAME: LILIANE HUNTER Electrocardiogram DATE OF : 41 PHYSICIAN: ANDREA BAUMAN MD REPORT #: [id number] REPORT IS CONFIDENTIAL AND NOT TO BE RELEASED WITHOUT AUTHORIZATION
--- NOTE | 2018-07-19 10:42 | NUR ---
PT CALLED AND WANTED TO KNOW WHERE HER PRESCRIPTION FOR PREDNISONE WAS. LOOKED IT UP AND ITS AT [facility]. PT WAS WORRIED ABOUT BEING ABLE TO PICK IT UP, I CALLED ANGIE AND JASMIN THE NETWORK MANAGER WILL GO PICK IT UP. CALLED LILIANE AND LEFT A MESSAGE THAT IT WILL BE TAKEN CARE OF.
== END 2018-07-18 13:10 | disposition home or self-care (01) ==
LOC: ED 11:55 → CCU 11:57 → MS 07-18 00:15
PROVIDERS: ADMIT Internal Medicine
DX: R00.1 Bradycardia, unspecified (principal); T46.4X5A Adverse effect of angiotensin-converting-enzyme inhibitors, initial encounter; J44.1 Chronic obstructive pulmonary disease with (acute) exacerbation; J20.9 Acute bronchitis, unspecified; J44.0 Chronic obstructive pulmonary disease with (acute) lower respiratory infection; K21.9 Gastro-esophageal reflux disease without esophagitis; I10 Essential (primary) hypertension; K50.90 Crohn's disease, unspecified, without complications; N32.81 Overactive bladder; M35.3 Polymyalgia rheumatica; G47.33 Obstructive sleep apnea (adult) (pediatric); F39 Unspecified mood [affective] disorder; Z99.81 Dependence on supplemental oxygen; Z87.891 Personal history of nicotine dependence; Z79.82 Long term (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 of aspirin; Z79.52 Long term (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 of systemic steroids; Z79.899 Other long term (current) drug therapy; Z88.5 Allergy status to narcotic agent; Z88.8 Allergy status to other drugs, medicaments and biological substances
CPT/HCPCS: 71045; 80053; 83735; 84484; 85025; 93005; 93010; 93306; 94640; 94660; 94667; 94668; 94760; 96374; 99291; G0378; J2930; J7512

== ENCOUNTER 2019-05-24 20:40 | Emergency (ER) | payer MEDICARE, OTHER ==
[~2019-05-24] VITALS: Ht 160 cm; Wt 67.1 kg
[~2019-05-24 20:40] MED LIST changes: +BUPROPION HCL200 MG PO; +C-500500 MG PO; +CILOSTAZOL50 MG PO; +D-20002000 UNIT PO; +FAMOTIDINE20 MG PO; +FLOVENT HFA12 GM INH; +GNP B-COMPLEX1 EACH PO; +LOSARTAN POTASS50 MG PO; +MELATIN3 MG PO; +NEXIUM40 M1 PO; +OXYBUTYNIN CHLO10 MG PO; +SERTRALINE HCL25 MG PO; +ZOFRAN4 MG PO
[2019-05-24] MEDS ORDERED: MACROBID 100 M100 MG PO (22:26)
== END 2019-05-24 22:56 | disposition home or self-care (01) ==
LOC: ED 20:40
DX: N39.0 Urinary tract infection, site not specified (principal); I10 Essential (primary) hypertension; E11.9 Type 2 diabetes mellitus without complications; Z87.891 Personal history of nicotine dependence; Z88.8 Allergy status to other drugs, medicaments and biological substances; Z88.5 Allergy status to narcotic agent; Z79.899 Other long term (current) drug therapy; Z79.82 Long term (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 of aspirin
CPT/HCPCS: 70450; 71045; 80053; 81001; 85025; 99284-25

== ENCOUNTER 2019-05-27 20:07 | Emergency (ER) | payer MEDICARE, OTHER ==
[~2019-05-27] VITALS: Ht 160 cm; Wt 70.4 kg
--- OUTSIDE RECORDS SUMMARY | 2019-05-27 20:10 | XMS ---
PreManage Notification: LILIANE HUNTER Security Neon Electrician Events No recent Security Events currently on file CRITERIA MET - [facility] - 2 Visits in 30 Days CARE PROVIDERS NAV MCELROY Nurse Practitioner: Family Current PHONE: [phone] Adonis Bonilla Environmental Science Program Director/Head Of Transport Logistics 09/11/2018-Current PHONE: [phone] Adonis Bonilla Primary Care 09/11/2018-Current PHONE: [phone] [place] has no Care Guidelines for this patient. E.D. VISIT COUNT (12 MO.) 6 [facility] TOTAL 6 NOTE: Visits indicate total known visits. 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 - Personal history of nicotine dependence - senior care (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 of aspirin - Headache - Allergy status to oth drug/meds/biol subst status - 1 Type 2 diabetes mellitus without complications - Allergy status to narcotic agent status - Essential (primary) hypertension - Urinary tract infection, site not specified 01/08/2019 09:55 [facility] TYPE: Emergency COMPLAINT: - MULTIPLE COMPLAINTS DIAGNOSES: - Allergy status to analgesic agent status - Other nonmedicinal substance allergy status - Nausea - Essential (primary) hypertension - 1 Type 2 diabetes mellitus without complications - Allergy status to narcotic agent status - senior care (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 of aspirin - 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 - Personal history of nicotine dependence 08/30/2018 12:18 [facility] TYPE: Emergency COMPLAINT: - RIGHT SIDED PAIN, ABDOMINAL PAIN 07/17/2018 11:56 [facility] TYPE: Emergency COMPLAINT: - SOB 06/08/2018 15:30 [facility] TYPE: Emergency COMPLAINT: - SORE THROAT, DIFFICULTY BREATHING DIAGNOSES: - Essential (primary) hypertension - Other nonmedicinal substance allergy status - Personal history of nicotine dependence - 1 Type 2 diabetes mellitus without complications - 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 - Polymyalgia rheumatica - Acute pharyngitis, unspecified - termite control servicer (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 of aspirin - Chronic obstructive pulmonary disease w (acute) exacerbation - Allergy status to analgesic agent status - Allergy status to narcotic agent status INPATIENT VISIT TRACKING (12 MO.) 08/30/2018 12:19 [facility] TYPE: Observation COMPLAINT: - CHOLELITHIASIS DIAGNOSES: - Allergy status to oth drug/meds/biol subst status - Crohn's disease, unspecified, without complications - Calculus of gallbladder w chronic cholecyst w/o obstruction - Allergy status to narcotic agent status - Other specified diseases of gallbladder - 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 - termite control servicer (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 of aspirin - Overactive bladder - Personal history of nicotine dependence - Right upper quadrant pain - Polymyalgia rheumatica - Prsnl hx of TIA (TIA), and cereb infrc w/o resid deficits - Personal history of pulmonary embolism - Essential (primary) hypertension 07/17/2018 11:57 [facility] TYPE: Observation COMPLAINT: - SYMPTOMATIC BRADYCARDIA DIAGNOSES: - Personal history of nicotine dependence - Adverse effect of afdhkxnjs-xzlmatd-ernadb inhibitors, init - Essential (primary) hypertension - termite control servicer (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 of aspirin - Obstructive sleep apnea (adult) (pediatric) - Overactive bladder - Allergy status to oth drug/meds/biol subst status - Polymyalgia rheumatica - Allergy status to narcotic agent status - Dependence on supplemental oxygen - 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
[2019-05-27] MEDS ORDERED: FLAGYL500 MG PO (22:18)
[2019-05-27] MEDS ORDERED: KEFLEX500 MG PO (22:18)
== END 2019-05-27 22:35 | disposition home or self-care (01) ==
LOC: ED 20:07
DX: N39.0 Urinary tract infection, site not specified (principal); I10 Essential (primary) hypertension; E11.9 Type 2 diabetes mellitus without complications; Z87.891 Personal history of nicotine dependence; Z88.8 Allergy status to other drugs, medicaments and biological substances; Z88.5 Allergy status to narcotic agent; Z79.899 Other long term (current) drug therapy; Z79.82 Long term (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 of aspirin
CPT/HCPCS: 80053; 81001; 85025; 99284

== ENCOUNTER 2019-09-13 23:57 | Emergency (ER) | payer MEDICARE, OTHER ==
[~2019-09-13] VITALS: Ht 160 cm; Wt 70.4 kg
[~2019-09-13 23:57] MED LIST changes: +FLAGYL500 MG PO; +KEFLEX500 MG PO
[2019-09-14] MEDS ORDERED: CIPROFLOXACIN500 MG PO (01:46)
[2019-09-14] MEDS ORDERED: ZOFRAN4 MG PO (02:39)
[2019-09-14] MEDS ORDERED: NORCO 5-325 TA1 EACH PO (02:39)
[2019-09-14] MEDS ORDERED: LEVAQUIN500 MG PO (02:39)
== END 2019-09-14 03:17 | disposition home or self-care (01) ==
LOC: ED 23:57
DX: N13.2 Hydronephrosis with renal and ureteral calculous obstruction (principal); N39.0 Urinary tract infection, site not specified; I10 Essential (primary) hypertension; E11.9 Type 2 diabetes mellitus without complications; Z87.891 Personal history of nicotine dependence; Z91.040 Latex allergy status; Z91.09 Other allergy status, other than to drugs and biological substances; Z88.8 Allergy status to other drugs, medicaments and biological substances; Z88.5 Allergy status to narcotic agent; Z79.899 Other long term (current) drug therapy; Z79.82 Long term (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 of aspirin
CPT/HCPCS: 74177; 99284-25; J1170

== ENCOUNTER 2019-10-13 21:53 | Emergency (ER) | payer MEDICARE, OTHER ==
[~2019-10-13] VITALS: Ht 160 cm; Wt 70.4 kg
[~2019-10-13 21:53] MED LIST changes: +CIPROFLOXACIN500 MG PO; +LEVAQUIN500 MG PO
--- OUTSIDE RECORDS SUMMARY | 2019-10-13 21:56 | XMS ---
PreManage Notification: LILIANE HUNTER Security Faculty Head Events No recent Security Events currently on file CRITERIA MET - [facility] - 2 Visits in 30 Days CARE PROVIDERS NAV MCELROY Nurse Practitioner: Family Current PHONE: [phone] Adonis Bonilla Head Of Science/Commutator Tester 09/11/2018-Current PHONE: [phone] [place] has no Care Guidelines for this patient. EBhupendra VISIT COUNT (12 MO.) [address] [place] [address] TOTAL 5 NOTE: Visits indicate total known visits. ED/UCC VISIT TRACKING (12 MO.) 10/13/2019 21:53 [facility] TYPE: Emergency COMPLAINT: - FALL 09/13/2019 23:58 [facility] TYPE: Emergency COMPLAINT: - ABDOMINAL PAIN DIAGNOSES: - Latex allergy status - Essential (primary) hypertension - Personal history of nicotine dependence - Other allergy status, other than to drugs and biological subs - Allergy status to narcotic agent status - Hydronephrosis with renal and ureteral calculous obstruction - Allergy status to other drugs, medicaments and biological sub - Urinary tract infection, site not specified - Other group home (current) drug therapy - body design checker (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 of aspirin - Type 2 diabetes mellitus without complications - Lower abdominal pain, unspecified 05/27/2019 20:07 [facility] TYPE: Emergency COMPLAINT: - CONFUSION DIAGNOSES: - Essential (primary) hypertension - Allergy status to other drugs, medicaments and biological sub - Other group home (current) drug therapy - Urinary tract infection, site not specified - Allergy status to narcotic agent status - Personal history of nicotine dependence - Type 2 diabetes mellitus without complications - body design checker (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 of aspirin 05/24/2019 20:42 [facility] TYPE: Emergency COMPLAINT: - HEADACHE,FALL,SOB DIAGNOSES: - 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 - Personal history of nicotine dependence - FDC (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 of aspirin - Headache - Allergy status to other drugs, medicaments and biological sub - Type 2 diabetes mellitus without complications - Allergy status to narcotic agent status - Essential (primary) hypertension - Urinary tract infection, site not specified 01/08/2019 09:55 [facility] TYPE: Emergency COMPLAINT: - MULTIPLE COMPLAINTS DIAGNOSES: - Allergy status to analgesic agent status - Other nonmedicinal substance allergy status - Nausea - Essential (primary) hypertension - Type 2 diabetes mellitus without complications - Allergy status to narcotic agent status - body design checker (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 of aspirin - 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
[2019-10-13] MEDS ORDERED: NORCO 5-325 TA1 EACH PO (22:24)
== END 2019-10-13 22:54 | disposition home or self-care (01) ==
LOC: ED 21:53
DX: S42.032A Displaced fracture of lateral end of left clavicle, initial encounter for closed fracture (principal); S80.212A Abrasion, left knee, initial encounter; I10 Essential (primary) hypertension; E11.9 Type 2 diabetes mellitus without complications; Z87.891 Personal history of nicotine dependence; Z91.040 Latex allergy status; Z88.8 Allergy status to other drugs, medicaments and biological substances; Z88.5 Allergy status to narcotic agent; Z79.899 Other long term (current) drug therapy; Z79.82 Long term (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 of aspirin; W19.XXXA Unspecified fall, initial encounter
CPT/HCPCS: 73000; 99283-25

== ENCOUNTER 2019-10-16 18:03 | Emergency (ER) | payer MEDICARE, OTHER ==
[~2019-10-16] VITALS: Ht 160 cm; Wt 70.4 kg
--- OUTSIDE RECORDS SUMMARY | 2019-10-16 18:06 | XMS ---
PreManage Notification: LILIANE HUNTER Security Director Targeted Marketing Events No recent Security Events currently on file CRITERIA MET - [facility] - 2 Visits in 30 Days CARE PROVIDERS NAV MCELROY Nurse Practitioner: Family Current PHONE: [phone] [place] CRISTINA [facility] 10/15/2019-Current PHONE: [phone] Adonis Bonilla Wash House Supervisor/Car Inspection And Repair Manager 09/11/2018-Current PHONE: [phone] Lawrence has no Care Guidelines for this patient. E.D. VISIT COUNT (12 MO.) 6 [facility] TOTAL 6 NOTE: Visits indicate total known visits. ED/UCC VISIT TRACKING (12 MO.) 10/16/2019 18:04 [facility] TYPE: Emergency COMPLAINT: - SHOULDER PAIN/INJ 10/13/2019 21:53 [facility] TYPE: Emergency [...] tract infection, site not specified - Other fpc (current) drug therapy - retirement (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 of aspirin - Type 2 diabetes mellitus without complications - Lower abdominal pain, unspecified 05/27/2019 20:07 [facility] TYPE: Emergency COMPLAINT: - CONFUSION DIAGNOSES: - Essential (primary) hypertension - Allergy status to other drugs, medicaments and biological sub - Other fpc (current) drug therapy - Urinary tract infection, site not specified - Allergy status to narcotic agent status - Personal history of nicotine dependence - Type 2 diabetes mellitus without complications - termite treater (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 of aspirin 05/24/2019 20:42 [facility] TYPE: Emergency COMPLAINT: - HEADACHE,FALL,SOB DIAGNOSES: - Other exterminator helper (current) drug therapy - Personal history of nicotine dependence - retirement (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 of aspirin - Headache - Allergy status to other drugs, medicaments and biological sub - Type 2 diabetes mellitus without complications - Allergy status to narcotic agent status - Essential (primary) hypertension - Urinary tract infection, site not specified 01/08/2019 09:[address] [facility] TYPE: Emergency COMPLAINT: - MULTIPLE COMPLAINTS DIAGNOSES: - Allergy status to analgesic agent status - Other nonmedicinal substance allergy status - Nausea - Essential (primary) hypertension - Type 2 diabetes mellitus without complications - Allergy status to narcotic agent status - termite treater (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 of aspirin - Other fpc (current) drug therapy - Personal history of nicotine dependence INPATIENT VISIT TRACKING (12 MO.) No inpatient visits to display in this time frame [email or web address]
[2019-10-16] MEDS ORDERED: ZOFRAN4 MG PO (19:03)
== END 2019-10-16 19:27 | disposition home or self-care (01) ==
LOC: ED 18:03
DX: S42.002D Fracture of unspecified part of left clavicle, subsequent encounter for fracture with routine healing (principal); I10 Essential (primary) hypertension; E11.9 Type 2 diabetes mellitus without complications; Z87.891 Personal history of nicotine dependence; Z91.040 Latex allergy status; Z91.09 Other allergy status, other than to drugs and biological substances; Z88.5 Allergy status to narcotic agent; Z88.8 Allergy status to other drugs, medicaments and biological substances; Z79.899 Other long term (current) drug therapy; Z79.82 Long term (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 of aspirin
CPT/HCPCS: 71045; 99283-25

== ENCOUNTER 2019-10-26 19:38 | Emergency (ER) | payer MEDICARE, OTHER ==
[~2019-10-26] VITALS: Ht 160 cm; Wt 72.7 kg
--- OUTSIDE RECORDS SUMMARY | 2019-10-26 19:40 | XMS ---
PreManage Notification: LILIANE HUNTER Security Gunite Mixer Events No recent Security Events currently on file CRITERIA MET - 6 ED Visits in 6 Months - [facility] - 2 Visits in 30 Days CARE PROVIDERS NAV MCELROY Nurse Practitioner: Family Current PHONE: [phone] [place] CRISTINA [facility] 10/15/2019-Current PHONE: [phone] Adonis Bonilla Automotive Parts Counter Assistant/Safety And Health Manager 09/12/2019-Current PHONE: [phone] Lawrence has no Care Guidelines for this patient. E.D. VISIT COUNT (12 MO.) 7 [facility] [place] TOTAL 7 NOTE: Visits indicate total known visits. ED/UCC VISIT TRACKING (12 MO.) 10/26/2019 19:39 [facility] TYPE: Emergency COMPLAINT: - SOB 10/16/2019 18:04 [facility] TYPE: Emergency COMPLAINT: - SHOULDER PAIN/INJ DIAGNOSES: - Allergy status to narcotic agent status - Other senior care (current) drug therapy - Allergy status to other drugs, medicaments and biological sub - Personal history of nicotine dependence - Essential (primary) hypertension - Other allergy status, other than to drugs and biological subs - Nausea - Fracture of unspecified part of left clavicle, subsequent enc - Latex allergy status - group home (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 of aspirin - Type 2 diabetes mellitus without complications 10/13/2019 21:53 [facility] TYPE: Emergency COMPLAINT: - FALL DIAGNOSES: - Essential (primary) hypertension - Allergy status to other drugs, medicaments and biological sub - Other buttermaker (current) drug therapy - Pain in left knee - Unspecified fall, initial encounter - Personal history of nicotine dependence - Allergy status to narcotic agent status - group home (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 of aspirin - Latex allergy status - Abrasion, left knee, initial encounter - Displaced fracture of lateral end of left clavicle, initial e - Type 2 diabetes mellitus without complications 09/13/2019 23:58 [facility] TYPE: Emergency [...] tract infection, site not specified - Other buttermaker (current) drug therapy - termination clerk (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 of aspirin - Type 2 diabetes mellitus without complications - Lower abdominal pain, unspecified 05/27/2019 20:07 [facility] TYPE: Emergency COMPLAINT: - CONFUSION DIAGNOSES: - Essential (primary) hypertension - Allergy status to other drugs, medicaments and biological sub - Other buttermaker (current) drug therapy - Urinary tract infection, site not specified - Allergy status to narcotic agent status - Personal history of nicotine dependence - Type 2 diabetes mellitus without complications - termination clerk (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 of aspirin 05/24/2019 20:42 [facility] TYPE: Emergency COMPLAINT: - HEADACHE,FALL,SOB DIAGNOSES: - Other senior care (current) drug therapy - Personal history of nicotine dependence - group home (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 of aspirin - Headache - [...] Allergy status to narcotic agent status - group home (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 of aspirin - Other buttermaker (current) drug therapy - Personal history of nicotine dependence INPATIENT VISIT TRACKING (12 MO.) No inpatient visits to display in this time frame [email or web address]
== END 2019-10-26 23:49 | disposition home or self-care (01) ==
LOC: ED 19:38
DX: S42.002A Fracture of unspecified part of left clavicle, initial encounter for closed fracture (principal); R06.00 Dyspnea, unspecified; R07.89 Other chest pain; I10 Essential (primary) hypertension; Z87.891 Personal history of nicotine dependence; Z91.040 Latex allergy status; Z91.041 Radiographic dye allergy status; Z88.5 Allergy status to narcotic agent; W18.30XA Fall on same level, unspecified, initial encounter
CPT/HCPCS: 71046; 71260; 80053; 83880; 85025; 85379; 99285-25; Q9967

== ENCOUNTER 2020-02-03 07:50 | Emergency (ER) | payer MEDICARE, OTHER ==
[~2020-02-03] VITALS: Ht 160 cm; Wt 72.7 kg
--- OUTSIDE RECORDS SUMMARY | 2020-02-03 07:52 | XMS ---
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 E.D. VISIT COUNT (12 MO.) 7 [facility] [place] TOTAL 7 NOTE: Visits indicate total known visits. ED/UCC VISIT TRACKING (12 MO.) 02/03/2020 07:50 [facility] TYPE: Emergency COMPLAINT: - ABD PAIN 10/26/2019 19:39 [facility] TYPE: Emergency COMPLAINT: - SOB DIAGNOSES: - Fracture of unspecified part of left clavicle, initial encounter for closed fracture - Radiographic dye allergy status - Fall on same level, unspecified, initial encounter - Latex allergy status - Essential (primary) hypertension - Dyspnea, unspecified - Allergy status to narcotic agent - Other chest pain - Personal history of nicotine dependence 10/16/2019 18:04 [facility] TYPE: Emergency COMPLAINT: - SHOULDER PAIN/INJ DIAGNOSES: - Allergy status to narcotic agent - Other [facility] (current) drug therapy - Allergy status to other drugs, medicaments and biological substances - Personal history of nicotine dependence - Essential (primary) hypertension - Other allergy status, other than to drugs and biological substances - Nausea - Fracture of unspecified part of left clavicle, subsequent encounter for fracture with routine healing - Latex allergy status - intermediate teacher (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 of aspirin - Type 2 diabetes mellitus without complications 10/13/2019 21:53 [facility] TYPE: Emergency COMPLAINT: - FALL DIAGNOSES: - Essential (primary) hypertension - Allergy status to other drugs, medicaments and biological substances - Other [facility] (current) drug therapy - Pain in left knee - Unspecified fall, initial encounter - Personal history of nicotine dependence - Allergy status to narcotic agent - [facility] (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 of aspirin - Latex allergy status - Abrasion, left knee, initial encounter - Displaced fracture of lateral end of left clavicle, initial encounter for closed fracture - Type 2 diabetes mellitus without complications 09/13/2019 23:58 [facility] TYPE: Emergency COMPLAINT: - ABDOMINAL PAIN DIAGNOSES: - Latex allergy status - Essential (primary) hypertension - Personal history of nicotine dependence - Other allergy status, other than to drugs and biological substances - Allergy status to narcotic agent - Hydronephrosis with renal and ureteral calculous obstruction - Allergy status to other drugs, medicaments and biological substances - Urinary tract infection, site not specified - Other [facility] (current) drug therapy - intermediate teacher (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 of aspirin - Type 2 diabetes mellitus without complications - Lower abdominal pain, unspecified 05/27/2019 20:07 [facility] TYPE: Emergency COMPLAINT: - CONFUSION DIAGNOSES: - Essential (primary) hypertension - Allergy status to other drugs, medicaments and biological substances - Other terminal operator (current) drug therapy - Urinary tract infection, site not specified - Allergy status to narcotic agent - Personal history of nicotine dependence - Type 2 diabetes mellitus without complications - [facility] (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 of aspirin 05/24/2019 20:42 [facility] TYPE: Emergency COMPLAINT: - HEADACHE,FALL,SOB DIAGNOSES: - Other [facility] (current) drug therapy - Personal history of nicotine dependence - [facility] (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 of aspirin - Headache - Allergy status to other drugs, medicaments and biological substances - Type 2 diabetes mellitus without complications - Allergy status to narcotic agent - Essential (primary) hypertension - Urinary tract infection, site not specified INPATIENT VISIT TRACKING (12 MO.) No inpatient visits to display in this time frame [email or web address]
[2020-02-03] MEDS ORDERED: NORCO 5-325 TA1 EACH PO (11:16)
[2020-02-03] MEDS ORDERED: ONDANSETRON ODT8 MG PO (11:16)
[2020-02-03] MEDS ORDERED: CEFDINIR300 MG PO (11:16)
== END 2020-02-03 11:41 | disposition home or self-care (01) ==
LOC: ED 07:50
DX: N13.2 Hydronephrosis with renal and ureteral calculous obstruction (principal); I10 Essential (primary) hypertension; E11.9 Type 2 diabetes mellitus without complications; Z87.891 Personal history of nicotine dependence; Z91.040 Latex allergy status; Z88.8 Allergy status to other drugs, medicaments and biological substances; Z88.5 Allergy status to narcotic agent; Z79.899 Other long term (current) drug therapy; Z79.82 Long term (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 of aspirin
CPT/HCPCS: 74176; 80053; 81001; 85025; 87077; 87088; 87186; 96374; 96375; 99284-25; J0696; J1885; J2405; J7040

== ENCOUNTER 2020-02-06 05:55 | Day surgery (SDC) | payer MEDICARE, OTHER ==
[~2020-02-06] VITALS: Ht 160 cm; Wt 70.6 kg
--- NOTE | ~2020-02-06 | OR ---
[facility] [address] [place] [place] [address] Draft DATE OF OPERATION: 02/06/2020 SURGEON: Moe Flores MD PREOPERATIVE DIAGNOSES: 1. Severe right hydroureteronephrosis secondary to obstructing right mid ureteral calculi. 2. Active urinary tract infection. POSTOPERATIVE DIAGNOSES: 1. Severe right hydroureteronephrosis secondary to obstructing right mid ureteral calculi. 2. Active urinary tract infection. NAMES OF PROCEDURES: 1. Diagnostic cystoscopy with right retrograde pyelogram. 2. Insertion of an indwelling 6 x 24 cm double-J ureteral stent into the right collecting system. ANESTHESIA: General. ESTIMATED BLOOD LOSS: None. COMPLICATIONS: None. SPECIMENS: None. DRAINS: A 6 x 24 cm double-J ureteral stent inserted to the right ureter. INDICATIONS FOR PROCEDURE: Ms. Hunter is a very pleasant 74-year-old female with no previous known history of nephrolithiasis, who presented to my clinic yesterday upon referral from the emergency department here at [place] after she presented there on February 02 with right-sided flank pain and nausea vomiting. She underwent a CT scan at that time which revealed [id number] right hydroureteronephrosis secondary to a 2 mid right PATIENT NAME: LILIANE HUNTER OPERATIVE REPORT DATE OF : 41 REPORT #: [id number] PHYSICIAN: MOE FLORES MD PCP: AUSTIN CRISTINA MD REPORT IS CONFIDENTIAL AND NOT TO BE RELEASED WITHOUT AUTHORIZATION [facility] [address] [place], [place] [address] Draft ureteral calculi. One stone measured 13 mm, and the other around 5 mm. The patient's renal function, white count were noted to be within normal limits at the time, however, she was found to have an active urinary tract infection. Since she was systemically stable, she was sent home for close followup with Urology. She was given one dose of ceftriaxone in the emergency department and then sent home on cefdinir 300 mg p.o. b.i.d. After discussion of the risks and benefits of the procedure, the patient has elected to undergo cystoscopy with right ureteral stent insertion today in anticipation of definitive stone extraction in approximately 2 weeks or so. OPERATIVE FINDINGS: 1. On cystoscopy, there was no evidence of any suspicious masses, lesions, or stones. Bilateral ureteral orifices are in their normal anatomic location. Of note, there was no obvious efflux of urine from the right ureteral orifice. 2. Right retrograde pyelogram was performed which revealed 2 obvious obstructing stones present in the mid right ureter. There was no evidence of any obvious tortuosity of the right ureter. 3. A 6 x 24 cm double-J ureteral stent was inserted into the right ureter under direct visualization without difficulty. DESCRIPTION OF PROCEDURE: After informed consent was obtained, the patient was taken back to the operating room. She was transferred from the [facility] to the operating room table where general anesthesia was induced. She was placed in dorsal lithotomy position and genitalia were prepped and draped in a standard sterile fashion. Using a 30-degree lens on a 22.5-Upper Sorbian introducer, rigid cystoscope was inserted through the urethra and into her bladder under direct visualization. Panendoscopic views of bladder were then obtained. Please see above findings. Attention was turned to the right ureteral orifice. A cone-tipped catheter was used to perform a right retrograde pyelogram. Please see above findings. I then cannulated the right ureteral orifice using a 0.035 Sensor wire, which was advanced up to the right renal pelvis. This was confirmed on fluoroscopy. Over the wire, I passed a 6 x 24 cm double-J ureteral stent into the patient's right ureter under direct visualization. I did not meet any significant resistance in passage of the stent. Once I pulled the wire, an adequate coil was seen within the right renal pelvis. An adequate coil was noted on cystoscopy. The patient's bladder was then drained and the cystoscope was removed. The procedure was then terminated. The patient tolerated the procedure well without any complication. She will now be transferred to the postanesthesia care unit in stable condition. DISPOSITION: The patient will be discharged to home later today once she awakes from her anesthesia. I contacted [facility] and spoke to the transportation project manager there, Summer Llanes. I informed her that the patient will be going home today with Levaquin 250 mg p.o. daily for a total of 10 PATIENT NAME: LILIANE HUNTER OPERATIVE REPORT DATE OF : 41 REPORT #: [id number] PHYSICIAN: MOE FLORES MD PCP: AUSTIN CRISTINA MD REPORT IS CONFIDENTIAL AND NOT TO BE RELEASED WITHOUT AUTHORIZATION [address] [address] Draft days along with oxycodone 5 mg p.o. q.8 hours p.r.n. pain, dispense #20. I also want the patient to continue her oral cefdinir until finished. The patient will be placed back on the operating room to undergo right ureteroscopy with laser lithotripsy, basket extraction of stones and right ureteral stent exchange on February 25, 2020. MD JOSE GUADALUPE Suarez/MODL /[id number] Copies: ~ PATIENT NAME: LILIANE HUNTER OPERATIVE REPORT DATE OF : 41 REPORT #: [id number] PHYSICIAN: MOE FLORES MD PCP: AUSTIN CRISTINA MD REPORT IS CONFIDENTIAL AND NOT TO BE RELEASED WITHOUT AUTHORIZATION
[~2020-02-06 05:55] MED LIST changes: +CEFDINIR300 MG PO; +ONDANSETRON ODT8 MG PO
[2020-02-06] MEDS ORDERED: LISINOPRIL20 MG PO (05:59)
[2020-02-06] MEDS ORDERED: LOPERAMIDE2 M1 PO (06:03)
[2020-02-06] MEDS ORDERED: KAPSPARGO SPRIN25 MG PO (06:05)
--- NOTE | 2020-02-06 06:05 | NUR ---
PT ARRIVES TO DAY SURGERY VIA WHEELCHAIR AND PLACED IN RM 4. ASSIST PT WITH DRESSING INTO GOWN AND GETTING INTO BED. WARM BLANKET PROVIDED.
--- NOTE | 2020-02-06 07:20 | NUR ---
PRE PROCEDURE CHECK IN COMPLETE. PT RESTING IN LOCKED AND LOWERED BED, CALL LIGHT WITHIN REACH. NO FURTHER REQUESTS AT THIS TIME.
--- NOTE | 2020-02-06 08:19 | NUR ---
02/06/20 0819 Amy Bailey 0811 PT ARRIVED TO PACU WITH 6L VIA MASK, VSS. PT REACTIVE TO TECTILE STIMULI. 0817 PT WAKES TO VERBAL STIMULI AND O2 REMOVED, PT REORIENTED TO PACU AND REPORTS "I AM NOT DONE SLEEPING." PT RESTING IN BED WITH EYES CLOSED, NO GRIMACING OR MOANING.
--- NOTE | 2020-02-06 08:40 | NUR ---
PT ARRIVED FROM PACU BACK TO DAY SURGERY RM 4. PT IN LOCKED AND LOWERED BED, SIDE RAILS UP, CALL LIGHT WITHIN REACH. WATER AND WARM BLANKET PROVIDED.
--- NOTE | 2020-02-06 08:46 | NUR ---
PT REQUESTS TO USE BEDSIDE COMMODE. PT UP WITH STANDBY ASSIST. PT VOIDS 250ML WITH NO COMPLICATIONS. PT RETURNED TO LOCKED AND LOWERED BED. SIDE RAILS UP, CALL LIGHT WITHIN REACH.
--- NOTE | 2020-02-06 09:16 | NUR ---
PATIENT PUSHES HER CALL LIGHT AND ASKS TO TRANSFER TO THE BEDSIDE COMMODE. PATIENT VOIDS 100 ML CLEAR, YELLOW URINE AND IS BACK IN BED. SCDS IN PLACE. CALL LIGHT IS WITHIN REACH. PATIENT DENIES ADDITIONAL NEEDS AT THIS TIME.
[2020-02-06] MEDS ORDERED: LEVOFLOXACIN250 MG PO (09:25)
[2020-02-06] MEDS ORDERED: OXYCODONE HCL5 MG PO (09:26)
--- NOTE | 2020-02-06 09:47 | NUR ---
IN FOR ASSESSMENT. DISCHARGE INSTRUCTIONS DISCUSSED WITH PT AND QUESTIONS ANSWERED. PT UP TO USE BEDSIDE COMMODE. PT AMBULATES TO COMMODE AND VOIDS INDEPENDENTLY WITH NO COMPLICATIONS. PT STATES SHE WOULD LIKE TO GET DRESSED AND HEAD HOME.
--- NOTE | 2020-02-06 10:02 | NUR ---
[facility] CALLED TO PROVIDE TRANSPORTATION HOME FOR PT. IN TO ASSIST PATIENT WITH DRESSING. PT UP TO USE BEDSIDE COMMODE INDEPENDENLTY WITH NO COMPLICATIONS.
--- NOTE | 2020-02-06 10:18 | NUR ---
PT LEFT DAY SURGERY RM 4 VIA WHEELCHAIR. PT TRANSFERED FROM WHEELCHAIR TO VEHICLE INDEPENDENTLY WITH NO COMPLICATIONS. [facility] PROVIDED TRANSPORTATION.
--- NOTE | 2020-02-06 11:11 | EKG ---
[facility] [address] [place] [address] Signed Sinus rhythm with marked sinus arrhythmia with occasional premature ventricular complexes Nonspecific T wave abnormality Abnormal ECG When compared with ECG of 30-AUG-2018 16:05, premature ventricular complexes are now present Confirmed by ANDREA BAUMAN MD ([id number]) on 02/06/2020 11:11:33 AM Electronically Signed By: ANDREA BAUMAN MD 02/06/20 1111 PATIENT NAME: LILIANE HUNTER Electrocardiogram DATE OF : 41 PHYSICIAN: ANDREA BAUMAN MD REPORT #: [id number] REPORT IS CONFIDENTIAL AND NOT TO BE RELEASED WITHOUT AUTHORIZATION
== END 2020-02-06 10:15 | disposition home or self-care (01) ==
LOC: OPS 05:55 → DS 05:55 → OPS 06:45
PROVIDERS: ATTEND Urology
PROC: BT1DZZZ Fluoroscopy of Right Kidney, Ureter and Bladder (ICD-10-PCS; 2020-02-06)
PROC: 0T768DZ Dilation of Right Ureter with Intraluminal Device, Via Natural or Artificial Opening Endoscopic (ICD-10-PCS; principal; 2020-02-06 06:45)
DX: N13.6 Pyonephrosis (principal); I10 Essential (primary) hypertension; J45.909 Unspecified asthma, uncomplicated; E78.5 Hyperlipidemia, unspecified; E03.9 Hypothyroidism, unspecified; M81.0 Age-related osteoporosis without current pathological fracture; K21.9 Gastro-esophageal reflux disease without esophagitis; M19.90 Unspecified osteoarthritis, unspecified site; E78.00 Pure hypercholesterolemia, unspecified; N32.81 Overactive bladder; K50.90 Crohn's disease, unspecified, without complications; G47.33 Obstructive sleep apnea (adult) (pediatric); G89.29 Other chronic pain; R31.0 Gross hematuria; Z79.899 Other long term (current) drug therapy; Z79.890 Hormone replacement therapy; Z79.82 Long term (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 of aspirin; Z91.041 Radiographic dye allergy status; Z91.040 Latex allergy status; Z88.8 Allergy status to other drugs, medicaments and biological substances; Z88.5 Allergy status to narcotic agent; Z87.891 Personal history of nicotine dependence; Z20.828 Contact with and (suspected) exposure to other viral communicable diseases
CPT/HCPCS: 00918; 74420; 93005; 93010; C1769; C2617; J0690; J1100; J2250; J2405; J2704; J2765; J3010; J7121; Q9967

== ENCOUNTER 2020-02-21 19:47 | Emergency (ER) | payer MEDICARE, OTHER ==
[~2020-02-21] VITALS: Ht 160 cm; Wt 72.6 kg
[~2020-02-21 19:47] MED LIST changes: +KAPSPARGO SPRIN25 MG PO; +LEVOFLOXACIN250 MG PO; +LISINOPRIL20 MG PO; +LOPERAMIDE2 M1 PO; +OXYCODONE HCL5 MG PO
--- OUTSIDE RECORDS SUMMARY | 2020-02-21 19:50 | XMS ---
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 E.D. VISIT COUNT (12 MO.) 8 [facility] TOTAL 8 NOTE: Visits indicate total known visits. ED/UCC VISIT TRACKING (12 MO.) 02/21/2020 19:48 [facility] [place] TYPE: Emergency COMPLAINT: - POSSIBLE HERNIA 02/03/2020 07:50 [facility] [place] TYPE: Emergency COMPLAINT: - ABD PAIN DIAGNOSES: - Unspecified abdominal pain - Latex allergy status - Personal history of nicotine dependence - Allergy status to narcotic agent - Hydronephrosis with renal and ureteral calculous obstruction - Allergy status to other drugs, medicaments and biological substances - Type 2 diabetes mellitus without complications - Other retirement (current) drug therapy - skilled nursing (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 of aspirin - Essential (primary) hypertension 10/26/2019 19:39 [facility] [place] TYPE: Emergency [...] Allergy status to narcotic agent - Other technician terminal and repeater (current) drug therapy - Allergy status to other drugs, medicaments and biological substances - Personal history of nicotine dependence - Essential (primary) hypertension - Other allergy status, other than to drugs and biological substances - Nausea - Fracture of unspecified part of left clavicle, subsequent encounter for fracture with routine healing - Latex allergy status - oysterman (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 of aspirin - Type 2 diabetes mellitus without complications 10/13/2019 21:53 [facility] [place] TYPE: Emergency COMPLAINT: - FALL DIAGNOSES: - Essential (primary) hypertension - Allergy status to other drugs, medicaments and biological substances - Other technician terminal and repeater (current) drug therapy - Pain in left knee - Unspecified fall, initial encounter - Personal history of nicotine dependence - Allergy status to narcotic agent - oysterman (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 of aspirin - Latex allergy [...] tract infection, site not specified - Other retirement (current) drug therapy - oysterman (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 of aspirin - Type 2 diabetes mellitus without complications - Lower abdominal pain, unspecified 05/27/2019 20:07 [facility] [place] TYPE: Emergency COMPLAINT: - CONFUSION DIAGNOSES: - Essential (primary) hypertension - Allergy status to other drugs, medicaments and biological substances - Other technician terminal and repeater (current) drug therapy - Urinary tract infection, site not specified - Allergy status to narcotic agent - Personal history of nicotine dependence - Type 2 diabetes mellitus without complications - skilled nursing (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 of aspirin 05/24/2019 20:[address] [facility] [place] TYPE: Emergency COMPLAINT: - HEADACHE,FALL,SOB DIAGNOSES: - Other retirement (current) drug therapy - Personal history of nicotine dependence - skilled nursing (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 of aspirin - Headache - Allergy status to other drugs, medicaments and biological substances - Type 2 diabetes mellitus without complications - Allergy status to narcotic agent - Essential (primary) hypertension - Urinary tract infection, site not specified INPATIENT VISIT TRACKING (12 MO.) No inpatient visits to display in this time frame [email or web address]
[2020-02-21] MEDS ORDERED: COLACE100 MG PO (20:26)
== END 2020-02-21 20:38 | disposition home or self-care (01) ==
LOC: ED 19:47
DX: K59.00 Constipation, unspecified (principal); K43.9 Ventral hernia without obstruction or gangrene; I10 Essential (primary) hypertension; E11.9 Type 2 diabetes mellitus without complications; Z87.891 Personal history of nicotine dependence; Z91.040 Latex allergy status; Z88.8 Allergy status to other drugs, medicaments and biological substances; Z88.5 Allergy status to narcotic agent; Z79.899 Other long term (current) drug therapy; Z79.82 Long term (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 of aspirin
CPT/HCPCS: 99283

== ENCOUNTER 2020-02-25 08:55 | Day surgery (SDC) | payer MEDICARE, OTHER ==
--- NOTE | ~2020-02-25 | OR ---
[facility] [address] [place] [place], [place] [address] Draft DATE OF OPERATION: 02/25/2020 SURGEON: Moe Flores MD PREOPERATIVE DIAGNOSIS: Right hydroureteronephrosis secondary to multiple obstructing right mid ureteral calculi, measuring a total of 18 cm in size. POSTOPERATIVE DIAGNOSIS: Right hydroureteronephrosis secondary to multiple obstructing right mid ureteral calculi, measuring a total of 18 cm in size. PROCEDURES: 1. Diagnostic cystoscopy. 2. Right semi-rigid ureteroscopy with laser lithotripsy and basket extraction of stone fragments. 3. Right ureteral stent exchange. ANESTHESIA: General. ESTIMATED BLOOD LOSS: Minimal. COMPLICATIONS: None. SPECIMENS: Multiple stone fragments sent to the lab for stone analysis. DRAINS: A 6 x 24 cm double-J ureteral stent inserted into the right ureter. INDICATIONS FOR PROCEDURE: Ms. Hunter is a very pleasant 74-year-old female, who initially presented to me with a six-month history of intermittent right-sided flank pain. In August of 2019, she was found to have two stones, one measuring 13 mm and the other 5 mm, present in her right mid ureter. She was lost to follow up and then presented again recently with right-sided flank pain. She underwent a CT scan which again revealed the presence of a 13 mm and a 5 mm in the distal right ureter. Also noted was moderate to severe PATIENT NAME: LILIANE HUNTER OPERATIVE REPORT DATE OF : 41 REPORT #: [id number] PHYSICIAN: MOE FLORES MD PCP: AUSTIN CRISTINA MD REPORT IS CONFIDENTIAL AND NOT TO BE RELEASED WITHOUT AUTHORIZATION [facility] [address] [place], [place] [address] Draft hydroureteronephrosis. She was also found to have a urinary tract infection at that time. She was immediately sent to the operating room where she underwent cystoscopy with right ureteral stent insertion. She presents today to undergo definitive treatment of her obstructing right distal ureteral calculi. OPERATIVE FINDINGS: 1. On cystoscopy, there was no evidence of any suspicious masses, lesions, or stones. She has an indwelling right ureteral stent. This was removed fully intact during the early portion of the procedure. 2. Right diagnostic semi-rigid ureteroscopy revealed a very large 13 mm stone and a smaller 5 mm stone present within the mid to distal right ureter. There was a significant amount of hydroureteronephrosis noted proximal to the stones. Both stones were fragmented using a holmium laser at 8 and 1 settings for a total of 8 munguia. The stones fragmented with moderate difficulty. Overall 100% of the stone fragments were successfully extracted from the right distal ureter. 3. A 6 x 24 cm right ureteral stent was exchanged into the right ureter at the end of the procedure without difficulty. DESCRIPTION OF PROCEDURE: After informed consent was obtained, the patient was taken back to the operating room. She was transferred from the [facility] to the operating room table, where general anesthesia was induced. She was placed in the dorsal lithotomy position and her genitalia prepped and draped in a standard sterile fashion. Using a 30-degree lens on a 22.5-Greek introducer, rigid cystoscope was inserted through the urethra into her bladder under direct visualization. Roblero endoscopic views of bladder were then obtained. Please see above findings. Attention was turned to the indwelling right ureteral stent. This was removed to the level of the urethral meatus using stent graspers. A 0.035 Sensor wire was inserted into the lumen of the stent and into the right renal pelvis. The indwelling stent was removed fully intact. This Sensor wire was set aside to be used as a safety wire. I then inserted a semi-rigid ureteroscope alongside the wire into the bladder and up into the right ureter. A diagnostic ureteroscopy was then performed. Please see the above findings. Once the stones were visualized, I advanced a 270 micron fiber into the right ureter and towards the stones. The stones were lasered at 8 and 1 settings using a 270 micron fiber and the holmium laser. Once the stones were fragmented to smaller pieces, a Zero tip basket was used to extract each piece. Overall 100% of the stone burden was removed from the patient's right ureter with only a mild amount of difficulty. Once I was satisfied that all the stone fragments were gone, I performed a thorough ureteroscopy, which revealed no other stone fragments within the proximal ureter. The semi-rigid ureteroscope was then removed from the patient's ureter and bladder. Over the safety wire, passed a 6 x 24 cm double-J ureteral stent into the right collecting system under direct visualization without difficulty. Once the Sensor wire was pulled, an adequate proximal coil was seen within PATIENT NAME: LILIANE HUNTER OPERATIVE REPORT DATE OF : 41 REPORT #: [id number] PHYSICIAN: MOE FLORES MD PCP: AUSTIN CRISTINA MD REPORT IS CONFIDENTIAL AND NOT TO BE RELEASED WITHOUT AUTHORIZATION [address] [address] Draft the right renal pelvis. An adequate distal coil was seen on cystoscopy. The stone was then extracted from the patient's bladder using a Nehal syringe. The cystoscope was then removed and the procedure was terminated. The patient tolerated the procedure well without any complication. She will now be transferred to the postanesthesia care unit in stable condition. DISPOSITION: The patient will be discharged to home later today when she awakes from general anesthesia. She was given oxycodone 5 mg one tablet p.o. q.6 hours p.r.n. pain along with Bactrim double strength for a total of 7 days. She will be scheduled return to clinic this , February 27 to undergo cystoscopy with right ureteral stent extraction. MD JOSE GUADALUPE Suarez/DIONNE /[id number] Copies: ~ PATIENT NAME: LILIANE HUNTER OPERATIVE REPORT DATE OF : 41 REPORT #: [id number] PHYSICIAN: MEO FLORES MD PCP: AUSTIN CRISTINA MD REPORT IS CONFIDENTIAL AND NOT TO BE RELEASED WITHOUT AUTHORIZATION
[~2020-02-25 08:55] MED LIST changes: +COLACE100 MG PO
--- NOTE | 2020-02-26 11:41 | EKG ---
[facility] [address] [facility] [place] [address] Signed Sinus bradycardia with marked sinus arrhythmia Possible Left atrial enlargement Possible Anterior infarct , age undetermined Abnormal ECG When compared with ECG of 06-FEB-2020 08:11, premature ventricular complexes are no longer present Nonspecific T wave abnormality no longer evident in Anterolateral leads Confirmed by JUDITH ROSENBREG DO ([id number]) on 02/26/2020 11:41:47 AM Electronically Signed By: JUDITH ROSENBERG DO 02/26/20 1141 PATIENT NAME: LILIANE HUNTER Electrocardiogram DATE OF : 41 PHYSICIAN: JUDITH ROSENBERG DO REPORT #: [id number] REPORT IS CONFIDENTIAL AND NOT TO BE RELEASED WITHOUT AUTHORIZATION
--- NOTE | 2020-02-26 11:43 | EKG ---
[facility] [address] [facility] [place] [address] Signed Sinus rhythm with sinus arrhythmia Inferior infarct , age undetermined Abnormal ECG When compared with ECG of 25-FEB-2020 10:37, (Unconfirmed) Atrial fibrillation has replaced Sinus rhythm Confirmed by JUDITH ROSENBERG DO ([id number]) on 02/26/2020 11:43:08 AM Electronically Signed By: JUDITH ROSENBERG DO 02/26/20 1143 PATIENT NAME: LILIANE HUNTER Electrocardiogram DATE OF : 41 PHYSICIAN: JUDITH ROSENBERG DO REPORT #: [id number] REPORT IS CONFIDENTIAL AND NOT TO BE RELEASED WITHOUT AUTHORIZATION
== END 2020-02-25 14:58 | disposition home or self-care (01) ==
LOC: OPS 08:55 → DS 08:55 → OPS 10:00
PROVIDERS: ATTEND Urology
PROC: 0TC68ZZ Extirpation of Matter from Right Ureter, Via Natural or Artificial Opening Endoscopic (ICD-10-PCS; principal; 2020-02-25 10:00)
PROC: 0T768DZ Dilation of Right Ureter with Intraluminal Device, Via Natural or Artificial Opening Endoscopic (ICD-10-PCS; 2020-02-25 10:00)
DX: N13.6 Pyonephrosis (principal); N32.81 Overactive bladder; I10 Essential (primary) hypertension; J45.909 Unspecified asthma, uncomplicated; E78.00 Pure hypercholesterolemia, unspecified; K21.9 Gastro-esophageal reflux disease without esophagitis; M19.90 Unspecified osteoarthritis, unspecified site; L40.9 Psoriasis, unspecified; I48.91 Unspecified atrial fibrillation; G47.33 Obstructive sleep apnea (adult) (pediatric); I69.354 Hemiplegia and hemiparesis following cerebral infarction affecting left non-dominant side; Z79.899 Other long term (current) drug therapy; Z79.890 Hormone replacement therapy; Z79.01 Long term (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 of anticoagulants; Z87.891 Personal history of nicotine dependence; Z88.5 Allergy status to narcotic agent; Z79.82 Long term (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 of aspirin; Z91.040 Latex allergy status; Z91.041 Radiographic dye allergy status; Z88.8 Allergy status to other drugs, medicaments and biological substances
CPT/HCPCS: 00910; 74018; 82365; 93005; 93010; C1769; C2617; J0690; J1100; J1885; J2001; J2370; J2405; J2704; J3010

== ENCOUNTER 2020-02-29 09:55 | Observation (INO) | payer MEDICARE, OTHER ==
[~2020-02-29] VITALS: Ht 160 cm; Wt 70.3 kg
--- OUTSIDE RECORDS SUMMARY | 2020-02-29 09:58 | XMS ---
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 E.D. VISIT COUNT (12 MO.) [address] [facility] TOTAL 9 NOTE: Visits indicate total known visits. ED/UCC VISIT TRACKING (12 MO.) 02/29/2020 09:55 [facility] [place] TYPE: Emergency COMPLAINT: - WEAKNESS 02/21/2020 19:48 [facility] [place] TYPE: Emergency COMPLAINT: - POSSIBLE HERNIA DIAGNOSES: - Ventral hernia without obstruction or gangrene - Personal history of nicotine dependence - Other intermodal customer service (current) drug therapy - nursing home (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 of aspirin - Allergy status to narcotic agent - Constipation, unspecified - Type 2 diabetes mellitus without complications - Allergy status to other drugs, medicaments and biological substances - Latex allergy status - Essential (primary) hypertension 02/03/2020 07:50 [facility] [place] TYPE: Emergency COMPLAINT: - ABD PAIN DIAGNOSES: - Unspecified abdominal pain - Latex allergy status - Personal history of nicotine dependence - Allergy status to narcotic agent - Hydronephrosis with renal and ureteral calculous obstruction - Allergy status to other drugs, medicaments and biological substances - Type 2 diabetes mellitus without complications - Other [facility] (current) drug therapy - nursing home (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 of aspirin - Essential (primary) [...] Allergy status to narcotic agent - Other [place] [facility] (current) drug therapy - Allergy status to other drugs, medicaments and biological substances - Personal history of nicotine dependence - Essential (primary) hypertension - Other allergy status, other than to drugs and biological substances - Nausea - Fracture of unspecified part of left clavicle, subsequent encounter for fracture with routine healing - Latex allergy status - equipment operator 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 (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 of aspirin - Type 2 diabetes mellitus without complications 10/13/2019 21:53 [facility] [place] TYPE: Emergency COMPLAINT: - FALL DIAGNOSES: - Essential (primary) hypertension - Allergy status to other drugs, medicaments and biological substances - Other [place] (current) drug therapy - Pain in left knee - Unspecified fall, initial encounter - Personal history of nicotine dependence - Allergy status to narcotic agent - nursing home (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 of aspirin - Latex [...] tract infection, site not specified - Other [place] (current) drug therapy - nursing home (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 of aspirin - Type 2 diabetes mellitus without complications - Lower abdominal pain, unspecified 05/27/2019 20:07 [facility] [place] TYPE: Emergency COMPLAINT: - CONFUSION DIAGNOSES: - Essential (primary) hypertension - Allergy status to other drugs, medicaments and biological substances - Other [place] (current) drug therapy - Urinary tract infection, site not specified - Allergy status to narcotic agent - Personal history of nicotine dependence - Type 2 diabetes mellitus without complications - equipment operator intermodal yard (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 of aspirin 05/24/2019 20:42 [facility] [place] TYPE: Emergency COMPLAINT: - HEADACHE,FALL,SOB DIAGNOSES: - Other [place] [facility] (current) drug therapy - Personal history of nicotine dependence - equipment operator intermodal yard (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 of aspirin - Headache - Allergy status to other drugs, medicaments and biological substances - Type 2 diabetes mellitus without complications - Allergy status to narcotic agent - Essential (primary) hypertension - Urinary tract infection, site not specified INPATIENT VISIT TRACKING (12 MO.) No inpatient visits to display in this time frame [email or web address]
--- NOTE | 2020-02-29 12:38 | EKG ---
[facility] [address] [place] [address] Signed Junctional bradycardia Abnormal ECG When compared with ECG of 25-FEB-2020 12:29, Junctional rhythm has replaced Sinus rhythm Criteria for Inferior infarct are no longer present QT has shortened Confirmed by SELAM REYES MD ([id number]) on 02/29/2020 12:37:53 PM Electronically Signed By: SELAM REYES MD 02/29/20 1238 PATIENT NAME: LILIANE HUNTER ALEX Electrocardiogram DATE OF : 41 PHYSICIAN: SELAM REYES MD REPORT #: [id number] REPORT IS CONFIDENTIAL AND NOT TO BE RELEASED WITHOUT AUTHORIZATION
[2020-02-29] MEDS ORDERED: SULFAMETHOXAZO1 EAC1 PO (13:33)
[2020-02-29] MEDS ORDERED: ESOMEPRAZOLE MA40 MG PO (13:34)
[2020-02-29] MEDS ORDERED: ALENDRONATE SOD70 MG PO (13:35)
[2020-02-29] MEDS ORDERED: METOPROLOL SUCC25 MG PO (14:14)
--- NOTE | 2020-02-29 15:15 | NUR ---
IV SITE IS INTACT, NO SWELLING OR REDNESS, FLUSH INFUSES EASILY, PT DENIES PAIN AT SITE. PT REMAINS ALERT AND ORIENTED X4.
[2020-02-29] MEDS ORDERED: OXYBUTYNIN CHLO10 MG PO (16:45)
--- NOTE | 2020-02-29 16:45 | NUR ---
MED REC COMPLETE
--- NOTE | 2020-02-29 19:35 | NUR ---
pt arrived from ER alert and oriented x4. pt able to ambulated to the bathroom from [facility] and then back to bed with stand by assist only. pt iv site is intact, flushes easily. pt orders a clear liquid tray for dinner, able to anette approximatly 25%. pt uses call light easily. able to get up and ambulate to the bathroom multiple times with one person assist. pt assisted with attends change as she is stress incontinent. pt report some dyspepsia and back pain at around 1850, maalox and 1 tab norco given. pt remains on 2L O2 for support. heart rate remains variable, no atropine given in CCU, as pt was not symptomatic.
--- NOTE | 2020-02-29 20:20 | NUR ---
SHIFT REPORT RECEIVED FROM STAN TAN. ASSESSMENT COMPLETED. PT ALERT/ORIENTED, DENIES PAIN. LUNGS CLEAR, DIM IN BASES, 2L O2 VIA NC IN PLACE. HR IRREGULAR, BRADYCARDIC 35-70'S. BOWEL TONES HYPOACTIVE, DENIES NAUSEA. PT REPORTS THAT SHE FEELS LIKE SHE NEEDS TO COUGH, BUT CAN'T GET ANYTHING UP, DR. REYES CALLED AND ORDER FOR MUCINEX RECEIVED. SKIN GROSSLY INTACT, NO EDEMA NOTED. IV INTACT, FLUIDS INFUSING WNL. UP TO BSC WITH SBA, PT DENIED DIZZINESS, VOIDED AND RETURNED TO BED. CALL LIGHT WITHIN REACH, FRESH WATER AND TEA PROVIDED PER REQUEST.
--- NOTE | 2020-02-29 22:51 | NUR ---
PT SLEEPING AT THIS TIME, NO APPARENT DISTRESS. RESPIRATIONS EVEN AND UNLABORED, 2L O2 VIA NC IN PLACE. HR REMAINS IRREGULAR, RATE 35-70. BP REMAINS STABLE. WILL ALLOW FOR REST AND CONTINUE TO MONITOR.
--- NOTE | 2020-02-29 23:07 | NUR ---
PT UP TO BSC WITH SBA, VOIDED AND RETURNED TO BED. PT REPORTS 3/10 HEADACHE PAIN, PRN TYLENOL GIVEN. NO FURTHER REQUESTS AT THIS TIME, CALL LIGHT AND BELONGINGS WITHIN REACH.
--- NOTE | 2020-02-29 23:36 | NUR ---
ASSISTED PT 1P INDEPENDENT TO THE BEDSIDE COMMODE. C/O SORENESS ON BUTTOCKS. REDNESS AND BLANCHABLE NOTED. EDUCATED PT TO MOVE SIDE TO SIDE IN BED. PT VERBALIZED UNDERSTANDING. CALL LIGHT IN REACH.
--- NOTE | 2020-03-01 00:29 | NUR ---
ASSESSMENT COMPLETED, UNCHANGED FROM PREVIOUS. HR REMAINS IRREGULAR RATE 35-70'S. BP STABLE. IV INTACT AND FLUIDS INFUSING WNL. 2L O2 NC IN PLACE. NO COMPLAINTS/REQUESTS AT THIS TIME. CALL LIGHT AND BELONGINGS WITHIN REACH.
--- NOTE | 2020-03-01 01:44 | NUR ---
PT UTILIES CALL LIGHT, REQUESTS PRN PAIN MEDICATION FOR 5/10 BACK PAIN. PRN ADMINISTERED SEE EMAR. PT DENIES FURTHER NEEDS. CALL LIGHT IN REACH.
--- NOTE | 2020-03-01 02:02 | NUR ---
PT UP TO BSC WITH SBA, VOIDED 300ML AND RETURNED TO BED.
--- NOTE | 2020-03-01 04:41 | NUR ---
PT CURRENTLY ASLEEP, NO APPARENT DISTRESS. RESPIRATIONS EVEN AND UNLABORED, 2L O2 VIA NC IN PLACE. RR:15, SPO2:95%, HR:49. UPON REVIEW OF INSURANCE COMMISSIONER, HR HAS MAINTAINED AT LEAST 49 BPM SINCE 14. IV APPEARS INTACT, FLUIDS INFUSING WNL.
--- NOTE | 2020-03-01 05:35 | NUR ---
PT 1P INDEPENDENT TO THE BEDSIDE COMMODE. TOLERATED WELL. C/O STEEL 07/21 NURSE NOTIFIED. PT REPOSITIONED IN BED. CALL LIGHT IN REACH.
--- NOTE | 2020-03-01 06:02 | NUR ---
OFFERED PT TYLENOL FOR HEADACHE, BUT SHE REFUSED. SCHEDULED ASPIRIN GIVEN EARLY SINCE PT REQUESTED ASPIRIN FOR HEADACHE. FRESH WATER AND COFFEE PROVIDED TO PT. NO FURTHER REQUESTS AT THIS TIME. CAR WHACKER IN TO DRAW BLOOD FOR MORNING LABS.
--- NOTE | 2020-03-01 06:18 | NUR ---
PT CALLED TO REPORT THAT HER BACK PAIN WAS STARING TO INCREASE. INFORMED HER THAT SHE CAN HAVE ANOTHER NORCO AT 0745. OFFERED HER A HEAT PACK IN THE MEANTIME AND PT WAS AGREEABLE.
--- NOTE | 2020-03-01 08:05 | NUR ---
PT SLEEPING SOUNDLY AT THIS TIME, VITALS ARE WNL, NO OBSERVABLE DISTRESS NOTED.
--- NOTE | 2020-03-01 09:00 | NUR ---
CALLED PT'S [id number] PER PT'S REQUEST. GAVE BRIEF UPDATE, AND REQUSTED THAT SHE COME IN TO SEE LILIANE SHE REPORTS FEELING ANXIOUS ABOUT HER HOSPITALIZATION AND HEALTH SITUATION. AUSTIN, [id number], STATES SHE WILL BE IN SOON.
--- NOTE | 2020-03-01 10:25 | NUR ---
PT'S [id number] IS IN PT ROOM AT THIS TIME.
--- NOTE | 2020-03-01 10:32 | NUR ---
PATIENT CALLED I WENT IN PATIENT SHE HAD TO USE THE BEDSIDE COMMODE. SO SHE TRANSFERED FROM HER BED TO THE BED SIDE COMMODE WITH A LITTLE BIT OF HELP PUT A NEW ATTEND AND PAD ON HER. PATIENT IS NOW SITTING UP IN HER CHAIR EATING HER BREAKFAST.
--- NOTE | 2020-03-01 12:15 | NUR ---
IN PT ROOM TALKING WITH PT, AND PT'S [id number] AUSTIN RUFF, ABOUT THE PLAN OF CARE.
--- NOTE | 2020-03-01 13:55 | NUR ---
ASSISTED PT WITH DRESSING IN HER OWN CLOTHES IN PREP FOR GOING HOME. IV SITE REMOVED, TIP OF CATH IS INTACT, NO REDNESS OR SWELLING NOTED, PT DENIES PAIN AT THE SITE. DISCHARGE INSTRUCTIONS GIVEN TO PT, ALL QUESTIONS ANSWERED. ALL PERSONAL BELONGINGS RETURNED TO PT. [id number] AUSTIN IS OUTSIDE TO MACHINE HEEL SEAT LASTER PT AND TRANSPORT HER HOME TO [facility].
== END 2020-03-01 14:15 | disposition home or self-care (01) ==
LOC: ED 09:55 → CCU 09:56
PROVIDERS: ADMIT Internal Medicine; ATTEND Internal Medicine
DX: R00.1 Bradycardia, unspecified (principal); I10 Essential (primary) hypertension; K50.90 Crohn's disease, unspecified, without complications; N32.81 Overactive bladder; M35.3 Polymyalgia rheumatica; E27.40 Unspecified adrenocortical insufficiency; E11.9 Type 2 diabetes mellitus without complications; I48.92 Unspecified atrial flutter; I08.1 Rheumatic disorders of both mitral and tricuspid valves; Z87.442 Personal history of urinary calculi; Z86.711 Personal history of pulmonary embolism; Z91.040 Latex allergy status; Z91.041 Radiographic dye allergy status; Z88.8 Allergy status to other drugs, medicaments and biological substances; Z79.899 Other long term (current) drug therapy; Z79.82 Long term (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 of aspirin; Z98.1 Arthrodesis status; Z90.49 Acquired absence of other specified parts of digestive tract; Z20.828 Contact with and (suspected) exposure to other viral communicable diseases
CPT/HCPCS: 36415; 70450; 71045; 80048; 80053; 81001; 83605; 83735; 84484; 85025; 87088; 93005; 93010; 96365; 96375; 96376; 99285-25; C9803; G0378; J0461; J0696; J2405; J7030; J7040; U0003

== ENCOUNTER 2021-08-12 21:37 | Emergency (ER) | payer MEDICARE, OTHER ==
[~2021-08-12] VITALS: Ht 160 cm; Wt 69.9 kg
[~2021-08-12 21:37] MED LIST changes: +ALENDRONATE SOD70 MG PO; +ESOMEPRAZOLE MA40 MG PO; +METOPROLOL SUCC25 MG PO; +SULFAMETHOXAZO1 EAC1 PO
[2021-08-12] MEDS ORDERED: CETIRIZINE HCL10 MG PO (21:52)
[2021-08-12] MEDS ORDERED: BUPROPION XL300 MG PO (21:52)
[2021-08-12] MEDS ORDERED: VITAMIN B-121000 MCG PO (21:53)
[2021-08-12] MEDS ORDERED: METOPROLOL SUC100 MG PO (21:53)
[2021-08-12] MEDS ORDERED: AMLODIPINE BESY10 MG PO (21:54)
[2021-08-12] MEDS ORDERED: LOSARTAN POTAS100 MG PO (21:54)
[2021-08-12] MEDS ORDERED: CEPHALEXIN500 MG PO (23:47)
== END 2021-08-13 00:15 | disposition home or self-care (01) ==
LOC: ED 21:37
DX: N39.0 Urinary tract infection, site not specified (principal); J20.9 Acute bronchitis, unspecified; Z20.822 Contact with and (suspected) exposure to COVID-19; I10 Essential (primary) hypertension; E11.9 Type 2 diabetes mellitus without complications; Z88.8 Allergy status to other drugs, medicaments and biological substances; Z91.040 Latex allergy status; Z79.899 Other long term (current) drug therapy; Z79.82 Long term (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 of aspirin
CPT/HCPCS: 36415; 71045; 80053; 81001; 83605; 85025; 87502; 99284-25; A9270; U0003

== ENCOUNTER 2021-09-17 21:33 | Observation (INO) | payer MEDICARE, OTHER ==
[~2021-09-17] VITALS: Ht 160 cm; Wt 92.6 kg
[~2021-09-17 21:33] MED LIST changes: +AMLODIPINE BESY10 MG PO; +CETIRIZINE HCL10 MG PO; +LOSARTAN POTAS100 MG PO; +VITAMIN B-121000 MCG PO
[2021-09-18] MEDS ORDERED: OXYBUTYNIN CHLOR5 M1 PO (07:34)
[2021-09-18] MEDS ORDERED: TORSEMIDE10 MG PO (07:35)
[2021-09-18] MEDS ORDERED: SERTRALINE HCL50 MG PO (07:35)
[2021-09-18] MEDS ORDERED: POTASSIUM CHLO10 ME1 PO (07:36)
[2021-09-18] MEDS ORDERED: DEXAMETHASONE6 MG PO (10:35)
[2021-09-18] MEDS ORDERED: BENZONATATE100 MG PO (10:36)
[2021-09-18] MEDS ORDERED: SEREVENT DISKU50 MCG INH (10:38)
== END 2021-09-18 12:25 ==
LOC: ED 21:33 → MS 21:35
PROVIDERS: ADMIT Internal Medicine; ATTEND Internal Medicine
DX: J44.1 Chronic obstructive pulmonary disease with (acute) exacerbation (principal); J96.11 Chronic respiratory failure with hypoxia; K21.9 Gastro-esophageal reflux disease without esophagitis; U07.1 COVID-19; I10 Essential (primary) hypertension; E11.9 Type 2 diabetes mellitus without complications; G89.4 Chronic pain syndrome; Z88.8 Allergy status to other drugs, medicaments and biological substances; Z91.040 Latex allergy status
CPT/HCPCS: 36415; 71045; 80053; 83690; 85025; 87502; 94760; 94762; 96361; 96374; 96375; 99285-25; A9270; C9803; G0378; J0248; J1100; J1885; J2405; J2550; J7030; J7050; U0003

== ENCOUNTER 2021-12-26 18:07 | Emergency (ER) | payer MEDICARE, OTHER ==
[~2021-12-26] VITALS: Ht 160 cm; Wt 74.0 kg
[~2021-12-26 18:07] MED LIST changes: +BENZONATATE100 MG PO; +DEXAMETHASONE6 MG PO; -LOSARTAN POTAS100 MG PO; -MELATIN3 MG PO; +OXYBUTYNIN CHLOR5 M1 PO; +POTASSIUM CHLO10 ME1 PO; +SEREVENT DISKU50 MCG INH; +SERTRALINE HCL50 MG PO
[2021-12-26] MEDS ORDERED: CIPROFLOXACIN250 MG PO (18:20)
[2021-12-26] MEDS ORDERED: LOSARTAN POTAS100 MG PO (18:43)
[2021-12-26] MEDS ORDERED: CEPHALEXIN500 M1 PO (18:45)
[2021-12-26] MEDS ORDERED: ACETAMINOPHEN325 M1 PO (18:46)
[2021-12-26] MEDS ORDERED: ALBUTEROL2.5 MG/3 M INH (18:47)
[2021-12-26] MEDS ORDERED: ANBESOL9 GM MM (18:47)
[2021-12-26] MEDS ORDERED: ANTACID 1000-21 EACH (18:49)
[2021-12-26] MEDS ORDERED: MELATONIN1 MG PO (18:51)
[2021-12-26] MEDS ORDERED: GABAPENTIN100 MG PO (18:53)
[2021-12-26] MEDS ORDERED: ONDANSETRON ODT4 MG PO (22:32)
[2021-12-26] MEDS ORDERED: MIRALAX17 GM PO (22:32)
== END 2021-12-26 23:34 | disposition home or self-care (01) ==
LOC: ED 18:07
DX: K43.9 Ventral hernia without obstruction or gangrene (principal); I10 Essential (primary) hypertension; E11.9 Type 2 diabetes mellitus without complications; Z87.440 Personal history of urinary (tract) infections; Z91.040 Latex allergy status; Z91.048 Other nonmedicinal substance allergy status; Z88.8 Allergy status to other drugs, medicaments and biological substances
CPT/HCPCS: 36415; 74177; 80053; 81001; 83690; 83735; 85025; 96376; 99284-25; A9270; J2405; Q9967

== ENCOUNTER 2023-04-17 22:53 | Emergency (ER) | payer MEDICARE, OTHER ==
[~2023-04-17] VITALS: Ht 160 cm; Wt 70.4 kg
[~2023-04-17 22:53] MED LIST changes: +ACETAMINOPHEN325 M1 PO; +ALBUTEROL2.5 MG/3 M INH; +ANBESOL9 GM MM; +ANTACID 1000-21 EACH; +ANTIFUNGAL113 GM; +BAYER CHEWABLE81 MG PO; +BIOTIN10 MG PO; +CEPHALEXIN500 M1 PO; +CIPROFLOXACIN250 MG PO; +LOSARTAN POTAS100 MG PO; +MELATONIN1 MG PO; +MIRALAX17 GM PO; +MOMETASONE FURO15 GM; +NITROFURANTOIN100 MG PO; +NYSTATIN1 EAC7 MISC; +ONDANSETRON ODT4 MG PO
--- OUTSIDE RECORDS SUMMARY | 2023-04-17 22:57 | XMS ---
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 E.D. VISIT COUNT (12 MO.) 1 AD [facility] TOTAL 1 NOTE: Visits indicate total known visits. ED/UCC VISIT TRACKING (12 MO.) 04/17/2023 22:54 AD [facility] OR TYPE: Emergency COMPLAINT: - COUGH INPATIENT VISIT TRACKING (12 MO.) No inpatient visits to display in this time frame [email or web address]
[2023-04-17] MEDS ORDERED: methylPREDNISolone SOD SUCC 125 MG/2 ML VIAL IV ONE (23:00)
[2023-04-17] MEDS ORDERED: ALBUTEROL/IPRATROPIUM 3 ML NEB INH ONE (23:00)
[2023-04-17 23:25] LABS: HEMATOCRIT 36.7 % (35.0-50.0); MCH 30.2 (27-36); MCHC 32.8 g/dl (30-36); RBC 3.99 M/ul (4.3-5.7)
[2023-04-17 23:28] LABS: BASOPHILS 0.7 % (0-2); EOSINOPHILS 1.2 % (0-6); HEMOGLOBIN 12.1 g/dL (12.0-18.0); LYMPHOCYTES 20.3 % (24-44); MCV 92.1 fl (81-99); MONOCYTES 13.7 % (0-12); NEUTROPHILS 64.1 % (39-80); PLATELET COUNT 183 K/uL (140-440); RDW 14.2 (10.5-15.0)
[2023-04-17 23:44] LABS: ALBUMIN 2.9 g/dL (3.4-5.0); ALBUMIN/GLOBULIN RATIO 0.85 (1.1-2.4); ANION GAP 11.4 (7-21); BILIRUBIN, TOTAL 0.4 ng/dL (0.2-1.0); BUN/CREATININE RATIO 8.79 (6.0-28.6); CALCIUM 8.6 mg/dL (8.5-10.1); CREATININE, SERUM 0.91 mg/dL (0.55-1.02); POTASSIUM 3.4 mmol/L (3.5-5.1); PROTEIN, TOTAL 6.3 g/dL (6.4-8.2)
[2023-04-17] MEDS ORDERED: OXYMETAZOLINE HCL 15 ML BTL NAS ONE (23:45)
[2023-04-17 23:58] LABS: INFLUENZA B NAA NEGATIVE (NEGATIVE); RESPIRATORY SYNCYTIAL VIR NAA NEGATIVE (NEGATIVE)
[2023-04-18] MEDS ORDERED: PAXLOVID 300-11 EAC1 PO (00:05)
[2023-04-18] MEDS ORDERED: PREDNISONE20 MG PO (00:05)
[2023-04-18 00:20] VITALS: BP 112/65
== END 2023-04-18 00:31 | disposition home or self-care (01) ==
LOC: ED 22:53
PROVIDERS: Family Medicine
DX: U07.1 COVID-19 (principal); I10 Essential (primary) hypertension; E11.9 Type 2 diabetes mellitus without complications; Z91.040 Latex allergy status; Z88.5 Allergy status to narcotic agent; Z88.6 Allergy status to analgesic agent; Z88.8 Allergy status to other drugs, medicaments and biological substances; Z79.899 Other long term (current) drug therapy; Z79.82 Long term (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 of aspirin
CPT/HCPCS: 36415; 71045; 80053; 83880; 85025; 87502; 96374; 99284-25; A9270; C9803; J2930; U0002

== ENCOUNTER 2023-08-10 08:30 | Day surgery (SDC) | payer MEDICARE, OTHER ==
[2023-06-06 14:44] VITALS: BP 128/69
--- NOTE | 2023-06-06 15:29 | NUR ---
PT HERE FOR PRE ADMIT APPOINTMENT. SHCEDULED FOR D & C, HYSTEROSCOPY ON TUESDAY. PT STATES HAS NOT BEEN FEELING WELL SINCE GOT COVID VACCINE BOOSTER LAST WEEK. HAS FELT FEVERISH, ACHEY AND EPIGASTRIC DISCOMFORT. PT WENT TO ED YESTERDAY FOR THESE SX. LABS AND EKG DONE IN ED WITH ABNORMALITIES NOTED. SENT TO DR DOCKERY FOR REVIEW - K+ 3.0. PHONED DR DOCKERY OFFICE WITH REPORT OF PT C/O.
[2023-08-01 15:44] VITALS: BP 128/69
[~2023-08-10] VITALS: Ht 160 cm; Wt 75.0 kg
[2023-08-10] VITALS (9 sets, daily range): BP systolic 107–170; BP diastolic 55–72
[~2023-08-10 08:30] MED LIST changes: -ANTACID 1000-21 EACH; +ANTACID ANTI-G355 ML PO; +CARAFATE1 GM/10 ML PO; +FAMOTIDINE 20 MG/ 2 ML VIAL IV SCH; +IBLOOD GLUCOSE TEST STRIP 1 EA TEST VI PRN; +KLOR-CON20 MEQ PO; +LACTATED RINGER'S 1,000 ML IV SCH; +LIDOCAINE HCL 1% 5 ML SDV INJ ONE; -MOMETASONE FURO15 GM; +MOMETASONE FURO15 GM TOP; -NYSTATIN1 EAC7 MISC; +NYSTOP60 GM TOP; +PAXLOVID 300-11 EAC1 PO; -PROAIR HFA8.5 GM IH; +PROTONIX40 M1 PO; +VENTOLIN HFA18 GM INH; +VITAMIN D350 MC3 PO; -VITAMIN D35000 UNIT PO
[2023-08-10 10:14] LABS: ANION GAP 11.4 (7-21); BUN/CREATININE RATIO 15.38 (6.0-28.6); CALCIUM 8.3 mg/dL (8.5-10.1); CREATININE, SERUM 0.91 mg/dL (0.55-1.02); POTASSIUM 3.4 mmol/L (3.5-5.1)
[2023-08-10] MEDS ORDERED: IBLOOD GLUCOSE TEST STRIP 1 EA TEST VI PRN (11:00)
[2023-08-10] MEDS ORDERED: NALOXONE HCL 0.4 MG SYR IV PRN ×2 (11:00→11:45)
[2023-08-10] MEDS ORDERED: ondansetron HCL 4 MG/2 ML VIAL IV PRN ×2 (11:00→11:45)
[2023-08-10] MEDS ORDERED: fentaNYL citrate 50 MCG/ML SDV IV PRN (11:00)
[2023-08-10] MEDS ORDERED: MAGNESIUM HYDROXIDE/AL HYDROX 30 ML CUP PO PRN (11:45)
[2023-08-10] MEDS ORDERED: MORPHINE SULFATE 10 MG/ML VIAL IV PRN (11:45)
[2023-08-10] MEDS ORDERED: METOCLOPRAMIDE HCL 10 MG/2 ML SDV IV PRN (11:45)
[2023-08-10] MEDS ORDERED: PROCHLORPERAZINE EDISYLATE 10 MG/2 ML VIAL IV PRN (11:45)
[2023-08-10] MEDS ORDERED: FAMOTIDINE 20 MG TAB PO PRN (11:45)
[2023-08-10] MEDS ORDERED: ondansetron HCL 4 MG TAB PO PRN (11:45)
--- NOTE | 2023-08-10 11:50 | NUR ---
08/10/23 1150 Tori Andrew 1145-PATIENT ARRIVED TO PACU ON 6L MASK RR EVEN. PATIENT NONAORUSABLE, APACED HR 70'S IVF INFUSING. NO DRAINAGE TO JEANNE AREA.
[2023-08-10] MEDS ORDERED: LACTATED RINGER'S 1,000 ML IV SCH (12:00)
[2023-08-10] MEDS ORDERED: ACETAMINOPHEN 500 MG TAB PO PRN (12:00)
--- NOTE | 2023-08-10 12:20 | NUR ---
PT ARRIVES TO ROOM IN BED ACCOMPANIED BY FELIPA Hutchins RN. PT AWAKE AND RESPONSIVE WHEN ADDRESSED. PT REPORTING TOILETING NEEDS. 1PA FROM BED TO BSC, VOID NOTED, 1PA FROM BSC BACK TO BED. VITALS COMPLETE. PT DENIES PAIN OR NAUSEA AT THIS TIME. CPOX IN PLACE. SN EVA IN ROOM. NO OTHER NEEDS FROM THIS RN. CALL LIGHT IN REACH. BED ALARM ON.
--- NOTE | 2023-08-10 12:20 | NUR ---
PT ARRIVES FROM DAY SURGERY, REPORT RECEIVED FROM FELIPA Hutchins RN. PT AWAKE AND ALERT IN [facility], TALKING TO STAFF. PT REQUESTS BDS, URINATES WITHOUT DIFFICULTY. VITAL SIGNS TAKEN, CPOX APPLIED, ASSESSMENT COMPLETE. PT LUNG SOUNDS CLEAR IN UPPER LOBES, CRACKLES NOTED IN BILATERAL LOWER LOBES. O2 99% ON 2L. HEART TONES HEARD, REGULAR, BOWEL TONES HEARD, LARGE UMBILICAL HERNIA NOTED, PT REPORTS NO TENDERNESS. PT REQUESTS BSC AGAIN, URINATES AGAIN WITHOUT DIFFICULTY. VERY SCANT AMOUNT OF BLOOD NOTED TO WIPE. PULSES STRONG IN BUE, FAINT IN BLE, PT REPORTS NO NUMBNESS OR TINGLING. PT STATES HER PAIN IS AN 8/10 IN HER LOWER BACK/RIGHT FLANK, "IT'S PROBABLY JUST MY KIDNEY". SCHEDULED PAIN MEDICATION AND HOT PACK PROVIDED. PT STATES NO OTHER NEEDS AT THIS TIME, CALL LIGHT IN REACH.
--- NOTE | 2023-08-10 13:12 | NUR ---
IN TO ROUND ON PT. PT REPORTING PAIN 8/10 IN LOWER BACK. HOT PACK APPLIED. MEDICATION ADMINISTERED, SEE MAR. IV FLUIDS STARTED, SEE MAR. ASSESSMENT COMPLETE. LUNG SOUNDS CLEAR IN RUL AND SHANNA. CRACKLES IN RLL AND LLL. BOWEL TONES ACTIVE. ABD SOFT, SLIGHTLY TENDER WITH PALPATION. MIDLINE ABD SCAR NOTED. PEDAL PULSES PALPABLE, STRONG. PT DENIES NAUSEA AT THIS TIME. VITALS COMPLETE. PT DENIES ANY OTHER NEEDS AT THIS TIME. CALL LIGHT IN REACH. BED ALARM ON.
--- NOTE | 2023-08-10 13:27 | NUR ---
PT O2 SATS BETWEEN 88-89% ON RA. PT PLACED ON 1L NC AND O2 SATS GO UP TO 91%.
[2023-08-10] MEDS ORDERED: IBUPROFEN 800 MG TAB PO SCH (14:00)
--- NOTE | 2023-08-10 14:04 | NUR ---
ASSISTED PT WITH SBA TO THE BSC. PT TOLERATED MOVEMENT WELL. PT WAS ABLE TO WIPE HERSELF. ISSUE CLERK REPOSITIONED PT BACK IN BED. CALL LIGHT WITHIN REACH BED ALARM IS ON
--- NOTE | 2023-08-10 14:34 | NUR ---
IN TO ROUND ON PT. PT SITTING UP IN BED AND RESPONDS WHEN ADDRESSED. PT REPORTING PAIN 2/10 IN LOWER BACK. VITALS COMPLETE. PT REPORTS BEING DONE WITH LUNCH, TRAY REMOVED. PT DENIES ANY OTHER NEEDS AT THIS TIME. CALL LIGHT IN REACH. BED ALARM ON.
--- NOTE | 2023-08-10 15:07 | NUR ---
MEN'S FURNISHINGS SALESPERSON WALKED WITH PT ONE LAP AROUND THE WHOLE UNIT. MEN'S FURNISHINGS SALESPERSON WAS A SBA AND PT USED A FWW. PT DID NOT USE 02 WHILE AMBULATING. MEN'S FURNISHINGS SALESPERSON MONITORED 02 SAT WITH A MOBILE O2 SAT READER. PT SATS DID NOT DROP BELOW 87 AND PT DENIED ANY FEELING OF SOB. PT DENIED ANY FEELINGS OF PAIN, NAUSEA, DIZZYNESS WHILE WALKING. PT IS LAYING BACK IN BED CALL LIGHT WITHIN REACH AND SCDS ON
--- NOTE | 2023-08-10 15:39 | NUR ---
IN TO ASSIST PT BACK TO BED FROM BATHROOM. PT AMBULTES WITH FWW WITH SBA. CPOX AND IV RESTARTED. CPOX NOTED AT 93% RA. PT STATES STINGING SENSATION IN HER "HOOHAH", PT OFFERED ICE PACK BUT DECLINES. EDUCATED PT ABOUT SURGERY SHE JUST HAD AND EXPECTED PAIN. CALL LIGHT IN REACH, BEDIN LOWEST POSITION, BED ALARM ON, NO OTHER NEEDS NOTED AT THIS TIME.
[2023-08-10 16:12] LABS: HEMATOCRIT 36.3 % (35.0-50.0); HEMOGLOBIN 11.6 g/dL (12.0-18.0); MCH 29.4 (27-36); RBC 3.94 M/ul (4.3-5.7); RDW 14.4 (10.5-15.0)
[2023-08-10] MEDS ORDERED: POTASSIUM CHLORIDE 20 MEQ/15 ML CUP PO SCH (17:00)
--- NOTE | 2023-08-10 17:00 | NUR ---
IN WITH SN EVA TO ADMINISTER MEDICAITON, SEE MAR. PT NOTED TO BE RESTING IN BED WITH EYES CLOSED, RR EVEN AND UNLABORED. O2 SATS AT 88-89% ON RA. PT AWAKENS AND RESPONDS WHEN ADDRESSED. PT PLACED ON 1L NC AND O2 SATS INCREASE TO 96-97%. PT TAKES MEDICATION WITH JUICE. PT BOOSTED IN BED. ASKED PT ABOUT PAIN AND PT STATES "WHAT PAIN?" PT DENIES ANY PAIN AT THIS TIME. DINNER TRAY ARRIVES. PT DENIES ANY OTHER NEEDS AT THIS TIME. CALL LIGHT IN REACH. BED ALARM ON.
--- NOTE | 2023-08-10 18:02 | NUR ---
ASSISTED PT TO THE BATHROOM. SOCIALLY RESPONSIBLE INVESTMENT ADVISER SBA PT USED THE FWW
--- NOTE | 2023-08-10 18:32 | NUR ---
IN WITH DR. DOCKERY. DR. DOCKERY AND PT DISCUSS PROCEDURE. VERBAL ORDERS TO DC IV FLUIDS, VERIFIED WITH READBACK. IV FLUIDS DC'd. PT SITTING UP IN BED AND RESPONDS WHEN ADDRESSED. PT DENIES ANY OTHER NEEDS AT THIS TIME. CALL LIGHT IN REACH. BED ALARM ON.
--- NOTE | 2023-08-10 19:38 | NUR ---
REPORT RECEIVED FROM DAY RN. PATIENT RESTING IN BED WITH EYES CLOSED. RESPIRATIONS EVEN AND UNLABORED. CALL LIGHT WITHIN REACH BED ALARM ON.
--- NOTE | 2023-08-10 20:26 | NUR ---
CALL LIGHT ANSWERED. PT NEEDED TO USE BATHROOM. FURNACE FEEDER SBA WITH FWW. PT BACK IN BED AND SCDS ON. FURNACE FEEDER OBTAINED VITALS AND I&O. PT STATES NO FURTHER NEEDS AT THIS TIME. CALL LIGHT PLACED WITHIN REACH.
--- NOTE | 2023-08-10 22:20 | NUR ---
Patient resting in bed. HS medications given lungs CTA, bowel tones acitve x 4 quadrants. Denies any pain at this time. Reports she feels a burning when urinating. Patient given a mallory bottle to use during voiding. 2 L oxygen on via NC while she is sleeping due to home cpap being non-functionable at this time. No further needs at this time. Call light within reach.
[2023-08-11] VITALS (7 sets, daily range): BP systolic 138–156; BP diastolic 68–72
--- NOTE | 2023-08-11 00:20 | NUR ---
PATIENT RESTING IN BED WITH EYES CLOSED. OXYGEN IN PLACE 2L VIA N/C. RESPIRATIONS EVEN AND UNLABORED. CPOX IN PLACE READINGS WNL. CALL LIGHT WITHIN REACH.
--- NOTE | 2023-08-11 00:44 | NUR ---
CALL LIGHT ANSWERED. PT NEEDED TO USE BATHROOM. SCRAP CRANE OPERATOR SBA WITH FWW TO BATHROOM. PT ATTENDS AND GOWN CHANGED. PT BACK IN BED WITH SCDS BACK ON. PT STATES NO FURTHER NEEDS AT THIS TIME. CALL LIGHT PLACED WITHIN REACH.
--- NOTE | 2023-08-11 02:07 | NUR ---
PATIENT RESTING IN BED WITH OXYGEN 2L VIA NC ON. VSS. DENIES ANY PAIN OR DISCOMFORT AT THIS TIME. NO NEEDS AT THIS TIME. CALL LIGHT WITHIN REACH.
--- NOTE | 2023-08-11 03:34 | NUR ---
CALL LIGHT ANSWERED. PT NEEDED TO USE BATHROOM. DIALS INSPECTOR SBA WITH FWW TO AND FROM BATHROOM. PT ATTENDS CHANGED. PT BACK IN BED AND SCDS BACK ON. PT STATES NO FURHTER NEEDS AT THIS TIME. CALL LIGHT PLACED WITHIN REACH.
--- NOTE | 2023-08-11 04:00 | NUR ---
PATIENT RESTING IN BED. CPOX IN PLACE. READINGS WNL. RESPIRATIONS EVEN AND UNLABORED. CALL LIGHT WITHIN REACH.
--- NOTE | 2023-08-11 04:58 | NUR ---
RATE CLERK PASSENGER ENTERED ROOM AND OBTAINED VITALS AND I&O. PT STATES NO FURTHER NEEDS AT THIS TIME. CALL LIGHT PLACED WITHIN REACH.
[2023-08-11 05:42] LABS: HEMATOCRIT 34.9 % (35.0-50.0); HEMOGLOBIN 11.5 g/dL (12.0-18.0); MCHC 32.9 g/dl (30-36); MCV 91.3 fl (81-99); RBC 3.82 M/ul (4.3-5.7); RDW 14.4 (10.5-15.0)
--- NOTE | 2023-08-11 06:20 | NUR ---
PATIENT UP TO BATHROOM. AMBULATING WELL WITH FWW. NO NOTED DISCHARGE IN PAD OR BREIF. VOIDING QUANITY SUFFICIENT. PATIENT BACK IN BED. AM MEDICATION GIVEN. NO FURTHER NEEDS AT THIS TIME. CALL LIGHT WTIHN REACH.
--- NOTE | 2023-08-11 07:15 | NUR ---
REPORT RECIEVED FROM STAN TORIBIO. PT SITTING UP IN BED RESTING AND RESPONDS WHEN ADDRESSED. PT DENIES ANY NEEDS AT THIS TIME. CALL LIGHT IN REACH.
--- NOTE | 2023-08-11 08:09 | NUR ---
PATTERN ILLUSTRATOR ASSISTED PATIENT TO BATHROOM AND THEN BACK TO BED. CALL LIGHT WITHIN REACH, NO FURTHER NEEDS AT THIS TIME.
[2023-08-11] MEDS ORDERED: OMEPRAZOLE40 MG PO (08:13)
[2023-08-11] MEDS ORDERED: LO-DOSE ASPIRIN81 MG PO (08:15)
[2023-08-11] MEDS ORDERED: ADVAIR HFA 45-212 GM INH (08:16)
[2023-08-11] MEDS ORDERED: NORVASC10 MG PO (08:56)
[2023-08-11] MEDS ORDERED: buPROPion HCL XL 300 MG TAB.XL.24H PO SCH (09:00)
[2023-08-11] MEDS ORDERED: LOSARTAN POTASSIUM 100 MG TAB PO SCH (09:00)
[2023-08-11] MEDS ORDERED: BIOTIN10000 MCG PO (09:00)
[2023-08-11] MEDS ORDERED: METOPROLOL TARTRATE 50 MG TAB PO SCH (09:00)
[2023-08-11] MEDS ORDERED: SERTRALINE HCL 50 MG TAB PO SCH (09:00)
[2023-08-11] MEDS ORDERED: TORSEMIDE 5 MG TAB PO SCH (09:00)
--- NOTE | 2023-08-11 09:00 | NUR ---
Spoke with Giovana. She lives at [facility]. Stayed over following surgery last night, dc orders are written at this time. Pt denies need. Pt asking for CM to call [facility] for a ride. She uses [facility] through [facility] for medical transport. I called Tammy and she states all rides must be scheduled through [facility]. I called [facility] and their system crashed this AM. They unable to schedule or tell if this pt was scheduled for transport to [facility]. Filled out a taxi ticket and gave to the charge nurse. Called and spoke with Jossie giron RN at [facility]. She states she doesn't need new orders as pt was a DS. Let her know Dr. Ramirez has already completed. Orders faxed and I will send by taxi. She states she does not need a time as long as pt returns before noon. Returned to room and updated the pt. She has her walker. Let her know to ask the local truck driver for assist from staff when she arrives at [facility]. Pt denies other needs. There was a note in the chart showing pt's fu appt for August 26 at 1:15. Pt did not think this was correct to see Dr. Ramirez, but states she will call the office and confirm.
[2023-08-11] MEDS ORDERED: MELATONIN1 MG PO (09:12)
[2023-08-11] MEDS ORDERED: MIRALAX17 GM PO (09:12)
--- NOTE | 2023-08-11 09:14 | NUR ---
MED REC COMPLETE
--- NOTE | 2023-08-11 09:18 | NUR ---
MED REC COMPLETE
--- NOTE | 2023-08-11 09:22 | NUR ---
IN WITH SN EVA TO ADMINISTER MEDICAITONS, SEE MAR. PT TAKES PO MEDICATIONS WITH NO ISSUES. PT REFUSES ZOLOFT, POTASSIUM AND TORSEMIDE. PT DENIES ANY PAIN AT THIS TIME. DOUGIE FROM CASE MANAGEMENT ARRIVES. ASSESSMENT COMPLETE. LUNG SOUNDS CLEAR IN RUL AND SHANNA. CRACKLES IN RLL AND LLL. DIMINISHED IN LLL. BOWEL TONES ACTIVE. PEDAL PULSES PALPABLE, FAINT. PT DENIES NUMBNESS/TINGLING IN EXTREMITIES AT THIS TIME. ABD SOFT AND NON-TENDER WITH PALPATION. HERNIA NOTED TO MID UPPER ABD. NO BLEEDING OR DISCHARGE NOTED TO JEANNE-PAD. PT ON RA WITH O2 SATS AT 94%. PT DENIES ANY OTHER NEEDS AT THIS TIME. CALL LIGHT IN REACH.
--- NOTE | 2023-08-11 10:18 | NUR ---
UR CLINICAL REVIEW: 2 [place] [facility] MEETS CRITERIA FOR ADMIT OBSERVATION 08/10/23 @ 1155 AUTH PENDING NEXT REVIEW 08/11/23 PLAN TO DC HOME
--- NOTE | 2023-08-11 10:31 | NUR ---
IN WITH SN EVA TO ASSIST PT WITH GETTING DRESSED FOR DC. IV REMOVED WNL, SEE VASCULAR ACCESS. VITALS COMPLETE. BELONGINGS RETURNED. PT DENIES ANY OTHER NEEDS AT THIS TIME. PT SITTING UP IN RECLINER. CALL LIGHT IN REACH.
--- NOTE | 2023-08-11 11:35 | NUR ---
REPORT CALLED TO ARTHUR LAZAR AND GIVEN TO MATHEUS. QUESTIONS ANSWSERED.
--- NOTE | 2023-08-16 07:30 | OR ---
[facility] [address], [place] [address] Signed DATE OF OPERATION: 08/10/2023 SURGEON: Lanie Ramirez MD PREOPERATIVE DIAGNOSIS: Postmenopausal bleeding. POSTOPERATIVE DIAGNOSIS: Postmenopausal bleeding, fundal perforation. PROCEDURES: Hysteroscopy, D and C, repair of vaginal laceration. ANESTHESIA: MAC. ESTIMATED BLOOD LOSS: Minimal. DRAINS: None. INDICATIONS AND FINDINGS: The patient is a 77-year-old female, who has been having abnormal uterine bleeding. Ultrasound showed a thickened endometrium with some fluid. At the time of surgery, there was a small vaginal laceration at the introitus consistent with the prep. The cervix was stenotic. During the course of dilation, a fundal perforation occurred. DESCRIPTION OF PROCEDURE: The patient was prepped and draped in the dorsal lithotomy position. A weighted speculum was placed and the anterior lip of the cervix was visualized and grasped with single-tooth tenaculum. The cavity could not be sounded because of the cervical stenosis. The small dilators were then used and the cervix was then easily dilated up to about #6 dilator. At that point, #7 was placed with normal resistance. However, when the #8 was placed, there was a perforation. The hysteroscope was then placed and the perforation confirmed. Hysteroscopy was complete. The hysteroscope was removed and D and C was done in the lower segment. A small amount of tissue was obtained. The tenaculum was removed and there was no evidence of any bleeding from the tenaculum site. There was no evidence of any bleeding from the cervix. The laceration at the introitus was closed with running suture of 3-0 chromic. All sponge and needle Electronically Signed By: LANIE RAMIREZ MD 08/16/23 0730 PATIENT NAME: LILIANE HUNTER OPERATIVE REPORT DATE OF : 41 REPORT #: [id number] PHYSICIAN: LANIE RAMIREZ MD PCP: MALENA SAUNDERS MD REPORT IS CONFIDENTIAL AND NOT TO BE RELEASED WITHOUT AUTHORIZATION [facility] [address] [place] [id number] Signed counts were correct. The patient tolerated the procedure well and was taken to the recovery room in good condition. Lanie Ramirez MD PJW/MODL /[id number] Copies: ~ Electronically Signed By: LANIE RAMIREZ MD 08/16/23 0730 PATIENT NAME: LILIANE HUNTER OPERATIVE REPORT DATE OF : 41 REPORT #: [id number] PHYSICIAN: LANIE RAMIREZ MD PCP: MALENA SAUNDERS MD REPORT IS CONFIDENTIAL AND NOT TO BE RELEASED WITHOUT AUTHORIZATION
[2023-08-17] MEDS ORDERED: BREO ELLIPTA I1 EACH INH (11:06)
--- NOTE | 2023-08-17 15:53 | PATH ---
[facility] [address] [place], [place] [address] Signed SPECIMEN(S): A ENDOMETRIAL CURETTINGS SPECIMEN SOURCE: A. ENDOMETRIAL CURETTINGS CLINICAL HISTORY: PMB FINAL PATHOLOGIC DIAGNOSIS: Endometrium, curettage: - Fragments of benign ectocervical tissue; insufficient for evaluation of endometrium BRP MICROSCOPIC EXAMINATION: Histologic sections of all submitted blocks are examined by light microscopy. These findings, together with the gross examination, support the pathologic diagnosis. GROSS DESCRIPTION: The specimen, labeled and designated "White, endometrial curettings," is received in formalin and consists of scanty tissue fragments that most likely cannot survive processing. Specimen is send to cytology for cellblock prep JS (under the direct supervision of a pathologist) The Gross Description was prepared using a voice recognition system. The report was reviewed for accuracy; however, sound-alike word errors, addition and/or deletions may occur. If there is any question about this report, please contact Client Services. ADDITIONAL NOTES: Immunohistochemical and/or in situ hybridization studies if performed in this case included appropriate positive controls that reacted as expected. This test was developed and its performance characteristics determined by [facility]. It has not been cleared or approved by the U.S. Food and Drug Administration. The FDA has determined that such clearance or approval is not necessary. This test is used for clinical purposes. It should not be regarded as investigational or for research. [facility] is certified under the Clinical Laboratory Improvement Amendments of 1988 (CLIA) as qualified to perform high complexity clinical PATIENT NAME: LILIANE HUNTER PATHOLOGY DATE OF : 41 REPORT #: [id number] PHYSICIAN: KARIN MICHAELS PCP: MALENA SAUNDERS MD REPORT IS CONFIDENTIAL AND NOT TO BE RELEASED WITHOUT AUTHORIZATION [address] [place], [place] [address] Signed laboratory testing. PERFORMING LABORATORY: Technical component was performed by [facility], [address] [place] [address] (CLIA# [id number]). [facility] [address] [id number] Diagnostician: Michael Orta MD Pathologist Electronically Signed 08/17/2023 Copies: ~ PATIENT NAME: LILIANE HUNTER PATHOLOGY DATE OF : 41 REPORT #: [id number] PHYSICIAN: KARIN MICHAELS PCP: MALENA SAUNDERS MD REPORT IS CONFIDENTIAL AND NOT TO BE RELEASED WITHOUT AUTHORIZATION
== END 2023-08-11 11:22 | disposition home or self-care (01) ==
LOC: OPS 08:30 → DS 08:30 → OPS 10:45 → MS 12:30 → OPS 13:00
PROVIDERS: Nurse Anesthetist, Certified Registered; ATTEND Obstetrics & Gynecology
PROC: 0UQG0ZZ Repair Vagina, Open Approach (ICD-10-PCS; 2023-08-10)
PROC: 0UDB8ZZ Extraction of Endometrium, Via Natural or Artificial Opening Endoscopic (ICD-10-PCS; principal; 2023-08-10 10:45)
DX: N95.0 Postmenopausal bleeding (principal); S31.41XA Laceration without foreign body of vagina and vulva, initial encounter; Z88.5 Allergy status to narcotic agent; Z88.8 Allergy status to other drugs, medicaments and biological substances; Z91.040 Latex allergy status; X58.XXXA Exposure to other specified factors, initial encounter
CPT/HCPCS: 00942; 36415; 80048; 85027; 88305; A9270; J7121

== ENCOUNTER 2023-08-26 05:35 | Observation (INO) | payer MEDICARE, OTHER ==
--- NOTE | 2023-08-11 09:00 | NUR ---
Spoke with Giovana. She lives at [facility]. Stayed over following surgery last night, dc orders are written at this time. Pt denies need. Pt asking for CM to call [facility] for a ride. She uses [facility] transport through [facility] for medical transport. I called Tammy and she states all rides must be scheduled through [facility]. I called [facility] and their system crashed this AM. They unable to schedule or tell if this pt was scheduled for transport to [facility]. Filled out a taxi ticket and gave to the charge nurse. Called and spoke with Jossie giron RN at [facility]. She states she doesn't need new orders as pt was a DS. Let her know Dr. Ramirez has already completed. Orders faxed and I will send by taxi. She states she does not need a time as long as pt returns before noon. Returned to room and updated the pt. She has her walker. Let her know to ask the dumpcart driver for assist from staff when she arrives at [facility]. Pt denies other needs. There was a note in the chart showing pt's fu appt for August 26 at 1:15. Pt did not think this was correct to see Dr. Ramirez, but states she will call the office and confirm.
[~2023-08-26] VITALS: Ht 160 cm; Wt 75.0 kg
[2023-08-26] VITALS (7 sets, daily range): BP systolic 107–134; BP diastolic 50–63
[~2023-08-26 05:35] MED LIST changes: +ADVAIR HFA 45-212 GM INH; +BIOTIN10000 MCG PO; +BREO ELLIPTA I1 EACH INH; -FAMOTIDINE 20 MG/ 2 ML VIAL IV SCH; -IBLOOD GLUCOSE TEST STRIP 1 EA TEST VI PRN; -LIDOCAINE HCL 1% 5 ML SDV INJ ONE; +LO-DOSE ASPIRIN81 MG PO; +OMEPRAZOLE40 MG PO
[2023-08-26] MEDS ORDERED: LIDOCAINE HCL 1% 5 ML SDV INJ ONE (07:00)
[2023-08-26] MEDS ORDERED: HEParin SOD (PORCINE) 5,000 UNIT/0.5 ML SYR SUB-Q SCH (07:00)
[2023-08-26] MEDS ORDERED: IBLOOD GLUCOSE TEST STRIP 1 EA TEST VI PRN ×2 (07:00→08:15)
[2023-08-26] MEDS ORDERED: CEFAZOLIN SODIUM 2 GM/20 ML SYR IV SCH ×2 (07:00→14:00)
[2023-08-26] MEDS ORDERED: propofoL 200 MG/20 ML VIAL ONE (07:07)
[2023-08-26] MEDS ORDERED: ROCURONIUM BROMIDE 50 MG/5 ML SYR ONE (07:07)
[2023-08-26] MEDS ORDERED: ondansetron HCL 4 MG/2 ML VIAL ONE (07:07)
[2023-08-26] MEDS ORDERED: DEXAMETHASONE SOD PHOS 4 MG/ML VIAL ONE (07:07)
[2023-08-26] MEDS ORDERED: LIDOCAINE HCL 1% 30 ML SDV ONE (07:07)
[2023-08-26] MEDS ORDERED: KETAMINE in NS 50 MG/5 ML SYR ONE (07:10)
[2023-08-26] MEDS ORDERED: dexmedeTOMIDine HCl 200 MCG/2 ML VIAL ONE (07:10)
[2023-08-26] MEDS ORDERED: ACETAMINOPHEN 1,000 MG/100 ML VIAL ONE (07:13)
--- NOTE | 2023-08-26 07:19 | NUR ---
VISITED DURING SPIRITUAL CARE ROUNDS. PT APPEARED TO BE SLEEPING. DID NOT DISTURB. PROVIDED PRAYER.
[2023-08-26] MEDS ORDERED: SUGAMMADEX SODIUM 200 MG/2 ML ML ONE (07:51)
[2023-08-26] MEDS ORDERED: ePHEDrine sulfate 50 MG/ML AMP ONE (07:55)
[2023-08-26] MEDS ORDERED: ondansetron HCL 4 MG/2 ML VIAL IV PRN ×2 (08:15→09:45)
[2023-08-26] MEDS ORDERED: fentaNYL citrate 50 MCG/ML SDV IV PRN (08:15)
[2023-08-26] MEDS ORDERED: NALOXONE HCL 0.4 MG SYR IV PRN (08:15)
[2023-08-26] MEDS ORDERED: LACTATED RINGER'S 1,000 ML IV ONE (08:29)
--- NOTE | 2023-08-26 09:25 | NUR ---
08/26/23 0925 Nimco Brooks PATIENT ARRIVES IN PACU TALKING WITH PERL DEVELOPER ABOUT "HAVING A CONSTITUTION PARTY." PATIENT DENIES PAIN.
[2023-08-26] MEDS ORDERED: buPROPion HCL XL 300 MG TAB.XL.24H PO SCH (09:39)
[2023-08-26] MEDS ORDERED: NYSTATIN CREAM 30 GM TUBE TOP SCH (09:41)
[2023-08-26] MEDS ORDERED: oxyBUTYnin chloride 5 MG TAB PO SCH (09:43)
[2023-08-26] MEDS ORDERED: PANTOPRAZOLE SODIUM 40 MG TABEC PO SCH (09:44)
[2023-08-26] MEDS ORDERED: LACTATED RINGER'S 1,000 ML IV SCH (09:45)
[2023-08-26] MEDS ORDERED: PROCHLORPERAZINE EDISYLATE 10 MG/2 ML VIAL IV PRN (09:45)
[2023-08-26] MEDS ORDERED: KETOROLAC TROMETHAMINE 15 MG/ML VIAL IV PRN (09:45)
[2023-08-26] MEDS ORDERED: ALBUTEROL SULFATE 0.083% 3 ML VIAL INH PRN (10:00)
--- NOTE | 2023-08-26 10:12 | NUR ---
PT ARRIVES TO ROOM, AWAKE IN BED, TRANSFERRED TO [facility] BED BY RNs AND TRANSITION SOCIAL WORKER. SCDs IN PLACE, 2L O2 VIA NC IN PLACE. RECEIVED REPORT FROM STAN ODELL. VSS. CALL LIGHT WITHIN REACH, PT STATES NO NEEDS AT THIS TIME.
[2023-08-26] MEDS ORDERED: SUCRALFATE 1 GM TAB PO SCH (11:00)
--- NOTE | 2023-08-26 11:55 | NUR ---
CALLED [facility]. PATIENT LIVES THERE AND THEY ARE ABLE TO ACCEPT HER BACK TOMORROW. PATIENT WILL NEED TAXI RIDE TO RETURN TO [facility]. Tyrone MURPHY RN/CHARGE NURSE, NOTIFIED.
--- NOTE | 2023-08-26 13:15 | NUR ---
UR CLINICAL REVIEW: [facility], MEETS CRITERIA FOR OBS [facility] OBS 08/26/23 @ 0945 STATUS MATCHES ORDER AUTH PENDING CLINICAL REVIEW. PLAN TO RETURN TO [facility] TOMORROW. 08/27/23
--- NOTE | 2023-08-26 13:21 | NUR ---
Pt report received from STAN Laura. Pt is resting in bed, denies needs at this time. A&O x4. Call light in reach.
--- NOTE | 2023-08-26 13:54 | NUR ---
BASE LOADER DOUGIE IN WITH PT. LAST SET OF HOURLY VS FOLLOWS T97.2 R18 P65 BP 123/63 (76), SPO2 97% ON 2LPM IV FLUIDS, LR, RUNNING AT 85ML/HR PER EMAR
[2023-08-26] MEDS ORDERED: ACETAMINOPHEN 500 MG TAB PO SCH (14:00)
--- NOTE | 2023-08-26 14:30 | NUR ---
Spoke with Giovana. She states she lives at [facility]. She uses a walker. She is not happy living there, but states will be there until the end of her life. She uses a 4 w walker, but would like 2 wheel that folds. She believes her 4 W is less than 5 years old and paid for my medicare. I let her know she cannot get another. She wanted to know if medicaid would pay as she states her room is very full and she has difficulty using her 4 W. Let her know I can ask [facility] as this is where her 02, CPAP, and nebulizer are from. Pt complains of financial issues. States her home was repossessed and she was left with bills from repairs. All bills for living and food are covered at the [facility] she lives in. Pt has a pillowcase turner, Elvia, through [facility]. Pt. again mentioning her room is very cluttered. I asked if she boarders on hoarding and she denies, but states her grandson tells her she is a hoarder. I will call [facility] to check if they have a way to get this pt a 4WW. Pt has many complaints about [facility] and I suggested she contact the [facility] and she has already done so. She feels [facility] has targeted her since her complaint by not repairing her refriderator and taking away her Life alert. I asked if she would like me to call [facility] and she denies. I'll contact [facility] about a walker and [facility] about a Life Alert.
--- NOTE | 2023-08-26 15:06 | NUR ---
Called and spoke with Sonali at [facility] and medicare must be billed first. Per Sonali, [facility] supplies FWW for any pt needing one. I then called Roxanne Horn [facility] and Medicaid pts qualify for free Med alerts. However, pts only qualify if they live at home. As pt is in a facility, she does not qualify. Per Roxanne, facilities are paid to keep pts safe and should not need a Life Alert.
[2023-08-26] MEDS ORDERED: ALLERGY RELIEF5 M1 PO (15:31)
[2023-08-26] MEDS ORDERED: MIRALAX17 GM PO (15:33)
--- NOTE | 2023-08-26 15:37 | NUR ---
MED REC COMPLETE
[2023-08-26] MEDS ORDERED: AMLODIPINE BESYLATE 10 MG TAB PO SCH (17:00)
[2023-08-26] MEDS ORDERED: SERTRALINE HCL 50 MG TAB PO SCH (18:00)
[2023-08-26] MEDS ORDERED: LOSARTAN POTASSIUM 100 MG TAB PO SCH (18:00)
--- NOTE | 2023-08-26 19:15 | NUR ---
Report received from day RN. Patient resting in recliner. Patient c/o having pain in her chest while coughing. RT notified. NO further needs at this time. Call light within reach.
[2023-08-26] MEDS ORDERED: BUDESONIDE 0.5 MG/2 ML VIAL INH SCH (20:00)
[2023-08-26] MEDS ORDERED: ALBUTEROL/IPRATROPIUM 3 ML NEB INH SCH (20:00)
[2023-08-26] MEDS ORDERED: GABAPENTIN 100 MG CAP PO SCH (21:00)
--- NOTE | 2023-08-26 21:00 | NUR ---
PATIENT RESTING IN RECLINER. NO C/O PAIN AT THIS TIME. CANDIDA DRAIN PINNED ONTO GOWN AND DRAINING SEROSANG FLUID. RN DISCUSSED REMOVING BERNSTEIN CATHERTER WITH PATIENT. PATIENT STATED, " I WOULD LIKE TO WAIT UNTIL MORNING WHEN I HAVE MORE STRENGTH." PATIENT DENIES ANY FURTHER NEEDS AT THIS TIME CALL LIGHT WITHIN REACH.
--- NOTE | 2023-08-26 21:24 | NUR ---
POT RUNNER OBTAINED VITALS AND INTAKE. CATH BAG WAS EMPTY, NO NEW OUTPUT NOTED. POT RUNNER GAVE WARM BLANKET FOR FEET. PT IN CHAIR IN ROOM. PT STATES NO FURTHER NEEDS AT THIS TIME. CALL LIGHT PLACED WITHIN REACH.
--- NOTE | 2023-08-26 22:45 | NUR ---
SENIOR SALES EXECUTIVE SBA WITH FWW BACK TO BED. SCDS PLACED BACK ON AND CPOX RECONNECTED. SENIOR SALES EXECUTIVE REFILLED PT WATER REQUESTED. PT STATES NO FURTHER NEEDS AT THIS TIME. CALL LIGHT PLACED WITHIN REACH.
--- NOTE | 2023-08-27 00:31 | NUR ---
CALL LIGHT ANSWERED. PATIENT REQUESTING HER ABD BINDER BE READJUSTED. BENZENE WASHER AND RN ADJUSTED PATIENTS ABD BINDER. NO FURTHER NEEDS AT THIS TIME CALL LIGHT WITHIN REACH.
[2023-08-27 01:32] VITALS: BP 133/59
--- NOTE | 2023-08-27 01:40 | NUR ---
IDENTIFIER HORSE OBTAINED VITALS AND I&O. CATH BAG EMPTIED. PT STATES NO FURTHER NEEDS AT THIS TIME. CALL LIGHT PLACED WITHIN REACH.
--- NOTE | 2023-08-27 03:30 | NUR ---
PATIENT RESTING IN BED WITH EYES CLOSED. RESPIRATIONS EVEN AND UNLABORED. CALL LIGHT WITHIN REACH.
[2023-08-27 05:52] VITALS: BP 139/62
--- NOTE | 2023-08-27 05:56 | NUR ---
TRAVELING ENGINEER OBTAINED VITALS AND I&O. CATH BAG EMPTIED. PT STATES NO FURTHER NEEDS AT THIS TIME. CALL LIGHT PLACED WITHIN REACH.
--- NOTE | 2023-08-27 06:23 | NUR ---
BERNSTEIN CATH DISCONTINUED. PATIENT TOLLERATED WELL. DRESSING TO MIDLINE IS CDI. ABD BINDER REMAINS IN PLACE. AM MEDICATIONS GIVEN. PATIENT EXPERIANCING SOB. RT NOTIFIED. CPOX READINGS WNL AT THIS TIME. PATIENT IS ON 2L OXYGEN VIA NC. DENIES ANY PAIN AT THIS TIME. CALL LIGHT WITHIN REACH, BED ALARM ON.
--- NOTE | 2023-08-27 07:13 | NUR ---
PT AWAKE RESTING IN BED WITH CALL LIGHT WITHIN REACH, NO REQUESTS AT THIS TIME.
--- NOTE | 2023-08-27 07:45 | NUR ---
Board has been updated and call light has been placed within reach
[2023-08-27] MEDS ORDERED: IBUPROFEN 600 MG TAB PO PRN (08:30)
--- NOTE | 2023-08-27 09:37 | NUR ---
PT AMBULATED TO RESTROOM TO VOID WT 1 PERSON ASSIST AND WALKER, TOLERATED WELL. PT BACK IN BED EATING BREAKFAST WTIH CALL LIGHT WITHIN REACH. RATED PAIN TO ABD 7/10, PAIN MED GIVEN.
[2023-08-27 09:49] VITALS: BP 113/85
--- NOTE | 2023-08-27 10:58 | NUR ---
PT UP AMBULATING IN [place] WITH ASSIST AND WALKER, AND PORTABLE O2. PT TOLERATING WELL.
--- NOTE | 2023-08-27 11:09 | NUR ---
DR MCGUIRE IN TO SEE PT AND REMOVE CANDIDA DRAIN. PT TOLERATED WELL. JOANNE APPLIED.
[2023-08-27] MEDS ORDERED: IBUPROFEN600 MG PO (11:13)
[2023-08-27] MEDS ORDERED: ACETAMINOPHEN500 MG PO (11:13)
--- NOTE | 2023-08-27 11:23 | NUR ---
PT ASKED IF SHE CAN GO ON A WALK IN THE [place] NURSE WAS OKAY WITH IT WENT TO GO GET AN O2 TANK AND WHEEL CHAIR IN CASE SHE GOT TIRED. PT DID ONE ROUND AROUND THE NURSE STATION AND PT DIDNT COMPLAIN ABOUT ANYTHING. PT WELL GOT NEW LINENS, AND PT DIDNT NEED ANYTHING ELSE AND CALL LIGHT IS WITHIN REACH.
--- NOTE | 2023-08-27 11:41 | NUR ---
IV DC'D WITH CATHETER INTACT. DRSG APPLIED.
--- NOTE | 2023-08-27 12:12 | OR ---
[facility] [address], [place] [address] Signed DATE OF OPERATION: 08/26/2023 SURGEON: Jigar Mcguire MD PREOPERATIVE DIAGNOSIS: Recurrent incisional hernia, supraumbilical area, fascial defect, greater than 6 cm. POSTOPERATIVE DIAGNOSIS: Recurrent incisional hernia, supraumbilical area, fascial defect, greater than 6 cm. PROCEDURES: 1. Repair of recurrent incisional hernia, greater than 6 cm defect. 2. Implantation of Prolene mesh underlay technique with fascial reapproximation. ANESTHESIA: General endotracheal, Shanna Julianna, SURGEON/PRESIDENT and local 10 mL of 0.25% Marcaine with epinephrine. INDICATIONS FOR THE PROCEDURE: This 77-year-old white woman is a patient of Dr. Saunders. She was referred for colonoscopy as well as known incisional hernia in the supraumbilical area. She had undergone colectomy in the past and has had developed hernia and possibly recurrent hernia. She has numerous medical comorbidities. She is admitted at this time to undergo repair of the hernia. She understands the risk of bleeding, infection, recurrence, and so on; understanding that she wished to proceed. FINDINGS: The fascial defect was about 7.5 cm. There was a smaller defect cephalad to that, which was repaired in continuity. Repair included implantation of Prolene mesh in the properitoneal space with fascial reapproximation using Prolene suture and Prolene pledgets. DESCRIPTION OF PROCEDURE: The patient was brought to the operating room, given a general anesthetic. Preoperative antibiotic Ancef was given and sequential compression device stockings were used. Heparin was subcutaneously administered. Alexander catheter was placed as she has incontinence generally speaking. The abdomen was prepared with a chlorhexidine solution. An Ioban was used as she did have a minimal inframammary yeast eruption clinically. Electronically Signed By: JIGAR MCGUIRE MD 08/27/23 1212 PATIENT NAME: LILIANE HUNTER OPERATIVE REPORT DATE OF : 41 REPORT #: [id number] PHYSICIAN: JIGAR MCGUIRE MD PCP: HAYDEE SAUNDERS MD REPORT IS CONFIDENTIAL AND NOT TO BE RELEASED WITHOUT AUTHORIZATION [facility] [address], [place] [address] Signed Palpable abnormality was cephalad to the umbilicus and incision made vertically directly over the area and dissection carried through the subcutaneous tissue were immediately identified, there was a hernia sac. The hernia was dissected free from a stroke surrounding subcutaneous tissue. The fascial defect measured approximately 7.5 cm. The hernia sac was opened and colon and small bowel were noted to be within the hernia. This was replaced in the abdominal cavity. Redundant hernia sac was amputated and passed for the Pathology. The properitoneal space was developed using blunt and electrocautery dissection allowing for closure of the hernia sac remnant into the properitoneal space. A 6 inch x 6 inch piece of Prolene mesh was cut to the elliptical configuration and secured in the properitoneal space with interrupted 0-Prolene sutures with Prolene pledgets. Midline fascia was then reapproximated with interrupted 0-Prolene with Prolene pledgets in a vertical mattress configuration. A 10 mL of 0.25% Marcaine with epinephrine was injected locally. Through a separate stab incision in the right lower quadrant, a 7 mm flat Tip drain was placed in the depths of the wound. Obliteration of the subcutaneous space was undertaken with interrupted 2-0 Vicryl and skin closed with running subcuticular 3-0 Vicryl. Steri-Strips were applied. The drain was attached to bulb suction, had been secured to the skin with a nylon suture. The drain was attached to bulb suction. An Acticoat dressing was applied. She was ultimately extubated and transferred to the recovery room in good condition. CONCLUDING DIAGNOSIS: Incisional hernia, greater than 7.5 cm, chronic and recurrent, status post repair with implantation of Prolene mesh in the properitoneal space and fascial reapproximation. MD GENESIS Lira/CELSOL /[id number] cc: Dr. Haydee Saunders Copies: ~ Electronically Signed By: JIGAR MCGUIRE MD 08/27/23 1212 PATIENT NAME: LILIANE HUNTER OPERATIVE REPORT DATE OF : 41 REPORT #: [id number] PHYSICIAN: JIGAR MCGUIRE MD PCP: HAYDEE SAUNDERS MD REPORT IS CONFIDENTIAL AND NOT TO BE RELEASED WITHOUT AUTHORIZATION
--- NOTE | 2023-08-30 11:18 | PATH ---
[facility] [address] [place], [place] [address] Signed SPECIMEN(S): A VENTRAL HERNIA SAC SPECIMEN SOURCE: A. VENTRAL HERNIA SAC CLINICAL HISTORY: Ventral hernia. FINAL PATHOLOGIC DIAGNOSIS: Ventral hernia sac: - Mesothelial lined fibrofatty tissue with mild chronic inflammation consistent with hernia sac. NA MICROSCOPIC EXAMINATION: Histologic sections of all submitted blocks are examined by light microscopy. These findings, together with the gross examination, support the pathologic diagnosis. GROSS DESCRIPTION: The specimen, labeled and designated "White, ventral hernia sac," is received in formalin and consists of irregular shaped, pink-cai, fibromembranous tissue fragment that measure 3.5 x 1.5 x 0.9 cm. Sectioning through the specimen reveals pink-cai, focally congested fibrous tissue. [employer] sections are submitted in (A1). JS (under the direct supervision of a pathologist) The Gross Description was prepared using a voice recognition system. The report was reviewed for accuracy; however, sound-alike word errors, addition and/or deletions may occur. If there is any question about this report, please contact Client Services. ADDITIONAL NOTES: Immunohistochemical and/or in situ hybridization studies if performed in this case included appropriate positive controls that reacted as expected. This test was developed and its performance characteristics determined by [facility]. It has not been cleared or approved by the U.S. Food and Drug Administration. The FDA has determined that such clearance or approval is not necessary. This test is used for clinical purposes. It should not be regarded as investigational or for research. [facility] is certified under the Clinical Laboratory Improvement PATIENT NAME: LILIANE HUNTER PATHOLOGY DATE OF : 41 REPORT #: [id number] PHYSICIAN: KARIN MICHAELS PCP: MALENA SAUNDERS MD REPORT IS CONFIDENTIAL AND NOT TO BE RELEASED WITHOUT AUTHORIZATION [address] [place] [address] Signed Amendments of 1988 (CLIA) as qualified to perform high complexity clinical laboratory testing. PERFORMING LABORATORY: Technical component was performed by [facility], [address] [place] [address] (CLIA# [id number]). Professional interpretation was performed by [facility] Pathology - [facility], [address] [place] [address] (CLIA#: [id number]). Diagnostician: Aniya Humphrey MD Pathologist Electronically Signed 08/30/2023 Copies: ~ PATIENT NAME: LILIANE HUNTER PATHOLOGY DATE OF : 41 REPORT #: [id number] PHYSICIAN: KARIN MICHAELS PCP: MALENA SAUNDERS MD REPORT IS CONFIDENTIAL AND NOT TO BE RELEASED WITHOUT AUTHORIZATION
== END 2023-08-27 12:37 | disposition home or self-care (01) ==
LOC: DS 05:35 → MS 10:12 → DS 11:00 → MS 08-27 12:37
PROVIDERS: ADMIT Surgery; ATTEND Surgery
PROC: 0WUF0JZ Supplement Abdominal Wall with Synthetic Substitute, Open Approach (ICD-10-PCS; principal; 2023-08-26 07:30)
DX: K43.2 Incisional hernia without obstruction or gangrene (principal); R13.10 Dysphagia, unspecified; E66.3 Overweight; Z68.28 Body mass index [BMI] 28.0-28.9, adult; Z88.5 Allergy status to narcotic agent; Z88.6 Allergy status to analgesic agent; Z88.8 Allergy status to other drugs, medicaments and biological substances; Z91.048 Other nonmedicinal substance allergy status
CPT/HCPCS: 00830; 94640; 94762; A9270; C1781; J0131; J0690; J1100; J1644; J2405; J2704; J3490; J7121

== ENCOUNTER 2023-11-23 13:16 | Emergency (ER) | payer MEDICARE, OTHER ==
[~2023-11-23] VITALS: Ht 160 cm; Wt 71.0 kg
[~2023-11-23 13:16] MED LIST changes: +ACETAMINOPHEN500 MG PO; +ALLERGY RELIEF5 M1 PO; +IBUPROFEN600 MG PO; -LACTATED RINGER'S 1,000 ML IV SCH
[2023-11-23 13:56] LABS: BASOPHILS 1.1 % (0-2); HEMATOCRIT 37.7 % (35.0-50.0); HEMOGLOBIN 12.3 g/dL (12.0-18.0); MCH 29.6 (27-36); MCHC 32.7 g/dl (30-36); MCV 90.5 fl (81-99); MONOCYTES 5.4 % (0-12); NEUTROPHILS 56.5 % (39-80); PLATELET COUNT 248 K/uL (140-440); RBC 4.17 M/ul (4.3-5.7)
[2023-11-23] MEDS ORDERED: SODIUM CHLORIDE 0.9% 500 ML IV ONE (14:00)
[2023-11-23] MEDS ORDERED: ondansetron HCL 4 MG/2 ML VIAL IV ONE ×2 (14:00→16:00)
[2023-11-23] MEDS ORDERED: ACETAMINOPHEN 1,000 MG/100 ML VIAL IV ONE ×4 (14:00→14:30)
[2023-11-23 14:07] LABS: ALBUMIN 3.3 g/dL (3.4-5.0); ANION GAP 11.1 (7-21); BILIRUBIN, TOTAL 0.4 ng/dL (0.2-1.0); BUN/CREATININE RATIO 15.62 (6.0-28.6); CALCIUM 8.9 mg/dL (8.5-10.1); CREATININE, SERUM 0.96 mg/dL (0.55-1.02); POTASSIUM 3.1 mmol/L (3.5-5.1); PROTEIN, TOTAL 6.6 g/dL (6.4-8.2)
[2023-11-23] MEDS ORDERED: ACETAMINOPHEN 650 MG SUPP PR ONE (14:15)
[2023-11-23 14:55] LABS: BILIRUBIN, URINE NEGATIVE (negative); BLOOD/HGB, URINE TRACE-I (Negative); KETONE, URINE NEGATIVE (Negative); LEUK ESTERASE, URINE MODERATE (negative); NITRITE, URINE NEGATIVE (negative)
[2023-11-23 15:06] LABS: BACTERIA, URINE 4+ /hpf (negative); CASTS, URINE NONE SEEN \\lpf; COLLECTION TYPE, URINE CLEAN CATCH; CRYSTALS, URINE NONE SEEN (0-1+); EPITHELIAL CELLS, URINE SQUAMOUS 1+ /lpf (0-1+); RED BLOOD CELLS, URINE 0-1 /hpf (0-5); REFLEX CULTURE, URINE Yes (No); WHITE BLOOD CELLS, URINE >50 /HPF (0-5)
[2023-11-23] MEDS ORDERED: diphenhydrAMINE HCL 50 MG/ML VIAL IV ONE (18:00)
[2023-11-23] MEDS ORDERED: levETIRAcetam 500 MG/5 ML VIAL IV ONE (18:00)
[2023-11-23] MEDS ORDERED: droPERidol 5 MG/2 ML VIAL IV ONE (18:00)
[2023-11-23 18:20] VITALS: BP 160/72
== END 2023-11-23 18:20 | disposition home or self-care (01) ==
LOC: ED 13:16
PROVIDERS: Emergency Medicine
DX: I60.9 Nontraumatic subarachnoid hemorrhage, unspecified (principal); R11.0 Nausea; R51.9 Headache, unspecified; J44.9 Chronic obstructive pulmonary disease, unspecified; E11.9 Type 2 diabetes mellitus without complications; K50.90 Crohn's disease, unspecified, without complications; E27.40 Unspecified adrenocortical insufficiency; I10 Essential (primary) hypertension; Z91.040 Latex allergy status; Z88.8 Allergy status to other drugs, medicaments and biological substances; Z91.041 Radiographic dye allergy status; Z88.5 Allergy status to narcotic agent; Z79.899 Other long term (current) drug therapy; Z79.83 Long term (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 of bisphosphonates; Z79.82 Long term (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 of aspirin; Z79.51 Long term (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 of inhaled steroids
CPT/HCPCS: 36415; 70450; 80053; 81001; 85025; 87088; 96374; 96375; 96376; 99284-25; J0131; J1200; J1790; J1953; J2405; J7040

== ENCOUNTER 2024-02-03 18:05 | Inpatient (IN) | payer MEDICARE, OTHER ==
[~2024-02-03] VITALS: Ht 160 cm; Wt 68.3 kg
[2024-02-03] MEDS ORDERED: SUCRALFATE1 GM/10 ML PO (18:33)
[2024-02-03] MEDS ORDERED: METOPROLOL SUCC25 MG PO (18:34)
[2024-02-03] MEDS ORDERED: ELIQUIS5 MG PO (18:34)
[2024-02-03] MEDS ORDERED: LOSARTAN POTASS50 MG PO (18:34)
[2024-02-03 20:01] LABS: BASOPHILS 0.5 % (0-2); EOSINOPHILS 1.7 % (0-6); HEMATOCRIT 34.8 % (35.0-50.0); HEMOGLOBIN 11.7 g/dL (12.0-18.0); LYMPHOCYTES 27.9 % (24-44); MCH 30.5 (27-36); MCHC 33.6 g/dl (30-36); MCV 90.8 fl (81-99); MONOCYTES 10.1 % (0-12); NEUTROPHILS 59.8 % (39-80); PLATELET COUNT 224 K/uL (140-440); RBC 3.83 M/ul (4.3-5.7); RDW 13.5 (10.5-15.0)
[2024-02-03 20:19] LABS: ALBUMIN/GLOBULIN RATIO 0.86 (1.1-2.4); ANION GAP 8.8 (7-21); BILIRUBIN, TOTAL 0.3 ng/dL (0.2-1.0); BUN/CREATININE RATIO 8.24 (6.0-28.6); CREATININE, SERUM 0.97 mg/dL (0.55-1.02); POTASSIUM 2.8 mmol/L (3.5-5.1); PROTEIN, TOTAL 6.5 g/dL (6.4-8.2)
[2024-02-03 20:23] LABS: LACTIC ACID, BLOOD 0.9 mmol/L (0.4-2.0)
[2024-02-03 20:27] LABS: BILIRUBIN, URINE NEGATIVE (negative); BLOOD/HGB, URINE SMALL (Negative); KETONE, URINE NEGATIVE (Negative); LEUK ESTERASE, URINE NEGATIVE (negative); NITRITE, URINE NEGATIVE (negative)
[2024-02-03 20:28] LABS: TSH, 3RD GENERATION 1.678 uIU/mL (0.358-3.740)
[2024-02-03 20:38] LABS: BACTERIA, URINE NONE SEEN /hpf (negative); CASTS, URINE NONE SEEN \\lpf; COLLECTION TYPE, URINE CLEAN CATCH; CRYSTALS, URINE NONE SEEN (0-1+); EPITHELIAL CELLS, URINE NONE SEEN /lpf (0-1+); REFLEX CULTURE, URINE No (No); WHITE BLOOD CELLS, URINE 0-1 /HPF (0-5)
[2024-02-03] MEDS ORDERED: PIPERACILLIN/TAZOBACTAM 3.375 GM in DEXTROSE 5% 100 ML IV ONE (20:45)
[2024-02-03] MEDS ORDERED: POTASSIUM CHLORIDE 10 MEQ TABCR PO ONE (20:45)
[2024-02-03] MEDS ORDERED: DEXTROSE 5% 100 ML IV ONE (20:50)
[2024-02-03] MEDS ORDERED: POTASSIUM CHLORIDE 10 MEQ/100 ML BAG IV SCH (21:00)
[2024-02-03] MEDS ORDERED: ondansetron HCL 4 MG/2 ML VIAL IV PRN (21:00)
[2024-02-03] MEDS ORDERED: ACETAMINOPHEN 325 MG TAB PO PRN (21:00)
[2024-02-03] MEDS ORDERED: DAPTOmycin 500 MG/10 ML VIAL IV ONE (21:00)
--- NOTE | 2024-02-03 21:36 | NUR ---
Pt arrived to the floor via ED stretcher, transported by ED STAN Allen. Pt report received from STAN Allen. Pt is A&O x3 (unable to tell me the correct date, month, or year). Upon arrival to the room, pt was able to stand and ambulate with 1PA (SBA) using FWW to void in toilet, then got into bed. Pt's LLE is red, edematous, hot to the touch and the skin appears to be weeping serous fluid. LE elevated on a pillow. Assessment and admission done at this time. IV site has some leaking around insertion underneath dressing but does not actively leak when flushed or when fluids administered on pump, good blood return. With rapid flush, pt reports some burning. No redness, swelling, leaking noted. IV Zosyn completed at this time. Pt reports she thinks she has a rash on her labia. Skin assessment (aside from the redness, swelling, and weeping of her LLE) is without no redness or rash noted to genitalia. She does have rash under her breasts for which she states she uses nystatin. Barrier paste applied to pt's labia at her request because she states it auguste when she wipes. Pt denies incontinence but wears a brief and can sense when she needs to void or have a BM. She states she has Crohns and usually only has a BM every couple of days and that's normal for her. Pt requests tylenol for a headache and an antacid for reflux at this time. NIO entered for maalox. Pt oriented to room, call light, and instructed to call if she needs to toilet or if she needs anything. Pt verbalized understanding. Side rails up x4, call light in reach, television on, lights turned down.
[2024-02-03 22:14] VITALS: BP 161/57
[2024-02-03] MEDS ORDERED: MAGNESIUM HYDROXIDE/AL HYDROX 30 ML CUP PO PRN (22:45)
[2024-02-03] MEDS ORDERED: LACTATED RINGER'S 1,000 ML IV ONE (22:45)
--- NOTE | 2024-02-03 23:11 | NUR ---
CALL LIGHT ANSWERED. PT NEEDED TO USE BATHROOM. PYRIDINE RECOVERY OPERATOR 1PA WITH FWW TO BATHROOM. PT VOIDED AND HAD SMALL BM. PT ASSISTED BACK TO BED. PT STATES NO FURTHER NEEDS AT THIS TIME. CALL LIGHT WITHIN REACH AND RN IN ROOM.
[2024-02-03 23:33] VITALS: BP 161/57
--- NOTE | 2024-02-03 23:41 | NUR ---
die assembler, [place], requested to assess pt for U/S guided IV as the pt reports burning, and the IV catheter is about 1/4" out of the skin with some leaking around insertion site.
[2024-02-04] VITALS (9 sets, daily range): BP systolic 129–168; BP diastolic 53–99
--- NOTE | 2024-02-04 00:41 | NUR ---
Hot pack provided to pt and placed on her right AC at the IV site with a wash cloth between her skin and the hot pack. Pt states this is helping her arm feel better with the K+ running through the IV. No leaking, redness, swelling noted.
[2024-02-04] MEDS ORDERED: ALBUTEROL SULFATE 0.083% 3 ML VIAL INH PRN (01:00)
--- NOTE | 2024-02-04 01:30 | NUR ---
Patient IV pump was going off and Mica PIERCE who was leaving work stopped into see what was going on. Patient was standing up with her leads off, and all her clothes off. Patient was dressed and tele leads back on and placed in bed. Patient educated on using call light and bed alarm was placed on patient.
--- NOTE | 2024-02-04 02:00 | NUR ---
iv pump alarming, issue resolved after flushing iv site. iv site wnl. bed alarm on and call light in reach, pt educated by this rn regarding use of call light before getting oob for safety or else pt will have to be moved into a closer room for closer observation, pt verbalzied understanding and agrees to use call light before getting oob, pt also educated on bed alarm.
--- NOTE | 2024-02-04 02:02 | NUR ---
GOT REPORT FROM PUTTER IN NURSE.
--- NOTE | 2024-02-04 02:07 | NUR ---
CHILLER HAND OBTAINED VITALS AND I&O. PT STATES NO NEEDS AT THIS TIME. CALL LIGHT WITHIN REACH AND BED ALARM ON.
--- NOTE | 2024-02-04 02:19 | NUR ---
INTO CHECK ON PATIENT. SHE IS C/O HER IV HURTING. EXAM LOOKS GOOD. SHE IS A HARD STICK AND DID NOT LIKE THEM TRYING TO GET A ULTRASOUND GUIDED IV IN EARLIER BUT NOW SHE WOULD LIKE TO TRY AGAIN. TILE DECORATOR ADVISED AND WILL COME TRY AGAIN.
--- NOTE | 2024-02-04 02:40 | NUR ---
PATIENT UP TO THE BEDSIDE COMMODE TO URINATE. NO COMPLICATIONS. PATIENT HAS WARM PACK ON IV SITE AND FEELING BETTER.
--- NOTE | 2024-02-04 03:06 | NUR ---
PRIZE JACKER IS IN TRYING TO GET ULTRASOUND IV PLACED.
--- NOTE | 2024-02-04 03:29 | NUR ---
with help from primary rn, photo consent obtained along with photos of ble. photos placed in chart.
--- NOTE | 2024-02-04 03:37 | NUR ---
UNABLE TO PLACE NEW IV. POTASSIUM IS DONE RUNNING AND PATIENT STATES ORIGINAL IV IS NO LONGER IN PAIN. WILL CONTINUE TO MONITOR AND THEY WILL HAVE SOMEBODY COME OVER DURING DAY SHIFT TO TRY AGAIN. PT BACK UP TO BATHROOM, HAD A SMALL BM. PLACED BACK IN BED, FEET ELEVATED ON PILLOW AND CHUX. PICTURES TAKEN WITH REHAB THERAPIST. BED ALARM ON. PT THANKFUL FOR ALL THE HELP.
--- NOTE | 2024-02-04 05:08 | NUR ---
PATIENT JUST HAD MORNING LABS. IV SITE IS WNL. PATIENT SLEEPING, REGULAR RESPIRATIONS NOTED.
--- NOTE | 2024-02-04 05:18 | NUR ---
RECEIVING TELLER OBTAINED VITALS AND I&O. PT STATES NO NEEDS AT THIS TIME. CALL LIGHT WITHIN REACH.
[2024-02-04 05:21] LABS: EOSINOPHILS 2.2 % (0-6); HEMOGLOBIN 10.5 g/dL (12.0-18.0); LYMPHOCYTES 32.5 % (24-44); MCH 30.6 (27-36); MCHC 33.9 g/dl (30-36); MCV 90.3 fl (81-99); MONOCYTES 10.4 % (0-12); NEUTROPHILS 53.9 % (39-80); PLATELET COUNT 204 K/uL (140-440); RBC 3.43 M/ul (4.3-5.7); RDW 13.7 (10.5-15.0)
--- NOTE | 2024-02-04 05:31 | NUR ---
PT NEEDED TO USE BATHROOM. AUDIOLOGY DOCTOR 1PA WITH FWW TO BATHROOM. PT VOIDED AND ASSISTED BACK TO BED. PT NEEDED SAFETY QUES WHILE GETTING BACK TO BED. OUTPUT MEASURED. PT STATES NO FURTHER NEEDS AT THIS TIME. CALL LIGHT WITHIN REACH AND BED ALARM ON.
[2024-02-04 05:34] LABS: ANION GAP 5.9 (7-21); BUN/CREATININE RATIO 6.97 (6.0-28.6); CALCIUM 8.3 mg/dL (8.5-10.1); CREATININE, SERUM 0.86 mg/dL (0.55-1.02); MAGNESIUM 1.6 mg/dL (1.8-2.4); POTASSIUM 2.9 mmol/L (3.5-5.1)
--- NOTE | 2024-02-04 07:10 | NUR ---
REPORT REC'D FROM STAN GARCIA. PT OOB TO BRP WITH SCHOOL BUS MECHANIC.
--- NOTE | 2024-02-04 07:20 | NUR ---
IVF DC'D, R FA 20G WITH BLOOD RETURN, FLUSHED WITH 10ML NS. PT A&OX3 AT THIS TIME, REPORT WAS PT CONFUSED OVERNIGHT AND KNOWN OVERACTIVE BLADDER HX. DISCUSSED MOVING PATIENT CLOSER TO NURSING STATION FOR OBSERVATION WITH CN, DOES NOT FEEL THIS IS INDICATED AT THIS TIME. WILL CONTINUE TO MONOITOR PATIENT FOR SAFETY CONCERNS. BED ALARM ON, SIDERAILS UP X2, CALL CARSON IN REACH, PT INSTRUCTED TO CALL FOR ASSISTANCE, BED LOW POSITION.
[2024-02-04] MEDS ORDERED: ALBUTEROL/IPRATROPIUM 3 ML NEB INH SCH ×2 (08:00→20:00)
[2024-02-04] MEDS ORDERED: BUDESONIDE 0.5 MG/2 ML VIAL INH SCH (08:00)
[2024-02-04] MEDS ORDERED: POTASSIUM CHLORIDE 40 MEQ in DEXTROSE 5% 250 ML IV ONE (08:15)
[2024-02-04] MEDS ORDERED: MAGNESIUM SULFATE 2 GM/50 ML BAG IV SCH (08:15)
[2024-02-04] MEDS ORDERED: POTASSIUM CHLORIDE 10 MEQ TABCR PO ONE ×2 (08:15→15:00)
[2024-02-04] MEDS ORDERED: DEXTROSE 5% 1,000 ML IV SCH (08:15)
--- NOTE | 2024-02-04 09:15 | NUR ---
JOHNATHAN KNIGHT - FROM [facility] CALLED FOR UPDATE. INFORMED PT WAS ADMITTED AND ANTICIPATE 1-2 DAYS FOR ANTIBIOTICS. INFORMED OF DX AND LABS WE ARE TREATING WITH ANTIBIOTICS CURRENTLY. NO FURTHER QUESTIONS
[2024-02-04] MEDS ORDERED: ACETAMINOPHEN 325 MG TAB PO PRN (10:00)
[2024-02-04] MEDS ORDERED: CEFEPIME HCL/D5W 2 GM/100 ML PIGGYBACK IV SCH ×2 (10:00→14:00)
[2024-02-04] MEDS ORDERED: ondansetron HCL 4 MG/2 ML VIAL IV PRN (10:00)
--- NOTE | 2024-02-04 11:35 | NUR ---
MEDICATIONS PROVIDED. PT REMAINS UP IN CHAIR, COMPLIANT WITH RESTRICTIONS. NO C/O PAIN AT THIS TIME.
[2024-02-04] MEDS ORDERED: PHARMACY RENAL DOSE ADJUSTMENT 1 DOSE MISC PO SCH (12:00)
--- NOTE | 2024-02-04 13:54 | NUR ---
ICU STAFF ATTEMPTING PIV PLACEMENT WITH US. PT WITHOUT C/O AT THIS TIME.
[2024-02-04 14:16] LABS: BUN/CREATININE RATIO 5.37 (6.0-28.6); CALCIUM 8.9 mg/dL (8.5-10.1); CREATININE, SERUM 0.93 mg/dL (0.55-1.02)
--- NOTE | 2024-02-04 15:10 | NUR ---
PT BED ALARM ALERTED, UPON ENTERING ROOM, RN NOTED PATIENT ATTEMPTING TO GET OOB TO BRP. RN ASSISTED PATIENT TO BRP, VOIDED 400ML TO HAT. IVF DC'D PER ORDER. PT AND BELONGINGS TRANSFERRED TO ROOM #111. FALL MATS PLACED AT BEDSIDE, BED AND CHAIR ALARM IN USE. CALL CARSON IN REACH, BED LOW POSITION, SIDERAILS UP X 2.
[2024-02-04] MEDS ORDERED: METOPROLOL SUCCINATE 25 MG TABCR PO SCH (15:33)
--- NOTE | 2024-02-04 16:05 | NUR ---
PATIENT RESTING IN BED. SCHEDULED MEDICATION ASDMINSTERED. PATIENT GIVEN SNACK WITH MEDICATATIONS. DENIES ANY PAIN AT THIS TIME. REDNESS TO BLLE REMAINS WITHIN MARGINS. NO FURTHER NEEDS CALL LIGHT WITHIN REACH.
--- NOTE | 2024-02-04 16:31 | NUR ---
PATIENT ASSISTED TO BSC WITH 1 PA ASSIST AND FWW. VOIDING QUANITY SUFFICIENT. PATIENT ASSISTED BACK TO BED. TOLLERATED WELL. NO FURTHER NEEDS CALL LLIGHT WITHIN REACH, BED ALARM ON.
[2024-02-04] MEDS ORDERED: SERTRALINE HCL 50 MG TAB PO SCH (18:00)
--- NOTE | 2024-02-04 18:16 | NUR ---
PT ASSISTED TO BRP. RETURNED TO BED. SR UPX 2, CALL CARSON IN REACH, BED LOW POSITION, BED ALARM ON. PT CARE PROVIDED T/O SHIFT WITHOUT INCIDENT. LABS REVIEWED.
--- NOTE | 2024-02-04 20:09 | NUR ---
ASSESSMENT COMPLETE - PT RESTING IN BED RECEIVING RT TREATMENT. PT ALERT AND ANSWERES ORIENTATION QUESTIONS CORRECT BUT DOES APPEAR TO BE FORGETFUL. LEFT LEG RED AND HOT TO TOUCH WITH MINIMAL WEEPING FROM SCABS - ELEVATED ON PILLOWS IN BED, WITHING PREVIOUSLY MARKED MARGINS. ABX INFUSING - IV SITES PATENT.
[2024-02-04] MEDS ORDERED: GABAPENTIN 100 MG CAP PO SCH (21:00)
[2024-02-04] MEDS ORDERED: APIXABAN 5 MG TAB PO SCH (21:00)
[2024-02-04] MEDS ORDERED: DAPTOmycin 500 MG/10 ML VIAL IV SCH (21:00)
--- NOTE | 2024-02-04 21:06 | NUR ---
RN IN ROOM TO ADMINISTER MEDICATIONS. PT ASSISTED UP TO BATHROOM TO VOID USING FWW. PT STEADY ON FEET BUT DEMONSTRATES INAPPROPRIATE USE OF FWW REQUIRING FREQUENT CUEING. BACK TO BED WITH CALL LIGHT IN REACH AND BED ALARM ON. PT WATCHING TV.
[2024-02-05] VITALS (7 sets, daily range): BP systolic 117–168; BP diastolic 53–76
--- NOTE | 2024-02-05 00:30 | NUR ---
PT RESTING IN BED WITH EYES CLOSED AND RR EVEN AND UNLABORED. CALL LIGHT IN REACH, BED ALARM ON. NEAR RN STATION.
--- NOTE | 2024-02-05 01:00 | NUR ---
Pt report received from STAN Roberts. Pt is resting supine in bed, eyes closed, breathing is regular, even, and non-labored. Call light in reach.
--- NOTE | 2024-02-05 01:37 | NUR ---
bed alarm going off, pt up sba with fww to bsc and voided 550 mls and back in bed, alarm resumed and call light in reach.
[2024-02-05 05:21] LABS: EOSINOPHILS 2.7 % (0-6); HEMATOCRIT 34.1 % (35.0-50.0); HEMOGLOBIN 11.3 g/dL (12.0-18.0); LYMPHOCYTES 32.4 % (24-44); MCH 30.2 (27-36); MCHC 33.1 g/dl (30-36); MCV 91.1 fl (81-99); MONOCYTES 11.1 % (0-12); NEUTROPHILS 52.8 % (39-80); PLATELET COUNT 225 K/uL (140-440); RBC 3.74 M/ul (4.3-5.7); RDW 13.9 (10.5-15.0)
[2024-02-05 05:33] LABS: ANION GAP 8.8 (7-21); BUN/CREATININE RATIO 8.04 (6.0-28.6); CALCIUM 8.4 mg/dL (8.5-10.1); CREATININE, SERUM 0.87 mg/dL (0.55-1.02); MAGNESIUM 2.2 mg/dL (1.8-2.4); POTASSIUM 3.8 mmol/L (3.5-5.1)
--- NOTE | 2024-02-05 06:40 | NUR ---
In with pt in response to bed alarm. Pt states she needs to use the bathroom. 1P SBA as pt ambulates to the toilet using FWW. Pt voided 200ml clear yellow urine in hat and additional urine in toilet. Pt tolerated activity well. Pt back to bed, bed alarm on, side rails up x3. Call light in reach. Pt watching television.
--- NOTE | 2024-02-05 07:15 | NUR ---
REPORT RECEIVED FROM FLOOR REPRESENTATIVE RN. PATIENT RESTING IN BED WITH EYES CLOSED. RESPIRATIONS EVEN AND UNLABORED. FALL MATS IN PLACE, BED ALARM ON. CALL LIGHT WITHIN REACH.
[2024-02-05] MEDS ORDERED: DEXTROSE 5% 1,000 ML IV SCH (08:15)
--- NOTE | 2024-02-05 08:30 | NUR ---
THIS NURSE IS WORKING PATIENTS GRINDER SET UP OPERATOR SURFACE. PATIENT CURRENTLY SLEEPING. WOKE PATIENT TO ADVISE HER THAT BREAKFAST IS READY. SHE WOULD LIKE TO CONITNUE TO SLEEP AT THIS TIME. ROOM CLEANED UP AND BREAKFAST IS ON THE TRAY NEXT TO THE BED WHEN SHE IS READY. FRESH WATER GIVEN.
[2024-02-05] MEDS ORDERED: buPROPion HCL XL 300 MG TAB.XL.24H PO SCH (09:00)
--- NOTE | 2024-02-05 09:11 | NUR ---
PATIENT RESTING IN BED. VSS. AM MEDICATION ADMINSTERED. IV FLUIDS STARTED. IV SITES PATENT AND WNL. PATIENT DENIES ANY PAIN OR DISCOMFORT. ALERT AND OREITNED WITH FORGETFULLNESS AND BASELINE CONFUSSION. LUNGS CTA. BOWEL TONES ACTIVE X 4 QUADRANTS. BLLE SWELLING CONTINUES, GENERALIZED EDEMA TO BLLE. APPEARS TO BE IMPORVING. REDNESS TO BLLE REMAINS HOWEVER APPEARS TO BE HALL PORTER IN COLOR AND WARM TO THE TOUCH. PATIENT DENIES ANY FURTHER NEEDS AT THIS TIME. BREAKFAST SET UP FOR PATIENT. BED ALARM ON, FALL MATS IN PLACE. CALL LIGHT WITHIN REACH.
--- NOTE | 2024-02-05 09:45 | NUR ---
WORKING SIZING MACHINE AND DRIER OPERATOR. PATIENT BREAKFAST REMOVED FROM ROOM. PATIENT CURRENTLY WATCHING TV WITH COFFEE AND WATER. SHE ALSO KEPT HER MILK. PATIENT DENIES ANY CARES AT THIS TIME.
--- NOTE | 2024-02-05 10:04 | NUR ---
SCHEDULED IV MEDICATION STARTED. IV SITE WNL. PATIENT RESTING IN BED WATCHING TV. DENIES ANY NEEDS AT THIS ITME. CALL LIGHT WIHTIN REACH. BED ALARM ON. FALL MATS IN PLACE.
--- NOTE | 2024-02-05 11:15 | NUR ---
WORKING STEEL RULE DIE MAKER. THIS PATIENT UP WITH WALKER TO BATHROOM. PATIENT TOLERATED WELL. HAD A BOWEL MOVEMENT. PATIENT UP TO CHAIR FOR LUNCH. HOT COFFEE GIVEN, FEET ELEVATED WITH PILLOW. PATIENT HAS BLANKET. DENIES ANY OTHER CARES. TV ON FOR PATIENT. BED ALARM ON.
--- NOTE | 2024-02-05 11:41 | NUR ---
PT IS IN WITH PATIENT NOW.
--- NOTE | 2024-02-05 11:57 | NUR ---
WORKING FACILITIES ADMINISTRATOR, WALKED WITH PATIENT DURING PT. PATIENT BACK IN CHAIR NOW WITH LEGS ELEVATED READY FOR LUNCH.
--- NOTE | 2024-02-05 12:42 | NUR ---
WORKING SUPERVISOR BINDERY, PATIENT EATING LUNCH IN THE CHAIR. DOING WELL, IV RUNNING. PATIENT HAS BLANKET AND PADDING UNDER CHAIR, LEGS ELEVATED.
--- NOTE | 2024-02-05 13:40 | NUR ---
PT SITTING UP IN CHAIR, VS STABLE, I&OS COMPLETED. ASSISTED PATIENT FROM CHAIR TO BATHROOM, SBA W/ FWW. CALL LIGHT WITHIN REACH, ALL PT CARE NEEDS MET.
[2024-02-05 14:23] LABS: ANION GAP 11.9 (7-21); BUN/CREATININE RATIO 7.92 (6.0-28.6); CALCIUM 8.5 mg/dL (8.5-10.1); CREATININE, SERUM 1.01 mg/dL (0.55-1.02); POTASSIUM 3.9 mmol/L (3.5-5.1)
--- NOTE | 2024-02-05 14:46 | NUR ---
medications reconciled
--- NOTE | 2024-02-05 15:15 | NUR ---
PATIENT WITH INCREASED CONFUSSION ABOUT TV REMOTE AND BECOMING AGITATED. UNABLE TO UNDERSTAND DIRECTIONS GIVEN REGUARDING REMOTE AND TV. RN TRIED TO DISTRACT PT WITH OFFERING A SNACK PATIENT DID NOT WANT SNACK AT THIS TIME. RN SAT WITH PATIENT WHERE SHE EXPRESSED HE CONCERNS ABOUT HER DOG. WHILE CRYING PATIENT REPORTS HER DOG IS NOT BEING CARED FOR WELL WHILE SHE IS AT THE HOSPITAL. REPORTS SHE UNDERSTANDS WHY SHE NEEDS TO BE IN THE HOSPITAL BUT THAT SHE DOES NOT WANT TO STAY BECAUSE HE DOG NEEDS HER. PATIENT MOOD CHANGED AND APPEARS TO BE MORE CALM AFTER CONVERSATION. PATIENT NO LONGER CRYING. RN AGAIN OFFERED PUDDING SNACK. PATIENT EATING PUDDING IN RECLINER, WATCHING TV WITH CHAIR ALARM IN PLACE.
--- NOTE | 2024-02-05 15:57 | NUR ---
PT CALL LIGHT ON, PT STATES SHE WANTS TO MAKE SURE SHE GETS THE PHONE CALL SHE MADE EARLIER CANCELED. INFORMED THAT ALL CALLS ARE CANCELLED AT THIS TIME. SEEMS TO BE MORE FORGETFUL THIS EVENING BUT PLEASANT. CALL LIGHT WITHIN REACH, DENIES ANY FURTHER NEEDS. VERY THANKFUL FOR STAFF CHECKING IN ON HER.
--- NOTE | 2024-02-05 17:28 | NUR ---
PATIENT RESTING IN RECLINER WATCHING TV. NO C/O PAIN AT THIS TIME. CALL LIGHT WITHIN REACH. BED ALARM ON.
--- NOTE | 2024-02-05 17:57 | NUR ---
PT ASSISTED UP TO BATHROOM, BACK IN CHAIR AND DINNER TRAY SETUP FOR PATIENT AGAIN. DENIES ANY NEEDS AT THIS TIME.
--- NOTE | 2024-02-05 18:00 | NUR ---
SCHEDULED IV MEDICATION ADMINSTERED. PATIENT EATING DINER IN RECLINER. DENIES ANY NEEDS AT THIS TIME. CALL LIGHT WITHIN REACH.
--- NOTE | 2024-02-05 19:15 | NUR ---
REPORT RECEIVED FROM STAN TORIBIO. pt UP IN CHAIR. ALARM ON.
--- NOTE | 2024-02-05 20:58 | NUR ---
pt UP IN CHAIR.ORIENTED TO ALL EXCEPT EXACT DATE, EVENT. STATES HERE FOR BRAIN BLEED. ASSESSMENT COMPLETE. IV SITES FLUSHED WNL. IV ANTIBIOTIC INFUSING ORDERED. UP IN CHAIR WITH CHAIR ALARM ON. PO SNACK IN REACH. NO NEEDS EXPRESSED.
--- NOTE | 2024-02-05 22:35 | NUR ---
RESOURCE PROTECTION SPECIALIST HELPED PT TO THE BATHROOM RO VOID. RESOURCE PROTECTION SPECIALIST HELPED PT BACK INTO BED AND FOUND HER FAVORITE CHANNEL TO WATCH TV.
--- NOTE | 2024-02-05 23:53 | NUR ---
IV PUMP ALARMING, DISTAL OCCLUSION. SITE ASSESSED, IVF INFUSING WNL. CALL LIGHT IN REACH, BED ALARM ON. LIGHTS OFF IN ROOM. pt DENIES NEEDS.
[2024-02-06] VITALS (9 sets, daily range): BP systolic 120–178; BP diastolic 63–90
--- NOTE | 2024-02-06 00:15 | NUR ---
CALL LIGHT ANSWERED. SBA WITH FWW TO RESTROOM FOR VOID, SOME DRIBBLING ON FLOOR. ATTENDS CHANGED. BACK IN BED, LEFT GROIN AREA RED, YEAST SMELL. pt REQUESTS PUREWICK LIKE SHES HAD BEFORE TO HELP REST, PUREWICK PLACED. BED ALARM ON. IVF INFUSING WNL.
--- NOTE | 2024-02-06 01:30 | NUR ---
BED ALARM SOUNDING. pt UP TO SIDE OF BED, REMINDED OF PUREWICK. BACK IN BED. ASSISTED TO REPOSITION 2PA. IV SITE IN RIGHT AC NOT PATENT. IV IN LEFT AC FLUSHED WNL, IV ANTIBIOTIC NOW INFUSING ORDERED. BED ALARM ON. pt DENIES NEEDS.
--- NOTE | 2024-02-06 03:21 | NUR ---
CHECKED ON pt. RESTING IN BED SUPINE, EYES CLOSED. BREATHING UNLABORED. BED ALARM ON. NO DISTRESS NOTED.
--- NOTE | 2024-02-06 04:16 | NUR ---
BED ALARM SOUNDING. pt UP TO BSC WITH FWW, RN ASSIST FOR VOID. BACK IN BED. pt CONFUSED, REORIENTATION PROVIDED. pt KEEPS REPEATING "I JUST DON'T UNDERSTAND". IV SITE ASSESSED, IVF INFUSING WNL. ASSESSMENT COMPLETE. VSS. CALL LIGHT IN REACH. BED ALARM ON.
[2024-02-06 05:23] LABS: BASOPHILS 0.8 % (0-2); EOSINOPHILS 2.9 % (0-6); HEMATOCRIT 33.4 % (35.0-50.0); HEMOGLOBIN 11.2 g/dL (12.0-18.0); LYMPHOCYTES 29.8 % (24-44); MCH 30.6 (27-36); MCHC 33.6 g/dl (30-36); MONOCYTES 9.5 % (0-12); PLATELET COUNT 226 K/uL (140-440); RBC 3.67 M/ul (4.3-5.7); RDW 13.9 (10.5-15.0)
[2024-02-06 05:37] LABS: ANION GAP 10.6 (7-21); BUN/CREATININE RATIO 9.67 (6.0-28.6); CALCIUM 8.6 mg/dL (8.5-10.1); CREATININE, SERUM 0.93 mg/dL (0.55-1.02); POTASSIUM 3.6 mmol/L (3.5-5.1)
--- NOTE | 2024-02-06 06:02 | NUR ---
In with pt for bed alarm. Pt states she needs to use the commode. 1PA, pivot transfer from bed to BSC. Pt voided 350ml jerome colored, pungent smelling urine. Assisted pt to wipe, then using FWW, transferred/shuffled back to bed, bed alarm on, side rails up. Call light in reach.
--- NOTE | 2024-02-06 07:13 | NUR ---
VERBAL REPORT RECEIVED FROM STAN ROCHA. PT RESTS IN BED WITH EYES CLOSED, RESP EVEN AND UNLABORED.
[2024-02-06 09:27] LABS: PH, VENOUS 7.469 (7.31-7.41)
--- NOTE | 2024-02-06 09:37 | NUR ---
PT CONFUSION HAS INCREASED SINCE YESTERDAY. STRENGHT TO LEFT ARM AND LEG NOTED NOT EQUAL TO RIGHT SIDE. PT STATES, "I AM HAVING TROUBLE FINDING MY WORDS." EXPRESSIVE APHAGIA NOTED. DR. PATEL NOTIFIED. DR. PATEL IN ROOM TO EVALUATE PT.
--- NOTE | 2024-02-06 09:49 | NUR ---
PT SITS UP IN RECLINER WITH BLE ELEVATED. CHAIR ALARM IN PLACE. CALL LIGHT IN REACH.
--- NOTE | 2024-02-06 09:50 | NUR ---
Spoke with Giovana. She lives at [facility]. She states she is having difficulty with word finding and memory. This is not pts baseline. Assessment was completed by Fely Lombardi with [facility].
--- NOTE | 2024-02-06 09:51 | NUR ---
SPOKE WITH MATHEUS RN AT [facility]. PATIENT HAS RECENTLY RETURNED FROM SNF STAY POST DISCHARGE FROM [facility] EARLIER IN THE [place]. MATHEUS STATES PATIENT IS NORMALLY INDEPENDENT WITH 4 WHEELED WALKER. PATIENT DOES HAVE A CPAP WITH OXYGEN SHE USES AT NIGHT. MATHEUS STATES THE PATIENT DOES HAVE SOME COGNITIVE DECLINE, BUT DOES NOT REQUIRE MEMORY CARE AT THIS TIME. PATIENT DOES NOT HAVE A PCP AT THIS TIME SHE MISSED HER [facility] APPT WHEN SHE WAS ADMITTED TO SNF. MATHEUS STATES SHE IS SCHEDULED TO SEE RANI RAUSCH AFTER THE FIRST OF THE YEAR. I ADVISED MATHEUS I CONTACT THE CLINIC TO SEE IF WE CAN SCHEDULE THE PATIENT WITH A FOLLOW UP POST DISCHARGE. WILL SEND UPDATES WHEN AVAILABLE.
--- NOTE | 2024-02-06 10:12 | NUR ---
PATIENT SALINE LOCKED TO GO TO CT.
--- NOTE | 2024-02-06 10:50 | NUR ---
UR CLINICAL REVIEW: 2 MN FOR [facility]ERSALUS-MEET INPT CRITERIA FOR CELLULITIS [facility] INPT 02/04/24 @ 0959 ORDER MATCHES REG CLINICALS SENT FOR AUTH REVIEW DISCHARGE TO HOME WHEN STABLE. RESIDES AT [facility]
--- NOTE | 2024-02-06 11:54 | NUR ---
PT UP TO BATHROOM, VOIDS 200 ML OF CLEAR YELLOW URINE, PASSES 1 LARGE FORMED, BROWN STOOL. PT BACK TO RECLINER, CHAIR ALARM IN PLACE, CALL LIGHT IN REACH.
--- NOTE | 2024-02-06 13:56 | NUR ---
PT NOT AVAILABLE FOR VISIT. PROVIDED PRAYER.
--- NOTE | 2024-02-06 14:01 | NUR ---
PT RESTS IN RECLINER, CALM AND PLEASANT AT THIS TIME. BLE ELEVATED. CALL LIGHT IN REACH. NO REQUESTS AT THIS TIME.
--- NOTE | 2024-02-06 15:47 | NUR ---
PT COMPLETED SESSION WITH PHYSICAL THERAPY. PT SITS UP IN RECLINER, BLE ELEVATED. CALL LIGHT IN REACH. IV RATE DECREASED TO 100 ML/HR ORDERED. IV WNL.
--- NOTE | 2024-02-06 16:25 | NUR ---
PT APPEARS RESTLESS AND IRRITABLE, PT UNABLE TO RATE PAIN ON SCALE FROM 0-10 BUT DOES ANSWER YES WHEN DIRECTLY ASKED IF HER LEFT LEG HURTS. PT AGREEABLE TO TYLENOL. TYLENOL RECEIVED ORDERED, SEE EMAR.
--- NOTE | 2024-02-06 16:54 | NUR ---
PT BACK TO BED PER PT REQUEST. LE ELEVATED ON PILLOW. LEFT HAYNES CLEANSED WITH VASE WOUND CLEANSER FOLLOWED BY BACITRACIN OINTMENT. PT TOLERATED WELL. PT RESTS IN BED, RAILS UP X2, BED ALARM ON.
[2024-02-06] MEDS ORDERED: QUETIAPINE FUMARATE 25 MG TAB PO ONE (17:30)
--- NOTE | 2024-02-06 19:00 | NUR ---
NOTED REDNESS AND SWELLING AT IV SITE. INFUSION STOPPED. NEW IV STARTED IN LFA, 22G. PT TOLERATED WELL. IV REMOVED FROM LAC, TIP INTACT, GAUZE AND COBAN DRESSING APPLIED TO SITE.
--- NOTE | 2024-02-06 20:00 | NUR ---
ASKED DR PATEL FOR PRN ORDER FOR BEHAVIORS NEEDED.
--- NOTE | 2024-02-06 20:38 | NUR ---
pt SIDEWAYS IN BED, LEGS ELEVATED. pt PULLS IV. MULTIPLE ATTEMPTS AT NEW IV START BY THIS RN, MATTY RN, AND STAN BENITES WITHOUT SUCCESS. ASSESSMENT AND NEURO CHECK COMPLETE. pt ORIENTED TO SELF ONLY. REORIENTATION TO LOCATION, EVENT, TIME OF DAY, AND DATE PROVIDED. 1PA WITH FWW TO BSC FOR VOID AND BACK TO BED. RT IN ROOM FOR BREATHING TREATMENT. BED ALARM ON. ROOM TIDIED. NO DISTRESS NOTED CALL LIGHT IN REACH. STAN MONTES TO ATTEMPT US IV. DRILL BIT SHARPENER NOTIFIED OF NO IV ACCESS.
--- NOTE | 2024-02-06 21:19 | NUR ---
NEW IV STARTED BY STAN MONTES. IV ANTIBIOTIC INFUSING ORDERED. pt RESTING IN BED WITH EYES CLOSED. BREATHING EQUAL AND UNLABORED. BED ALARM ON.
[2024-02-06] MEDS ORDERED: QUETIAPINE FUMARATE 25 MG TAB PO PRN (21:30)
--- NOTE | 2024-02-06 23:20 | NUR ---
BED ALARM SOUNDING. pt CONFUSED, 2PA TO MANAGE CORDS, ASSIST WITH WALKER USE TO RESTROOM FOR VOID IN COMMODE. INCONTINENCE OF URINE. pt DROWSY, ASSISTED BACK TO BED. DOES NOT ANSWER ORIENTATION QUESTIONS. NO UNILATERAL DEFICITS NOTED. CLOSES EYES. BED ALARM ON.
[2024-02-07] VITALS (9 sets, daily range): BP systolic 122–174; BP diastolic 65–88
--- NOTE | 2024-02-07 01:03 | NUR ---
IVF INFUSING WNL. pt RESTING IN BED WITH EYES CLOSED, BREATHING UNLABORED. BED ALARM ON.
--- NOTE | 2024-02-07 02:32 | NUR ---
IN ROOM FOR IV ANTIBIOTIC ADMINISTRATION. pt AWAKENS BRIEFLY FOR SPOT CHECK SPO2 93%. HR 78. IV SITE FLUSHED WNL. IV ANTIBIOTIC INFUSING ORDERED WNL.
--- NOTE | 2024-02-07 02:34 | NUR ---
PT IS SLEEPING ON RA , SPOT CHECKED BY RN SPO2 IS 93%, NO CPAP WAS TRYED TONIGHT PT WAS NOT TOLERATING THING NEAR HER FACE TREVOR HER BREATHIG TREATMENT EARLIER SHE KEPT REMOVING IT . WILL CONTINUE TO MONITOR PATIENT
--- NOTE | 2024-02-07 02:53 | NUR ---
BED ALARM SOUNDING. 1PA WITH FWW, SECOND RN FOR TUBING MANAGEMENT FOR IV PROTECTION. pt VOIDS IN BSC AND BACK TO BED. CIERRA WRAP TAKEN DOWN AND IV ASSESSED, IVF INFUSING WNL. IV REWRAPPED FOR PROTECTION. pt BACK IN BED WITH BED ALARM ON. BED IN LOW POSITION.
[2024-02-07 05:41] LABS: BASOPHILS 0.6 % (0-2); EOSINOPHILS 3.8 % (0-6); HEMATOCRIT 36.7 % (35.0-50.0); LYMPHOCYTES 30.2 % (24-44); MCH 30.1 (27-36); MCHC 32.8 g/dl (30-36); MCV 91.8 fl (81-99); MONOCYTES 10.2 % (0-12); NEUTROPHILS 55.2 % (39-80); PLATELET COUNT 243 K/uL (140-440); RBC 3.99 M/ul (4.3-5.7); RDW 14.1 (10.5-15.0)
--- NOTE | 2024-02-07 05:54 | NUR ---
BRAKE REPAIR SUPERVISOR OUT OF ROOM. pt WITH GOWN OFF. GOWN REAPPLIED. INCONTINENCE OF URINE, ATTENDS CHANGED. pt REPOSITIONED IN BED. ASSESSMENT COMPLETE. pt IGNORING VERBAL QUESTIONS, SMILES WHEN ASKED IF SHES IGNORING STAFF. NO UNILATERAL DEFICITS NOTED. IV SITE ASSESSED, IVF AND IV ANTIBIOTIC INFUSING WNL. BED ALARM ON.
[2024-02-07 06:04] LABS: ANION GAP 13.8 (7-21); BUN/CREATININE RATIO 7.52 (6.0-28.6); CALCIUM 8.8 mg/dL (8.5-10.1); CHOLESTEROL/HDL RATIO 2.5; CREATININE, SERUM 0.93 mg/dL (0.55-1.02); MAGNESIUM 2.1 mg/dL (1.8-2.4); POTASSIUM 3.8 mmol/L (3.5-5.1)
--- NOTE | 2024-02-07 07:16 | NUR ---
VERBAL REPORT RECEIVED FROM STAN ROCHA. PT IS AWAKE, RESTLESS IN BED, DOES NOT ANSWER QUESTIONS. PT DOES NOT ENGAGE VERBALLY. BED RAILS UP X4, BED ALARM ON.
--- NOTE | 2024-02-07 08:20 | NUR ---
H&P, progress notes, PT notes faxed to [facility] for update.
--- NOTE | 2024-02-07 10:13 | NUR ---
Patient continues to be confused and restless. Bed linens were changed and a female purewick inserted. 2 person assist.
--- NOTE | 2024-02-07 10:25 | NUR ---
NOTED PAIN BRIEF AND BEDDING IS SOILED. PT IS RESTLESS, ROCKING IN BED. DOES NOT RESPOND VERBALLY AND CANNOT FOLLOWED COMMANDS. BEDDING CHANGED AND PERICARE PROVIDED, NEW BRIEF DONNED, PT TOLERATES THIS WELL, SMILES AT TIMES BUT IS STILL NOT VERBAL. NOTED REDNESS AND MOISTURE TO LEFT PANNUS, CLEANSED AND PATTED DRY. PUREWICK PUT IN PLACE FOR INCONTINENCE. ATTEMPTED TO ASSISTED PT TO SITTING, PT UNABLE TO COORDINATE THIS MOVEMENT OR FOLLOW COMMANDS. PT REMAINS IN BED, RAILS UP X4, BED ALARM ON. PT UNABLE TO TAKE PO MEDICATIONS. PT RESTS IN BED WITH EYES CLOSED RESP EVEN AND LABORED AT THIS TIME.
--- NOTE | 2024-02-07 10:42 | NUR ---
DR. PATEL NOTIFIED OF PT CHANGE IN STATUS RELATED TO MENTATION AND MOBILITY.
--- NOTE | 2024-02-07 11:05 | NUR ---
DR. PATEL INTO SEE PT.
--- NOTE | 2024-02-07 11:40 | NUR ---
Attempted to speak with pt. She resting on top of covers with her knees up. Pt does not answer any questions. Rn in the room and states pt has not been responding to voice today.
--- NOTE | 2024-02-07 12:33 | NUR ---
PT RESTS IN BED, OPENS EYES TO VERBAL STIMULI, LE RESTLESS. PT CONTINUES TO NOT SPEAK. PUREWICK IN PLACE DRAINS CLEAR YELLOW URINE. WARM BLANKET PROVIDED. RAILS UP X4, BED IN LOW POSITION, FALL MATS X2 IN ROOM, BED ALARM ON.
--- NOTE | 2024-02-07 13:44 | NUR ---
PT RESTS IN BED AWAKE. RESTLESS. PT ASSISTED TO SIT UP IN BED. FOOD OFFERED TO PT. PT WILL NOT FEED THEMSELF BUT WILL ACCEPT BITES OF CERTAIN FOODS FROM HER PLATE. DR. PATEL INTO SEE PT.
--- NOTE | 2024-02-07 14:51 | NUR ---
Patient ate 25% of lunch with total assistance.
--- NOTE | 2024-02-07 14:59 | NUR ---
VERBAL REPORT PROVIDED TO STAN WILKES.
--- NOTE | 2024-02-07 15:05 | NUR ---
WICHO AND I GAVE PATIENT A BED BATH CHANGED HER BED LINENS AND HER TAPED ATTEND DO TO SHE HAD ACCIDENT IN HER BED. AURELIANO MADERA.
--- NOTE | 2024-02-07 15:11 | NUR ---
RECIEVED HAND OFF REPORT. 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
[2024-02-07] MEDS ORDERED: LACTATED RINGER'S 1,000 ML IV SCH (16:00)
--- NOTE | 2024-02-07 16:30 | NUR ---
THIS RN IN ROOM WITH STAN SHRESTHA ADMINSITERING IVF. PT IS AWAKE IN BED, NONVERBAL, BUT IS SMILING. PT IS MOVING AND TRYING TO GET UP OUT OF BED, BUT LAYS BACK DOWN. BED ALARM ON FOR SAFETY, CALL LIGHT IN REACH.
--- NOTE | 2024-02-07 18:30 | NUR ---
IN ROOM ADMINISTERING ABX AND ORAL PO MED. SHRESTHA RN AND THIS RN BOOSTED PT UP IN BED. ATTEMPTED TO GIVE WATERE, PT BLOWING AT STRAW AND TURNING HEAD TO THE SIDE. THIS RN ATTEMPTED PUDDING PT SAID "NO", GROWLED, AND SWATTED SPOON. UNABLE TO GIVE ZOLOFT MEDICATION. NOTIFIED. BED ALARM ON FOR SAFETY, CALL LIGHT IN REACH
--- NOTE | 2024-02-07 19:30 | NUR ---
REPORT RECEIVED FROM DAY SHIFT RN. PT LYING IN BED AWAKE. ALLIANCE DIRECTOR IN ROOM FOR PERSONAL CARES. WHITE BOARD UPDATED. BED ALARM IN PLACE.
--- NOTE | 2024-02-07 19:52 | NUR ---
awake, moaning and groaning, and making animal like noises, not answering appropriately. Restless, moving all extremities, On room air, IVF infuisng, attends in place. Bed alarm in place
[2024-02-07] MEDS ORDERED: MICONAZOLE NITRATE 1 EA BTL TOP SCH (21:00)
--- NOTE | 2024-02-07 21:29 | NUR ---
EVENING ASSESSMENT COMPLETE. SCHEDULED MEDS ADMIN PER EMAR WITH SIPS OF WATER. PT MOANING AND RESTLESS, CALLING OUT AND DRAWING LEGS UP. PT UNABLE TO ANSWER ORIENTATION QUESTIONS OR PARTICIPATE IN ASSESSMENT. PT OCCASIONALLY RUBBING UPPER ABD AND HEAD. MD ON FLOOR TO ASSESS PT. NEW ORDERS PLACED. PT BLADDER SCANNED FOR <100 ML. ATTENDS DRY. REDNESS/WOUNDS NOTED BLE. REDNESS WITHIN PREVIOUS OUTLINE. 2PA TO REPOSITION IN BED. BED ALARM FOR SAFETY. CALL LIGHT IN REACH.
[2024-02-07] MEDS ORDERED: LORazepam 2 MG/ML VIAL IV ONE (21:30)
--- NOTE | 2024-02-07 21:37 | NUR ---
CALL RECEIVED FROM TOBY IN IMAGING REGARDING ALLERGY TO IODINE AND ORDERED IMAGING WITH CONTRAST. DR PATEL AT RN STATION AND DISCUSSED IMAGING CONCERNS WITH MD, PER MD, pt HAD PAST REACTION TO IODINE 131 WHICH IS A RADIOACTIVE ISOTOPE USED IN THYROID SCANS AND A RASH FOLLOWING USE OF THE IODINE CAN BE EXPECTED. PER MD, pt HAD IMAGING DONE WITH CONTRAST YESTERDAY AND HAD NO ISSUE- OKAY TO CONTINUE WITH ORDERED IMAGING. PER MD, LEAVE IODINE ALLERGY IS FOR NOW AND IT CAN BE FURTHER ADRESSED TOMORROW. TOBY IN IMAGING UPDATED ALONG WITH PRIMARY RN ESPERANZA.
--- NOTE | 2024-02-07 22:18 | NUR ---
pt RETURNED FROM IMAGING, AWAKE WITH EYES OPEN. CONTINUES TO NOT ANSWER QUESTIONS FROM STAFF, BUT SMILING AT STAFF. NO LONGER MOANING/GROANING OR CALLING OUT. PRIMARY RN IN ROOM ALONG WITH DR PATEL. BED ALARM ON FOR SAFETY AND CALL LIGHT IN REACH.
[2024-02-07] MEDS ORDERED: LORazepam 2 MG/ML VIAL IV PRN (23:15)
[2024-02-07] MEDS ORDERED: hydrALAZINE HCL 20 MG/ML VIAL IV PRN (23:15)
--- NOTE | 2024-02-07 23:26 | NUR ---
PT RESTING IN BED WITH EYES CLOSED. AWAKENS BRIEFLY TO VERBAL STIMULI. BP ASSESSED. RESPIRATIONS EVEN. SpO2 93% ON RA. MD PHONED FLOOR TO UPDATE PLAN OF CARE.
[2024-02-08] VITALS (12 sets, daily range): BP systolic 103–167; BP diastolic 61–89
--- NOTE | 2024-02-08 00:45 | NUR ---
IN ROOM TO ROUND ON PATIENT. PATIENT RESTLESS IN THE BED WITH EYES CLOSED. PATIENT MOANING OCCASIONALLY IN BED. PATIENT SOILED BRIEF, JEANNE CARE PROVIDED. BARRIER CREAM AND CLEAN BRIEF APPLIED. POWDER APPLIED TO REDDENED AREA UNDER LEFT BREAST. PATIENT REPOSITIONED IN BED. PATIENT VERBALIZED DISCOMFORT SAYING "OUCH" WHEN COLD WIPE WAS APPLIED TO THE SKIN, OTHERWISE NO VERBAL COMMUNICATION, ONLY OCCASIONAL MOANING. MOANING CEASED ONCE PATIENT WAS CHANGED AND REPOSITIONED IN BED. NO OTHER NEEDS IDENTIFIED AT THIS TIME. CALL LIGHT IN REACH. BED ALARM ACTIVE.
--- NOTE | 2024-02-08 02:01 | NUR ---
IN ROOM TO ADMINISTER MEDICATONS, SEE E-MAR. PATIENT RESTING IN BED ON BACK IN STILL POSITION WITH EYES CLOSED. RESPIRATIONS EVEN AND UNLABORED. NO NEEDS IDENTIFIED AT THIS TIME. CALL LIGHT IN REACH. BED ALARM ACTIVE.
--- NOTE | 2024-02-08 04:06 | NUR ---
IN ROOM TO ROUND ON PATIENT. PATIENT RESTING ON BACK WITH EYES CLOSED. RESPIRATIONS EVEN AND UNLABORED. NO NEEDS IDENTIFIED AT THIS TIME. CALL LIGHT IN REACH. BED ALARM ACTIVE.
[2024-02-08 05:37] LABS: BASOPHILS 1.2 % (0-2); EOSINOPHILS 3.3 % (0-6); HEMATOCRIT 38.6 % (35.0-50.0); HEMOGLOBIN 12.8 g/dL (12.0-18.0); LYMPHOCYTES 30.2 % (24-44); MCV 90.8 fl (81-99); MONOCYTES 6.2 % (0-12); NEUTROPHILS 59.1 % (39-80); PLATELET COUNT 256 K/uL (140-440); RBC 4.26 M/ul (4.3-5.7); RDW 13.6 (10.5-15.0)
[2024-02-08 05:51] LABS: ANION GAP 12.8 (7-21); BUN/CREATININE RATIO 8.08 (6.0-28.6); CALCIUM 9.2 mg/dL (8.5-10.1); CREATININE, SERUM 0.99 mg/dL (0.55-1.02); MAGNESIUM 1.8 mg/dL (1.8-2.4); POTASSIUM 3.8 mmol/L (3.5-5.1)
--- NOTE | 2024-02-08 06:05 | NUR ---
IN ROOM TO ROUND ON PATIENT. PATIENT RESTLESS IN THE BED. BRIEF CLEAN AND DRY. PATIENT GOWN ASKEW. GOWN REPOSITONED. PATIENT ABLE TO RETURN TO RESTING ON BACK WITH EYES CLOSED. NO OTHER NEEDS IDENTIFIED AT THIS TIME. CALL LIGHT IN REACH. BED ALARM ACTIVE.
--- NOTE | 2024-02-08 07:10 | NUR ---
Received report from [facility] nurse. Pt appears to be sleeping comfortably on left side. Respirations even and regular. IV fluids running. Bed alarm on. Call light within reach.
--- NOTE | 2024-02-08 08:20 | NUR ---
Rounded on pt. Pt appears to be sleeping comfortably on her back. Respirations even and regular. IV fluids running.
--- NOTE | 2024-02-08 09:30 | NUR ---
Attempted to speak with patient. She does not respond. I called and spoke with Jossie at [facility]. Updated to pts status. Jossie states they will not be able to take this pt back. Pt does have skilled nursing medicaid. I attempted to call about placement payment. Their office is closed. I texted [facility] and [facility]. No response. Later I was notified they left a noon today. I will follow up about placement on Tuesday. I spoke with Dr. Romo. We will attempt to call pts son and update. He is her spokes person, they are not in contact per pt. Pt did state to on admit her son is the person to call if she cannot speak for herself.
--- NOTE | 2024-02-08 09:45 | NUR ---
Attempted to administer PO medications. Pt refused medications. Pt occasionally follows commands. Breifly opens eyes. IV abx running. Assisted ICE SKATING TEACHER with mallory care and changing brief. Rehab at bedside.
--- NOTE | 2024-02-08 11:11 | NUR ---
Rounded on pt. Pt appears to be sleeping comfortably. Respirations even and regular. IV fluids and IV ABX running. Bed alarm on.
--- NOTE | 2024-02-08 12:07 | NUR ---
New bag of IV fluids hung. Pt appears to be sleeping comfortably. Respirations even and regular.
--- NOTE | 2024-02-08 12:24 | NUR ---
Attempted to assist pt with lunch. Pt refused meal and fluids. Pt readjusted in bed. Bed alarm on.
--- NOTE | 2024-02-08 12:54 | NUR ---
Spoke with pt's son (Kit.) Gave update on pt condition.
[2024-02-08] MEDS ORDERED: CEFEPIME HCL/D5W 1 GM/100 ML PIGGYBACK IV SCH (14:00)
--- NOTE | 2024-02-08 14:40 | NUR ---
Rounded on pt. Pt opened eyes while I tried to converse with her but no response from pt. Pt appeared restless, repositioned in bed and appeared more comfortable. IV fluids and abx running. Call light within reach.
--- NOTE | 2024-02-08 16:50 | NUR ---
ROUNDED ON PT. PT IS AWAKE AND RESTLESS BUT DOES NOT OBEY COMMANDS OR RESPOND TO QUESTIONS. BED ALARM ON.
--- NOTE | 2024-02-08 16:53 | NUR ---
PATIENT IN BED AT THIS TIME. 2 CNAS IN ROOM AT THIS TIME, CNAS CHANGED PATIENTS BRIEF, PROVIDED JEANNE CARE AND CHANGED PATIENTS PUREWICK @ 1650. CALL LIGHT WITHIN REACH, NO FURTHER NEEDS AT THIS TIME.
[2024-02-08] MEDS ORDERED: MORPHINE SULFATE 4 MG/ML VIAL IV PRN (19:00)
[2024-02-08] MEDS ORDERED: LIDOCAINE HCL 4% 1 EACH PATCH TD ONE ×2 (19:00→21:55)
--- NOTE | 2024-02-08 19:25 | NUR ---
GOT PATIENT A HOT PACK FOR HER BACK. AFTER WE CHANGED HER TAPED ATTEND.
--- NOTE | 2024-02-08 19:27 | NUR ---
REPORT RECIEVED FROM DAY SHIFT RN. PATIENT RESTING IN BED WITH EYES CLOSED. RESPIRATIONS EVEN AND UNLABORED. CALL LIGHT IN REACH. BED ALARM ON.
[2024-02-08] MEDS ORDERED: LIDOCAINE PATCH REMOVAL 1 EA TD SCH ×2 (21:00→21:39)
--- NOTE | 2024-02-08 22:15 | NUR ---
IN ROOM TO ASSIST PRIMARY RN TO GET pt TO TAKE EVENING MEDS. pt AWAKE AND REMAINS RESTLESS IN BED, REFUSES TO FOLLOW COMMANDS AND CONTINUES TO MOAN/GROAN, WHEN PUDDING WITH MEDS IS BROUGHT TO pt's MOUTH, pt MAKES FORCEFUL RASPBERRIES TO BLOW AWAY THE PUDDING FROM MOUTH AND TURNS FACE AWAY FROM SPOON, MULTIPLE ATTEMPTS MADE. PRIMARY RN TO UPDATE MD REGARDING pt REFUSAL TO TAKE EVENING MEDS.
--- NOTE | 2024-02-08 22:22 | NUR ---
PATIENT RESTING IN BED. VS AND I&Os OBTAINED AND RECORDED. NEW PUREWICK AND SHARI PLACED AFTER JEANNE CARE PROVIDED. NEW BAG IV FLUID AND ABX INFUSING PER ORDER. PATIENT REFUSING ORAL MEDICATION. MD NOTIFIED AND STATED THAT IT WAS OK. ASSESSMENT COMPLETE. IV FLUSHES WNL. BED ALARM ON FOR SAFETY. NO FURTHER NEEDS. CALL LIGHT IN REACH.
[2024-02-09] VITALS (7 sets, daily range): BP systolic 129–161; BP diastolic 57–82
--- NOTE | 2024-02-09 00:04 | NUR ---
PATIENT RESTING IN BED ON BACK WITH EYES CLOSED. RESPIRATIONS EVEN AND UNLABORED. CALL LIGHT IN REACH.
--- NOTE | 2024-02-09 00:25 | NUR ---
PATIENT HOLLERING OUT FROM ROOM. PATIENT RESTLESS AND APPEARS TO BE PAINFUL. PATIENT YELLING AND REACHING TOWARD LOWER BACK. PRN PAIN MEDICATION ADMINSITERED. BED ALARM ON. FALL MATS IN PLACE. CALL LIGHT IN REACH.
--- NOTE | 2024-02-09 02:55 | NUR ---
PATIENT HOLLERING OUT FROM ROOM. PATIENT REPOSITIONED IN BED, WITH WARM BLANKET PROVIDED. PATIENT APPEARS TO BE MORE COMFORTABLE. NO FURTHER NEEDS. BED ALARM ON FOR SAFETY. CALL LIGHT IN REACH.
--- NOTE | 2024-02-09 05:07 | NUR ---
PATIENT HEARD HOLLERING FROM ROOM. PRN PAIN MEDICATION ADMINISTERED. PATIENT INCONTINENT OF URINE. NEW SHARI, BREIF AND PUREWICK PLACED AFTER JEANNE CARE PROVIDED. PATIENT REFUSING TO WEAR GOWN AT THIS TIME. WARM BLANKET PROVIDED. PATIENT HAS NO FURTHER NEEDS AT THIS TIME. BED ALARM ON FOR SAFERY. CALL LIGHT IN REACH. FALL MATS IN PLACE.
--- NOTE | 2024-02-09 05:15 | NUR ---
IN ROOM WITH PRIMARY RN, pt ATTEMPTING TO SIT UP IN BED AND SWING LEGS OVER EDGE, CONTINES TO YELL OUT IN A YODEL LIKE FASHION. pt CONTINUES TO NOT ANSWER QUESTIONS OR ENGAGE IN CONVERSATION, BUT WILL VERY [place]ASS. OPEN EYES WHEN "LILIANE" IS SAID THEN QUICKLY CLOSES EYES AND BEGINS TO CONTINUE TO HOLLER OUT. FACIAL GRIMACING NOTED AND pt YELLS OUT WHAT SOUNDS LIKE, "OHHH" AND "OWWWWW". PRIMARY RN IN ROOM FOR PAIN MEDICATION AND NEW ATTENDS IN PLACE AFTER pt WAS INCONTINENT OF URINE, JEANNE CARE DONE AND pt REMAINS RESTLESS AND INCORPORATIVE WITH ATTENDS CHANGE/TURNING IN BED. NEW PUREWICK IN PLACE AND BED ALARM RESUMED, CALL LIGHT IN REACH.
--- NOTE | 2024-02-09 05:36 | NUR ---
VS AND I&Os OBTAINED AND RECORDED. SCHEDULED IV ABX INFUSING PER ORDER. NO FURTHER NEEDS. CALL LIGHT IN REACH.
--- NOTE | 2024-02-09 05:49 | NUR ---
SPOKE TO DR PATEL VIA PHONE REGARDING INABILITY FOR LAB TO OBTAIN AM BLOOD DRAW D/T pt RESTLESSNESS, PER MD, OKAY TO WAIT AND RETRY AROUND 0800, SHELTON IN LAB IN ROOM AND UPDATED. PRIMARY RN REMAINS IN ROOM AND COMPLETING pt CARES.
--- NOTE | 2024-02-09 07:08 | NUR ---
REPORT RECEIVED FROM STAN HURLEY. PT RESTING SUPINE IN BED WITH EYES CLOSED, RR EVEN AND UNLABORED. FALL MATS IN PLACE, BED ALARM ON, CALL LIGHT IN REACH.
[2024-02-09 08:17] LABS: BASOPHILS 1.2 % (0-2); EOSINOPHILS 2.6 % (0-6); HEMATOCRIT 38.2 % (35.0-50.0); HEMOGLOBIN 12.9 g/dL (12.0-18.0); LYMPHOCYTES 25.6 % (24-44); MCH 30.5 (27-36); MCHC 33.7 g/dl (30-36); MCV 90.6 fl (81-99); NEUTROPHILS 60.6 % (39-80); PLATELET COUNT 253 K/uL (140-440); RBC 4.21 M/ul (4.3-5.7); RDW 13.7 (10.5-15.0)
--- NOTE | 2024-02-09 08:27 | NUR ---
MEDICATION ADMINISTERED, SEE MAR. PT ASSISTED TO BSC WITH STAN ANGELES AND CITLALI PASTRANA. 1 UNMEASURED VOID ON THE GROUND AT THIS TIME. FRESH PULL-UP PLACED. PT ASSISTED TO RECLINER FOR BREAKFAST. BED LINEN CHANGED. WARM BLANKET PROVIDED. CITLALI PASTRANA REMAINS IN ROOM TO ASSIST PT WITH BREAKFAST AND PLACING NEW PUREWICK. CITLALI PASTRANA STATES NO FURTHER HELP NEEDED AT THIS TIME.
[2024-02-09 08:32] LABS: ANION GAP 10.4 (7-21); BUN/CREATININE RATIO 10.11 (6.0-28.6); CREATININE, SERUM 0.89 mg/dL (0.55-1.02); MAGNESIUM 1.8 mg/dL (1.8-2.4); POTASSIUM 4.4 mmol/L (3.5-5.1)
[2024-02-09] MEDS ORDERED: PANTOPRAZOLE SODIUM 40 MG TABEC PO SCH (09:00)
--- NOTE | 2024-02-09 09:39 | NUR ---
CITLALI PASTRANA PRESENT IN ROOM, ASSISTING PT TO EAT BREAKFAST.
--- NOTE | 2024-02-09 10:18 | NUR ---
INITIAL ASSESSMENT COMPLETE. PT IS UP IN RECLINER WITH CITLALI PASTRANA. LUNG SOUNDS CLEAR THROUGHOUT, HEART TONES HEARD WNL WITH PACEMAKER AND PACEMAKER SCAR NOTED. BOWEL TONES HYPOACTIVE IN ALL QUADRANTS WITH SOME TENDERNESS TO PALPATION IN THE RLQ AND RUQ. LAST BM NOTED TO BE 02/06/24. PT IS ALSO BELCHING FREQUENTLY. PULSES 2+ IN ALL EXTREMETIES, UNABLE TO ASSESS FOR NUMBNESS OR TINGLING PT IS UNABLE TO ANSWER QUESTIONS. PT VERBALIZING IN MOANS OR GROANS, APPEARS COMFORTABLE IN CHAIR AT THIS TIME. PT TAKES ONE PILL WITH PUDDING BUT HOLDS HER MOUTH TIGHTLY CLOSED, NOTED TO HAVE CHEWED SAUSAGE IN MOUTH REMOVED WITH FINGER SWEEP. IV TO L ARM FLUSHES WNL, INFUSING IVF PER ORDERS. VS OBTAINED AND RECORDED. CITLALI PASTRANA REMAINS WITH PT AT THIS TIME AND STATES NO NEEDS.
--- NOTE | 2024-02-09 11:02 | NUR ---
MD NOTIFIED OF PATIENT NOT TAKING ALL 0900 MEDICATIONS. MD WITH NO NEW ORDERS AT THIS TIME.
--- NOTE | 2024-02-09 12:44 | NUR ---
PRN PAIN MEDICATION ADMINISTERED, SEE MAR. PT SPITS OUT MORE FOOD SHE IS POCKETING IN HER MOUTH BUT IS UNABLE TO FOLLOW COMMANDS TO REMOVE REMAINING SMALL BITS LEFT IN HER MOUTH. CHARGE NURSE MADE AWARE. PT ASSISTED BACK TO BED USING THREE PEOPLE - TWO TO ASSIST PT, ONE TO MANAGE TUBES AND LINES. PT ASSISTS WITH STANDING AND SHUFFLES FEET A SMALL AMOUNT. PT RETURNED TO BED, WARM BLANKET SUPPLIED, BED IN LOWEST POSITION, FALL MATS IN PLACE, BED ALARMS ON. NO OTHER NEEDS IDENTIFIED AT THIS TIME, CALL LIGHT AND PERSONAL BELONGINGS IN REACH.
--- NOTE | 2024-02-09 13:25 | NUR ---
PT RESTING IN BED, OCCASIONALLY CALLING OUT/VOCALIZING. PT SITS UP IN BED AND LAYS DOWN AGAIN. UNABLE TO ANSWER QUESTIONS, NO NEEDS IDENTIFIED AT THIS POINT IN TIME. FALL MATS IN PLACE, BED ALARM ON, BED IN LOWEST POSITION. CALL LIGHT IN REACH.
--- NOTE | 2024-02-09 14:20 | NUR ---
PT RESTLESS IN BED, SITTING UP AND LAYING BACK DOWN REPEATEDLY AND VOCALIZING INCOMPREHENSIBLE MOANS. BOWEL TONES ACTIVE, PT STILL GRIMACING WITH PALPATION ON L SIDE OF ABDOMEN, PT STILL BELCHING FREQUENTLY. PT IV FLUSHES WNL, IV ABX INFUSING PER ORDER. PT LLE HAS REDNESS RECEDING FROM MARGINS PREVIOUSLY MARKED, SCABBING NOTED ON HAYNES AND CALF. NO EDEMA NOTED AT THIS TIME. PT PAIN LEVEL ASSESSED USING FLACC SCORE, PT SCORES A 5 AT THIS TIME. PT ASSISTED WITH CITLALI LUIS TO [facility]. JEANNE-CARE PROVIDED, FRESH PULL-UP PLACED. PT FORMER PULL-UP NOTED TO BE SOAKED WITH URINE DESPITE PUREWICK IN PLACE. NEW PUREWICK NOT APPLIED. PT ASSISTED BACK TO BED WITH CITLALI LUIS. PT CONTINUES VOCALIZING AND APPEARS RESTLESS. PRN ATIVAN ADMINISTERED PER ORDERS AT THIS TIME BY NINFA Rai RN. BED IN LOWEST POSITION, BED ALARM ON, FALL MATS IN PLACE, CALL LIGHT IN REACH.
--- NOTE | 2024-02-09 16:40 | NUR ---
PT RESTING IN BED WITH KNEES BENT, FEET ON THE MATTRESS. PT IS MOANING LOUDLY ON OCCASION AND MOVING AROUND IN BED. PT HAS REMOVED HER BLANKETS AT THIS TIME. BED IS IN LOWEST POSITION, BED ALARM IS ON, FALL MATS ARE IN PLACE. NO NEEDS IDENTIFIED AT THIS TIME, CALL LIGHT IN REACH.
--- NOTE | 2024-02-09 17:53 | NUR ---
PATIENT IN BED AT THIS TIME. PATIENT ACCESS COORDINATOR GAVE PATIENT ENSURE, PATIENT DRANK 100% OF ENSURE GIVEN BY PATIENT ACCESS COORDINATOR. CALL LIGHT WITHIN REACH, NO FURTHER NEEDS AT THIS TIME.
--- NOTE | 2024-02-09 18:26 | NUR ---
Salo LUIS AND SHON CURRENTLY IN WITH PT PROVIDING CARES.
--- NOTE | 2024-02-09 19:01 | NUR ---
TOOK PT VITALS. CHANGED PT BRIEF PT TURNED IN THE BED TO HELP.
--- NOTE | 2024-02-09 19:40 | NUR ---
REPORT RECIEVED FROM DAY SHIFT RN. PATIENT HEARD MARY FROM ROOM. NEWS INTERNSHIP IN ROOM. FALL MAT IN PLACE. BED ALARM ON FOR SAFETY. CALL LIGHT IN REACH.
[2024-02-09] MEDS ORDERED: LORazepam 2 MG/ML VIAL IV PRN (19:45)
--- NOTE | 2024-02-09 19:56 | NUR ---
pt EXTREMELY RESTLESS IN BED, YELLING OUT AND YELLING AT STAFF. MULTIPLE ATTEMPTS TO REORIENT AND DISTRACT pt UNSUCCESSFUL, pt WITH LEGS OVER EDGE OF BED. pt SWINGING ARMS AROUND IN BED AND ATTEMPTING TO HIT AND KICK STAFF, pt USED RIGHT ARM AND HIT THIS RN'S ARM. ADDITIONAL ASSISTANCE PROVIDED AND FLOAT RN KAMARI AND LAPIDARIST RUDDY CALLED pt HAD IV TUBING CLENCHED IN FIST, UNABLE TO SAFELY ADMINISTER MEDICATION WITHOUT ADDITIONAL ASSISTANCE. PRIMARY RN XAVI WAS THEN ABLE TO ADMINISTER PRN AGITATION MEDICATION, FLOAT RN REMAINS IN ROOM. BED ALARM ON AND CALL LIGHT IN REACH.
--- NOTE | 2024-02-09 20:00 | NUR ---
PATIENT RESTLESS IN BED, HOLLERING OUT, AND APPEARS TO BE AGGITATED. THIS RN AND SOFTWARE TRAINER IN ROOM. PRN ANXIETY MEDICATION ADMINISTERED. PATIENT VS AND I&Os OBTAINED AND RECORDED. IV FLUSHES WNL. CALL LIGHT IN REACH.
[2024-02-09] MEDS ORDERED: OLANZapine 10 MG VIAL IM PRN (20:30)
--- NOTE | 2024-02-09 20:38 | NUR ---
THIS RN AND FLOAT RN ATTEMPTED TO GIVE ORAL MEDICATION TO PATIENT WITH PUDDING. PATIENT REFUSED BY SPITTING PUDDING OUT. IV ABX INFUSING PER ORDER. FLOAT RN REMAINS IN ROOM AT BEDSIDE. FALL MATS IN PLACE.
[2024-02-09] MEDS ORDERED: MORPHINE SULFATE 4 MG/ML VIAL IV SCH (21:00)
--- NOTE | 2024-02-09 21:18 | NUR ---
MD CALLED REGARDING PATIENT NOT HAVING LIDOCANE PATCH SCHEDULED, BUT HAVING THE REMOVAL ORDER SCHEDULED ON THE EMAR. NEW ORDERS RECIEVED, VERIFIED USING REPEAT BACK METHOD.
--- NOTE | 2024-02-09 21:20 | NUR ---
PATIENT RESTLESS IN BED. FLOAT RN STATED THAT PATIENT REPORTS BACK PAIN BUT IS UNABLE TO SPECIFY WHERE. PRN PAIN MEDICATION ADMINISTERED. MATTY RN REMAINS IN ROOM.
--- NOTE | 2024-02-09 22:49 | NUR ---
PATIENT RESTING IN BED ON BACK WITH EYES CLOSED. RR EVEN AND UNLABORED. CALL LIGHT IN REACH.
--- NOTE | 2024-02-09 23:47 | NUR ---
PATIENT HOLLERING OUT IN ROOM AND AGGITATED. PRN MEDICATION ADMINISTERED. PATIENT INCONTINENT OF URINE. FULL BED CHANGE COMPLETED WITH NEW SHARI AND BREIF IN PLACE. PUREWICK PLACED AFTER JEANNE CARE PROVIDED. BED ALARM ON. CALL LIGHT IN REACH.
[2024-02-10] VITALS (8 sets, daily range): BP systolic 128–177; BP diastolic 62–86
--- NOTE | 2024-02-10 01:47 | NUR ---
PATIENT RESTLESS IN BED. WHEN THIS RN ASKED PATIENT IF SHE WAS IN PAIN SHE STATED "YES!" BUT WAS UNABLE TO SAY WHERE THE PAIN WAS LOCATED. PATIENT INCONTINENT OF URINE. NEW SHARI AND BREIF PLACED AFTER JEANNE CARE PROVIDED. BED ALARM ON FOR SAFEY. THIS RN CALLED MD REGARDING PATIENTS PAIN. NEW ORDERS RECIEVED. VERIFIED USING REPEAT BACK METHOD.
[2024-02-10] MEDS ORDERED: MORPHINE SULFATE 4 MG/ML VIAL IV PRN (02:00)
--- NOTE | 2024-02-10 02:59 | NUR ---
PATIENT HEARD YELLING OUT. PATIENT YELLING "OW!" BUT UNABLE TO EXPLAIN THE PAIN OR WHERE IT HURTS. PRN PAIN MEDICATION ADMINISTERED. FALL MATS IN PLACE. BED ALARM ON FOR SAFETY.
--- NOTE | 2024-02-10 04:40 | NUR ---
PATIENT RESTING IN BED ON BACK WITH EYES CLOSED. RESPIRATIONS EVEN AND UNLABORED. CALL LIGHT IN REACH.
--- NOTE | 2024-02-10 05:54 | NUR ---
PATIENT RESTLESS AND AGGITATED IN BED. PRN ATIVAN ADMINISTERED. VS AND I&Os OBTAINED AND RECORDED. PATIENT O2 SAT RANGING BETWEEN 75%-86% ON RA. RT TO ROOM. PATIENT PLACED ON 1L OXY MASK AND O2 SAT IS 91%. CPOX IN PLACE. BED ALARM ON FOR SAFETY. CALL LIGHT IN REACH.
--- NOTE | 2024-02-10 06:53 | NUR ---
CALL PLACED TO MD TO UPDATE HIM OF OXYGEN DE-SAT POST ATIVAN ADMINISTRATION. NO ANSWER AT THIS TIME.
--- NOTE | 2024-02-10 07:10 | NUR ---
REPORT RECEIVED FROM STAN HURLEY. PT RESTING IN BED WITH OXYGEN MASK IN PLACE AT 1L. FALL MATS IN PLACE, BED ALARM ON, BED IN LOWEST POSITION. CALL LIGHT IN REACH.
--- NOTE | 2024-02-10 08:15 | NUR ---
PATIENT IN BED SLEEPING AT THIS TIME. CALL LIGHT WITHIN REACH, NO FURTHER NEEDS AT THIS TIME.
--- NOTE | 2024-02-10 08:15 | NUR ---
PT RESTING IN BED WITH EYES CLOSED, RR EVEN AND UNLABORED. CPOX AT BEDSIDE. BED IN LOWEST POSITION, BED ALARM ON, FALL MATS IN PLACE. CALL LIGHT IN REACH.
[2024-02-10] MEDS ORDERED: LIDOCAINE HCL 4% 1 EACH PATCH TD SCH (09:00)
--- NOTE | 2024-02-10 09:25 | NUR ---
PT CONTINUES RESTING WITH EYES CLOSED, RR EVEN AND UNLABORED. CPOX IN PLACE AT BEDSIDE, FALL MATS DOWN, BED IN LOWEST POSITION, BED ALARM ON. CALL LIGHT IN REACH.
--- NOTE | 2024-02-10 10:23 | NUR ---
Attempted to see patient this a.m., patient sleeping, per staff patient remains somulant at this time. Patient is from [facility].
--- NOTE | 2024-02-10 11:00 | NUR ---
MEDICATIONS ADMINISTERED IN PUDDING, SEE MAR. PT DROWSY, DIFFICULT TO ROUSE. PTs PULL-UP CHANGED, JEANNE-CARE PROVIDED, BRIEF CHANGED, LINEN CHANGED. PT LUNG SOUNDS CLEAR THROUGHOUT, HEART TONES HEARD AND NOTED IRREGULAR, PT HAS HX OF AFIB. BOWEL TONES HYPOACTIVE, PT APPEARS TENDER TO PALPATION IN LLQ VIA FACIAL GRIMACING AND A MOAN. PT IS BELCHING, UNCHANGED FROM YESTERDAY. PULSES FELT 2+ IN ALL EXTREMETIES, PT IS UNABLE TO REPORT NUMBNESS OR TINGLING. PT UNABLE TO REPORT PAIN, BUT FLACC SCALE RATES PAIN A 5/10. PHYSICAL THERAPY AND OCCUPATIONAL THERAPY ARRIVE TO WORK WITH PT. PT IS ASSISTED TO SIT ON EDGE OF BED. PT OPENS EYES WHEN ASKED DIRECTLY, BUT DOES NOT LEAVE THEM OPEN. CANNOT ANSWER WHEN ASKED HER NAME. IV IN L FOREARM FLUSHES WNL WITH 5ML NS, WRAPPED IN CIERRA BANDAGE FOR SECUREMENT. NO OTHER NEEDS AT THIS TIME, PT REMAINS WORKING WITH PHYSICAL THERAPY AND OCCUPATIONAL THERAPY.
--- NOTE | 2024-02-10 11:28 | NUR ---
PHYSICAL THERAPY/OCCUPATIONAL THERAPY FINISHES WORKING WITH PT. PT IS UP IN RECLINER WITH CHAIR ALARM IN PLACE. CALL LIGHT IN REACH. CPOX IN PLACE, OXYGEN AT 1L BY MASK. NO OTHER NEEDS AT THIS TIME.
--- NOTE | 2024-02-10 12:45 | NUR ---
PT UP IN RECLINER RESTING WITH EYES CLOSED, RR EVEN AND UNLABORED. CPOX AT CHAIRSIDE. CHAIR ALARM IN PLACE. CALL LIGHT IN REACH.
--- NOTE | 2024-02-10 13:26 | NUR ---
PT RESTING IN RECLINER WITH EYES CLOSED, RR EVEN AND UNLABORED, BLE ELEVATED. PT CPOX AT BEDSIDE READING SPO2 97%. O2 BY MASK TITRATED TO 1L, SPO2 REMAINS SUSTAINED AT 97%, O2 MASK REMOVED AND PT IS ON RA. SPO2 SUSTAINS 94% ON RA. CHAIR ALARM IN PLACE, PT SHIFTS IN RECLINER TO LAY SLIGHT ON HER R SIDE. NO NEEDS AT THIS TIME, CALL LIGHT IN REACH.
--- NOTE | 2024-02-10 14:01 | NUR ---
PATIENT IN BED AT THIS TIME. GUM DIPPER CHARTED VITALS AND I&O'S. PATIENT HAD NO INTAKE OR OUTPUT AND REFUSED LUNCH. MECHANICAL ENGINEERING DIRECTOR HAS BEEN NOTIFIED. CALL LIGHT WITHIN REACH, NO FURTHER NEEDS AT THIS TIME.
--- NOTE | 2024-02-10 14:19 | NUR ---
PATIENT IS SITTING UPRIGHT IN THE CHAIR WITH BILATERAL LOWER EXTREMITIES ELEVATED. PATIENT WITH EYES CLOSED AND RESPIRATIONS ARE EVEN AND UNLABORED. LR IS INFUSING AT 100 ML/HR. CPOX AT THE BEDSIDE AND IS AT 90-93% ON 1L FACE MASK. CHAIR ALARM ON. CALL LIGHT AND PERSONAL BELONGINGS ARE WITHIN REACH.
--- NOTE | 2024-02-10 15:02 | NUR ---
THIS RN AND CITLALI CHARLES ASSIST PT IN MOVING FROM RECLINER TO BED. JEANNE-CARE PROVIDED, FRESH BRIEF AND GOWN APPLIED. PT CONTINUES TO VERBALIZE "HONEY" "HELP" OR "BABE" TO RN AND FAMILY DAY CARER. PT VERBAL AND VOCALIZING MOANS AT THIS TIME. IN PT RECLINER THIS RN FINDS ALL FOUR MEDICATIONS PREVIOUSLY ADMINISTERED IN PUDDING. MEDICATIONS DISPOSED IN DISPOSAL RECEPTACLE. RESPIRATORY THERAPY ARRIVES TO TREAT PT, RESPIRATORY THERAPY REMAINS WITH PT AT THIS TIME. BED IN LOWEST POSITION, FALL MATS IN PLACE, CALL LIGHT IN REACH.
--- NOTE | 2024-02-10 15:10 | NUR ---
NOTIFIED OF MEDICATIONS FOUND IN PTs RECLINER.
--- NOTE | 2024-02-10 15:15 | NUR ---
PRN MEDICATION ADMINISTERED, SEE MAR. PT IS VERBALIZING MORE COHERENTLY. STAN ANGELES ASKS PT IF SHE IS IN PAIN, PT RESPONDS "MAYBE." PT STATING "I WANT TO GET OUT" AND "I NEED MY CLOTHES". PT IS UNABLE TO TELL STAN YOUNG WHERE SHE IS, STAN YOUNG RE-ORIENTS PT. PT SAYS "HI" AND "WHAT". PT CURRENTLY WITHOUT GOWN SHE HAS REMOVED IT. PT CONTINUES MOANING AND "SINGING", NOT ATTEMPTING TO LEAVE THE BED AT THIS TIME. PT DOES REPORT FEELING UNCOMFORTABLE, PATIENT REASSURED THAT WE ARE ATTEMPTING TO MAKE HER MORE COMFORTABLE. BLANKETS PROVIDED FOR MODESTY. IV IN L FOREARM FLUSHING WNL, CIERRA WRAP REMAINS IN PLACE. BED ALARM ON, FALL MATS IN PLACE, BED IN LOWEST POSITION. CALL LIGHT IN REACH.
--- NOTE | 2024-02-10 16:08 | NUR ---
PRN PAIN MEDICATION ADMINISTERED PER PT REQUEST. PT UNABLE TO SPECIFY WHERE SHE IS HURTING OR A PAIN NUMBER, BUT IS REPORTING THAT SHE IS IN PAIN AND REPEATEDLY SAYING "PLEASE PLEASE PLEASE". PT NOW CALM AND RESTING IN BED WITHOUT VOCALIZING MOANS OR VERBALIZING. CPOX AT BEDSIDE, FALL MATS IN PLACE, BED ALARM ON, BED IN LOWEST POSITION, CALL LIGHT IN REACH.
--- NOTE | 2024-02-10 17:49 | NUR ---
PT RESTING IN BED WITH EYES CLOSED, RR EVEN AND UNLABORED, O2 FACE MASK ON AT 2L, CPOX AT BEDSIDE. FALL MATS IN PLACE, BED ALARM ON, BED IN LOWEST POSITION. CALL LIGHT IN REACH.
--- NOTE | 2024-02-10 18:10 | NUR ---
PT RESTING IN BED WITH EYES CLOSED, RR EVEN AND UNLABORED. CPOX AT BEDSIDE, PT HAS O2 MASK ON AT 2L. FALL MATS IN PLACE, BED IN LOWEST POSITION, BED ALARM ON. CALL LIGHT IN REACH.
--- NOTE | 2024-02-10 18:25 | NUR ---
MD NOTIFIED OF PTs MEDICATION REFUSALS. MD GIVES VERBAL ORDERS FOR MEDICATION ADJUSTMENTS, INPUT PER MD ORDER.
--- NOTE | 2024-02-10 19:27 | NUR ---
REPORT RECIEVED FROM DAY SHIFT RN. PATIENT RESTING IN BED WITH EYES CLOSD. RR EVEN AND UNLABORED. CALL LIGHT IN REACH. BED ALARM ON. FALL MATS IN PLACE.
--- NOTE | 2024-02-10 20:30 | NUR ---
PATIENT INCONT OF STOOL. PATIENT REMOVED OWN ATTEND. BED BATH COMPLETED, BEDDING CHANGED, AND JEANNE CARE COMPLETED. PATIENT REMPOSITIONED IN BED. PATIENT HAS NEW ATTTEND IN PLACE. PATIENT REQUESTING TO VOID. PATIENT ASSISTED TO THE BSC A 2PA. PATIENT ABLE TO VOID. PATIENT IS BACK IN BED RESTING. PATIENT YELLING OUT STATING "I HURT SO BAD, HELP, MY BACK". PATIENT GIVEN PRN PAIN MEDICATION. VITALS TAKEN AND RECORDED. INTAKE AND OUTPUT RECORDED. PATIENT TRYING TO GET OUT OF BED AN DPULLING AT LINES. THIS RN REMAINS AT BEDSIDE.
--- NOTE | 2024-02-10 20:50 | NUR ---
PATIENT CONTINUES TO TRY AND GET OUT OF BED AND PULLING AT LINES. PATIENT GRABBING AT STAFF AND YELLING. PATIENT GIVEN PRN AGITATION MEDICATION. PATIENT REMAINS ON 2L VIA OXYMASK. PATIENT WILL NOT LEAVE OXYGEN ON. PATIENT IS RESTING IN BED. RT IN ROOM. BED ALARM ON FOR SAFETY. FALL MATS IN PLACE. IV REDRESSED. IV INFUSING PER ORDER.
[2024-02-10] MEDS ORDERED: HEParin SOD (PORCINE) 5,000 UNIT/ML SDV SUB-Q SCH (21:00)
--- NOTE | 2024-02-10 21:31 | NUR ---
PATIENT ASSISTED TO THE BSC A 2PA. PATIENT ABLE TO VOID. PATIENT IS BACK IN BED RESTING. BED ALARM ON FOR SAFETY. FALL MATS IN PLACE. CALL LIGHT IN REACH. IV INFUSING PER ORDER. CPOX IN PLACE. 2L VIA NC.
--- NOTE | 2024-02-10 23:14 | NUR ---
PATIENT RESTING IN BED WITH EYES CLOSED. RESPIRATIONS EVEN AND UNLABORED. CALL LIGHT IN REACH. BED ALARM ON FOR SAFETY.
--- NOTE | 2024-02-10 23:42 | NUR ---
PT SHOUTING OUT AND SEEN REMOVING GOWN. LAPPING MACHINE SET UP OPERATOR AND RN ENTERED ROOM AND PT STATED THAT SHE WAS REMOVING HER GOWN BECAUSE SHE HAD " MADE A MESS". CITLALI AND SAVITA PIERCE CHANGED PT BREIF AND CHUCKS PAD. PT GIVEN A WARM BLANKET. PT STATES NO FURTHER NEEDS AT THIS TIME. CALL LIGHT WITHIN REACH AND BED ALARM ON.
[2024-02-11] VITALS (7 sets, daily range): BP systolic 138–166; BP diastolic 62–99
--- NOTE | 2024-02-11 01:23 | NUR ---
PATIENT RESTING IN BED ON BACK WITH EYES CLOSED. RR EVEN AND UNLABORED. CALL LIGHT IN REACH.
--- NOTE | 2024-02-11 02:01 | NUR ---
PATIENT HOLLERING IN BED. PRN PAIN MEDCIATION ADMINSITERED. PATIENT UP TO BSC WITH 2P HEAVY ASSIST TO VOID. PATIENT BACK TO BED. IV LEAKING. LEFT FOREARM IV DCd WNL WITH TIP INTACT. BED ALARM ON FOR SAFETY. OXY MASK IN PLACE. NO FURTHER NEEDS. CALL LIGHT IN REACH.
--- NOTE | 2024-02-11 03:07 | NUR ---
PATIENT RESTLESS AND AGGITATED IN BED. PRN MEDICATION ADMINISTERED. FLOAT RN IN ROOM WITH PATIENT AT BEDSIDE. BED ALARM ON. FALL MATS IN PLACE. CALL LIGHT IN REACH.
--- NOTE | 2024-02-11 03:52 | NUR ---
PATIENT HEARD MARY OUT. PATIENT STATES "I NEED TO GO TO THE BATHROOM!!!". THIS RN AND PRESALES SENIOR SPECIALIST ASSISTED PATIENT TO THE BSC TO VOID. PATIENT BACK TO BED. BED ALARM ON FOR SAFETY. FALL MATS IN PLACE. CPOX IN PLACE. CALL LIGHT IN REACH.
--- NOTE | 2024-02-11 05:21 | NUR ---
PATIENT RESTING IN BED WITH EYES CLOSED. VS AND I&Os OBTAINED AND RECORDED. PATIENT HAS NO FURTHER NEEDS. CALL LIGHT IN REACH.
[2024-02-11 05:28] LABS: BASOPHILS 0.9 % (0-2); EOSINOPHILS 3.3 % (0-6); HEMATOCRIT 32.5 % (35.0-50.0); HEMOGLOBIN 10.8 g/dL (12.0-18.0); MCH 30.4 (27-36); MCHC 33.2 g/dl (30-36); MCV 91.6 fl (81-99); MONOCYTES 11.7 % (0-12); NEUTROPHILS 50.1 % (39-80); PLATELET COUNT 223 K/uL (140-440); RBC 3.55 M/ul (4.3-5.7); RDW 13.5 (10.5-15.0)
[2024-02-11 05:52] LABS: ANION GAP 7.3 (7-21); BUN/CREATININE RATIO 6.25 (6.0-28.6); CALCIUM 8.6 mg/dL (8.5-10.1); CREATININE, SERUM 0.8 mg/dL (0.55-1.02); MAGNESIUM 1.6 mg/dL (1.8-2.4); POTASSIUM 3.3 mmol/L (3.5-5.1); TSH, 3RD GENERATION 1.084 uIU/mL (0.358-3.740)
--- NOTE | 2024-02-11 06:03 | NUR ---
PATIENT HOLLERING OUT AND RESTLESS IN BED. PRN PAIN MEDICATION ADMINISTERED. NO FURTHER NEEDS. CALL LIGHT IN REACH. BED ALARM ON.
--- NOTE | 2024-02-11 07:06 | NUR ---
REPORT RECEIVED FROM BIG DATA ENGINEER RN XAVI. PATIENT IS LYING IN BED WITH EYES CLOSED AND RESPIRATIONS ARE EVEN AND UNLABORED. PATIENT IS 2L NC. CPOX AT THE BEDSIDE. CALL LIGHT AND PERSONAL BELONGINGS ARE WITHIN REACH.
--- NOTE | 2024-02-11 08:29 | NUR ---
PATIENT IS LYING IN BED WITH EYES CLOSED AND RESPIRATIONS ARE EVEN AND UNLABORED. PATIENT O2 ON VIA NC. CPOX AT THE BEDSIDE. CALL LIGHT AND PERSONAL BELONGINGS ARE WITHIN REACH.
[2024-02-11] MEDS ORDERED: acetaZOLAMIDE sodium 500 MG/5 ML VIAL IV ONE (08:30)
[2024-02-11] MEDS ORDERED: PANTOPRAZOLE SODIUM 40 MG/10 ML VIAL IV SCH (09:00)
--- NOTE | 2024-02-11 09:11 | NUR ---
PATIENT IS LYING IN BED WITH EYES CLOSED AND RESPIRATIONS ARE EVEN AND UNLABORED. CPOX AT THE BEDSIDE. PATIENT STATED NO FURTHER NEEDS AT THIS TIME. CALL LIGHT AND PERSONAL BELONGINGS ARE WITHIN REACH.
[2024-02-11] MEDS ORDERED: POTASSIUM CHLORIDE 40 MEQ,LIDOCAINE HCL 1% 40 MG in DEXTROSE 5% 250 ML IV ONE (10:00)
[2024-02-11] MEDS ORDERED: MAGNESIUM SULFATE 2 GM/50 ML BAG IV ONE (10:00)
--- NOTE | 2024-02-11 10:30 | NUR ---
PT AND TOOTH CUTTER ARE IN THE ROOM AND TRANSFERRED HER TO THE CHAIR. PATIENT BLE IS ELEVATED. PATIENT IS ALERT AND NOT ORIENTED TO SELF. CHAIR ALARM ON. 0900 MEDICATIONS ADMINISTERED AT THIS TIME. PATIENT ABLE TO SPEAK WORDS AND VOCALIZE. PATIENT IS ON ROOM AIR WITH THE CPOX AT BEDSIDE. LUNGS SOUNDS ARE CLEAR IN THE UPPER LOBES BILATERALLY AND DIMINISHED IN THE BASES BILATERALLY. CARDIAC WITH NORMAL S1 AND S2 ON AUSCULTATION. PATIENT DOES HAVE A PACEMAKER. RADIAL AND PEDAL PULSES ARE STRONG BILATERALLY. NO EDEMA NOTED. PATIENT IS ON A REGULAR DIET WITH SOFT AND BITE SIZED TEXTURE. PATIENT HAD A BM 02/10/24. BOWEL TONES ARE ACTIVE IN ALL FOUR QUADRANTS. PATIENT WITH NO MOANING ON PALPATION OF THE ABDOMEN. SENSATION INTACT. PATIENT WITH PAIN RATING OF 5/10 "EVERYWHERE" AND WARM BLANKETS PROVIDED. SKIN ASSESSMENT COMPLETE WITH NINFA PIERCE. REDNESS/RASH NOTED UNDER PANUS, BREASTS, AND ON THE PATIENTS UPPER BACK. REDNESS/BEN COLOR NOTED ON BILATERAL SHINS. REDNESS HAS DECREASED FROM PREVIOUSLY MRAKED MARGINS. SCATTERED SCABS AND BRUISING NOTED. IV SITE FLUSHED WITH 10 ML NORMAL SALINE AND POTASSIUM CHLORIDE AND MAGNESIUM SULFATED INFUSING AT THIS TIME. DR. SANDHU ROUNDED WITH PATIENT AND RN. PATIENT WITH NO FURTHER NEEDS, CALL LIGHT AND PERSONAL BELONGINGS ARE WITHIN REACH.
--- NOTE | 2024-02-11 12:06 | NUR ---
PATIENT IS SITTING UPRIGHT IN THE CHAIR WITH BLE ELEVATED. PATIENT IS ON TWO LITERS NC WITH THE CPOX AT BEDSIDE. PATIENT WITH EYES CLOSED AND RESPIRATIONS ARE EVEN AND UNLABORED. CALL LIGHT AND PERSONAL BELONGINGS ARE WITHIN REACH.
--- NOTE | 2024-02-11 13:12 | NUR ---
PATIENT IS SITTING UPRIGHT IN THE CHAIR WITH BLE ELEVATED. PATIENT WITH CPOX AT BEDSIDE AND IS ON 2 L NC. PATIENT WITH EYES CLOSED AND RESPIRATIONS ARE EVEN AND UNLABORED. TV ON. CALL LIGHT AND PERSONAL BELONGINGS ARE WITHIN REACH.
--- NOTE | 2024-02-11 14:55 | NUR ---
STAN OCASIO AND CITLALI CHARLES ARE IN THE ROOM AT THIS TIME ASSISTING PATIENT TO THE COMMODE. NINFA AND MELVIN STATED NO NEEDS AT THIS TIME. CALL LIGHT IN REACH.
--- NOTE | 2024-02-11 15:18 | NUR ---
PT UP TO COMMODE WITH 2 PERSON ASSIST TO VOID, TOLERATED WELL. PT ASSISTED BACK TO CHAIR WITH ALARM ON. ENSURE OFFERED.
--- NOTE | 2024-02-11 15:26 | NUR ---
PATIENT IS SITTING UPRIGHT IN THE CHAIR WITH BLE ELEVATED. CHAIR ALARM IN PLACE. CITLALI CHARLES IN THE ROOM AND GIVING HER DRINKS OF ENSURE. IV SITE ASSESSED AND THE DRESSING IN CLEAN, DRY, AND INTACT. IV POTASSIUM CHLORIDE IS INFUSING AT 50 ML/HR. PAIN FACE SCALE RATED AT 4/10. WHEN RN ASKED PATIENT IF SHE HAS PAIN PATIENT STATED "YES". WHEN RN ASKED PATIENT IF SHE WOULD PAIN MEDICATION THE PATIENT STATED "NO". BLE MARGINS HAVE RECEDING FROM PREVIOUSLY MARKED MARGINS. BILATERAL SHINS ARE RED WITH SCATTERED SCABS. PATIENT STATED NO FURTHER NEEDS AT THIS TIME. CALL LIGHT AND PERSONAL BELONGINGS ARE WITHIN REACH.
--- NOTE | 2024-02-11 16:36 | NUR ---
PATIENT IS SITTING UPRIGHT WITH BLE ELEVATED BY THE NURSES STATION. PATIENT WITH EYES CLOSED AND RESPIRATIONS ARE EVEN AND UNLABORED. PATIENT IS ON ROOM AIR. PATIENT SLOWLY DRINKING A STRAWBERRY ENSURE.
--- NOTE | 2024-02-11 17:15 | NUR ---
PT UNABLE TO RATE PAIN, BUT VERBALIZES THAT SHE HAS PAIN "ALL OVER". PT RESTLESS AND MOANING IN BED. PAIN MED GIVEN ORDERED. BED ALARM ON.
--- NOTE | 2024-02-11 17:21 | NUR ---
PATIENT IS SITTING UPRIGHT IN BED WITH HOB ELEVATED. PATIENT WITH EYES CLOSED AND RESPIRATIONS ARE EVEN AND UNLABORED. PATIENT IS ON ROOM AIR WITH CPOX AT BEDSIDE. CALL LIGHT AND PERSONAL BELONGINGS ARE WITHIN REACH.
--- NOTE | 2024-02-11 18:16 | NUR ---
PATIENT IS SITTING UPRIGHT IN BED WITH EYES CLOSED AND RESPIRATIONS ARE EVEN AND UNLABORED. TV ON. CPOX AT BEDSIDE AND PATIENT IS ON ROOM AIR. CALL LIGHT AND PERSONAL BELONGINGS ARE WITHIN REACH.
--- NOTE | 2024-02-11 19:10 | NUR ---
RECIEVED REPORT FROM [facility] RN. PATIENT AWAKE, RESTLESS IN BED. NO NEEDS IDENTIFIED AT THIS TIME. CALL LIGHT IN REACH. BED ALARM ACTIVE.
--- NOTE | 2024-02-11 19:47 | NUR ---
IN ROOM TO ASSIST HELPING PATIENT BACK TO BED AFTER USING BEDSIDE COMMODE. PATIENT AGITATED AND ATTEMPTING TO EXIT THE BED BUT WAS UNABLE TO VOCALIZE WHY SHE WANTED TO GET OUT OF BED. MEDICATIONS ADMINISTERED, SEE E-MAR. ASSESSMENT COMPELTED. PATIENT BEGAN TO RELAX AFTER PRN MEDICATION. CALL LIGHT IN REACH. BED ALARM ACTIVE.
--- NOTE | 2024-02-11 21:00 | NUR ---
PT RESTLESS AND MOANING IN BED, PULLING LEGS UP TO CHEST. OCCASIONALLY SAYS "OW" DOES NOT GIVE PAIN LOCATION. PRN FOR PAIN ADMIN PER EMAR. 2L/OM PLACED. BED ALARM FOR SAFETY. CALL LIGHT IN REACH.
--- NOTE | 2024-02-11 21:17 | NUR ---
IN ROOM TO ADMINISTER MEDICATION, SEE E-MAR. PATIENT RESTING IN BED WITH EYES CLOSED. AWAKES EASILY TO VOICE. NO NEEDS IDENTIFIED AT THIS TIME. CALL LIGHT IN REACH. BED ALARM ACTIVE.
--- NOTE | 2024-02-11 22:40 | NUR ---
IN ROOM RESPONDING TO CPOX ALARM. PT O2 86%. 2L O2 VIA OXYMASK APPLIED. PATIENT O2 SATURATION RAISED TO 92%. PATIENT ATTEMPTING TO EXIT BED. PATIENT STATES NEED TO VOID. PATIENT UP TO BEDSIDE COMMODE. BRIEF ALREADY SOILD. BRIEF REPLACED. BEDDING AND GOWN REPLACED. PATIENT LAYING IN BED. NO OTHER NEEDS IDENITIFIED AT THIS TIME, CALL LIGHT IN REACH.
--- NOTE | 2024-02-11 23:33 | NUR ---
IN ROOM RESPONDING TO CPOX ALARM. O2 SATURATION 85%, PATIENT OXYMASK ASKEW. OXYMASK REPOSITIONED. O2 SATURATION RETURNED TO 90% ON 2L. NO OTHER NEEDS IDENTIFIED AT THIS TIME. CALL LIGHT IN REACH. BED ALARM ACTIVE.
[2024-02-12] VITALS (10 sets, daily range): BP systolic 154–180; BP diastolic 62–99
--- NOTE | 2024-02-12 01:46 | NUR ---
IN ROOM TO ROUND ON PATIENT. PATIENT RESTING ON BACK IN BED WITH EYES CLOSED. CPOX IN PLACE, O2 SATURATION 92% ON 2L VIA OXYMASK. RESPIRATIONS EVEN AND ULABORED. NO NEEDS IDENTIFIED AT THIS TIME. CALL LIGHT IN REACH. BED ALARM ACTIVE.
--- NOTE | 2024-02-12 04:24 | NUR ---
IN ROOM TO ROUND ON PATIENT. PATIENT RESTLESS IN BED, ATTEMPTING TO REMOVE BREIF. 2PA TO THE BSC. PATIENT RETURNED TO BED, C/O PAIN IN THE BACK. PATIENT UNABLE TO RATE PAIN. PRN PAIN MEDICATION ADMINISTERED, SEE E-MAR. PATIENT TOLERATED PAIN MEDICATION WELL AND WAS ABLE TO RELAX IN THE BED, RESTING ON BACK WITH EYES CLOSED. CPOX IN PLACE, O2 89% 0N ROOM AIR. NO OTHER NEEDS IDENTIFIED AT THIS TIME. CALL LIGHT IN REACH. BED ALARM ACTIVE.
--- NOTE | 2024-02-12 04:56 | NUR ---
IN ROOM RESPONDING TO CPOX ALARM. O2 AT 84% AND DROPPED TO 78%. 2L VIA OXYMASK APPLIED. O2 SATURATION IMPROVED TO 90%. NO OTHER NEEDS IDENTIFIED AT THIS TIME. PATIENT RESTING ON BACK WITH EYES CLOSED. NO ACUTE DISTRESS OBSERVED. CALL LIGHT IN REACH. BED ALARM ACTIVE.
[2024-02-12 05:30] LABS: BASOPHILS 0.9 % (0-2); EOSINOPHILS 3.7 % (0-6); HEMATOCRIT 36.4 % (35.0-50.0); LYMPHOCYTES 36.7 % (24-44); MCH 30.2 (27-36); MCHC 32.9 g/dl (30-36); MCV 91.6 fl (81-99); MONOCYTES 13.1 % (0-12); NEUTROPHILS 45.6 % (39-80); PLATELET COUNT 227 K/uL (140-440); RBC 3.98 M/ul (4.3-5.7); RDW 13.3 (10.5-15.0)
[2024-02-12 05:39] LABS: ANION GAP 10.9 (7-21); BUN/CREATININE RATIO 7.14 (6.0-28.6); CALCIUM 8.7 mg/dL (8.5-10.1); CREATININE, SERUM 0.84 mg/dL (0.55-1.02); MAGNESIUM 2.3 mg/dL (1.8-2.4); POTASSIUM 3.9 mmol/L (3.5-5.1)
--- NOTE | 2024-02-12 05:58 | NUR ---
PATIENT ASSISTED TO THE BSC A 2PA PIVOT XFER. PATIENT ABLE TO VOID. PATIENT IS BACK IN BED RESTING. PATIENT REPORTS A HEADACHE. PRIMARY RN NOTIFIED. PATIENT DENIES ANY SOB AND REMAINS ON 2L VIA OXYMASK. CPOX IN USE. BED ALARM ON FOR SAFETY.
--- NOTE | 2024-02-12 06:06 | NUR ---
IN ROOM TO ASSESS PATIENT C/O OF HEADACHE. PATIENT AGREEABLE TO PRN TYLENOL. PRN TYLENOL ADMINISTERED, PATIENT REFUSED TO SWALLOW PILLS, PULLED THEM OUT OF HER MOUTH AND PUT THEM BACK IN THE CUP. PATIENT AGREED TO TAKE THE TYLENOL CRUSHED UP IN PUDDING. ONCE CRUSHED AND IN THE PUDDING, PATIENT WILLINGLY TOOK A SPOONFUL, HOWEVER, IT TOOK MANY ATTEMPTS AT COAXING HER TO GET HER TO SWALLOW THE PUDDING. PATIENT TOOK A DRINK OF WATER AFTER PUDDING. PATIENT RESTLESS IN THE BED BUT DENIES ADDITIONAL NEEDS AT THIS TIME. CALL LIGHT IN REACH. BED ALARM ACTIVE. O2 92% ON RA, PATIENT KEEPS REMOVING OXYMASK.
--- NOTE | 2024-02-12 07:05 | NUR ---
REPORT RECEIVED FROM DOG BEHAVIORIST RN STAN GENAO AND STAN MATA. PATIENT IS LYING IN BED WITH EYES CLOSED AND RESPIRATIONS ARE EVEN AND UNLABORED. OXYMASK IN PLACE AT 2L WITH THE CPOX AT BEDSIDE. CALL LIGHT AND PERSONAL BELONGINGS ARE WITHIN REACH.
--- NOTE | 2024-02-12 08:08 | NUR ---
Board has updated and call light has been placed within reach. Patient is currently sleeping at this time
--- NOTE | 2024-02-12 08:20 | NUR ---
RT IS IN THE ROOM AT THIS TIME AND ADMINISTERING BREATHING TREATMENT. CPOX IS AT THE BEDSIDE. PATIENT IS LYING IN BED WITH EYES CLOSED AND RESPIRATIONS ARE EVEN AND UNLABORED. CALL LIGHT AND PERSONAL BELONGINGS ARE WITHIN REACH.
[2024-02-12] MEDS ORDERED: PANTOPRAZOLE SODIUM 40 MG TABEC PO SCH (09:00)
--- NOTE | 2024-02-12 09:16 | NUR ---
PATIENT IS LYING IN BED WITH EYES CLOSED AND RESPIRATIONS ARE EVEN AND UNLABORED. CPOX AT THE BEDSIDE. CALL LIGHT AND PERSONAL BELONGINGS ARE WITHIN REACH.
[2024-02-12] MEDS ORDERED: PANTOPRAZOLE SODIUM 40 MG/10 ML VIAL IV SCH (10:00)
--- NOTE | 2024-02-12 10:50 | NUR ---
STAN COBB IS IN THE ROOM GETTING A NEW IV SITE.
--- NOTE | 2024-02-12 11:15 | NUR ---
PT AND PHYSICAL THERAPY WORKING WITH THE PATIENT AT THIS TIME. FULL ASSESSMENT COMPLETE AND DOCUMENTED AT THIS TIME. PATIENT IS NOT ORIENTED BUT IS ALERT IN THE CHAIR WITH BLE UP. CHAIR ALARM ON. PATIENT IS ON ROOM AIR AND LUNG SOUNDS ARE CLEAR IN THE UPPER LOBES AND DIMINISHED IN THE BASES BILATERALLY. HEART TONES IRREGULAR ON AUSCULTATION, PATIENT WITH A PACEMAKER AT BEDSIDE. RADIAL AND PEDAL PULSES ARE STRONG BILATERALLY AND NO EDEMA NOTED. CPOX IS AT THE BEDSIDE. PATIENT IS ON A REGULAR DIET WITH SOFT AND BITE SIZED TEXTURE. BOWEL TONES ARE ACTIVE IN ALL FOUR QUADRANTS AND THE PATIENT HAS NO TENDERNESS IN THE ABDOMEN. IV IN THE LEFT LOWER FOREARM REMOVED DUE TO IV INFILTRATING. IV IN THE RIGHT UPPER ARM FLUSHED WITH 10 ML NORMAL SALINE AND IS SALINE LCOKED. IV DRESSING IS CLEAN, DRY, AND INTACT. PATIENT STATED NO FURTHER NEEDS AT THIS TIME. CALL LIGHT AND PERSONAL BELONGINGS ARE WITHIN REACH.
--- NOTE | 2024-02-12 12:26 | NUR ---
PATIENT GOT TO THE BEDSIDE COMMODE WITH THIS RN AND CITLALI CHARLES. PATIENT IS NOW BACK IN THE CHAIR WITH BLE ELEVATED. PATIENT WITH MEAL TRAY IN PLACE WITH A STRAWBERRY ENSURE. PATIENT AND DIRECTOR OF COMMUNICATIONS STATED NO FURTHER NEEDS. CALL LIGHT AND PERSONAL BELONGINGS ARE WITHIN REACH.
--- NOTE | 2024-02-12 14:05 | NUR ---
PATIENT IS LYING IN BED ON THEIR LEFT SIDE WITH EYES CLOSED AND RESPIRATIONS ARE EVEN AND UNLABORED. PATIENT IS ON ROOM AIR ANBD THE CPOX IS AT BEDSIDE. CALL LIGHT AND PERSONAL BELONGINGS ARE WITHIN REACH.
--- NOTE | 2024-02-12 15:35 | NUR ---
PATIENT REPOSITIONED IN BED AND IS NOW RESTING WITH EYES CLOSED AND RESPIRATIONS ARE EVEN AND UNLABORED. PATIENT IS ON ROOM AIR WITH THE CPOX AT BEDSIDE. PATIENT PAIN FACE SCALE SCORED AN 8/10. LIDOCAINE PATCH REMOVED AND IN A BALL. IV SITE IN THE RIGHT UPPER ARM FLUSHED WITH 10 ML NORMAL SALINE AND IS SALINE LOCKED. IV DRESSING IS CLEAN, DRY, AND INTACT. BILATERAL SHINS ARE BEN. REDNESS ON BILATERAL SHINS HAS RECEEDED FROM THE PREVIOUSLY MARKED MARGINS. SCATTERED SCARS NOTED ON BILATERAL SHINS. PATIENT STATED NO FURTHER NEEDS AT THIS TIME. CALL LIGHT AND PERSONAL BELONGINGS ARE WITHIN REACH.
--- NOTE | 2024-02-12 16:06 | NUR ---
PATIENT IS LYING ON THEIR LEFT SIDE WITH EYES CLSOED AND RESPIRATIONS ARE EVEN AND UNLABORED. CPOX AT THE BEDSIDE. CALL LIGHT AND PERSONAL BELONGINGS ARE WITHIN REACH.
--- NOTE | 2024-02-12 17:03 | NUR ---
PATIENT IS LYING IN BED ON THEIR LEFT SIDE WITH EYES CLOSED AND RESPIRATIONS ARE EVEN AND UNLABORED. PATIENT IS ON RA WITH THE CPOX AT BEDSIDE. CALL LIGHT AND PERSONAL BELONGINGS ARE WITHIN REACH.
--- NOTE | 2024-02-12 18:01 | NUR ---
PATIENT IS LYING IN BED ON THEIR LEFT SIDE WITH EYES CLOSED AND RESPIRATIONS ARE EVEN AND UNLABORED. PATIENT IS ON ROOM AIR WITH THE CPOX AT BEDSIDE. CALL LIGHT AND PERSONAL BELONGINGS ARE WITHIN REACH.
--- NOTE | 2024-02-12 19:20 | NUR ---
RECIEVED REPORT FROM [facility] RN. PATIENT RESTING IN BED WITH EYES CLOSED. PATIENT INTERMITTENTLY SINGING AND YELLING. NO NEEDS IDENTIFIED AT THIS TIME. CPOX IN PLACE. O2 SATURATION 90%, HR 99. CALL LIGHT IN REACH. BED ALARM ACTIVE.
--- NOTE | 2024-02-12 20:19 | NUR ---
IN ROOM TO ASSESS PATIENT. ASSESSMENT COMPLETED. MEDICATIONS ADMINISTERED, SEE E-MAR. PATIENT 2PA TO [facility] [place] [place]. ABLE TO VOID WITHOUT DIFFICULTY. INCONTIENCE IN BRIEF. BRIEF CHANGED, CHUCKS PAD/DRAW SHEET CHANGED. PATIENT 2PA BACK TO BED. PATIENT REFUSED TO FINISH TAKING ORAL MEDICATION, STATING "I COULDN'T POSSIBLY HAVE ANYMORE." EVEN AFTER EDUCATION AND THERAPEUTIC COMMUNICATION, SEE E-MAR. CPOX STICKER REPLACED DUE TO PATIENT REMOVING IT. O2 SATURATION 89% ON RA. PATIENT RESTING ON BACK WITH EYES CLOSED. NO ADDITIONAL NEEDS IDENTIFIED AT THIS TIME. CALL LIGHT IN REACH. BED ALARM ACTIVE.
--- NOTE | 2024-02-12 21:34 | NUR ---
PT UP TO BSC WITH 2PA AND CONTINUOUS DIRECTION TO VOID. STAFF ASSIST WITH JEANNE CARE. BACK TO BED, EVELIA FAIR. PT COMPLAINS OF NAUSEA AFTER RETURNING TO BED. PRN FOR N/V ADMIN PER EMAR. BED ALARM IN PLACE. PT IN VIEW OF NURSES STATION.
--- NOTE | 2024-02-12 21:50 | NUR ---
IN ROOM RESPONDING TO CPOX ALARM. PATIENT O2 SATURATION 83% ON RA. RT IN ROOM WITH PATIENT. CALL LIGHT IN REACH. BED ALARM ACTIVE.
--- NOTE | 2024-02-12 22:11 | NUR ---
IN ROOM RESPONDING TO THUD SOUND. PATIENT PULLED COPX MONITOR OFF THE TABLE AND OFF OF THE WALL PLUG. CPOX REASSEMBLED. PATEINT REMOVED OXYMASK PLACED BY RT AT 3L. O2 SATURATION 93% ON RA. PATIENT 2PA TO BSC, FOR URGE TO VOID, PATIENT UNABLE TO VOID. PATIENT 2PA BACK TO BED. NO ADDITIONAL NEEDS IDENTIFIED AT THIS TIME. CALL LIGHT IN REACH. BED ALARM ACTIVE.
--- NOTE | 2024-02-12 22:47 | NUR ---
IN ROOM TO ROUND ON PATIENT. PATIENT YELLING OUT FROM HER BED. PATIENT UNABLE TO IDENTIFIED NEEDS. PATIENT DENIES NEED TO VOID AND STATES "CAN'T SLEEP". PRN MEDICATION ADMINISTERED FOR AGITATION, SEE E-MAR. PATIENT IS RESTLESS IN BED AND MOANING. CPOX IN PLACE. O2 88% ON RA. NO OTHER NEEDS IDENTIFIED AT THIS TIME. CALL LIGHT IN REACH. BED ALARM ACTIVE.
--- NOTE | 2024-02-12 23:00 | NUR ---
IN ROOM RESPONDING TO CPOX ALARM. PATIENT O2 83% ON RA. 2L VIA OXYMASK APPLIED, 02 88% ON 2L VIA OXYMASK. PATIENT RESTLESS IN BED WITH OCCASIONAL MOANING. UNABLE TO IDENTIFY NEEDS. NO NEEDS IDENTIFIED AT THIS TIME. CALL LIGHT IN REACH. BED ALARM ACTIVE.
--- NOTE | 2024-02-12 23:10 | NUR ---
IN ROOM TO ROUND ON PATIENT. PATIENT AGITATED AND TAKING OFF CLOTHES. PATIENT REQUESTS A SHOWER. THERAPEUTIC COMMUNICATION AND EDUCATION PROVIDED, LETTING PATIENT KNOW IT WAS THE MIDDLE OF THE NIGHT AND SHE CAN HAVE A SHOWER IN THE MORNING. PATIENT UNABLE TO VERBALIZE UNDERSTANDING. PATIENT REMOVED OXYMASK, O2 SATURATION 87% ON RA. PATIENT ABLE TO RETURN TO RESTING ON BACK WITH EYES CLOSED. NO OTHER NEEDS IDENTIFIED AT THIS TIME. CALL LIGHT IN REACH. BED ALARM ACTIVE. FALL MATS IN PLACE.
--- NOTE | 2024-02-12 23:40 | NUR ---
IN ROOM TO ROUND ON PATIENT. PATIENT GOWN AND BRIEF REAPPLIED. THERAPEUTIC COMMUNICATION PROVIDED, ENCOURAGED PATIENT TO LEAVE CLOTHES ON AND TRY TO SLEEP. PATIENT AGITATED BUT BRIEFLY RETURNS TO RESTING ON BACK WITH EYES CLOSED. PATIENT AWAKENING FREQUENTLY TRYING TO REMOVE CLOTHES, PULLING AT IV SITE, WHICH IS CURRENTLY WRAPPED, MOANING/YELLING OUT, UNABLE TO IDENTIFY NEEDS. PATIENT CONSISTENTLY REMOVES OXYMASK. CPOX IN PLACE. O2 SATURATION, 89% ON RA. CALL LIGHT IN REACH. BED ALARM ACTIVE. FALL MATS IN PLACE.
[2024-02-13] VITALS (10 sets, daily range): BP systolic 121–188; BP diastolic 64–114
--- NOTE | 2024-02-13 00:44 | NUR ---
PT RESTLESS AND MOANING IN BED. GOWN AND BRIEF OFF. 2PA TO BSC TO VOID 150 ML CLEAR YELLOW URINE. STAFF ASSIST WITH JEANNE CARE. BACK TO BED. PT REQUIRES CONSTANT QUEING WITH TRANSFER. PT ABLE TO FOLLOW DIRECTIONS. SIPS OF WATER PROVIDED. BED ALARM IN PLACE. PT IN VIEW OF NURSES STATION.
--- NOTE | 2024-02-13 01:52 | NUR ---
IN ROOM TO ROUND ON PATIENT. PATIENT MOANING AND YELLING OUT. PATIENT UNABLE TO IDENTIFY NEEDS AT THIS TIME. PATIENT OFFERED TO VOID, BUT DENIES NEEDS. PATIENT DRAWING LEGS UP, RESTLESS IN BED, AND MOANING. PRN PAIN MEDICATION ADMINISTERED, SEE E-MAR. ASSESSMENT COMPLETED. NO ADDITIONAL NEEDS IDENTIFIED AT THIS TIME. CPOX IN PLACE, O2 89% ON RA. CALL LIGHT IN REACH. BED ALARM ACTIVE. FALL MATS IN PLACE.
--- NOTE | 2024-02-13 02:10 | NUR ---
IN ROOM TO RESPONDING TO CPOX ALARM. PATIENT O2 SATURATION 84% ON RA. 1L VIA OXYMASK APPLIED. 02 SATURATION IMPROVED TO 91%. PATIENT RESTING ON BACK WITH EYES CLOSED, AWAKENS EASILY TO VOICE. PATIENT RETURNED TO RESTING ON BACK WITH EYES CLOSED AFTER OXYMASK WAS APPLIED. NO NEEDS IDENTIFIED AT THIS TIME. CALL LIGHT IN REACH. BED ALARM ACTIVE. FALL MATS IN PLACE.
--- NOTE | 2024-02-13 02:30 | NUR ---
IN ROOM TO ROUND ON PATIENT. PATIENT MOANING AND RESTLESS IN BED. PATIENT STATES NEED TO VOID. 2PA TO BSC. ABLE TO VOID, DENIES DYSURIA. 2PA BACK TO BED. PATIENT LAYING ON BACK WITH EYES CLOSED. CALM AND QUIET. PATIENT HAD REMOVED HER OXYMASK. O2 SATURATION 89% ON RA. NO OTHER NEEDS IDENTIFIED AT THIS TIME. CALL LIGHT IN REACH. BED ALARMS ACTIVE. FALL MATS IN PLACE.
--- NOTE | 2024-02-13 03:49 | NUR ---
IN ROOM TO ROUND ON PATIENT. PATIENT MOANING OUT AND HUMMING/SINGING. PATIENT ATTEMPTING TO EXIT BED, LEGS OVER THE BED RAIL, OXYMASK REMOVED. PATIENT DENIES THE NEED TO VOID 3X. PATIENT AGITATED, LEGS DRAWN UP, MOANING, UNABLE TO IDENTIFY NEEDS. PRN MEDICATON FOR AGITATION ADMINISTERED, SEE E-MAR. TV TURNED ON TO LIGHT CLASSICAL MUSIC FOR SOOTHING EFFECT. PATIENT ABLE TO RETURN TO RESTING ON BACK WITH EYES CLOSED. CPOX IN PLACE, O2 SATURATION 90% ON RA. NO OTHER NEEDS IDENTIFIED AT THIS TIME. CALL LIGHT IN REACH. BED ALARM ACTIVE. FALL MATS IN PLACE.
--- NOTE | 2024-02-13 05:30 | NUR ---
IN ROOM TO ASSESS MORNING VITALS. BLOOD PRESSURE ELEVATED OUTSIDE OF PARAMETERS. PRN HYDRALAZINE ADMINISTERED, SEE E-MAR. PATIENT 2PA UP TO BSC. PATIENT ABLE TO VOID SMALL AMOUNT. 2PA BACK TO BED. PATIENT ABLE TO RETURN TO RESTING ON BACK WITH EYES SHUT. INTERMITTENT MOANING AND SINGING/HUMMING. NO OTHER NEEDS IDENTIFIED AT THIS TIME. CALL LIGHT IN REACH. BED ALARM ACTIVE. FALL MATS IN PLACE. CPOX IN PLACE, 02 SATURATION 89% ON RA.
--- NOTE | 2024-02-13 05:59 | NUR ---
IN ROOM TO ROUND ON PATIENT. PATIENT MOANING AND SINGING. RESTLESS IN BED. TRYING TO SIT UP ON ELBOWS. PATIENT UNABLE TO IDENTIFY NEEDS, PATIENT PUTTING HAND UNDER RIGHT HIP AND PULLING LEGS UP AND SAYING "OW". PRN PAIN MEDICATION ADMINISTERED, SEE E-MAR. PATIENT ABLE TO RETURN TO RESTING IN BED ON BACK WITH EYES CLOSED AND MOANING CEASED. NO ADDITIONAL NEEDS IDENTIFIED AT THIS TIME. CALL LIGHT IN REACH. BED ALARM ACTIVE. FALL MATS IN PLACE. CPOX IN PLACE, O2 SATURATION 90% ON RA.
--- NOTE | 2024-02-13 06:21 | NUR ---
IN ROOM TO REASSESS PATIENT'S BP AFTER PRN HYDRALAZINE. BP NOW WITHIN PARAMETERS. PATIENT RESTING ON BACK IN BED WITH EYES CLOSED. LEGS FLAT. RESPRIATONS EVEN AND UNLABORED. NO MOANING/SINGING/HUMMING. CPOX IN PLACE, O2 SATURATION 88% ON RA. CALL LIGHT IN REACH. BED ALARM ACTIVE. FALL MATS IN PLACE.
--- NOTE | 2024-02-13 07:36 | NUR ---
PT IS RESTLESS TALKING NONSENSICAL AND SQUIRMING IN BED AT TIME OF SHIFT REPORT. ANSWERS NO WHEN ASKED IF HUNGRY, UNABLE TO VERBALIZE ANY WANT OR PARTICULAR DISCOMFORT. BED ALARM IS SET FALL PADS IN PLACE.
--- NOTE | 2024-02-13 08:56 | NUR ---
PT IS RESTFUL AT THIS TIME AFTER ROLLING AROUND A BIT AND MAKING DIFFERENT SOUNDS. NO GRIMACE OR SOUNDS R/T PAIN NOTED. ANSWERED NO WHEN ASKED IF SHE IS IN PAIN BUT IT'S UNCLEAR IF SHE IS ABLE TO ANSWER APPROPRIATELY. PT ACCEPTS A BITE OF PUDDING WITH METOPROLOL REFUSES SCRAMBLED EGGS, FURTHER PUDDING, OR ANYTHING ELSE. REFUSES LIQUIDS. FALL PRECAUTIONS STILL IN PLACE
[2024-02-13] MEDS ORDERED: LACTATED RINGER'S 1,000 ML IV ONE ×2 (09:45→22:00)
--- NOTE | 2024-02-13 09:48 | NUR ---
UPDATED CLINICALS FAXED TO [facility] AND [facility].
--- NOTE | 2024-02-13 10:35 | NUR ---
PT UP TO THE CHAIR AFTER P/ O/T ATTEMPTS TO WORK WITH HER. PT REMAINS CONFUSED NOT FOLLOWING COMMANDS. PT MOVING AROUND A LOT AND DOES NOT APPEAR SAFE OR COMFORTABLE MOVED BACK TO THE BED WHERE SHE IS ABLE TO ROLL SIDE TO SIDE INDEPENDENTLY. PT BEING GIVEN TYLENOL TO COVER ANY DISCOMFORTS. REPORTED NO PO INTAKE TO HOSPITALIST HE AGREES 1 LITER BOLUS IS APPROPRIATE, PT TOO RESTLESS AND PULLING AT THINGS FOR ONGOING FLUIDS. SHE IS RESTING CALMLY NOW SNORING SOFTLY FLUIDS INFUSING.
--- NOTE | 2024-02-13 11:05 | NUR ---
PATIENT HAS BEEN ACCEPTED TO [facility].
--- NOTE | 2024-02-13 11:05 | NUR ---
BED LINENS CHANGED BY NURSE AND I. BEFORE OCCUPATIONAL AND PHYSICAL THERAPY PUT HER BACK TO BED.
--- NOTE | 2024-02-13 11:25 | NUR ---
PT RESTING EYES CLOSED APPEARS RELAXED AND RESTFUL
--- NOTE | 2024-02-13 11:33 | NUR ---
UPDATED CLINICALS SENT TO [facility].
--- NOTE | 2024-02-13 11:45 | NUR ---
SPOKE WITH [place], [id number], INFORMED HER OF ACCEPTANCE TO [facility] AND NEED FOR PATIENT BELONGINGS TO BE SENT WITH PATIENT. PATIENT WILL NEED [facility] FOR TRANSPORT.
--- NOTE | 2024-02-13 11:49 | NUR ---
CALLED [facility] TO SCHEDULE TRANSPORT. THEY WILL RETURN CALL WITH SCHEDULED TIME FOR 02/14/24
--- NOTE | 2024-02-13 12:12 | NUR ---
In with Dr. Brantley to assist the pt for his assessment. Pt is moaning and complaining of pain in her back. Side rails up x4. Primary RN arrives and notified.
[2024-02-13] MEDS ORDERED: HYDROmorphone HCL 1 MG/ML SYR IV PRN (12:15)
--- NOTE | 2024-02-13 12:15 | NUR ---
PT IS AGGITATED MOVING AROUND TRYING TO GET UP SAYING "I CAN'T" DR SANDHU NOTIFIED TYLENOL JUST ADMINISTERED AND LIDOCAIN PATCH APPLIED. HE ORDERS DILAUDID. PT ASSISTED UP TO THE BSC WHERE SHE IS ABLE TO VOID, THEN ASSISTED BACK TO BED. PT APPEARS MUCH MORE CALM BUT CONTINUES SOME MOANING DILAUDID ADMINISTERED.
--- NOTE | 2024-02-13 12:57 | NUR ---
PT RESTING SOUNDLY SNORING SOFTLY. [address] FOR SATS DIPPING EARLIER. SHE IS SATING 97% 02 2LPM
--- NOTE | 2024-02-13 14:11 | NUR ---
PT CONTINUES RESTING SOUNDLY AT THIS TIME.
--- NOTE | 2024-02-13 14:57 | NUR ---
VISITED DURING SPIRITUAL CARE ROUNDS. PT APPEARED TO BE SLEEPING. DID NOT DISTURB. PROVIDED PRAYER.
--- NOTE | 2024-02-13 15:46 | NUR ---
DISCUSSED DC PLAN WITH DR. SANDHU. PATIENT NOT YET READY FOR DC. INFORMED BRICE AT [facility] AND LEFT MESSAGE FOR DAUGHTER IN LAW, [place], TO INFORM THEM PATIENT WILL NOT DC TOMORROW. CALLED AND CANCELLED [facility].
--- NOTE | 2024-02-13 15:51 | NUR ---
PT HAD BEEN RESTING COMFORTABLY BEGAN TO MOAN AND CRY OUT ROLLING AROUND ON THE BED UNABLE TO CONSOLE. PT NOT ANSWERING DIRECT QUESTIONS. DILAUDID ADMINISTERED PT RESTING QUIETLY AGAIN IN A VERY SHORT TIME. BED ALARM AND FALL MATS IN PLACE 02 MASK ON PULSE OX READS 96%
--- NOTE | 2024-02-13 17:50 | NUR ---
PT RESTLESS AGAIN, STAFF ASSIST X2 TO BSC SHE IS ABLE TO DRIBBLE A LITTLE BUT NO VOID. PT RETURNED TO BED CONTINUES TO BE RESTLESS MEDICATED FOR PAIN
--- NOTE | 2024-02-13 19:35 | NUR ---
REPORT RECEIVED FROM DAY SHIFT RN. PT LYING IN BED RESTING WITH EYES CLOSED. SpO2 96% WITH 2L/OM IN PLACE. BED ALARM FOR SAFETY. WHITE BOARD UPDATED.
--- NOTE | 2024-02-13 21:50 | NUR ---
PT RESTLESS AND MOANING IN BED. UNABLE TO COMMUNICATE NEEDS. 2PA TO BSC PT DRIBBLED SMALL AMOUNT. BACK TO BED. BLADDER SCANNED FOR 480 ML. MD NOTIFIED. NEW TELEPHONE ORDERS RECEIVED VERIFIED WITH READBACK METHOD.
[2024-02-13] MEDS ORDERED: ACETAMINOPHEN 650 MG SUPP PR PRN (22:00)
--- NOTE | 2024-02-13 22:37 | NUR ---
PT RESTLESS AND MOANING IN BED. PT OCCASIONALLY HOLDING HEAD AND BACK. PRN FOR PAIN ADMIN PER EMAR. PT STRAIGHT CATH PER ORDER FOLLOWING STERILE PROCEDURE WITH IMMEDIATE RETURN OF 450 ML CONCENTRATED URINE. PT EVELIA FAIR. IV BOLUS INFUSING PER ORDER. EVENING ASSESSMENT COMPLETE. PT UNABLE TO ANSWER ORIENTATION QUESTIONS BUT FOLLOWS SOME COMMANDS. PO MEDS HELD DUE TO SWALLOWING CONCERNS. MD AWARE. 2L/OM IN PLACE. SpO2 MID 90'S. HR 70'S. PT LEFT LYING IN RELAXED POSITION. BED ALARM FOR SAFETY. CALL LIGHT IN REACH.
[2024-02-14] VITALS (9 sets, daily range): BP systolic 142–163; BP diastolic 66–96
--- NOTE | 2024-02-14 00:01 | NUR ---
PT MOANING WITH LEGS OVER THE SIDE OF THE BED. 2PA TO BSC TO ATTEMPT TO VOID WITH NO RESULTS. BACK TO BED. PRN FOR PAIN ADMIN PER EMAR. PT QUIETLY RESTING WITH EYES CLOSED AT THIS TIME.
--- NOTE | 2024-02-14 01:30 | NUR ---
UNDERWRITING DIRECTOR TO ROOM FOR PULSE OX ALARMING. PT RESTING IN BED WITH EYES CLOSED. RESPIRATIONS EVEN AND UNLABORED. OXYMASK IN PLACE, O2 @ 2LPM. SAO2 84%. O2 TITRATED TO 3 LPM, SA 02 86%. O2 TITRATED TO 4 LPM, SA02 90%. PRIMARY RN NOTIFIED. PT COVERED WITH BLANKET. WAKES BRIEFLY AND QUICKLY FALLS BACK TO SLEEP. BED ALARM ACTIVE. ROOM IN VIEW OF RN STATION.
--- NOTE | 2024-02-14 02:47 | NUR ---
PT RESTING IN BED WITH EYES CLOSED IN RELAXED POSITION. SpO2 MID 90'S WITH 4L/OM IN PLACE. HR 70'S. RESPIRATIONS EVEN. BED ALARM FOR SAFETY.
--- NOTE | 2024-02-14 03:45 | NUR ---
SpO2 99% ON 4L/OM. OXYGEN TITRATED TO 2L. HR 60'S. PT LYING IN RELAXED POSITION. NO APPARENT DISTRESS NOTED. BED ALARM IN PLACE.
--- NOTE | 2024-02-14 04:43 | NUR ---
PT CRYING OUT, ATTEMPTING OOB WITHOUT ASSIST. PT UNABLE TO EXPRESS NEEDS. 2PA TO BSC FOR SEVERAL MINUTES TO ATTEMPT TO VOID WITH NO RESULTS. BACK TO BED. SIPS OF WATER OFFERED. PT CONTINUES TO CRY OUT. REPLIES "YES" WHEN ASKED IF SHE IS HURTING BUT UNABLE TO GIVE LOCATION OF PAIN. PT GRABS AT BACK. ASSISTED TO REPOSITION ON LEFT SIDE WITH PILLOWS. PRN FOR PAIN ADMIN PER EMAR. BLADDER SCANNED FOR 234 ML. 2L/OM IN PLACE. BED ALARM FOR SAFETY.
[2024-02-14 05:52] LABS: BASOPHILS 1.3 % (0-2); EOSINOPHILS 3.5 % (0-6); HEMATOCRIT 38.7 % (35.0-50.0); HEMOGLOBIN 12.6 g/dL (12.0-18.0); LYMPHOCYTES 36.8 % (24-44); MCHC 32.6 g/dl (30-36); MONOCYTES 8.4 % (0-12); PLATELET COUNT 303 K/uL (140-440); RBC 4.21 M/ul (4.3-5.7); RDW 13.9 (10.5-15.0)
--- NOTE | 2024-02-14 06:10 | NUR ---
CPOX ALARMING. SpO2 81% ON RA. HR 90'S. OXYMASK REPLACED AT 2L/NC. PT RECOVERED QUICKLY TO >90%. PT CRYING/HOLLERING OUT. CONSOLABLE AT TIMES. LAB AT BEDSIDE. PT RESTLESS, KICKING, AND SWINING ARMS WHILE BLOOD BEING DRAWN. PT BLADDER SCANNED, 280 ML PRESENT IN BLADDER. PENCIL MAKER ASKS IF PT IS IN PAIN, PT DOES NOT ANSWER. PT INTERMITTENTLY RESTS QUIETLY WITH EYES CLOSED, HOWEVER WAKES AND BEGINS YELLING AGAIN. BED ALARM ACTIVE. ROOM IN VIEW OF RN STATION WITH CURTAIN OPEN.
[2024-02-14 06:21] LABS: ANION GAP 13.2 (7-21); BUN/CREATININE RATIO 11.11 (6.0-28.6); CREATININE, SERUM 0.81 mg/dL (0.55-1.02); MAGNESIUM 1.7 mg/dL (1.8-2.4); POTASSIUM 4.2 mmol/L (3.5-5.1)
--- NOTE | 2024-02-14 06:59 | NUR ---
PT CONTINUES TO CRY OUT AND ATTEMPT OOB. PT ABLE TO ANSWER SOME SIMPLE YES/NO QUESTIONS. UP TO BSC WITH 2PA TO ATTEMPT TO VOID. PT ALLOWED SEVERAL MINUTES BEFORE TRANSFERRING BACK TO BED WITH NO RESULTS. PT HOLDING HEAD AND CRYING OUT. PRN FOR PAIN ADMIN PER EMAR. 2L/OM IN PLACE. PT LEFT LYING IN RELAXED POSITION WITH EYES CLOSED. BED ALARM IN PLACE.
--- NOTE | 2024-02-14 07:17 | NUR ---
PT RESTING SOUNDLY AT TIME OF SHIFT REPORT. SATS 96% ON 2L 02 BED ALARM IS ON FALL MATS IN PLACE.
--- NOTE | 2024-02-14 08:11 | NUR ---
PATIENT SLEEPING IN BED AT THIS TIME. LENS MARKER WENT INTO ROOM FOR HOURLY ROUNDS. CALL LIGHT WITHIN REACH, NO FURTHER NEEDS AT THIS TIME.
[2024-02-14] MEDS ORDERED: MAGNESIUM SULFATE 2 GM/50 ML BAG IV ONE (08:15)
--- NOTE | 2024-02-14 08:39 | NUR ---
PT BECOMES RESTLESS A SHORT TIME AFTER SHIFT EXCHANGE MOANING REMOVING 02 MASK AND MOVING AROUND IN THE BED. HAD BEEN MEDICATED FOR PAIN PRIOR TO END OF SHIFT ATIVAN PROVIDED FOR COMFORT.
--- NOTE | 2024-02-14 09:21 | NUR ---
CARE COORDINATED P/T IN TO WORK WITH PT
--- NOTE | 2024-02-14 09:39 | NUR ---
P/T GETS PT TO TOILET ENCOURAGES HER TO VOID SHE DOES NOT. BLADDER SCANNED AND HAS 234ML PRESENT. PT HAS REMAINED MOSTLY CALM SINCE ATIVAN. R/T WORKING WITH HER AT THIS TIME
--- NOTE | 2024-02-14 10:16 | NUR ---
PATIENT IN BED AT THIS TIME. MASONRY CONTRACTOR ADMINISTRATOR CHARTED VITALS AND I&O'S. PHYSICAL THERAPY CAME IN AT THIS TIME. CALL LIGHT WITHIN REACH, PATIENT HAS NO FURTHER NEEDS.
--- NOTE | 2024-02-14 10:25 | NUR ---
SPOKE WITH [id number], [place]. STATES SHE IS CURRENTLY TRYING TO GET PATIENT'S BELONGINGS TOGETHER AT [facility]. PLANNING TO LIKELY TRANSITION PATIENT TO LONGTERM PLACEMENT AT [facility]. DISCUSSED PATIENT NOT YET STABLE TO LEAVE THE HOSPITAL AND GIVEN UPDATE. VERBALIZES UNDERSTANDING. REQUESTING TO STILL USE [facility] FOR TRANSPORT WHEN PATIENT IS DISCHARGED.
--- NOTE | 2024-02-14 10:29 | NUR ---
PT WAKEN FOR MEDS ASKED HER IF SHE CAN SWALLOW SOME APPLESAUCE WITH HER MEDS IN IT SHE NODS YES AND OPENS HER MOUTH. SWALLOWS WITHOUT DIFFICULTY. PT MAKES EYE CONTACT TODAY WHICH SHE DID NOT YESTERDAY.
--- NOTE | 2024-02-14 10:59 | NUR ---
PATIENT IN BED AT THIS TIME. PRECISION AIRCRAFT STRUCTURE ASSEMBLER WENT INTO PATIENTS ROOM FOR HOURLY ROUNDS, RN IN ROOM AT BEDSIDE. CALL LIGHT WITHIN REACH, NO FURTHER NEEDS AT THIS TIME.
--- NOTE | 2024-02-14 11:14 | NUR ---
DR SANDHU IN TO SEE PT REPORT GIVEN. PT RESTING QUIETLY NOW BLADDER SCANNED FOR 182 NO INDICATION OF DISCOMFORT
--- NOTE | 2024-02-14 12:19 | NUR ---
PT IS RESTING SOUNDLY APPEARS RELAXED. SATS 97% ON 2L
--- NOTE | 2024-02-14 12:20 | NUR ---
BLADDER SCAN WAS 282ML, NOT 182 PREVIOUSLY RECORDED
--- NOTE | 2024-02-14 13:52 | NUR ---
ASSISTED PT UP TO TOILET SHE DOES NOT VOID.
--- NOTE | 2024-02-14 14:33 | NUR ---
PT RESTING SOUNDLY [address]
--- NOTE | 2024-02-14 15:00 | NUR ---
PATIENT IN BED AT THIS TIME. ORTHOPAEDIC PHYSICIAN ASSISTANT CHARTED VITALS AND I&O'S. CALL LIGHT WITHIN REACH, NO FURTHER NEEDS AT THIS TIME.
--- NOTE | 2024-02-14 16:23 | NUR ---
PATIENT GIVEN 0.5MG OF IV DILAUDID FOR 5/10 PAIN, PER NON-VERBAL PAIN SCALE.
--- NOTE | 2024-02-14 16:45 | NUR ---
PT HAS LARGE INCONT VOID UNDERGARMENTS CHANGED JEANNE CARE COMPLETE. PT REMAINS SOMEWHAT RESTLESS AT THIS TIME, CALMS WITH VERBAL REASSURANCE. [address] SATS 100% BED ALARM IS SET FALL MAT IN PLACE
--- NOTE | 2024-02-14 19:10 | NUR ---
RECIEVED REPORT FROM [facility]. PATIENT RESTING IN BED ON BACK WITH EYES CLOSED, LEGS FLAT. RESPIRATIONS EVEN AND UNLABORED. OXYMASK IN PLACE, TITRATED DOWN FROM 3L TO 1L, PATIENT O2 SATURATION STARTED AT 99% ON 3L, DOWN TO 94% ON 1L. CPOX IN PLACE. NO NEEDS IDENTIFIED AT THIS TIME. CALL LIGHT IN REACH. BED ALARM ACTIVE. FALL MATS IN PLACE.
[2024-02-14] MEDS ORDERED: LACTATED RINGER'S 1,000 ML IV ONE (20:00)
--- NOTE | 2024-02-14 20:07 | NUR ---
IN ROOM TO ADMINISTER MEDICATIONS, SEE E-MAR. PATIENT MOANING/YELLING OUT. RESTLESS IN BED, PATIENT NON-VERBAL WHEN ASKED ABOUT PAIN, PUTTING HAND UNDER RIGHT HIP. DRAWING KNEES UP TO CHEST. PRN PAIN MEDICATION ADMINISTERED, SEE E-MAR. ASSESSMENT COMPLETED. NO OTHER NEEDS IDENTIFIED AT THIS TIME. CPOX IN [place]. O2 SATURATION 90% ON 1L VIA OXYMASK. CALL LIGHT IN REACH. BED ALARM ACTIVE. FALL MAT IN PLACE.
--- NOTE | 2024-02-14 21:20 | NUR ---
pt BLADDER SCANNED FOR 593 MLS. NONVERBAL WHEN ASKED IF NEEDS TO VOID. 2PA TO PIVOT TO BSC FOR VOID, 290 MLS IN BSC WITH DRIBBLING ON FLOOR. pt ASSISTED BACK TO BED, 2P MAX ASSIST. ATTENDS CHANGED, JEANNE CARE PROVIDED. pt ROLLING IN BED, AGITATED, MOANING. RN ESPERANZA IN ROOM FOR PRN MEDICATION ADMINISTRATION. IVF BOLUS INFUSING WNL. BED ALARM ON AND IN LOW POSITION. FALL MAT IN PLACE.
--- NOTE | 2024-02-14 23:10 | NUR ---
IN ROOM TO ROUND ON PATIENT. PATIENT MOANING/YELLING OUT, RESTLESS IN BED, LEGS DRAWN UP, ARMS STRETCHED OUT IN FRONT. PATIENT YELLING "MOM" AND "OWW". WHEN ASKED IF PATIENT HAD PAIN, PATIENT VERBALIZED "YES". PATIENT UNABLE TO VERBALIZE A LOCATION FOR THE PAIN WHEN ASKED WHERE THE PAIN WAS. PRN PAIN MEDICATION ADMINISTERED, SEE E-MAR. PATIENT ABLE TO RETURN TO RESTING ON BACK WITH LEGS FLAT AND ARMS FLAT, MOANING CEASED. CPOX IN PLACE. O2 SATURATION 89% ON 1L VIA OXYMASK. NO OTHER NEEDS IDENTIFIED AT THIS TIME. CALL LIGHT IN REACH. BED ALARM ACTIVE. FALL MATS IN PLACE.
[2024-02-15] VITALS (8 sets, daily range): BP systolic 145–193; BP diastolic 58–94
--- NOTE | 2024-02-15 00:03 | NUR ---
IN ROOM TO ROUND ON PATIENT. PATIENT RESTING ON BACK WITH EYES CLOSED. CPOX IN PLACE, O2 SATURATION 96% ON 1L VIA OXYMASK. NO NEEDS IDENTIFIED AT THIS TIME. RESPIRATIONS EVEN AND UNLABORED. CALL LIGHT IN REACH. BED ALARM ACTIVE. FALL MATS IN PLACE.
--- NOTE | 2024-02-15 01:43 | NUR ---
IN ROOM TO ROUND ON PATIENT. PATIENT RESTING IN BED ON BACK WITH EYES CLOSED. LEGS AND ARMS FLAT ON THE BED. CPOX IN PLACE. O2 SATURATION 94% ON 1L VIA OXYMASK. NO NEEDS IDENTIFIED AT THIS TIME. CALL LIGHT IN REACH. BED ALARM ACTIVE. FALL MAT IN PLACE.
--- NOTE | 2024-02-15 02:30 | NUR ---
IN ROOM TO ROUND ON PATIENT. PATIENT MOANING/YELLING OUT. PATIENT UNABLE TO VERBALIZE C/O PAIN OR NEEDS TO TOILET. BLADDER SCAN COMPLETED, 555, ML. AFTER BLADDER SCAN, PATIENT HAD LARGE INCONTINENCE IN BREIF. 2PA TO [facility]. PATIENT VOIDED ANOTHER 300ML. JEANNE CARE PROVIDED. PATIENT 2PA BACK TO BED. PATIENT CONTINUED TO BE RESTLESS IN BED, MOANING, AND PUTTING RIGHT HAND UNDER RIGHT HIP. PATIENT POSITIONED WITH PILLOW UNDER RIGHT HIP. PROMPTLY PULLED PILLOW OUT. PATIENT CONTINUED TO PUT HER RIGHT HAND UNDER HER RIGHT HIP. PRN PAIN MEDICATION ADMINISTERED, SEE E-MAR. OXYMASK REAPPLIED AT 1L. CPOX IN PLACE. O2 SATURATION 90%. PATIENT ABLE TO RETURN TO RELAXED BODY POSITION, ON BACK IN BED WITH EYES CLOSED. MOANING CEASED. RESPIRATIONS EVEN AND UNLABORED. NO NEEDS IDENTIFIED AT THIS TIME. CALL LIGHT IN REACH. BED ALARM ACTIVE. FALL MAT IN PLACE.
--- NOTE | 2024-02-15 03:46 | NUR ---
IN ROOM TO ROUND ON PATIENT. PATIENT RESTING IN BED ON BACK WITH EYES CLOSED. BODY RELAXED. LEGS AND ARMS FLAT ON THE BED. PATIENT LAYING STILL. 1L VIA OXYMASK IN PLACE. O2 SATURTION 96%. OXYGEN TRIAL TO ROOM AIR. PATIENT O2 SATURATION REMAINS 94-96%. RESPIRATIONS EVEN AND UNLABORED. NO NEEDS IDENTIFIED AT THIS TIME. CALL LIGHT IN REACH. BED ALARM ACTIVE. FALL MATS IN PLACE.
[2024-02-15 05:33] LABS: BASOPHILS 0.9 % (0-2); EOSINOPHILS 3.8 % (0-6); HEMATOCRIT 36.4 % (35.0-50.0); HEMOGLOBIN 11.8 g/dL (12.0-18.0); LYMPHOCYTES 41.4 % (24-44); MCH 29.7 (27-36); MCHC 32.5 g/dl (30-36); MCV 91.4 fl (81-99); NEUTROPHILS 44.9 % (39-80); PLATELET COUNT 262 K/uL (140-440); RBC 3.99 M/ul (4.3-5.7); RDW 13.8 (10.5-15.0)
[2024-02-15 05:49] LABS: ANION GAP 14.8 (7-21); BUN/CREATININE RATIO 9.09 (6.0-28.6); CALCIUM 8.4 mg/dL (8.5-10.1); CREATININE, SERUM 0.66 mg/dL (0.55-1.02); POTASSIUM 3.8 mmol/L (3.5-5.1)
--- NOTE | 2024-02-15 06:08 | NUR ---
IN ROOM TO ROUND ON PATIENT. PATIENT RESTING IN BED ON BACK WITH FEET ON THE BED, KNEES BENT. PATIENT'S EYES ARE CLOSED AND BODY STILL. PATIENT TOOK OFF OXYMASK. CPOX IN PLACE. O2 SATURATION 90% ON RA. NO NEEDS IDENTIFIED AT THIS TIME. CALL LIGHT IN REACH. BED ALARM ACTIVE. FALL MATS IN PLACE.
--- NOTE | 2024-02-15 06:51 | NUR ---
PT MOANING AND RESTLESS IN BED. 2PA PIVOT TX TO BSC TO VOID 150 ML YELLOW URINE. STAFF ASSIST WITH JEANNE CARE. BACK TO BED. PT HOLDING BACK AND MOANING. PRN FOR PAIN ADMIN PER EMAR. SpO2 LOW 81% ON RA. 1L/OM PLACED. PT LEFT LYING IN RELAXED POSITION. BED ALARM IN PLACE. PT IN VIEW OF NURSES STATION.
--- NOTE | 2024-02-15 07:16 | NUR ---
REPORT RECEIVED FROM STAN GENAO AND ESPERANZA RN. PT RESTING IN BED WITH OXI-MASK IN PLACE, EYES CLOSED, RR EVEN AND UNLABORED. CPOX AT BEDSIDE. CALL LIGHT IN REACH.
[2024-02-15] MEDS ORDERED: DEXTROSE 50% 50 ML SYR IV ONE ×2 (07:30→15:30)
--- NOTE | 2024-02-15 07:48 | NUR ---
RA TRIAL 85%.
--- NOTE | 2024-02-15 08:24 | NUR ---
PATIENT IN BED AT THIS TIME. PUNCH PRESS OPERATOR HELPER WENT INTO PATIENTS ROOM FOR HOURLY ROUNDS. CALL LIGHT WITHIN REACH, NO FURTHER NEEDS AT THIS TIME.
--- NOTE | 2024-02-15 09:09 | NUR ---
MEDICATION ADMINISTERED, SEE MAY. PT MOANING REPEATEDLY, UNABLE TO ANSWER QUESTIONS. PT REPOSITIONED IN BED WITH STAN ANGELES. OXYMASK RE-APPLIED PT HAD REMOVED. CPOX AT BEDSIDE. VITAL SIGNS TAKEN. BED IN LOWEST POSITION, BED ALARM ON, FALL MATS IN PLACE. CALL LIGHT IN REACH.
--- NOTE | 2024-02-15 09:20 | NUR ---
UPDATED [facility] AT [facility]. DC DATE REMAINS PENDING CLINICAL STATUS. NOT YET MEDICALLY CLEARED FOR DC.
--- NOTE | 2024-02-15 09:59 | NUR ---
PATIENT IS GOING DOWN TO IMAGING AT THIS TIME.
--- NOTE | 2024-02-15 10:01 | NUR ---
IMAGING TAKES PT OFF THE FLOOR AT THIS TIME.
--- NOTE | 2024-02-15 11:01 | NUR ---
RECEIVED A CALL FROM CT, THEY WERE UNABLE TO COMPLETE THE CT AT THIS TIME DUE TO PATIENT BEING VERY AGGITATED AND UNABLE TO SAFELY STAY ON THE BED. UPON REVIEWING WITH PRIMARY RN, NO PREMEDICATIONS WERE GIVEN PRIOR TO CT, WHICH WAS REQUESTED PRIOR TO HER GOING. PT JUST HAD THE DILAUDID, REQUESTING TO GIVEN THE ATIVAN AND THEN CT WILL ATTEMPT SCAN AGAIN AT 11:10. MD INFORMED AND AGREES WITH PLAN AT THIS TIME. IF UNABLE TO GET CT, PER MD, HOLD OFF ON SCAN AND WILL RETRY THIS EVENING WITH OTHER MEDICATIONS IF NEEDED. PRIMARY RN UPDATED AND INFORMED OF PLAN. CT REQUESTING STAFF TO ACCOMPANY HER DOWN FOR HER SCAN.
--- NOTE | 2024-02-15 11:05 | NUR ---
ASSESSMENT COMPLETE. PT LUNG SOUNDS CLEAR THROUGHOUT, PT UNABLE TO FOLLOW COMMANDS TO TAKE DEEP BREATHS. HEART SOUNDS HEARD, IRREGULAR, PT HAS HX OF AFIB AND A PACEMAKER. BOWEL TONES ACTIVE, PT DOES NOT APPEAR TO HAVE ANY TENDERNESS TO PALPATION. PULSES 2+ IN ALL EXTREMETIES, PT UNABLE TO STATE WHETHER SHE IS HAVING NUMBNESS/TINGLING, NO EDEMA NOTED. PTs L HAYNES HAS SCATTERED, SMALL SCABBING. PT OCCASIONALLY MOANS. PT HAS OXYMASK IN PLACE AT 2L O2 AT THIS TIME, CPOX IN PLACE AT BEDSIDE. PT UNABLE TO ANSWER ANY QUESTIONS OR RESPOND IN A VERBALLY COMPREHENSIBLE WAY. NO OTHER NEEDS AT THIS TIME, CALL LIGHT IN REACH.
--- NOTE | 2024-02-15 11:41 | NUR ---
THIS RN AND STAN ANGELESCHARGE AUTHORIZER PT DOWN TO CT VIA HOSPITAL BED. CT TECHS ASSIST IN TRANSFERRING PT TO STRETCHER AND BACK TO BED. PT TRANSPORTED BACK TO ROOM BY THIS RN AND STAN ANGELES AT THIS TIME. OXYGEN VIA OXYMASK AT 1L, CPOX AT BEDSIDE.
--- NOTE | 2024-02-15 12:19 | NUR ---
PATIENT IS LYING IN BED WITH 1 L NC AND THE CPOX AT BEDSIDE. PATIENT WITH EYES CLOSED AND RESPIRATIONS ARE EVEN AND UNLABORED. CALL LIGHT IN REACH.
--- NOTE | 2024-02-15 13:25 | NUR ---
PT BLADDER SCAN SHOWS 581ML. PT REMAINS DROWSY AT THIS TIME. ORDER IN CHART TO STRAIGHT CATH IF BLADDER SCAN SHOWS 600ML. NO ACTION AT THIS TIME.
--- NOTE | 2024-02-15 14:12 | NUR ---
PT RESTING WITH EYES CLOSED, RR EVEN AND UNLABORED, CPOX AT BEDSIDE, CALL LIGHT IN REACH.
--- NOTE | 2024-02-15 14:22 | NUR ---
PATIENT IN BED AT THIS TIME. BESSEMER BOTTOM MAKER AND RN CHANGED PATIENTS BRIEF AND PAD ON BED. CALL LIGHT WITHIN REACH, NO FURTHER NEEDS AT THIS TIME.
[2024-02-15] MEDS ORDERED: DEXTROSE 5% - LACTATED RINGERS 1,000 ML IV SCH (15:00)
[2024-02-15] MEDS ORDERED: IBLOOD GLUCOSE TEST STRIP 1 EA TEST VI SCH (15:00)
--- NOTE | 2024-02-15 15:19 | NUR ---
PATIENT IN BED AT THIS TIME. [employer] WENT INTO PATIENTS ROOM FOR HOURLY ROUNDS. CALL LIGHT WITHIN REACH, NO FURTHER NEEDS AT THIS TIME.
--- NOTE | 2024-02-15 15:21 | NUR ---
MD GIVES VERBAL ORDER FOR IV DEXTROSE, ONE TIME. INPUT ORDER.
--- NOTE | 2024-02-15 15:23 | NUR ---
SECOND ASSESSMENT COMPLETE. PT MOANING, GRIMACING, AND RESTLESS IN BED. IV IN R UPPER ARM ASSESSED, SLUGGISH FLUSH WITH NO BLOOD RETURN NOTED. MD ORDERS IV FLUIDS, ATTEMPTED TO START BUT IV PUMP CONTINUOUSLY ALARMING OCCLUDED. CHARGE NURSE STAN YOU ALERTED AND CALLS FOR NEW ULTRASOUND GUIDED IV START. VISITORS ARRIVE FOR PT. NO OTHER NEEDS AT THIS TIME, CALL LIGHT IN REACH.
[2024-02-15] MEDS ORDERED: ARTIFICIAL TEARS 15 ML BTL OU PRN (16:00)
[2024-02-15] MEDS ORDERED: ATROPINE SULFATE 1% OPTH DROPS SL PRN (16:00)
--- NOTE | 2024-02-15 16:13 | NUR ---
PATIENT CONSULT FOR HOSPICE RECEIVED. CALLED AND SPOKE WITH BRICE AT [facility] THEY CAN ACCEPT PATIENT TOMORROW AROUND 1100. PLAN TO DC VIA NON-EMERGENT EMS TOMORROW AROUND 1000. DR. GAN NOTIFIED AND ORDERS GIVEN FOR DC.
[2024-02-15] MEDS ORDERED: LORazepam 2 MG/ML ML SL PRN (16:15)
[2024-02-15] MEDS ORDERED: fentaNYL citrate 100 MCG/2 ML VIAL IV PRN (16:15)
--- NOTE | 2024-02-15 16:30 | NUR ---
Spoke with pts daughter in law, Crystal. Crystal is an RN. They have no concerns for pt to go to [facility] tomorrow and admit to hospice. We did discuss if pt suddenly shows improvement she can revoke hospice at anytime with one signature. Staff are attempting to place an IV and I questioned why as pt is on comfort care. Dr plummer ordered as pt was unable to take MS drops and they were considering nasal fentanyl as well. [facility] pharmacist is there and we discussed pharmacy has oxycodone drops for pt unable to take morphine. We called and spoke with Dr. Welsh and he agreed to this order and placement of deleon as pt is requiring a straight cath. charge nurse updated.
[2024-02-15] MEDS ORDERED: OXYCODONE HCL 20 MG/ML SYR SL PRN (16:45)
--- NOTE | 2024-02-15 16:50 | NUR ---
Called and was able to speak with Sophia at [facility]. Updated to pts declining status. She requests pts chart and there is a possibility they can admit this pt tomorrow at 1 pm if pt qualifies. Chart printed and faxed to [facility].
[2024-02-15] MEDS ORDERED: OXYCODONE HCL SL PRN (17:00)
--- NOTE | 2024-02-15 17:20 | NUR ---
MEDICATION ADMINISTERED, SEE MAR. PT MOANING CONTINUOUSLY AND RESTLESS IN BED. LATEX FREE 14FR BERNSTEIN CATH PLACED, IMMEDIATE RETURN OF CLEAR, YELLOW URINE NOTED IN TUBING AND BAG. BERNSTEIN CATH ATTACHED TO R THIGH, CATH BAG TO BEDSIDE DRAINING FREELY. PT REPOSITIONED IN BED, WARM BLANKETS SUPPLIED. BED IN LOWEST POSITION, BED ALARM ON. FALL MAT X1 IN PLACE. NO OTHER NEEDS AT THIS TIME, CALL LIGHT IN REACH.
--- NOTE | 2024-02-15 17:24 | NUR ---
405T completed and emailed to Marino at [facility] requesting auth for payment to [facility] for transport [place] [facility].
[2024-02-15] MEDS ORDERED: HYDROmorphone HCL 1 MG/ML SYR IV PRN (19:00)
[2024-02-15] MEDS ORDERED: FENTANYL 25 MCG/HR 1 EA TDSY TD SCH (19:00)
--- NOTE | 2024-02-15 19:10 | NUR ---
PATIENT IN BED AT THIS TIME. SPECIAL EDUCATION PARAPROFESSIONAL CHARTED VITALS AND I&O'S. CALL LIGHT WITHN REACH, NO FURTHER NEEDS AT THIS TIME.
--- NOTE | 2024-02-15 19:30 | NUR ---
REPORT RECIEVED FROM DAY SHIFT RN. PATIENT RESTING IN BED. RR EVEN AND UNLABORED. CALL LIGHT IN REACH.
[2024-02-15] MEDS ORDERED: ONDANSETRON 4 MG TAB ODT SL SCH (20:00)
--- NOTE | 2024-02-15 20:53 | NUR ---
PATIENT RESTING IN BED ON BACK WITH EYES CLOSED, APPEARS COMFORTABLE. RESPIRATIONS EVEN AND UNLABORED. PATIENT IS SHOWING NO SIGNS OF DISTRESS. NO FURTHER NEEDS. CALL LIGHT IN REACH.
[2024-02-15] MEDS ORDERED: ONDANSETRON 4 MG TAB ODT SL PRN (21:15)
--- NOTE | 2024-02-15 22:04 | NUR ---
PATIENT HEARD HOLLERING OUT IN PAIN. PATIENT APPEARS RESTLESS AND PAINFUL. PRN PAIN MEDICATION ADMINISTERED. NO FURTHER NEEDS. BED ALARM ON FOR SAFETY. CALL LIGHT IN REACH.
--- NOTE | 2024-02-16 01:01 | NUR ---
PATIENT RESTING IN BED WITH EYES CLOSED. RESPIRATIONS EVEN AND UNLABORED. CALL LIGHT IN REACH.
--- NOTE | 2024-02-16 02:10 | NUR ---
PATIENT HOLLERING OUT. APPEARS TO BE PAINFUL. PRN PAIN MEDICATION ADMINISTERED. NO FURTHER NEEDS. BED ALARM ON FOR SAFETY.
--- NOTE | 2024-02-16 05:07 | NUR ---
PATIENT RESTING IN BED. ORAL CARE PROVIDED. CHAPSTICK PLACED. CALL LIGHT IN REACH.
--- NOTE | 2024-02-16 07:05 | NUR ---
REPORT RECEIVED FROM STAN HURLEY. PT RESTING IN BED QUIETLY WITH EYES OPEN, BODY APPEARS RELAXED. BED IS IN LOWEST POSITION, FALL MATS IN PLACE, CALL LIGHT IN REACH.
--- NOTE | 2024-02-16 08:13 | NUR ---
MEDICATIONS ADMINISTERED, SEE MAR. THIS RN AND STAN ANGELES PROVIDE PT WITH A BED BATH, FRESH GOWN, AND FRESH WARM BLANKETS. PT REPOSITIONED WITH PILLOW UNDER R HIP FOR COMFORT. PT MOANS OCCASIONALLY THROUGHOUT, NO COHERENT VERBALIZATION AT THIS TIME. JEANNE-CARE AND BERNSTEIN CARE PROVIDED, BERNSTEIN CATH AT BEDSIDE FREELY DRAINING CLEAR, YELLOW URINE. BED IN LOWEST POSITION, NO OTHER NEEDS AT THIS TIME, CALL LIGHT IN REACH.
[2024-02-16] MEDS ORDERED: OXYCODONE HCL 20 MG/ML SYR SL PRN (09:30)
--- NOTE | 2024-02-16 09:45 | NUR ---
ASSESSMENT COMPLETE. PT HAS TWO FAMILY VISITORS AT THIS TIME WELL. PT LUNG SOUNDS CLEAR THROUGHOUT, HEART SOUNDS HEARD WNL AND REGULAR. BOWEL TONES HYPOACTIVE. UNABLE TO ASSESS IF PT IS NAUSEATED AT THIS TIME D/T MENTAL STATUS. PULSES 2+ IN ALL EXTREMETIES, UNABLE TO ASSESS FOR NUMBNESS OR TINGLING. PT RESPONDS TO TOUCH WITH MOANS, NO COMPREHENSIBLE WORDS. SKIN WITH SCATTERED BRUISING TO ARMS. POWDER APPLIED THIS AM, ALLEVYN PLACED TO BUTTOCKS FOR REDNESS THIS AM. IV FLUSHES WNL, THOUGH SLUGGISH. PT RESTING IN BED AT THIS TIME, NO OTHER NEEDS IDENTIFIED. PT FAMILY TAKES TWO PT BELONGING BAGS AT THIS TIME TO TRANSPORT TO FACILITY. BED IN LOWEST POSITION, CALL LIGHT IN REACH.
--- NOTE | 2024-02-16 10:10 | NUR ---
AUSTIN, DAUGHTER IN LAW, CALLED THIS MORNING AND VERIFIED SHE KNOWS PATIENT IS GOING TO [facility] TODAY. PATIENT ORDERS, PRESCRIPTION AND PASRR FAXED TO [facility]. CALLED [facility] TO SET UP NON-EMERGENT TRANSPORT FOR 1100. HAMMAD AT [facility] STATES THEY WILL CALL BACK WITH CONFIRMATION OF TIME FOR TRANSPORT.
[2024-02-16 10:37] VITALS: BP 155/61
--- NOTE | 2024-02-16 10:40 | NUR ---
PT RESTING IN BED WITH EYES OPEN, APPEARS RELAXED AND COMFORTABLE. RR EVEN AND UNLABORED, BED IN LOWEST POSITION, NO NEEDS IDENTIFIED. CALL LIGHT IN REACH.
--- NOTE | 2024-02-16 12:08 | NUR ---
PT LOADED ONTO EMS TRANSPORT WITH THIS RN, TWO EMS, AND STAN ANGELES. PTs BELONGINGS PREVIOUSLY REMOVED FROM ROOM BY PT FAMILY MEMBERS. PT LEAVES VIA STRETCHER AND TWO EMS PERSONNEL. DISCHARGE PACKET AND PRESCRIPTION SENT WITH EMS.
--- NOTE | 2024-02-16 12:30 | NUR ---
REPORT GIVEN TO DONALD AT [facility] IN [place].
[2024-02-18] MEDS ORDERED: FENTANYL 25 MCG/HR 1 EA TDSY TD SCH (09:00)
[2024-02-18] MEDS ORDERED: fentaNYL 1 EACH TDSY TD SCH (09:00)
[2024-02-18] MEDS ORDERED: SCOPOLAMINE 1 MG/3 DAYS PATCH 1 EACH TDSY TD SCH (09:00)
== END 2024-02-16 12:00 | DRG 602 ==
LOC: ED 18:05 → MS 21:00
PROVIDERS: Family Medicine; Internal Medicine; Student in an Organized Health Care Education/Training Program; ADMIT Student in an Organized Health Care Education/Training Program; ATTEND Student in an Organized Health Care Education/Training Program
DX: L03.116 Cellulitis of left lower limb (principal); G92.8 Other toxic encephalopathy; J96.21 Acute and chronic respiratory failure with hypoxia; E87.0 Hyperosmolality and hypernatremia; R47.01 Aphasia; I48.91 Unspecified atrial fibrillation; I11.0 Hypertensive heart disease with heart failure; Z90.49 Acquired absence of other specified parts of digestive tract; Z86.711 Personal history of pulmonary embolism; Z66 Do not resuscitate; Z51.5 Encounter for palliative care; E87.6 Hypokalemia; M35.3 Polymyalgia rheumatica; M19.90 Unspecified osteoarthritis, unspecified site; F39 Unspecified mood [affective] disorder; Z91.040 Latex allergy status; Z88.8 Allergy status to other drugs, medicaments and biological substances; Z98.1 Arthrodesis status; Z95.0 Presence of cardiac pacemaker; Z79.01 Long term (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 of anticoagulants; Z79.899 Other long term (current) drug therapy
CPT/HCPCS: 36415; 51798; 70450; 70496; 70498; 71045; 74177; 80048; 80053; 80061; 81001; 82553; 82803; 83036; 83605; 83735; 83880; 84443; 84484; 85025; 85651; 86140; 87040; 94640; 94760; 94762; 96374; 97116; 97161; 97165; 97530; 97535; 99284-25; A9270; J0360; J0692; J0878; J1120; J1171; J1644; J2060; J2270; J2405; J2470; J2543; J3010; J3475; J3480; J3490; J7060; J7070; J7121; Q9967